=== PATIENT | female | born 1975 | race Caucasian/White ===

== ENCOUNTER 2020-01-30 03:58 | Emergency (ER) | payer MEDICAID, SELFPAY ==
[2020-01-30 04:22] VITALS: BP 203/106; PULSE 89; RESP 16; TEMP 36.9; O2SAT 98; BMI 34.3
[2020-01-30] MEDS: ondansetron 2 mg/ML SDV 2 mL 4 MG IVP (05:30)
[2020-01-30] MEDS: ketorolac 30 mg/mL INJ IVP (05:30)
[2020-01-30] MEDS: dexamethasone 4 mg/mL INJ IVP (05:40)
[2020-01-30 05:42] VITALS: RESP 16; O2SAT 97
[2020-01-30] MEDS: fentaNYL 50 mcg/mL INJ 2mL 100 MCG IVP (05:42)
--- NOTE | 2020-01-30 06:09 | ED_ITS ---
HPI - Headache General: Chief Complaint: Headache Stated Complaint: headache after seizure Time Seen by Provider: 01/30/20 04:44 History of Present Illness: HPI Narrative: 44-year-old lady with a history of stroke. She has a chronic right-sided weakness. 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 She presents with a significant headache following a seizure that started this morning while she was in bed. He was a bit of a prolonged seizure for her, but she recovered. She had significant headache following. She usually takes tizanidine for this following a seizure. She took one, but it did not seem to be helping. She took Tylenol migraine, but that did not help much either. She was concerned because those usually do help. She was also hypertensive. MD elicited complaint: headache and migraine Onset (ago): hour(s) Associated symptoms: Reports nausea; Deny chest pain, confusion, fever(s), rash or vomiting Review of Systems Const: Denies: fever or chills Eyes: Reports: blurry vision; Denies: change in vision ENMT: Denies: painful swallowing, bleeding gums or facial/sinus pain Card: Denies: chest pain, palpitations or irregular heart rhythm Resp: Denies: shortness of breath, productive cough, non-productive cough or wheezing GI: Reports: nausea; Denies: abdominal pain or vomiting : Denies: painful urination or blood in urine Musc: Reports: neck pain; Denies: back pain Skin/Breast: Denies: rash or itching Neuro: Reports: headache, dizziness and seizure-like activity; Denies: vertigo or confusion Psych: Denies: anxiety PFSH ED PFSH: Social History Smoking and tobacco status: never smoked Physical Exam Const: GENERAL APPEARANCE: well developed ORIENTATION/CONSCIOUSNESS: Yes oriented to person, Yes oriented to place and Yes oriented to time HENMT: COMMON NORMALS: normocephalic, external ears normal and external nose normal HEAD & SCALP: normocephalic FACE & SINUS: normal facial exam NOSE: external nose normal and no nasal discharge EXTERNAL EAR: Yes external ears normal MOUTH: tongue normal Eye: COMMON NORMALS: PERRL, EOMs intact bilaterally and conjunctivae normal EYELID: eyelids normal CONJUNCTIVA: Yes conjunctivae normal PUPIL: Yes PERRL Chest: COMMONS NORMALS: inspection of chest normal CHEST: No tenderness Resp: COMMON NORMALS: clear to auscultation bilaterally EFFORT & INSPECTION: No tachypneic, No respiratory distress, No retractions, No uses accessory muscles and No tracheal deviation AUSCULTATION: clear to auscultation bilaterally, no rhonchi, no wheezes and lung sounds not diminished Cardio: COMMON NORMALS: regular rate and regular rhythm RATE: regular rate RHYTHM: regular rhythm HEART SOUNDS: no murmurs PERIPHERAL PULSES: radial pulses present GI: INSPECTION: No abdominal distension AUSCULTATION: No hyperactive bowel sounds and No hypoactive bowel sounds PALPATION: No guarding and No rigid PERCUSSION: no dullness to percussion and no tympanic to percussion Neuro: SENSORIUM/ORIENTATION: Yes oriented to person, Yes oriented to place and Yes oriented to time CRANIAL NERVES: Yes CN normal except as noted SPEECH: other (Mild slurring, chronic) GAIT: Yes unable to assess gait MOTOR EXAM: pronator drift (Weakness on the right, chronic) Psych: COMMON NORMALS: mental status grossly normal Skin: COMMON NORMALS: no rashes or lesions noted GENERAL SKIN EXAM: no rashes or lesions noted Course Vital Signs: Vital signs: Vital Signs Temperature 98.4 F 01/30/20 04:22 Pulse Rate 89 01/30/20 04:22 Respiratory Rate 16 01/30/20 05:42 Blood Pressure 203/106 01/30/20 04:22 Pulse Oximetry 97 01/30/20 05:42 MDM - Headache MDM Narrative: Medical decision making narrative: Patient comes in with a headache following a seizure. Her previous seizure last was 10 days or so ago. She has these frequently with headaches following them frequently. This is not terribly different from her normal seizure episode. She just did not improve with home medication. She is improved, and back to baseline at this point. I do not believe further testing is necessary. Her blood pressure is much improved. She will be allowed discharge. She took Imitrex at one point for migraines which worked. She will be prescribed this Discharge Plan Discharge Patient Disposition: Home, Self-Care Clinical Impression: Seizure Headache Qualifiers: Headache type: unspecified Headache chronicity pattern: acute headache Intractability: not intractable Qualified Code(s): R51 - Headache Condition: Stable Prescriptions: New Imitrex 100 mg tablet See Rx Instructions .ROUTE .COMPLEX Qty: 10 RF: 0 Discharge Orders: Discharge Order (Routine); Ordered 01/30/20 Ordered By: Davy Ferraro Referrals: Shefali Russo DO [Family Provider] - Discharge Diet: Usual diet Discharge Activity: Increase activity as tolerated Patient Instructions: Acute Headache (ED) Activity Restrictions/Additional Instructions: Return for worsening weakness, repeated seizures, worsening headache despite treatment, mental status changes, other concerning symptoms Coding Level of Care Code ED Analytical Data Scientist for Chg Fwd Exam Comprehensive
--- NOTE | 2020-01-30 06:22 | PC.NURSE ---
Pt's mother and caregiver: Aleta [phone]
--- NOTE | 2020-01-30 06:35 | PC.NURSE ---
vm left on pt's mother to inform pt she is ready for discharge
[2020-01-30 06:52] VITALS: BP 123/69; PULSE 93; RESP 14; O2SAT 95
--- NOTE | 2020-01-30 06:57 | PC.NURSE ---
I agree with Lauren, Core Driller Helper assessment
== END 2020-01-30 06:52 | disposition home or self-care (01) ==
PROVIDERS: Emergency Provider Emergency Medicine; Family Provider Family Medicine
DX: R51 Headache (principal); R56.9 Unspecified convulsions
CPT/HCPCS: 12345; 96374; 96375; 99282; 99283; J1100; J1885; J2405; J3010

== ENCOUNTER 2020-03-09 09:54 | Emergency (ER) | payer MEDICAID, SELFPAY ==
[2020-03-09 10:04] VITALS: BP 238/140; PULSE 83; RESP 17; TEMP 36.7; O2SAT 97; BMI 40.7
--- NOTE | 2020-03-09 10:09 | XR_ITS ---
WS: [id number] PORTABLE CHEST HISTORY: chest pain COMPARISON: 03/24/2009 Lungs are clear and well expanded. No pleural effusion or pneumothorax. Cardiac size: Normal. Mediastinum/Aorta: Normal mediastinum. No osseous abnormality seen. XR/XR chest 1V portable [id number] IMPRESSION: Unremarkable portable chest.
--- NOTE | 2020-03-09 10:09 | ECG_ITS ---
Measurements Intervals [place] Rate: 76 P: 26 AL: 191 QRS: 14 QRSD: 103 T: 50 QT: 430 QTc: 485 SINUS RHYTHM NONSPECIFIC T-WAVE ABNORMALITY INTERPRETATION BASED ON A DEFAULT AGE OF 40 YEARS No previous ECG available for comparison Electronically Signed On 03-09-2020 18:55:03 CDT by Emily Yanez M.D. [email or web address]
--- NOTE | 2020-03-09 10:19 | CT_ITS ---
WS: [id number] CT HEAD NONCONTRAST HISTORY: severe HTN, ALATORRE; seizure yesterday TECHNIQUE: Contiguous axial imaging performed through the brain in 2.5 mm imaging. Bone and soft tiss ue windows. Sagittal and coronal reformats reviewed. All CT scans at [facility] use at le ast one of these dose optimization techniques: automated exposure control; mA and/or kV adjustment pe r patient size (includes targeted exams where dose is matched to clinical indication); or iterative r econstruction. DLP: 880.65 mGy.cm COMPARISON: 11/11/2008 No acute intracranial hemorrhage, midline shift or mass effect. No significant atrophy. There is a tiny lacunar infarct anterior limb of the RIGHT internal capsule. Additional lacunar infarct in the posterior limb of the LEFT internal capsule. No acute infarct. Ventricles: Normal size with no hydrocephalus. No inferior displacement of the cerebellar tonsils. Paranasal sinuses: As visualized are clear. Mastoid air cells: Well pneumatized. Calvarium and scalp: Prior craniotomy RIGHT frontal lobe. New since 11/11/2008. CT/CT head wo con* [id number] IMPRESSION: 1. No acute intracranial hemorrhage or edema. 2. Prior craniotomy RIGHT frontal lobe. 3. Small bilateral lacunar infarcts.
[2020-03-09 10:23] VITALS: O2SAT 94
--- NOTE | 2020-03-09 10:25 | PC.NURSE ---
pt transported to CT scan by stretcher with tech
[2020-03-09 10:28] LABS: Basophils # 0.1 10^3/uL (0.0-0.1); Basophils % 0.7 %; Eosinophils # 0.3 10^3/uL (0.0-0.8); Eosinophils % 2.7 %; Hematocrit 36.3 % (37.0-47.0); Hemoglobin 11.5 g/dL (11.5-15.3); Lymphocytes # 3.9 10^3/uL (0.8-4.8); Lymphocytes % 34.8 %; Mean Corpuscular HGB Conc 31.7 g/dL (30.0-36.0); Mean Corpuscular Hemoglobin 26.7 pg (28.0-34.0); Mean Corpuscular Volume 84.2 fL (81-99); Mean Platelet Volume 10.6 fL (7.4-10.4); Monocytes # 0.9 10^3/uL (0.2-0.9); Monocytes % 7.8 %; Neutrophils % 53.5 %; Nucleated Red Blood Cells % 0 %; Platelet Count 409 10^3/cmm (130-400); Red Blood Count 4.31 10^6/uL (4.1-5.3); Red Cell Distribution Width 13.4 % (12.1-15.1); White Blood Count 11.2 10^3/uL (4.0-10.0)
--- NOTE | 2020-03-09 10:28 | ED_ITS ---
HPI - General Adult General: Chief complaint: Chest Pain Stated complaint: HIGH BP Time Seen by Provider: 03/09/20 10:03 Source: patient Mode of arrival: wheelchair Limitations: no limitations History of Present Illness: HPI narrative: Patient is a 44-year-old female with a history of DM, HTN, CVA (leaving her with chronic R sided weakness/deficits), and seizures here for complaints of hypertension and ALATORRE following a seizure last evening. 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 She is on Keppra for the seizures- reports on average she will have one seizure a month. She had a neurologist at [facility] () in [place], [place]. Patient was at her PCP Dr. Russo's office for medication refills and Keppra level check when they noticed BP was 200s/100s. Patient tells me her hypertension is normally treated successfully with HCTZ and metoprolol. She states a normal BP for her is 140s/90s. Patient currently complains of a headache. She often will get mild postictal headaches however states her headache today is much more severe in nature. Patient was seen here in our ED fairly recently for a worse than normal post ictal headache. 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 She states normally her left eye can perceive objects and large font. She has noticed since the seizure that the left eye is less perceptive. Patient denies chest pain, shortness of breath, difficulty breathing. She denies lightheadedness, dizziness, syncope. Onset (ago): hour(s) (seizure and ALATORRE beginning last night) Associated symptoms: Reports headache(s); Deny chest pain, dyspnea, malaise, nausea, rash, palpitations, syncope or vomiting Review of Systems 2 Const: Denies: fever(s), chills, body aches, fatigue or malaise Eyes: Reports: change in vision (L eye); Denies: blurry vision, photophobia, eye discomfort, eye discharge, floaters or seeing flashes ENMT: Denies: throat pain, enlarged tonsils or odynophagia Card: Denies: chest pain, palpitations, irregular heart rhythm, lightheadedness, syncope or dyspnea on exertion Resp: Denies: dyspnea, productive cough, pain on inspiration or chest congestion GI: Denies: abdominal pain, nausea, vomiting, heartburn or diarrhea : Denies: flank pain, difficulty voiding or dysuria Musc: Denies: neck pain, back pain or joint pain Skin/Breast: Denies: rash Neuro: Reports: headache(s) and weakness in extremities (chronic R sided) PFSH ED PFSH: Medical History (Updated 03/18/20 @ 00:00 by ) Chronic back pain Depression Dyslipidemia Essential hypertension Insomnia Rotator cuff injury Seasonal allergies Stroke TIA (transient ischemic attack) Type 2 diabetes mellitus, with long-term current use of insulin Vasculitis Surgical History H/O brain surgery H/O tubal ligation H/O: hysterectomy History of cholecystectomy History of tonsillectomy Family History Other Cancer Diabetes Social History Smoking and tobacco status: never smoked Alcohol intake: never Household members: family Housing: House Physical Exam Const: COMMON NORMALS: no acute distress, patient oriented x3, no limitations and alert NUTRITIONAL APPEARANCE: obese ORIENTATION/CONSCIOUSNESS: Yes oriented to person, Yes oriented to place and Yes oriented to time HENMT: COMMON NORMALS: normocephalic, atraumatic, hearing grossly normal bilaterally and external ears normal HEAD & SCALP: normal to inspection, normocephalic and atraumatic FACE & SINUS: normal facial exam and sinuses nontender EXTERNAL EAR: Yes external ears normal Eye: COMMON NORMALS: EOMs intact bilaterally, conjunctivae normal and no scleral icterus GENERAL EYE: appearance normal, both eyes and all related structures PERIORBITAL: periorbital findings normal EYELID: eyelids normal CONJUNCTIVA: Yes conjunctivae normal SCLERA: sclerae normal CORNEA: Yes corneas normal OTHER: pt with chronic blindness to R eye; states L eye can only perceive objects and large fonts Neck/C-Spine: COMMON NORMALS: full ROM, no lymphadenopathy and no meningeal signs Chest: COMMONS NORMALS: normal inspection of the chest and normal palpation of entire chest wall Resp: COMMON NORMALS: normal respiratory effort and clear to auscultation bilaterally AUSCULTATION: clear to auscultation bilaterally Cardio: COMMON NORMALS: regular rate and regular rhythm RATE: regular rate RHYTHM: regular rhythm GI: COMMON NORMALS: Normal to inspection, nondistended, normoactive bowel sounds present, Soft to palpation, non-tender, No hepatosplenomegaly present and no masses PALPATION: Yes Soft to palpation and Yes No hepatosplenomegaly present Extremity: GENERAL: Yes normal exam except as noted OTHER: chronic R sided weakness Neuro: [place] COMA SCALE: document GCS findings [place] coma scale eye opening: Spontaneous [place] coma scale verbal response: Orientated [place] coma scale motor response: Obey commands [place] coma scale total score: 15 COMMON NORMALS: patient oriented x3 SENSORIUM/ORIENTATION: Yes alert, Yes oriented to person, Yes oriented to place and Yes oriented to time MENINGEAL SIGNS: Yes no meningeal signs OTHER: pt has chronic R sided weakness; strength and sensory appears intact to L side Skin: COMMON NORMALS: no rashes or lesions noted GENERAL SKIN EXAM: no rashes or lesions noted Course ED course: pt still complains of a ALATORRE and L sided visual changes; spoke to Dr. Garcia and we will obtain head/neck CTA Reevaluation(s): Reevaluation #1: pts ALATORRE is completely resolved (rates 0/10); she states in addition, her L vision has returned to normal; I have tried to contact both of her neurologists at [facility] in but have been unsuccessful; we have medical records being faxed but so far this has taken over an hour; pt states she feels much improved and would like to go home at this time; she is requesting neurology follow up here with Dr. Lindsey as it is closer-this referral has been placed with ; pt currently has no neurological deficits; BP has improved; strict return to ED precautions given Vital Signs: Vital signs: Vital Signs Temperature 98.0 F 03/09/20 10:04 Pulse Rate 82 03/09/20 16:20 Respiratory Rate 18 03/09/20 16:20 Blood Pressure 133/89 03/09/20 16:20 Pulse Oximetry 96 03/09/20 16:20 MDM - General Adult Lab Data: Labs: Lab Results 03/09/20 03/09/20 03/09/20 Range/Units 10:20 10:20 10:20 WBC 11.2 H (4.0-10.0) 10^3/ uL RBC 4.31 (4.1-5.3) 10^6/u L Hgb 11.5 (11.5-15.3) g/dL Hct 36.3 L (37.0-47.0) % MCV 84.2 (81-99) fL MCH 26.7 L (28.0-34.0) pg MCHC 31.7 (30.0-36.0) g/dL RDW 13.4 (12.1-15.1) % Plt Count 409 H (130-400) 10^3/c mm MPV 10.6 H (7.4-10.4) fL Neut % (Auto) 53.5 % Lymph % (Auto) 34.8 % [place] % (Auto) 7.8 % Eos % (Auto) 2.7 % Baso % (Auto) 0.7 % Neut # (Auto) 6.0 (1.8-7.7) 10^3/u L Lymph # (Auto) 3.9 (0.8-4.8) 10^3/u L [place] # (Auto) 0.9 (0.2-0.9) 10^3/u L Eos # (Auto) 0.3 (0.0-0.8) 10^3/u L Baso # (Auto) 0.1 (0.0-0.1) 10^3/u L Nucleated RBC % (a uto) 0 % Nucleated RBCs # 0.0 /100WBC Sodium 138 (136-145) mmol/L Potassium 3.9 (3.5-5.1) mmol/L Chloride 100 (98-107) mmol/L Carbon Dioxide 28 (22-29) mmol/L Anion Gap 13.9 (5-19) BUN 22 H (6-20) mg/dL Creatinine 0.9 (0.5-0.9) mg/dL GFR Calculation 67.4 L (90-130) mL/min Glucose 162 H (65-115) mg/dL Calculated Osmolal ity 286 (285-295) mOsm/k g Calcium 9.3 (8.5-10.5) mg/dL Total Bilirubin 0.2 (0.15-1.2) mg/dL AST 19 (0-32) U/L ALT 21 (0-33) U/L Alkaline Phosphata se 99 (35-105) IU/L Troponin T Baselin e 21 H (0-10) ng/mL Troponin T 120 Min [place] (0-10) ng/mL Delta Troponin T (0-10) ABS# Total Protein 6.2 L (6.6-8.7) g/dL Albumin 3.5 (3.5-5.2) g/dL Globulin 2.7 (1.3-4.6) g/dL Levetiracetam mcg/mL 03/09/20 03/09/20 Range/Units 10:42 12:22 WBC (4.0-10.0) 10^3/ uL RBC (4.1-5.3) 10^6/u L Hgb (11.5-15.3) g/dL Hct (37.0-47.0) % MCV (81-99) fL MCH (28.0-34.0) pg MCHC (30.0-36.0) g/dL RDW (12.1-15.1) % Plt Count (130-400) 10^3/c mm MPV (7.4-10.4) fL Neut % (Auto) % Lymph % (Auto) % [place] % (Auto) % Eos % (Auto) % Baso % (Auto) % Neut # (Auto) (1.8-7.7) 10^3/u L Lymph # (Auto) (0.8-4.8) 10^3/u L [place] # (Auto) (0.2-0.9) 10^3/u L Eos # (Auto) (0.0-0.8) 10^3/u L Baso # (Auto) (0.0-0.1) 10^3/u L Nucleated RBC % (a uto) % Nucleated RBCs # /100WBC Sodium (136-145) mmol/L Potassium (3.5-5.1) mmol/L Chloride (98-107) mmol/L Carbon Dioxide (22-29) mmol/L Anion Gap (5-19) BUN (6-20) mg/dL Creatinine (0.5-0.9) mg/dL GFR Calculation (90-130) mL/min Glucose (65-115) mg/dL Calculated Osmolal ity (285-295) mOsm/k g Calcium (8.5-10.5) mg/dL Total Bilirubin (0.15-1.2) mg/dL AST (0-32) U/L ALT (0-33) U/L Alkaline Phosphata se (35-105) IU/L Troponin T Baselin e (0-10) ng/mL Troponin T 120 Min [place] 17.23 H (0-10) ng/mL Delta Troponin T -3.77 L (0-10) ABS# Total Protein (6.6-8.7) g/dL Albumin (3.5-5.2) g/dL Globulin (1.3-4.6) g/dL Levetiracetam 51.2 H mcg/mL Imaging Data^: CT Head: Radiologist's impression: [address] [address] [address] Scan Report Signed Patient: Ivon Larios Unit #: [id number] : 1975 Age/Sex: 44 / F ADM Date: 03/09/20 Loc: ER Room/Bed: Attending Dr: Ordering Provider/Ordering MD: Patricia Baker Date of Service: 03/09/20 Procedure(s): CT head wo con* [id number] Accession Number(s): [id number] Report Number: [id number] WS: [id number] CT HEAD NONCONTRAST HISTORY: severe HTN, ALATORRE; seizure yesterday TECHNIQUE: Contiguous axial imaging performed through the brain in 2.5 mm imaging. Bone and soft tissue windows. Sagittal and coronal reformats reviewed. All CT scans at [facility] use at least one of these dose optimization techniques: automated exposure control; mA and/or kV adjustment per patient size (includes targeted exams where dose is matched to clinical indication); or iterative reconstruction. DLP: 880.65 mGy.cm COMPARISON: 11/11/2008 No acute intracranial hemorrhage, midline shift or mass effect. No significant atrophy. There is a tiny lacunar infarct anterior limb of the RIGHT internal capsule. Additional lacunar infarct in the posterior limb of the LEFT internal capsule. No acute infarct. Ventricles: Normal size with no hydrocephalus. No inferior displacement of the cerebellar tonsils. Paranasal sinuses: As visualized are clear. Mastoid air cells: Well pneumatized. Calvarium and scalp: Prior craniotomy RIGHT frontal lobe. New since 11/11/2008. CT/CT head wo con* [id number] IMPRESSION: 1. No acute intracranial hemorrhage or edema. 2. Prior craniotomy RIGHT frontal lobe. 3. Small bilateral lacunar infarcts. Dictated By: Suzan Smith DO Signed By: Suzan Smith DO Signed Date/Time: 03/09/20 1046 DD/ 1042 CXR: Radiologist's impression: [address] [place] [address] XRay Report Signed Patient: Ivon Larios Unit #: [id number] : 1975 Age/Sex: 44 / F ADM Date: 03/09/20 Loc: ER Room/Bed: Attending Dr: Ordering Provider/Ordering MD: Patricia Baker Date of Service: 03/09/20 Procedure(s): XR chest 1V portable [id number] Accession Number(s): [id number] Report Number: [id number] WS: [id number] PORTABLE CHEST HISTORY: chest pain COMPARISON: 03/24/2009 Lungs are clear and well expanded. No pleural effusion or pneumothorax. Cardiac size: Normal. Mediastinum/Aorta: Normal mediastinum. No osseous abnormality seen. XR/XR chest 1V portable [id number] IMPRESSION: Unremarkable portable chest. Dictated By: Suzan Smith DO Signed By: Suzan Smith DO Signed Date/Time: 03/09/20 1100 DD/ 1100 CTA head/neck: Radiologist's impression: [address] [place] [address] CT Scan Report Signed Patient: Ivon Larios Unit #: [id number] : 1975 Age/Sex: 44 / F ADM Date: 03/09/20 Loc: ER Room/Bed: Attending Dr: Ordering Provider/Ordering MD: Patricia Baker Date of Service: 03/09/20 Procedure(s): CT angio headneck* [id number] Accession Number(s): [id number] Report Number: [id number] WS: [id number] CT ANGIOGRAM CEREBRAL AND CAROTID ARTERIES HISTORY: L visual changes; ALATORRE; previous CVA TECHNIQUE: CT angiogram is performed of the carotid and cerebral arteries. During arterial injection imaging is obtained from the skull vertex to the aortic arch in 1.25 mm imaging. Coronal and sagittal reformats are submitted. Additional multi planar reformats of the carotid and cerebral arteries are submitted, MIP imaging also reviewed. NASCET criteria utilized. All CT scans at [facility] use at least one of these dose optimization techniques: automated exposure control; mA and/or kV adjustment per patient size (includes targeted exams where dose is matched to clinical indication); or iterative reconstruction. CONTRAST: Omnipaque 350; 95 mL IV. DLP: 2190.25 mGy-cm. COMPARISON: None available. Carotid Angiogram: Right carotid: Common carotid artery: Arises normally from the innominate artery. No significant plaque or stenosis. Internal carotid artery: No plaque or stenosis. External carotid artery: Patent. Left carotid: Common carotid artery: Arises normally from the aorta. No significant plaque or stenosis. Internal carotid artery: Bifurcation there is circumferential soft tissue thickening surrounding the proximal ICA. Small noncalcified plaque. There is also small ulcerated plaque extending into the thrombus best seen on image 94 of series 4. No significant stenosis. External carotid artery: Patent. Right vertebral artery: Unremarkable. Left vertebral artery: Unremarkable. Arises normally from the subclavian artery. Subclavian arteries: No stenosis or significant abnormality. Upper thorax: Normal. Thyroid gland: Normal. Osseous structures: Unremarkable. CEREBRAL ANGIOGRAM: Intracranial vertebral arteries: Normal with no significant atherosclerosis. Basilar artery: No significant stenosis or occlusion. No aneurysm. Intracranial Internal carotid arteries: There is a small amount of calcified plaque within the RIGHT intracranial internal carotid artery. Approximately 50% stenosis at the supraclinoid ICA. Middle cerebral arteries: There is a beaded appearance of the middle cerebral arteries bilaterally. This predominantly involving the M1 portions. Mild stenosis at the trifurcation of the RIGHT MCA. Moderate stenosis greater than 50% involving the mid LEFT M1 segment. Anterior cerebral arteries and ACOM: Normal. Posterior cerebral arteries and PCOM's: Normal. Dural venous sinuses are normally enhancing. Mastoid air cells: Normal. Paranasal sinuses: Normal. Calvarium: Prior RIGHT frontal craniotomy. Notified FRANCHESKA Lozano at 03/09/2020 2:[address]/CT angio headneck* [id number] IMPRESSION: 1. No significant carotid artery stenosis. Moderate amount of circumferential intimal thickening at the LEFT bifurcation and proximal ICA with intimal thickening measuring up to 3.9 mm. May be noncalcified thrombus or related to vasculitis. Focal dissection cannot be completely excluded. No prior studies are available for comparison. 2. There is an additional focal ulceration extending into the intimal thickening in the proximal LEFT ICA. 3. Mild stenosis supraclinoid RIGHT ICA. 4. Moderate stenosis mid LEFT M1 segment. Mild narrowing of the trifurcation RIGHT middle cerebral artery. 5. Slightly beaded appearance of the middle cerebral arteries. Correlate for possible fibromuscular dysplasia. Dictated By: Suzan Smith DO Signed By: Suzan Smith DO Signed Date/Time: 03/09/20 1440 DD/ 1320 Discharge Plan Discharge Patient Disposition: Home, Self-Care Clinical Impression: Postictal headache Hypertension Qualifiers: Hypertension type: essential hypertension Qualified Code(s): I10 - Essential (primary) hypertension Condition: Stable Prescriptions: No Action amitriptyline 25 mg tablet 25 mg PO DAILY Qty: 30 RF: 0 atorvastatin 40 mg tablet 40 mg PO DAILY Qty: 30 RF: 0 cetirizine [Zyrtec] 10 mg tablet 10 mg PO DAILY Qty: 30 RF: 0 fluoxetine [Prozac] 20 mg capsule 20 mg PO DAILY Qty: 30 RF: 0 glipizide 5 mg tablet 5 mg PO BID Qty: 60 RF: 0 levetiracetam [Keppra] 1,000 mg tablet 1,000 mg PO BID Qty: 60 RF: 0 Victoza 3-Ramin 0.6 mg/0.1 mL (18 mg/3 mL) pen injector 1.2 mg SUBCUT Q24H Qty: 9 RF: 0 tizanidine 2 mg capsule 2 mg PO BEDTIME PRN (Reason: Muscle Pain) Qty: 30 RF: 0 aspirin 81 mg Tablet,Delayed Release (Dr/Ec) 81 mg PO DAILY Qty: 30 RF: 0 pantoprazole 40 mg Tablet,Delayed Release (Dr/Ec) 40 mg PO DAILY Qty: 60 RF: 0 prednisone 20 mg Tablet 60 mg PO DAILY Qty: 42 RF: 0 hydralazine 10 mg Tablet 10 mg PO TID Qty: 180 RF: 0 Novolog U-100 Insulin aspart 100 unit/mL Solution See Rx Instructions .ROUTE .COMPLEX Qty: 10 RF: 0 hydrocodone-acetaminophen 5-325 mg Tablet 2 tab PO Q4H PRN (Reason: Moderate To Severe Pain) Qty: 4 RF: 0 diphenhydramine HCl 25 mg Capsule 25 mg PO Q4H PRN (Reason: Itching) Qty: 4 RF: 0 Plavix 75 mg tablet 75 mg PO DAILY Qty: 30 RF: 0 metoprolol tartrate 50 mg tablet 75 mg PO BID Qty: 60 RF: 0 Levemir FlexTouch U-100 Insuln 100 unit/mL (3 mL) insulin pen 42 unit SUBCUT DAILY Qty: 15 RF: 0 (DME) diabetic supplies, [employer]ell[employer]. Misc See Rx Instructions .ROUTE .MEDSUPPLY Qty: 60 RF: 0 Discharge Orders: Discharge Order (Routine); Ordered 03/09/20 Ordered By: Patricia Baker Referrals: Shefali Russo DO [Primary Care Provider] - Activity Restrictions/Additional Instructions: As discussed case management should contact you to set you up with a neurologist here in [facility]. Please call your previous neurology team in [place] and get medical records. These will be extremely beneficial for you trying to transfer care down here. You may return to the emergency department at anytime for worsening headache, extreme hypertension, visual changes, or any other concerns you may have. Discharge Date/Time: 03/09/20 16:24 Coding Level of Care Code ED Certified Diabetes Educator for Chg Fwd Exam Comprehensive
[2020-03-09 10:41] LABS: Alanine Aminotransferase 21 U/L (0-33); Albumin Level 3.5 g/dL (3.5-5.2); Alkaline Phosphatase 99 IU/L (35-105); Anion Gap 13.9 (5-19); Aspartate Amino Transferase 19 U/L (0-32); Blood Urea Nitrogen 22 mg/dL (6-20); Calcium 9.3 mg/dL (8.5-10.5); Carbon Dioxide 28 mmol/L (22-29); Chloride 100 mmol/L (98-107); Globulin 2.7 g/dL (1.3-4.6); Glomerular Filtration Rate 67.4 mL/min (90-130); Glucose 162 mg/dL (65-115); Osmolality Calculated 286 mOsm/kg (285-295); Potassium 3.9 mmol/L (3.5-5.1); Sodium 138 mmol/L (136-145); Total Bilirubin 0.2 mg/dL (0.15-1.2); Total Protein 6.2 g/dL (6.6-8.7)
[2020-03-09] MEDS: hyDRALAzine 20 mg/mL INJ 1 mL 10 MG IVP (10:41)
[2020-03-09 10:45] LABS: Troponin(5th) Baseline 21 ng/mL (0-10)
[2020-03-09 11:25] VITALS: BP 164/66; PULSE 76; O2SAT 97
--- NOTE | 2020-03-09 12:09 | ECG_ITS ---
Measurements Intervals [place] Rate: 75 P: 23 VA: 191 QRS: 13 QRSD: 112 T: 26 QT: 445 QTc: 498 SINUS RHYTHM MODERATE INTRAVENTRICULAR CONDUCTION DELAY [110+ ms QRS DURATION] PROLONGED QT INTERVAL No previous ECG available for comparison Electronically Signed On 03-09-2020 19:02:01 CDT by Emily Yanez M.D. [email or web address]
[2020-03-09] MEDS: ondansetron 2 mg/ML SDV 2 mL 4 MG IVP (12:16)
[2020-03-09] MEDS: ketorolac 30 mg/mL INJ IVP (12:17)
[2020-03-09] MEDS: dexamethasone 4 mg/mL INJ 6 MG IVP (12:18)
--- NOTE | 2020-03-09 12:47 | CT_ITS ---
WS: [id number] CT ANGIOGRAM CEREBRAL AND CAROTID ARTERIES HISTORY: L visual changes; ALATORRE; previous CVA TECHNIQUE: CT angiogram is performed of the carotid and cerebral arteries. During arterial injection imaging is obtained from the skull vertex to the aortic arch in 1.25 mm imaging. Coronal and sagittal reformats are submitted. Additional multi planar reformats of the carotid and cerebral arteries are submitted, MIP imaging also reviewed. NASCET criteria utilized. All CT scans at [facility] use at least one of these dose optimization techniques: automated exposure control; mA and/or kV ad justment per patient size (includes targeted exams where dose is matched to clinical indication); or iterative reconstruction. CONTRAST: Omnipaque 350; 95 mL IV. DLP: 2190.25 mGy-cm. COMPARISON: None available. Carotid Angiogram: Right carotid: Common carotid artery: Arises normally from the innominate artery. No significant plaque or stenosis. Internal carotid artery: No plaque or stenosis. External carotid artery: Patent. Left carotid: Common carotid artery: Arises normally from the aorta. No significant plaque or stenosis. Internal carotid artery: Bifurcation there is circumferential soft tissue thickening surrounding the proximal ICA. Small noncalcified plaque. There is also small ulcerated plaque extending into the thro mbus best seen on image 94 of series 4. No significant stenosis. External carotid artery: Patent. Right vertebral artery: Unremarkable. Left vertebral artery: Unremarkable. Arises normally from the subclavian artery. Subclavian arteries: No stenosis or significant abnormality. Upper thorax: Normal. Thyroid gland: Normal. Osseous structures: Unremarkable. CEREBRAL ANGIOGRAM: Intracranial vertebral arteries: Normal with no significant atherosclerosis. Basilar artery: No significant stenosis or occlusion. No aneurysm. Intracranial Internal carotid arteries: There is a small amount of calcified plaque within the RIGHT intracranial internal carotid artery. Approximately 50% stenosis at the supraclinoid ICA. Middle cerebral arteries: There is a beaded appearance of the middle cerebral arteries bilaterally. T his predominantly involving the M1 portions. Mild stenosis at the trifurcation of the RIGHT MCA. Mode rate stenosis greater than 50% involving the mid LEFT M1 segment. Anterior cerebral arteries and ACOM: Normal. Posterior cerebral arteries and PCOM's: Normal. Dural venous sinuses are normally enhancing. Mastoid air cells: Normal. Paranasal sinuses: Normal. Calvarium: Prior RIGHT frontal craniotomy. Notified FRANCHESKA Lozano at 03/09/2020 2:[address]/CT angio headneck* [id number] IMPRESSION: 1. No significant carotid artery stenosis. Moderate amount of circumferential intimal thickening at the LEFT bifurcation and proximal ICA with intimal [place] measuring up to 3.9 mm. May be noncalcified thrombus or related to vasculi tis. Focal dissection cannot be completely excluded. No prior studies are avail able for comparison. 2. There is an additional focal ulceration extending into the intimal thickeni ng in the proximal LEFT ICA. 3. Mild stenosis supraclinoid RIGHT ICA. 4. Moderate stenosis mid LEFT M1 segment. Mild narrowing of the trifurcation R IGHT middle cerebral artery. 5. Slightly beaded appearance of the middle cerebral arteries. Correlate for p ossible fibromuscular dysplasia.
[2020-03-09 12:59] LABS: Troponin 5 2HR 17.23 ng/mL (0-10)
[2020-03-09] MEDS: iohexol 350 mg/mL 100 mL Btl IV (13:06)
[2020-03-09 13:07] LABS: Troponin 5 2HR Delta -3.77 ABS# (0-10)
[2020-03-09 13:53] VITALS: RESP 17; O2SAT 98
[2020-03-09] MEDS: fentaNYL 50 mcg/mL INJ 2mL 75 MCG IVP (13:53)
[2020-03-09 16:20] VITALS: BP 133/89; PULSE 82; RESP 18; O2SAT 96
--- NOTE | 2020-03-13 09:59 | DCPLANNER ---
manufacturing operations manager had message to schedule a follow up appointment for patient with Dr. Lindsey. manufacturing operations manager called the office of Dr. Lindsey, spoke with Bailee, a follow up appointment is scheduled for March at 12:[address] Lindsey. manufacturing operations manager called patients mother and gave her the appointment information.
[2020-03-14 11:27] LABS: Levetiracetam Keppra 51.2 mcg/mL
--- NOTE | 2020-03-29 12:46 | DCPLANNER ---
Patient attended follow up appointment with Dr. Lindsey.
== END 2020-03-09 16:24 | disposition home or self-care (01) ==
PROVIDERS: Emergency Provider Physician Assistant; PCP Family Medicine
DX: G44.89 Other headache syndrome (principal); I10 Essential (primary) hypertension; Z79.02 Long term (current) use of antithrombotics/antiplatelets; Z79.82 Long term (current) use of aspirin; Z79.4 Long term (current) use of insulin; E78.5 Hyperlipidemia, unspecified; Z86.73 Personal history of transient ischemic attack (TIA), and cerebral infarction without residual deficits; E11.9 Type 2 diabetes mellitus without complications
CPT/HCPCS: 12345; 36415; 70450; 70496; 70498; 71045; 80053; 80177; 84484; 85025; 93005; 96374; 96375; 99282; 99284; J0131; J0360; J1100; J1885; J2405; J3010; Q9967

== ENCOUNTER 2020-03-14 22:01 | Emergency (ER) | payer MEDICAID, SELFPAY | END 2020-03-15 02:35 | disposition admitted as inpatient to this hospital (09) | LOC: ER 03-26 14:27 | PROVIDERS: Emergency Provider Emergency Medicine; PCP Family Medicine | DX: I16.1 Hypertensive emergency (principal); E78.5 Hyperlipidemia, unspecified; I10 Essential (primary) hypertension; Z86.73 Personal history of transient ischemic attack (TIA), and cerebral infarction without residual deficits; E11.9 Type 2 diabetes mellitus without complications | CPT/HCPCS: 12345; 70450; 71045; 71275; 74174; 80053; 82550; 83735; 84484; 85025; 85378; 85610; 85730; 96365; 96366; 96367; 96375; 96376; 99283; 99291; J1170; J2405; J3490 ==

== ENCOUNTER 2020-03-14 22:01 | Inpatient (IN) | payer MEDICAID, SELFPAY ==
[2020-03-14 22:02] VITALS: BMI 35.4
[2020-03-14 22:07] VITALS: BP 259/135; PULSE 84; RESP 20; TEMP 36.7; O2SAT 99
--- NOTE | 2020-03-14 22:07 | XR_ITS ---
WS: [id number] XR chest 1V portable [id number] REASON FOR EXAM: Chest pain FINDINGS: Single view portable evaluation of the chest shows normal heart and mediastinal interfaces. The chest is similar to previous exam of March 08, 2020. There is no pneumonia, pleural effusion, pulmonary edema, are pneumothorax. The hilum is and apices normal. No osseous abnormalities. XR/XR chest 1V portable [id number] IMPRESSION: Negative chest for acute pathology.
--- NOTE | 2020-03-14 22:14 | W.ED.CHESTPA ---
HPI - Chest Pain General: Chief Complaint: Chest Pain Stated Complaint: Chest Pain Time Seen by Provider: 03/14/20 22:06 History of Present Illness: HPI narrative: Dinah is a nice 44-year-old female who comes in complaining of left-sided chest pain. She has a hard time describing the pain but describes it as deep in her chest. The pain is described as sharp/pleuritic and is worse when she takes a deep breath or coughs. Patient states she has a history of heart attack in the past as well as pericarditis. She denies any shortness of breath, nausea vomiting, radiation of her pain but does state it is made better when she holds her arm against herself. She states her symptoms started today after she had a breakthrough seizure at home. Breakthrough seizures or not uncommon for her. She denies any other complaints or concerns at this time. Associated symptoms: Deny abdominal pain, diaphoresis, dyspnea, fever(s), nausea, palpitations, syncope or vomiting Review of Systems Const: Denies: fever(s), chills, body aches, fatigue, malaise or diaphoresis Eyes: Denies: change in vision, blurry vision, blind spots or photophobia ENMT: Denies: throat pain, odynophagia, hoarseness, swelling of lips/tongue, ear or mastoid pain, ear discharge, change in hearing or nasal discharge Card: Reports: chest pain; Denies: palpitations, irregular heart rhythm, edema, lightheadedness, syncope, pre-syncope, dyspnea on exertion or orthopnea Resp: Denies: dyspnea, productive cough, non-productive cough, wheezing, hemoptysis or chest congestion GI: Denies: abdominal pain, nausea, vomiting, hematemesis, coffee ground emesis, heartburn, diarrhea, constipation, GI cramping, hematochezia or melena : Denies: flank pain, dysuria, urinary frequency, urinary urgency or hematuria Musc: Denies: neck pain, back pain, extremity pain, extremity swelling, joint pain, joint swelling, joint redness, joint warmth or joint stiffness Skin/Breast: Denies: rash, pruritus, erythema, skin tenderness or jaundice Neuro: Reports: headache(s); Denies: numbness in extremities, weakness in extremities, sensory changes, lack of coordination, difficulty walking, dizziness, vertigo, confusion or Slurred speech present Donato/Lymph: Denies: easy bruising, easy bleeding, petechiae, purpura or enlarged lymph nodes All/Imm: Denies: urticaria, throat swelling, tongue swelling, facial swelling or acute wheezing PFSH ED PFSH: Medical History (Updated 03/15/20 @ 01:22 by Eleni Luz) Chronic back pain Depression Dyslipidemia Essential hypertension Insomnia Rotator cuff injury Seasonal allergies Stroke TIA (transient ischemic attack) Type 2 diabetes mellitus, with long-term current use of insulin Surgical History H/O brain surgery H/O tubal ligation H/O: hysterectomy History of cholecystectomy History of tonsillectomy Family History Other Cancer Diabetes Social History Smoking and tobacco status: never smoked Physical Exam Const: COMMON NORMALS: no acute distress, patient oriented x3, no limitations, healthy appearing, alert and well nourished GENERAL APPEARANCE: cooperative, well kempt and well developed HENMT: COMMON NORMALS: normocephalic, atraumatic, hearing grossly normal bilaterally, external ears normal, EAC's normal, Normal external nose present and moist oral mucous membranes HEAD & SCALP: normocephalic and atraumatic NOSE: Normal external nose present and Normal nares present EXTERNAL EAR: Yes external ears normal EXTERNAL AUDITORY CANAL: EAC's normal MOUTH: Normal oral and palatal mucosa present, lip normal and tongue normal Eye: COMMON NORMALS: Equal, round and reactive pupils present, EOMs intact bilaterally, conjunctivae normal and no scleral icterus GENERAL EYE: appearance normal, both eyes and all related structures ALIGNMENT: Yes alignment normal PERIORBITAL: periorbital findings normal EYELID: eyelids normal CONJUNCTIVA: Yes conjunctivae normal SCLERA: sclerae normal PUPIL: Yes Equal, round and reactive pupils present Neck/C-Spine: COMMON NORMALS: full ROM, no lymphadenopathy, supple, no meningeal signs and no JVD GENERAL: Yes normal visual inspection and Yes trachea midline Chest: COMMONS NORMALS: normal inspection of the chest and normal palpation of entire chest wall Resp: COMMON NORMALS: normal respiratory effort, No retractions, No use of accessory muscles and clear to auscultation bilaterally EFFORT & INSPECTION: Yes able to speak in complete sentences and Yes symmetric chest movement AUSCULTATION: clear to auscultation bilaterally, no crackles, no rales, no rhonchi and no wheezes Cardio: COMMON NORMALS: no JVD, regular rate, regular rhythm, S1 normal heart sound present, S2 normal heart sound present, No gallops present (Cardio), No clicks present (Cardio), No murmurs present (Cardio) and No rub (Cardio) RATE: regular rate RHYTHM: regular rhythm HEART SOUNDS: S1 normal heart sound present and S2 normal heart sound present GI: COMMON NORMALS: Soft to palpation and No hepatosplenomegaly present PALPATION: Yes Soft to palpation, No Tenderness to palpation present (GI), No Guarding due to palpation present (GI), No Rigid due to palpation, Yes No hepatosplenomegaly present, No Hernia present, No Palpable mass present and No Pulsatile mass present : COMMON NORMALS: Yes no CVA tenderness BLADDER/KIDNEY EXAM: Yes no CVA tenderness EXTERNAL FEMALE EXAM: No Hernia present Back/Pelvis: COMMON NORMALS: no CVA tenderness, thoracic and lumbar spine normal to inspection, no thoracic nor lumbar tenderness and thoraco-lumbar ROM normal Extremity: COMMON NORMALS: normal to inspection, full ROM, capillary refill normal, no joint enlargement, no clubbing, cyanosis or edema and no calf tenderness Neuro: ELLI COMA SCALE: document GCS findings [place] coma scale eye opening: Spontaneous [place] coma scale verbal response: Orientated [place] coma scale motor response: Obey commands [place] coma scale total score: 15 COMMON NORMALS: patient oriented x3 SENSORIUM/ORIENTATION: Yes alert MENINGEAL SIGNS: Yes no meningeal signs Psych: COMMON NORMALS: mental status grossly normal, Normal thought process present, cooperative, normal affect, speech normal and activity/motor behavior normal APPEARANCE: Yes well kempt SPEECH: Yes normal speech THOUGHT PROCESS: Normal thought process present Skin: COMMON NORMALS: no rashes or lesions noted, turgor normal, no jaundice, no petechiae and no mottling GENERAL SKIN EXAM: no rashes or lesions noted and turgor normal Course ED course: Patient is now saying she had a severe headache at the onset of whole her symptoms tonight. With her blood pressure to the degree that it is elevated I am going to CT her head to rule out subarachnoid hemorrhage but also do a dissection protocol for her chest pain. Vital Signs: Vital signs: Vital Signs Temperature 98.0 F 03/14/20 22:07 Pulse Rate 85 03/15/20 01:15 Respiratory Rate 18 03/15/20 01:15 Blood Pressure 174/102 03/15/20 01:15 Pulse Oximetry 96 03/15/20 01:15 MDM - Chest Pain MDM Narrative: Medical decision making narrative: Dinah is a 44-year-old female who comes in complaining of chest pain and headache. She was extremely hypertensive. She does have mild elevation of her cardiac enzymes and is at least hypertensive urgency if not hypertensive emergency. There is no sign of hemorrhage on her head CT and there is no sign of aortic dissection. The patient has not responded to bolus doses of labetalol so we will start a nitroglycerin drip as she is allergic to the type I calcium channel morgan class of antihypertensives. The case was reviewed with Dr. Carey and he is in agreement to admit for further evaluation and care. Lab Data: Attestation: I reviewed the patient's lab results. Labs: Lab Results 03/14/20 03/14/20 03/14/20 Range/Units 22:24 22:24 22:24 WBC 13.7 H (4.0-10.0) 10^3/ uL RBC 4.93 (4.1-5.3) 10^6/u L Hgb 12.8 (11.5-15.3) g/dL Hct 41.2 (37.0-47.0) % MCV 83.6 (81-99) fL MCH 26.0 L (28.0-34.0) pg MCHC 31.1 (30.0-36.0) g/dL RDW 13.0 (12.1-15.1) % Plt Count 437 H (130-400) 10^3/c mm MPV 10.9 H (7.4-10.4) fL Neut % (Auto) 55.9 % Lymph % (Auto) 33.8 % Whiteside % (Auto) 7.2 % Eos % (Auto) 2.1 % Baso % (Auto) 0.6 % Neut # (Auto) 7.7 (1.8-7.7) 10^3/u L Lymph # (Auto) 4.6 (0.8-4.8) 10^3/u L Whiteside # (Auto) 1.0 H (0.2-0.9) 10^3/u L Eos # (Auto) 0.3 (0.0-0.8) 10^3/u L Baso # (Auto) 0.1 (0.0-0.1) 10^3/u L Nucleated RBC % (a uto) 0 % Nucleated RBCs # 0.0 /100WBC PT 12.00 (10.5-13.3) SECO NDS INR 0.86 (0.8-1.2) APTT 24.8 (23.9-36.7) SECO NDS D-Dimer 0.53 (0-0.59) ug/mIFE U Sodium 137 (136-145) mmol/L Potassium 4.1 (3.5-5.1) mmol/L Chloride 97 L (98-107) mmol/L Carbon Dioxide 28 (22-29) mmol/L Anion Gap 16.1 (5-19) BUN 21 H (6-20) mg/dL Creatinine 1.0 H (0.5-0.9) mg/dL GFR Calculation 59.7 L (90-130) mL/min Glucose 232 H (65-115) mg/dL Calculated Osmolal ity 288 (285-295) mOsm/k g Calcium 10.2 (8.5-10.5) mg/dL Magnesium 2.0 (1.7-2.3) mg/dL Total Bilirubin 0.3 (0.15-1.2) mg/dL AST 17 (0-32) U/L ALT 24 (0-33) U/L Alkaline Phosphata se 111 H (35-105) IU/L Creatine Kinase 83 (26-192) U/L Troponin T Baselin e (0-10) ng/mL Troponin T 120 Min ivelisse (0-10) ng/mL Delta Troponin T (0-10) ABS# Total Protein 6.9 (6.6-8.7) g/dL Albumin 3.6 (3.5-5.2) g/dL Globulin 3.3 (1.3-4.6) g/dL 03/14/20 03/15/20 Range/Units 22:24 00:15 WBC (4.0-10.0) 10^3/ uL RBC (4.1-5.3) 10^6/u L Hgb (11.5-15.3) g/dL Hct (37.0-47.0) % MCV (81-99) fL MCH (28.0-34.0) pg MCHC (30.0-36.0) g/dL RDW (12.1-15.1) % Plt Count (130-400) 10^3/c mm MPV (7.4-10.4) fL Neut % (Auto) % Lymph % (Auto) % Whiteside % (Auto) % Eos % (Auto) % Baso % (Auto) % Neut # (Auto) (1.8-7.7) 10^3/u L Lymph # (Auto) (0.8-4.8) 10^3/u L Whiteside # (Auto) (0.2-0.9) 10^3/u L Eos # (Auto) (0.0-0.8) 10^3/u L Baso # (Auto) (0.0-0.1) 10^3/u L Nucleated RBC % (a uto) % Nucleated RBCs # /100WBC PT (10.5-13.3) SECO NDS INR (0.8-1.2) APTT (23.9-36.7) SECO NDS D-Dimer (0-0.59) ug/mIFE U Sodium (136-145) mmol/L Potassium (3.5-5.1) mmol/L Chloride (98-107) mmol/L Carbon Dioxide (22-29) mmol/L Anion Gap (5-19) BUN (6-20) mg/dL Creatinine (0.5-0.9) mg/dL GFR Calculation (90-130) mL/min Glucose (65-115) mg/dL Calculated Osmolal ity (285-295) mOsm/k g Calcium (8.5-10.5) mg/dL Magnesium (1.7-2.3) mg/dL Total Bilirubin (0.15-1.2) mg/dL AST (0-32) U/L ALT (0-33) U/L Alkaline Phosphata se (35-105) IU/L Creatine Kinase (26-192) U/L Troponin T Baselin e 52 H (0-10) ng/mL Troponin T 120 Min ivelisse 55.44 H (0-10) ng/mL Delta Troponin T 3.44 (0-10) ABS# Total Protein (6.6-8.7) g/dL Albumin (3.5-5.2) g/dL Globulin (1.3-4.6) g/dL Imaging Data^: CXR: My impression: No acute cardiopulmonary findings. CT Head: Radiologist's impression: [address] [id number] [address] Scan Report Signed Patient: Ivon Larios Unit #: [id number] : 1975 Age/Sex: 44 / F ADM Date: 03/14/20 Loc: ER Room/Bed: Attending Dr: Ordering Provider/Ordering MD: Eleni Luz DO Date of Service: 03/14/20 Procedure(s): CT head wo con* [id number] Accession Number(s): [id number] Report Number: [id number] PROCEDURE INFORMATION: Exam: CT Head Without Contrast Exam date and time: 03/14/2020 11:30 PM Age: 44 years old Clinical indication: Pain; Other: HTN; Headache not specified; Prior surgery; Patient HX: HX brainstem embolic stroke, seizure TECHNIQUE: Imaging protocol: Computed tomography of the head without contrast. Radiation optimization: All CT scans at this facility use at least one of these dose optimization techniques: automated exposure control; mA and/or kV adjustment per patient size (includes targeted exams where dose is matched to clinical indication); or iterative reconstruction. COMPARISON: CT head wo con* [id number] 03/09/2020 10:18 AM RADIATION DOSE METRICS: Total DLP: 892.94 mGy-cm FINDINGS: Brain: There is a 1 cm x 0.5 cm hypodensity in the left basal ganglia region on series 2 image 30. This is consistent with a chronic lacunar infarct and is similar to prior study. Small area of focal volume loss of the lobo on the left side (series 2 image 16). This is consistent with chronic infarct and is similar to prior study. No abnormal intra-axial or extra-axial fluid collections are identified. There is no midline shift. No intracranial hemorrhage identified. Ventricles: The ventricular system is within normal limits for size and configuration. Bones/joints: Status post right frontal craniotomy. Sinuses: Visualized sinuses are unremarkable. No fluid levels. Mastoid air cells: Visualized mastoid air cells are well aerated. Soft tissues: Unremarkable. CT/CT head wo con* [id number] IMPRESSION: 1. Findings consistent with small chronic lacunar infarct in the left basal ganglia region. 2. Findings consistent with small chronic lacunar infarct in the left pontine region. 3. No superimposed acute intracranial process identified. Radiation Dose CTDIVOL = (mGy): DLP = 892.94 (mGy-cm) Dictated By: Parminder Mora MD Signed By: Parminder Mora MD Signed Date/Time: 03/15/2057 DD/ CTA Aorta: Radiologist's impression: [address] [address] [address] Scan Report Signed Patient: Ivon Larios Unit #: [id number] : 1975 Age/Sex: 44 / F ADM Date: 03/14/20 Loc: ER Room/Bed: Attending Dr: Ordering Provider/Ordering MD: Eleni Luz DO Date of Service: 03/14/20 Procedure(s): CT angio chest abdomen pelvis Accession Number(s): [id number] Report Number: [id number] PROCEDURE INFORMATION: Exam: CT Angiography Abdomen and Pelvis With Contrast Exam date and time: 03/14/2020 11:37 PM Age: 44 years old Clinical indication: Other: Evalutate for dissection, HTN; Prior surgery; Surgery type: Cholecystectomy, hysterectomy; Additional info: Evaluate for dissection TECHNIQUE: Imaging protocol: Computed tomographic angiography of the abdomen and pelvis with intravenous contrast material. 3D rendering: MIP and/or 3D reconstructed images were created by the technologist. Radiation optimization: All CT scans at this facility use at least one of these dose optimization techniques: automated exposure control; mA and/or kV adjustment per patient size (includes targeted exams where dose is matched to clinical indication); or iterative reconstruction. Contrast material: OMNI 360; Contrast volume: 95 ml; Contrast route: 18G; COMPARISON: CT abdomen pelvis w con* [id number] 12/15/2018 3:53 PM RADIATION DOSE METRICS: Total DLP: 2543.77 mGy-cm FINDINGS: Aorta: No aortic aneurysm. No aortic dissection. Celiac trunk and mesenteric arteries: No occlusion or significant stenosis. Renal arteries: No occlusion or significant stenosis. Right iliac arteries: No occlusion or significant stenosis. Left iliac arteries: No occlusion or significant stenosis. Liver: No mass. Gallbladder and bile ducts: Cholecystectomy Pancreas: Unremarkable. No mass. No ductal dilation. Spleen: Unremarkable. No splenomegaly. Adrenals: Unremarkable. No mass. Kidneys and ureters: Unremarkable. No solid mass. No hydronephrosis. Stomach and bowel: Unremarkable. No obstruction. No mucosal thickening. Appendix: No evidence of appendicitis. Intraperitoneal space: Unremarkable. No free air. No significant fluid collection. Lymph nodes: Unremarkable. No enlarged lymph nodes. Bladder: Unremarkable. No mass. Reproductive: Unremarkable as visualized. Bones/joints: No acute fracture. No dislocation. Soft tissues: Unremarkable. CT/CT angio chest abdomen pelvis IMPRESSION: Negative for pulmonary embolus or airspace infiltrate, aorta intact. Radiation Dose CTDIVOL = (mGy): DLP = 2543.77 (mGy-cm) Dictated By: Abraham Hayes MD Signed By: Abraham Hayes MD Signed Date/Time: 03/15/2048 DD/ EKG Data^: EKG 1: Attestation: I personally reviewed and interpreted this EKG as follows: EKG interpretation date: 03/15/20 EKG interpretation time: 23:20 Interpretation: Normal sinus rhythm at 81 beats a minute, no acute ST or T wave changes. Similar to previous. Discharge Plan Discharge Patient Disposition: Placed in Observation Clinical Impression: Hypertensive emergency Condition: Stable Referrals: Shefali Russo DO [Primary Care Provider] - Coding Level of Care Code ED Java Lead Architect for Chg Fwd Exam Comprehensive
[2020-03-14 22:32] LABS: Basophils # 0.1 10^3/uL (0.0-0.1); Basophils % 0.6 %; Eosinophils # 0.3 10^3/uL (0.0-0.8); Eosinophils % 2.1 %; Hematocrit 41.2 % (37.0-47.0); Hemoglobin 12.8 g/dL (11.5-15.3); Lymphocytes # 4.6 10^3/uL (0.8-4.8); Lymphocytes % 33.8 %; Mean Corpuscular HGB Conc 31.1 g/dL (30.0-36.0); Mean Corpuscular Volume 83.6 fL (81-99); Mean Platelet Volume 10.9 fL (7.4-10.4); Monocytes % 7.2 %; Neutrophils # 7.7 10^3/uL (1.8-7.7); Neutrophils % 55.9 %; Nucleated Red Blood Cells % 0 %; Platelet Count 437 10^3/cmm (130-400); Red Blood Count 4.93 10^6/uL (4.1-5.3); White Blood Count 13.7 10^3/uL (4.0-10.0)
[2020-03-14 22:40] LABS: INR 0.86 (0.8-1.2)
[2020-03-14 22:41] LABS: Partial Thromboplastin Time 24.8 SECONDS (23.9-36.7)
[2020-03-14 22:43] LABS: D Dimer 0.53 ug/mIFEU (0-0.59)
[2020-03-14 22:47] VITALS: RESP 18
[2020-03-14] MEDS: HYDROmorphone 1 mg/mL INJ 1 mL 0.25 MG IVP (22:47)
[2020-03-14] MEDS: ondansetron 2 mg/ML SDV 2 mL 4 MG IVP (22:48)
[2020-03-14 22:51] LABS: Alanine Aminotransferase 24 U/L (0-33); Albumin Level 3.6 g/dL (3.5-5.2); Alkaline Phosphatase 111 IU/L (35-105); Anion Gap 16.1 (5-19); Aspartate Amino Transferase 17 U/L (0-32); Blood Urea Nitrogen 21 mg/dL (6-20); Calcium 10.2 mg/dL (8.5-10.5); Carbon Dioxide 28 mmol/L (22-29); Chloride 97 mmol/L (98-107); Creatine Phosphokinase 83 U/L (26-192); Globulin 3.3 g/dL (1.3-4.6); Glomerular Filtration Rate 59.7 mL/min (90-130); Glucose 232 mg/dL (65-115); Osmolality Calculated 288 mOsm/kg (285-295); Potassium 4.1 mmol/L (3.5-5.1); Sodium 137 mmol/L (136-145); Total Bilirubin 0.3 mg/dL (0.15-1.2); Total Protein 6.9 g/dL (6.6-8.7)
[2020-03-14] MEDS: labetalol 5 mg/mL SDV 20mL 20 MG IVP ×2 (23:04→23:31)
[2020-03-14 23:07] LABS: Troponin(5th) Baseline 52 ng/mL (0-10)
--- NOTE | 2020-03-14 23:12 | CTR_ITS ---
PROCEDURE INFORMATION: Exam: CT Angiography Abdomen and Pelvis With Contrast Exam date and time: 03/14/2020 11:37 PM Age: 44 years old Clinical indication: Other: Evalutate for dissection, HTN; Prior surgery; Surgery type: Cholecystectomy, hysterectomy; Additional info: Evaluate for dissection TECHNIQUE: Imaging protocol: Computed tomographic angiography of the abdomen and pelvis with intravenous contrast material. 3D rendering: MIP and/or 3D reconstructed images were created by the technologist. Radiation optimization: All CT scans at this facility use at least one of these dose optimization techniques: automated exposure control; mA and/or kV adjustment per patient size (includes targeted exams where dose is matched to clinical indication); or iterative reconstruction. Contrast material: OMNI 360; Contrast volume: 95 ml; Contrast route: 18G; COMPARISON: CT abdomen pelvis w con* [id number] 12/15/2018 3:53 PM RADIATION DOSE METRICS: Total DLP: 2543.77 mGy-cm FINDINGS: Aorta: No aortic aneurysm. No aortic dissection. Celiac trunk and mesenteric arteries: No occlusion or significant stenosis. Renal arteries: No occlusion or significant stenosis. Right iliac arteries: No occlusion or significant stenosis. Left iliac arteries: No occlusion or significant stenosis. Liver: No mass. Gallbladder and bile ducts: Cholecystectomy Pancreas: Unremarkable. No mass. No ductal dilation. Spleen: Unremarkable. No splenomegaly. Adrenals: Unremarkable. No mass. Kidneys and ureters: Unremarkable. No solid mass. No hydronephrosis. Stomach and bowel: Unremarkable. No obstruction. No mucosal thickening. Appendix: No evidence of appendicitis. Intraperitoneal space: Unremarkable. No free air. No significant fluid collection. Lymph nodes: Unremarkable. No enlarged lymph nodes. Bladder: Unremarkable. No mass. Reproductive: Unremarkable as visualized. Bones/joints: No acute fracture. No dislocation. Soft tissues: Unremarkable. CT/CT angio chest abdomen pelvis IMPRESSION: Negative for pulmonary embolus or airspace infiltrate, aorta intact. Radiation Dose CTDIVOL = (mGy): DLP = 2543.77 (mGy-cm)
--- NOTE | 2020-03-14 23:29 | CTR_ITS ---
PROCEDURE INFORMATION: Exam: CT Head Without Contrast Exam date and time: 03/14/2020 11:30 PM Age: 44 years old Clinical indication: Pain; Other: HTN; Headache not specified; Prior surgery; Patient HX: HX brainstem embolic stroke, seizure TECHNIQUE: Imaging protocol: Computed tomography of the head without contrast. Radiation optimization: All CT scans at this facility use at least one of these dose optimization techniques: automated exposure control; mA and/or kV adjustment per patient size (includes targeted exams where dose is matched to clinical indication); or iterative reconstruction. COMPARISON: CT head wo con* [id number] 03/09/2020 10:18 AM RADIATION DOSE METRICS: Total DLP: 892.94 mGy-cm FINDINGS: Brain: There is a 1 cm x 0.5 cm hypodensity in the left basal ganglia region on series 2 image 30. This is consistent with a chronic lacunar infarct and is similar to prior study. Small area of focal volume loss of the lobo on the left side (series 2 image 16). This is consistent with chronic infarct and is similar to prior study. No abnormal intra-axial or extra-axial fluid collections are identified. There is no midline shift. No intracranial hemorrhage identified. Ventricles: The ventricular system is within normal limits for size and configuration. Bones/joints: Status post right frontal craniotomy. Sinuses: Visualized sinuses are unremarkable. No fluid levels. Mastoid air cells: Visualized mastoid air cells are well aerated. Soft tissues: Unremarkable. CT/CT head wo con* [id number] IMPRESSION: 1. Findings consistent with small chronic lacunar infarct in the left basal ganglia region. 2. Findings consistent with small chronic lacunar infarct in the left pontine region. 3. No superimposed acute intracranial process identified. Radiation Dose CTDIVOL = (mGy): DLP = 892.94 (mGy-cm)
[2020-03-15] VITALS (13 sets, daily range): BP systolic 122–174; BP diastolic 78–102; PULSE 82–97; RESP 16–20; TEMP 36.1–36.7; O2SAT 90–98
[2020-03-15] MEDS: iohexol 350 mg/mL 100 mL Btl IV (00:32)
[2020-03-15 00:41] LABS: Troponin 5 2HR 55.44 ng/mL (0-10); Troponin 5 2HR Delta 3.44 ABS# (0-10)
[2020-03-15] MEDS: metoclopramide 5 mg/mL SDV 2 mL 10 MG IVP (00:45)
--- NOTE | 2020-03-15 00:57 | P.HP_ITS ---
Providers/Chief Complaint Primary Care Provider: Shefali Russo DO Chief Complaint: Chest Pain History of Present Illness Ivon Larios is a 44 year old female who carries diagnosis of type 2 diabetes, recurrent TIAs, stroke with right-sided flaccid hemiparesis, right sided foot drop, hypertension, history of seizure came in with chief complaint of focal seizures. Patient lives with her mother, she was in her usual state of health i.e. dependent on her mother for most of her daily activities because of right-sided hemiparesis, she is not able to use walker on her own because of her worsening blurry vision, she started experiencing seizures after her biopsy which was done for diagnostic purposes with concern for vasculitis, she went to [facility], (as per the patient) biopsy revealed vasculitis but she has not received any steroids, since her biopsy. She is due to see Dr. Lindsey. She does not know the subtype of vasculitis, she is endorsing that her vision has been gradually getting worse, she gets focal seizures. Today her headache woke her up, it was 8/10, throbbing, when she dugan her hair she feels tenderness on the left side of her scalp, she was seen in the ER 2 days ago for high blood pressure and was discharged home after reduction of blood pressure, today at home her mother noticed that her left arm had contracture for about 20 minutes and she seemed more confused. Her mother b rought her to the hospital for further evaluation, on arrival her systolic blood pressure was 259/135mmhg, she received labetalol 20 mg x 3, she was started on nitro drip which dropped her pressure to 139/79 by the time I saw her. Patient wanted to go home after reduction in her blood pressure, on my clinical exam I noticed scalp tenderness in left restoration area and considering history of blurry vision and no steroid use in the past I asked the patient to stay overnight to keep an eye on her blood pressure, I would start her on steroids for my concern of GCA, will obtain records from [facility]. Discontinued nitro drip. Patient is stating that sometimes her headache is so worse that it wakes her up from her sleep, in the morning she gets worse headaches, she is denying snoring or sleep apnea diagnosis, her mother also noticed confusion mostly in the mornings. CT head done in the ER did not reveal any mass-effect. CT chest abdomen pelvis did not reveal any aortic dissection or aneurysm Review of Systems Const: Reports: body aches and fatigue; Denies: fever(s) or chills Eyes: Reports: change in vision, blurry vision and seeing flashes; Denies: photophobia, eye redness or yellow eyes ENMT: Denies: throat pain Card: Reports: palpitations; Denies: chest pain, irregular heart rhythm or swelling of feet/ankles Resp: Denies: dyspnea GI: Denies: abdominal pain or nausea : Denies: flank pain or difficulty voiding Musc: Denies: neck pain or back pain Skin/Breast: Denies: rash Neuro: Reports: headache(s), weakness in extremities, difficulty walking and seizure-like activity; Denies: confusion or Slurred speech present Psych: Reports: anxiety Endo: Denies: polyuria Donato/Lymph: Denies: easy bruising All/Imm: Denies: urticaria Medications/Allergies Home Medications Medication Instructions Recorded Confirmed Last Taken Type amitriptyline 25 mg tablet 25 mg PO DAILY #30 tab 03/12/20 Unknown Rx atorvastatin 40 mg tablet 40 mg PO DAILY #30 tab 03/12/20 Unknown Rx cetirizine 10 mg tablet 10 mg PO DAILY #30 tab 03/12/20 Unknown Rx fluoxetine 20 mg capsule 20 mg PO DAILY #30 cap 03/12/20 Unknown Rx glipizide 5 mg tablet 5 mg PO BID #60 tab 03/12/20 Unknown Rx hydrochlorothiazide 25 mg tablet 25 mg PO DAILY #30 tab 03/12/20 Unknown Rx insulin detemir U-100 100 unit/mL 30 unit SUBCUT DAILY #15 ml 03/12/20 Unknown Rx (3 mL) subcutaneous pen levetiracetam 1,000 mg tablet 1,000 mg PO BID #60 tab 03/12/20 Unknown Rx liraglutide 0.6 mg/0.1 mL (18 mg/3 1.2 mg SUBCUT Q24H #9 ml 03/12/20 Unknown Rx mL) subcutaneous pen injector metoprolol tartrate 50 mg tablet 50 mg PO BID #60 tab 03/12/20 Unknown Rx tizanidine 2 mg capsule 2 mg PO BEDTIME PRN #30 cap 03/12/20 Unknown Rx Allergies Allergy/AdvReac Type Severity Reaction Status Date / Time amlodipine Allergy ADR-Swelling Verified 02/07/20 13:55 of the Eye codeine Allergy ADR-Shakine Verified 02/07/20 13:55 ss hydroxyzine [From Vistaril] Allergy ADR-Confusi Verified 02/07/20 13:55 on meperidine [From Demerol] Allergy ADR-Chest Verified 02/07/20 13:55 Pain metformin [From Glucophage] Allergy ALGY-Hives Verified 02/07/20 13:55 morphine Allergy ALGY-Anaphy Verified 02/07/20 13:55 laxis phenazopyridine Allergy ALGY-Hives Verified 02/07/20 13:55 [From Pyridium] sumatriptan [From Imitrex] AdvReac Mild Unknown Verified 02/07/20 13:55 PFSH Acute PFSH: Medical History Chronic back pain Depression Dyslipidemia Essential hypertension Insomnia Rotator cuff injury Seasonal allergies Stroke TIA (transient ischemic attack) Type 2 diabetes mellitus, with long-term current use of insulin Surgical History H/O brain surgery H/O tubal ligation H/O: hysterectomy History of cholecystectomy History of tonsillectomy Family History Other Cancer Diabetes Social History (Updated 03/15/20 @ 02:14 by Emily Carey MD) Smoking and tobacco status: never smoked Alcohol intake: never Substance/Drug Use: never Household members: family Housing: House Vitals/I&O/Wt Last Vital Signs Temp 98.0 F 03/14/20 22:07 Pulse 84 03/14/20 22:07 Resp 18 03/14/20 22:47 BP 259/135 03/14/20 22:07 Pulse Ox 99 03/14/20 22:07 Weight last 48 hrs Weight 90.718 kg Physical Exam Narrative: EXAM NARRATIVE: Head to toe examination Patient sitting comfortably in her bed Her mother is at the bedside Systolic blood pressure 139, diastolic 79 mmHg Normal sinus rhythm on telemetry metric She has scalp tenderness of left side on mild palpation No radial radial delay or radial femoral delay She is endorsing blurry vision Speech is not slurred She has flaccid hemiparesis of right side, she is wearing foot brace for foot drop on the right side No edema of lower extremity Lungs are clear to auscultation S1-S2 no signs of heart failure Abdomen soft nontender visceral obesity, bowel sound present Appropriate mood and affect Awake alert oriented x3 Data : 03/14/20 22:24 03/14/20 22:24 A&P Assessment and plan (1) Hypertensive emergency: Status: Acute (2) Hypertension: Status: Acute Qualifiers: Hypertension type: essential hypertension Qualified Code(s): I10 - Essential (primary) hypertension (3) Type 2 diabetes mellitus, with long-term current use of insulin: Status: Chronic Qualifiers: Diabetes mellitus complication status: without complication Qualified Code(s): E11.9 - Type 2 diabetes mellitus without complications; 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 (4) Vasculitis: Status: Acute (5) Blurry vision: Status: Acute (6) Focal seizure: Status: Acute Additional A&P Information Hypertensive emergency Endorgan damage consistent with high troponin, abnormal creatinine We will check proteinuria EKG is not showing LVH Currently chest pain-free No signs of aortic dissection Responded well to labetalol 60 mg and initiation of nitro drip Nitro drip has been discontinued because of rapid reduction of blood pressure to avoid hypotensive encephalopathy I would use at least 3 agents to control her blood pressure including a diuretic, hold metoprolol and add labetalol, will keep hydralazine for as needed use Headache with blurry vision Left-sided scalp tenderness Considering biopsy proven vasculitis I would start her on pulsed steroid therapy 500 mg methylprednisolone for 3 days and then switch to 60 mg of prednisone She prefers to see Dr. Lindsey during this visit She will need a rheumatological consult in the morning for monitoring of her vasculitis and if it is giant cell arteritis she might benefit from steroid sparing therapy because of her history of diabetes We will request records from [facility] and her PCP Focal seizures History of vasculitis, currently blood pressure is stable, no active seizures, continue Keppra We will use Ativan for as needed use Type 2 diabetes: Consistent carbohydrate diet with moderate sliding scale DVT prophylaxis Lovenox GI prophylaxis Protonix Consistent carb diet Full code Attestations Medical Necessity Statement*: Anticipating stay in the hospital cross more than 2 midnights, needs management for hypertensive emergency, high suspicion for giant cell arteritis needing pulse steroid therapy at the moment Time Spent in Patient Care: 60 Coding Level of Care Code Acute Broomcorn Thresher for Chg Fwd Diagnoses Hypertensive emergency I16.1 Hypertension I10 Hypertension type: essential hypertension Type 2 diabetes mellitus, with long-term current use of insulin E11.9; Z79.4 Diabetes mellitus complication status: without complication Vasculitis I77.6 Blurry vision H53.8 Focal seizure R56.9
[2020-03-15] MEDS: fentaNYL 50 mcg/mL INJ 2mL IVP (01:00)
[2020-03-15] MEDS: labetalol 5 mg/mL SDV 20mL 20 MG IVP (01:00)
[2020-03-15] MEDS: nitroglycerin drip 50 MG/250 ML PREMIX IV (01:12)
[2020-03-15 02:33] LABS: Bacteria Urine 1+; Bilirubin Urine Neg (NEGATIVE); Blood Urine 2+ (Negative); Glucose Urine UA 2+ (Normal); Ketones Urine Negative (Negative); Leukocyte Esterase Urine Negative (Negative); Nitrate Urine Negative (Negative); Protein Urine 3+ (Negative); Squamous Epithelial Cell Urine 0-4 (0-5); Urine Appearance SL Hazy (CLEAR); Urine Color Yellow (Yellow); Urobilinogen Urine Norm (Negative); WBC Urine 0-4 /hpf (0-5); pH Urine 6 (5-7)
--- NOTE | 2020-03-15 03:02 | PC.NURSE ---
Patient arrived to the floor from the ED via bed. Patient is alert and oriented. Patient is weak upon ambulation and has history of strokes. Patient also has history of seizures. Side rails have been padded. 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 Patient has call light within reach and has been oriented to her room. Patient has been educated not to get up without assistance and verbalized understanding.
[2020-03-15] MEDS: enoxaparin 40 mg/0.4 mL Syringe SUBCUT (03:08)
[2020-03-15] MEDS: acetaminophen 500 mg Tablet PO (03:23)
[2020-03-15 03:35] LABS: Amphetamines Screen Urine Negative (Negative); Barbiturates Screen Urine Negative (Negative); Benzodiazepines Screen Urine Negative (Negative); Cocaine Screen Urine Negative (Negative); Opiate Screen Urine Negative (Negative); PCP Screen Urine Negative (Negative); THC Screen Urine Negative (Negative)
[2020-03-15 03:42] LABS: C Reactive Protein 10.6 mg/L (0.0-4.9)
[2020-03-15 03:43] LABS: Creatinine Urine, Random 35 mg/dL (28-217)
[2020-03-15 04:15] LABS: Microalbum Creatinine Ratio Ur 5171 mg/dL (0-20); Microalbumin Random Urine 181 ug/dL (0-20)
[2020-03-15 04:17] LABS: Erythrocyte Sedimentation Rate 51 mm/hr (0-15)
[2020-03-15 05:11] LABS: Basophils # 0.1 10^3/uL (0.0-0.1); Basophils % 0.6 %; Eosinophils # 0.2 10^3/uL (0.0-0.8); Eosinophils % 1.3 %; Hematocrit 34.8 % (37.0-47.0); Lymphocytes # 3.9 10^3/uL (0.8-4.8); Lymphocytes % 34.6 %; Mean Corpuscular HGB Conc 31.6 g/dL (30.0-36.0); Mean Corpuscular Hemoglobin 26.6 pg (28.0-34.0); Mean Corpuscular Volume 84.3 fL (81-99); Mean Platelet Volume 10.8 fL (7.4-10.4); Monocytes # 0.9 10^3/uL (0.2-0.9); Monocytes % 7.8 %; Neutrophils # 6.3 10^3/uL (1.8-7.7); Neutrophils % 55.1 %; Nucleated Red Blood Cells % 0 %; Platelet Count 378 10^3/cmm (130-400); Red Blood Count 4.13 10^6/uL (4.1-5.3); Red Cell Distribution Width 13.1 % (12.1-15.1); White Blood Count 11.4 10^3/uL (4.0-10.0)
--- NOTE | 2020-03-15 05:34 | PC.NURSE ---
Patient is resting in bed with eyes closed.
[2020-03-15 05:41] LABS: Anion Gap 18.2 (5-19); Blood Urea Nitrogen 26 mg/dL (6-20); Calcium 9.3 mg/dL (8.5-10.5); Carbon Dioxide 26 mmol/L (22-29); Chloride 99 mmol/L (98-107); Glomerular Filtration Rate 53.5 mL/min (90-130); Glucose 234 mg/dL (65-115); Osmolality Calculated 292 mOsm/kg (285-295); Potassium 4.2 mmol/L (3.5-5.1); Sodium 139 mmol/L (136-145); Troponin 5 6HR 53.32 ng/mL (0-10); Troponin 5 6HR Delta 1.32 ng/L (0-12)
[2020-03-15 07:18] LABS: Glucose Point of Care 182 mg/dL (70-110)
--- NOTE | 2020-03-15 08:50 | PC.NURSE ---
Addendum entered by Romy Contreras RN 03/15/20 08:54: disregard note wrong patient Original Note: Patients fluids hung late due to unknown time of procedure with a move up in times Benadryl also not given due to scheduling changes
[2020-03-15] MEDS: labetalol 200 mg Tablet PO (09:16)
[2020-03-15] MEDS: fluoxetine 20 mg Capsule PO (09:17)
[2020-03-15] MEDS: pantoprazole DR 40 mg Tablet PO (09:17)
[2020-03-15] MEDS: lisinopril 10 mg Tablet PO (09:17)
[2020-03-15] MEDS: levETIRAcetam 500 mg Tablet 1000 MG PO (09:17)
[2020-03-15] MEDS: aspirin 81 mg EC Tablet PO (09:17)
[2020-03-15] MEDS: atorvastatin 40 mg Tablet PO (09:17)
[2020-03-15] MEDS: hydroCHLOROthiazide 25 mg Tablet 50 MG PO (09:18)
--- NOTE | 2020-03-15 10:41 | PC.NURSE ---
patient reports that she takes her levemire at bedtime Dr Francois notified and instructions given to change scheduled dose to bed time
[2020-03-15 11:55] LABS: Glucose Point of Care 240 mg/dL (70-110)
[2020-03-15 11:55] LABS: Glucose Point of Care 179 mg/dL (70-110)
--- NOTE | 2020-03-15 12:50 | XR_ITS ---
WS: [id number] XR hip RT 2-3V wo/w pel* 38000 REASON FOR EXAM: pain after loaded on ambulance FINDINGS: The right hip and pelvis show normal acetabulum femoral femoral head articulation. The posterior acetabulum that appears to be intact. There is no fractures of the femoral head, neck, intertrochanteric area. There is no soft tissue deformity to suggest hemorrhage or soft tissue tears. XR/XR hip RT 2-3V wo/w pel* 52095 IMPRESSION: Normal right hip
[2020-03-15] MEDS: TRAMadol 50 mg Tablet PO (12:56)
--- NOTE | 2020-03-15 13:39 | PC.NURSE ---
Patient having trouble putting on under wear and reports pain in right hip patient 07/21 with associated nausea; patient has no outward signs/symptoms of pain such as facial grimacing or clenching. offered Tylenol and Zofran patient reported that she has something different that worked well last night. medications reviewed with patient and patient would like for this nurse to call the doctor and see about getting some fentenyl Spoke with Dr. Lei New orders received to give Tramodol 50mg Q6 hrs discussed potential reactions promoed by computer and okayed to give
--- NOTE | 2020-03-15 15:00 | PC.NURSE ---
Dr chambers at bedside at this time with this nurse to discuss discharge, new information and findings; spoke with patient about taking blood pressures 3 times daily; continued iv steroids as out patient. appointments with Dr Lindsey, Dr Coats as well as [facility]. teach back with doctor verbalized patient understanding noted.
--- NOTE | 2020-03-15 15:44 | PM.DCS ---
Discharge Providers Date of Admission: 03/15/20 01:18 Date of Discharge: March 15, 2020 Attending Provider at Admission: Emily Carey MD Attending Provider at Discharge: Papito Lei Primary Care Provider: Shefali Russo DO Diagnoses at Discharge Discharge Diagnosis (1) Hypertensive emergency: Status: Acute (2) Hypertension: Status: Acute Qualifiers: Hypertension type: essential hypertension Qualified Code(s): I10 - Essential (primary) hypertension (3) Type 2 diabetes mellitus, with long-term current use of insulin: Status: Chronic Qualifiers: Diabetes mellitus complication status: without complication Qualified Code(s): E11.9 - Type 2 diabetes mellitus without complications; Z79.4 - skilled nursing (current) use of insulin (4) Vasculitis: Status: Acute (5) Blurry vision: Status: Acute (6) Focal seizure: Status: Acute Reason for Visit Reason for Visit: Chest Pain Hospital Course Hospital Course: Pleasant 44 yo lady with history of CVA 3 ya, with residual R side paralysis, per documentation from [facility] with initial concern for vasculitis due to abnormal appearance of CTA, but subsequently vasculitis ruled out and treated like ischemic CVA with visualized L side pontine stroke, with extensive serum autoimmune panels and LP studies not suggestive of the disease. She denies ever having received steroids. Has been treated with Keppra due to seizure disorder and notes declining vision since that time. She has underlying DM and HTN. She is mostly dependent for daily activities on her mother currently due to hemiplegia. Previously was staying with her children, but was brought here to be further taken care of by her mother due to needing more care than her children felt they could provide. She was placed in observation last night after was noted to have a tonic muscle contructures of the L arm, L side neck, as well as noted to have extremely high blood pressure on presentation. On ROS also elicited headache, L side christian pain reproducible on palpation and worsening vision during the acute episode. Does report occasional jaw claudication. ESR 51, alhtough CRP 10.6. She was treated for hypertensive emergency with IV antyhypertensives due to associated symptoms, possibly also serving as trigger for her suspected focal seizure. With noted mild troponin elevation, otherwise cardiac studies not suggestive of acute OK. She was also initiated methylprednisolone IV high doses initial treatment due to concern for GCA. Her blood pressures improved. She had no further seizures. Her visual symptoms completely resolved and she is back to baseline vision which she defines as being able to see eyebrows and hair outlines at several feet. She is feeling well. I discussed her case with neurology specialist with whom she will be following up on 03/22 or sooner if appointment will be available. For now recommendation for no changes in antiepileptic regimen. Her Keppra level is therapeutic. This will be reassessed during the visit. Neurology kindly provide us also with documentation from [facility] which is outlined above, but please see documents for details. These will be scanned into the system. Given she is feeling well, with resolution of symptoms, stable blood pressures, with symptoms concerning for possible GCA, although overall likely will likely lower, and suspect her examination findings were probably related to hypertensive emergency, however, she will complete 2 more days infusions of methylprednisolone tomorrow and day after, and subsequently transition to prednisone 60 mg/day which will be adjusted or tapered at the discression of the entry specialist who has kindly agreed to add her on to the schedule for Thursday evening. Appointment was also requested with Dr Coats office and she will kindly be seen in office on Thursday for additional assessment as she states has not seen an opthalmologist despite vision changes and history of DM and HTN. Her blood pressure medications are adjusted as below. She understands the plan well and is able to teach back, including also that she will need to monitor blood pressures and glucose at least 3 times daily, and seek medical attention in case of persistent abnormalities, or return of any worrisome symptoms. Physical Exam Const: COMMON NORMALS: no acute distress and patient oriented x3 OTHER: Awake, alert, lucid, pleasant. HENMT: COMMON NORMALS: oropharynx normal Neck/C-Spine: COMMON NORMALS: no meningeal signs and no JVD Resp: COMMON NORMALS: normal respiratory effort and clear to auscultation bilaterally AUSCULTATION: clear to auscultation bilaterally Cardio: COMMON NORMALS: no JVD, regular rhythm, S1 normal heart sound present, S2 normal heart sound present and No murmurs present (Cardio) RHYTHM: regular rhythm HEART SOUNDS: S1 normal heart sound present and S2 normal heart sound present GI: COMMON NORMALS: Normal to inspection, nondistended, normoactive bowel sounds present, Soft to palpation and non-tender PALPATION: Yes Soft to palpation Extremity: COMMON NORMALS: no joint enlargement and no pedal edema Neuro: COMMON NORMALS: patient oriented x3 MENINGEAL SIGNS: Yes no meningeal signs CRANIAL NERVES: Yes other (diminished visual acuity. Can distinguish larger facial features at sev ft) MOTOR EXAM: Other motor observations present (R hemiparesis) Skin: COMMON NORMALS: no rashes or lesions noted GENERAL SKIN EXAM: no rashes or lesions noted Discharge Data Data Completed and Pending: Completed Studies During Hospitalization Category Date Time Status CT angio chest ab domen pelvis Stat Cat Scan 03/14/20 23:[address] head wo con* [id number] Stat Cat Scan 03/14/20 23:29 Completed XR chest 1V mikie ble [id number] Stat Exams 03/14/20 22:07 Completed XR hip RT 2-3V wo /w pel* [id number] Rout ine Exams 03/15/20 12:50 Completed Labs from last 24 hours 03/15/20 03/15/20 03/15/20 11:41 07:15 06:23 WBC RBC Hgb Hct MCV MCH MCHC RDW Plt Count MPV Neut % (Auto) Lymph % (Auto) [place] % (Auto) Eos % (Auto) Baso % (Auto) Neut # (Auto) Lymph # (Auto) [place] # (Auto) Eos # (Auto) Baso # (Auto) Nucleated RBC % (a uto) Nucleated RBCs # ESR PT INR APTT D-Dimer Sodium Potassium Chloride Carbon Dioxide Anion Gap BUN Creatinine GFR Calculation Glucose POC Glucose 240 182 179 Calculated Osmolal ity Calcium Magnesium Total Bilirubin AST ALT Alkaline Phosphata se Creatine Kinase Troponin I 6 Hour Troponin I Hi Sens Del Troponin T Baselin e Troponin T 120 Min [place] Troponin T C-Reactive Protein Total Protein Albumin Globulin TSH Urine Color Urine Appearance Urine pH Ur Specific Gravit y Urine Protein Urine Glucose (UA) Urine Ketones Urine Blood Urine Nitrate Urine Bilirubin Urine Urobilinogen Ur Leukocyte [place] Urine RBC Urine WBC Ur Squamous Epith Cells Urine Bacteria Ur Random Microalb umin Urine Creatinine Microalb/Creat Rat io Urine Opiates Scre en Ur Barbiturates Sc reen Ur Phencyclidine S crn Ur Amphetamines Sc reen U Benzodiazepines Scrn Urine Cocaine Scre en U Marijuana (THC) Screen 03/15/20 03/15/20 03/15/20 04:30 04:30 04:30 WBC 11.4 H RBC 4.13 Hgb 11.0 L Hct 34.8 L MCV 84.3 MCH 26.6 L MCHC 31.6 RDW 13.1 Plt Count 378 MPV 10.8 H Neut % (Auto) 55.1 Lymph % (Auto) 34.6 [place] % (Auto) 7.8 Eos % (Auto) 1.3 Baso % (Auto) 0.6 Neut # (Auto) 6.3 Lymph # (Auto) 3.9 [place] # (Auto) 0.9 Eos # (Auto) 0.2 Baso # (Auto) 0.1 Nucleated RBC % (a uto) 0 Nucleated RBCs # 0.0 ESR PT INR APTT D-Dimer Sodium 139 Potassium 4.2 Chloride 99 Carbon Dioxide 26 Anion Gap 18.2 BUN 26 H Creatinine 1.1 H GFR Calculation 53.5 L Glucose 234 H POC Glucose Calculated Osmolal ity 292 Calcium 9.3 Magnesium Total Bilirubin AST ALT Alkaline Phosphata se Creatine Kinase Troponin I 6 Hour 53.32 H Troponin I Hi Sens Del 1.32 Troponin T Baselin e Troponin T 120 Min [place] Troponin T C-Reactive Protein Total Protein Albumin Globulin TSH Urine Color Urine Appearance Urine pH Ur Specific Gravit y Urine Protein Urine Glucose (UA) Urine Ketones Urine Blood Urine Nitrate Urine Bilirubin Urine Urobilinogen Ur Leukocyte [place] Urine RBC Urine WBC Ur Squamous Epith Cells Urine Bacteria Ur Random Microalb umin Urine Creatinine Microalb/Creat Rat io Urine Opiates Scre en Ur Barbiturates Sc reen Ur Phencyclidine S crn Ur Amphetamines Sc reen U Benzodiazepines Scrn Urine Cocaine Scre en U Marijuana (THC) Screen 03/15/20 03/15/20 03/15/20 01:20 01:20 01:20 WBC RBC Hgb Hct MCV MCH MCHC RDW Plt Count MPV Neut % (Auto) Lymph % (Auto) [place] % (Auto) Eos % (Auto) Baso % (Auto) Neut # (Auto) Lymph # (Auto) [place] # (Auto) Eos # (Auto) Baso # (Auto) Nucleated RBC % (a uto) Nucleated RBCs # ESR PT INR APTT D-Dimer Sodium Potassium Chloride Carbon Dioxide Anion Gap BUN Creatinine GFR Calculation Glucose POC Glucose Calculated Osmolal ity Calcium Magnesium Total Bilirubin AST ALT Alkaline Phosphata se Creatine Kinase Troponin I 6 Hour Troponin I Hi Sens Del Troponin T Baselin e Troponin T 120 Min [place] Troponin T C-Reactive Protein Total Protein Albumin Globulin TSH Urine Color Yellow Urine Appearance Sl hazy Urine pH 6 Ur Specific Gravit y 1.010 Urine Protein 3+ H Urine Glucose (UA) 2+ Urine Ketones Negative Urine Blood 2+ H Urine Nitrate Negative Urine Bilirubin Neg Urine Urobilinogen Norm Ur Leukocyte [place] Negative Urine RBC 5-10 H Urine WBC 0-4 H Ur Squamous Epith Cells 0-4 H Urine Bacteria 1+ H Ur Random Microalb umin 181 H Urine Creatinine 35 Microalb/Creat Rat io 5171 H Urine Opiates Scre en Negative Ur Barbiturates Sc reen Negative Ur Phencyclidine S crn Negative Ur Amphetamines Sc reen Negative U Benzodiazepines Scrn Negative Urine Cocaine Scre en Negative U Marijuana (THC) Screen Negative 03/15/20 03/15/20 03/15/20 00:15 00:15 00:15 WBC RBC Hgb Hct MCV MCH MCHC RDW Plt Count MPV Neut % (Auto) Lymph % (Auto) [place] % (Auto) Eos % (Auto) Baso % (Auto) Neut # (Auto) Lymph # (Auto) [place] # (Auto) Eos # (Auto) Baso # (Auto) Nucleated RBC % (a uto) Nucleated RBCs # ESR 51 H PT INR APTT D-Dimer Sodium Potassium Chloride Carbon Dioxide Anion Gap BUN Creatinine GFR Calculation Glucose POC Glucose Calculated Osmolal ity Calcium Magnesium Total Bilirubin AST ALT Alkaline Phosphata se Creatine Kinase Troponin I 6 Hour Troponin I Hi Sens Del Troponin T Baselin e Troponin T 120 Min [place] Troponin T C-Reactive Protein 10.6 H Total Protein Albumin Globulin TSH 13.20 H Urine Color Urine Appearance Urine pH Ur Specific Gravit y Urine Protein Urine Glucose (UA) Urine Ketones Urine Blood Urine Nitrate Urine Bilirubin Urine Urobilinogen Ur Leukocyte [place] Urine RBC Urine WBC Ur Squamous Epith Cells Urine Bacteria Ur Random Microalb umin Urine Creatinine Microalb/Creat Rat io Urine Opiates Scre en Ur Barbiturates Sc reen Ur Phencyclidine S crn Ur Amphetamines Sc reen U Benzodiazepines Scrn Urine Cocaine Scre en U Marijuana (THC) Screen 03/15/20 03/14/20 03/14/20 00:15 22:24 22:24 WBC RBC Hgb Hct MCV MCH MCHC RDW Plt Count MPV Neut % (Auto) Lymph % (Auto) [place] % (Auto) Eos % (Auto) Baso % (Auto) Neut # (Auto) Lymph # (Auto) [place] # (Auto) Eos # (Auto) Baso # (Auto) Nucleated RBC % (a uto) Nucleated RBCs # ESR PT INR APTT D-Dimer Sodium 137 Potassium 4.1 Chloride 97 L Carbon Dioxide 28 Anion Gap 16.1 BUN 21 H Creatinine 1.0 H GFR Calculation 59.7 L Glucose 232 H POC Glucose Calculated Osmolal ity 288 Calcium 10.2 Magnesium 2.0 Total Bilirubin 0.3 AST 17 ALT 24 Alkaline Phosphata se 111 H Creatine Kinase 83 Troponin I 6 Hour Troponin I Hi Sens Del Troponin T Baselin e 52 H Troponin T 120 Min [place] 55.44 H Delta Troponin T 3.44 C-Reactive Protein Total Protein 6.9 Albumin 3.6 Globulin 3.3 TSH Urine Color Urine Appearance Urine pH Ur Specific Gravit y Urine Protein Urine Glucose (UA) Urine Ketones Urine Blood Urine Nitrate Urine Bilirubin Urine Urobilinogen Ur Leukocyte [place] Urine RBC Urine WBC Ur Squamous Epith Cells Urine Bacteria Ur Random Microalb umin Urine Creatinine Microalb/Creat Rat io Urine Opiates Scre en Ur Barbiturates Sc reen Ur Phencyclidine S crn Ur Amphetamines Sc reen U Benzodiazepines Scrn Urine Cocaine Scre en U Marijuana (THC) Screen 03/14/20 03/14/20 22:24 22:24 WBC 13.7 H RBC 4.93 Hgb 12.8 Hct 41.2 MCV 83.6 MCH 26.0 L MCHC 31.1 RDW 13.0 Plt Count 437 H MPV 10.9 H Neut % (Auto) 55.9 Lymph % (Auto) 33.8 [place] % (Auto) 7.2 Eos % (Auto) 2.1 Baso % (Auto) 0.6 Neut # (Auto) 7.7 Lymph # (Auto) 4.6 [place] # (Auto) 1.0 H Eos # (Auto) 0.3 Baso # (Auto) 0.1 Nucleated RBC % (a uto) 0 Nucleated RBCs # 0.0 ESR PT 12.00 INR 0.86 APTT 24.8 D-Dimer 0.53 Sodium Potassium Chloride Carbon Dioxide Anion Gap BUN Creatinine GFR Calculation Glucose POC Glucose Calculated Osmolal ity Calcium Magnesium Total Bilirubin AST ALT Alkaline Phosphata se Creatine Kinase Troponin I 6 Hour Troponin I Hi Sens Del Troponin T Baselin e Troponin T 120 Min [place] Troponin T C-Reactive Protein Total Protein Albumin Globulin TSH Urine Color Urine Appearance Urine pH Ur Specific Gravit y Urine Protein Urine Glucose (UA) Urine Ketones Urine Blood Urine Nitrate Urine Bilirubin Urine Urobilinogen Ur Leukocyte [place] Urine RBC Urine WBC Ur Squamous Epith Cells Urine Bacteria Ur Random Microalb umin Urine Creatinine Microalb/Creat Rat io Urine Opiates Scre en Ur Barbiturates Sc reen Ur Phencyclidine S crn Ur Amphetamines Sc reen U Benzodiazepines Scrn Urine Cocaine Scre en U Marijuana (THC) Screen Vitals: Last Vital Signs Temp 97.4 F L 03/15/20 11:00 Pulse 91 03/15/20 11:00 Resp 16 03/15/20 11:00 BP 131/78 03/15/20 11:00 Pulse Ox 92 03/15/20 11:00 Discharge Plan Discharge Patient Disposition: Home, Self-Care Condition: Stable Prescriptions: New aspirin 81 mg Tablet,Delayed Release (Dr/Ec) 81 mg PO DAILY Qty: 30 RF: 0 pantoprazole 40 mg Tablet,Delayed Release (Dr/Ec) 40 mg PO DAILY Qty: 60 RF: 0 lisinopril 10 mg Tablet 10 mg PO DAILY Qty: 30 RF: 0 prednisone 20 mg Tablet 60 mg PO DAILY Qty: 42 RF: 0 Continued amitriptyline 25 mg tablet 25 mg PO DAILY Qty: 30 RF: 0 atorvastatin 40 mg tablet 40 mg PO DAILY Qty: 30 RF: 0 cetirizine [Zyrtec] 10 mg tablet 10 mg PO DAILY Qty: 30 RF: 0 fluoxetine [Prozac] 20 mg capsule 20 mg PO DAILY Qty: 30 RF: 0 glipizide 5 mg tablet 5 mg PO BID Qty: 60 RF: 0 Levemir FlexTouch U-100 Insuln 100 unit/mL (3 mL) insulin pen 30 unit SUBCUT DAILY Qty: 15 RF: 0 levetiracetam [Keppra] 1,000 mg tablet 1,000 mg PO BID Qty: 60 RF: 0 Victoza 3-Ramin 0.6 mg/0.1 mL (18 mg/3 mL) pen injector 1.2 mg SUBCUT Q24H Qty: 9 RF: 0 metoprolol tartrate 50 mg tablet 50 mg PO BID Qty: 60 RF: 0 tizanidine 2 mg capsule 2 mg PO BEDTIME PRN (Reason: Muscle Pain) Qty: 30 RF: 0 Changed hydrochlorothiazide 25 mg tablet 50 mg PO DAILY Qty: 30 RF: 0 Discharge Orders: Discharge Order (Routine); Ordered 03/15/20 Ordered By: Papito Lei Referrals: Outpatient Surgical Services [Other] (You have been set up to come back to the hospital the next two days for an outpatient infusion of solu-medrol. March 16, please arrive at 6:45 AM through the outpatient services door and your appointment is at 7:00. March 17, please arrive at 10:45AM through the ER entrance for your appointment at 11:00. If you have any problems please call [phone] for assistance. ) Rheumatology [Provider Group] - 03/19/20 (Soonest available appointment, possible GCA) Shahla Lindsey MD [Physician] - (Soonest appointment) Klever Coats MD [Physician] - 03/20/20 (You have an appointment with Dr. Coats on ThursdayMarch 20 at 4:30 PM ) Shefali Russo DO [Primary Care Provider] - 03/20/20 Discharge Diet: Cardiac and Diabetic Discharge Activity: Increase activity as tolerated Activity Restrictions/Additional Instructions: Monitor blood pressure and glucose at least 3 times daily. If notice unimproving very high blood pressure (above 190 systolic or 110 diastolic) seek medical attention without delay. Similarly if you have prolonged seizure, changes in vision, severe headache, or other abnormality please seek medical attention urgently. Infusions of Solu-medrol are set up for tomorrow and day after. Day after that start prednisone 60mg per day on 03/18 and continue until this is adjusted or changed by any of the specialist physicians. Discharge Attestations Time Spent in Discharge Care*: greater than 30 min Quality Metrics Clinical Quality Measures During this hospital stay, did patient experience: None Coding Level of Care Code Acute Triple Valve Mechanic for g Fwd Diagnoses Hypertensive emergency I16.1 Hypertension I10 Hypertension type: essential hypertension Type 2 diabetes mellitus, with long-term current use of insulin E11.9; Z79.4 Diabetes mellitus complication status: without complication Vasculitis I77.6 Blurry vision H53.8 Focal seizure R56.9
[2020-03-15 16:53] LABS: Glucose Point of Care 324 mg/dL (70-110)
== END 2020-03-15 17:35 | disposition home or self-care (01) | DRG 305 ==
LOC: ER 03-15 01:22 → CSU 03-15 01:49
PROVIDERS: Emergency Medicine; Admitting Provider Internal Medicine; PCP Family Medicine; Visit Provider Internal Medicine
DX: I16.1 Hypertensive emergency (principal); G40.89 Other seizures; I69.951 Hemiplegia and hemiparesis following unspecified cerebrovascular disease affecting right dominant side; E11.9 Type 2 diabetes mellitus without complications; I69.998 Other sequelae following unspecified cerebrovascular disease; M21.371 Foot drop, right foot; I10 Essential (primary) hypertension; I77.6 Arteritis, unspecified; H53.8 Other visual disturbances; G89.29 Other chronic pain; M54.9 Dorsalgia, unspecified; F32.9 Major depressive disorder, single episode, unspecified; E78.5 Hyperlipidemia, unspecified; G47.00 Insomnia, unspecified; Z79.4 Long term (current) use of insulin
CPT/HCPCS: 12345; 36415; 36416; 70450; 71045; 71275; 73502; 74174; 80048; 80053; 80306; 81001; 82044; 82550; 82962; 83735; 84443; 84484; 85025; 85378; 85610; 85651; 85730; 86140; 96372; 99283; J1170; J1650; J1815; J2405; J2765; J2930; J3010; J3490; J7050; Q9967

== ENCOUNTER 2020-03-16 02:05 | Observation (INO) | payer MEDICAID, SELFPAY ==
[2020-03-16] VITALS (8 sets, daily range): BP systolic 164–226; BP diastolic 83–126; PULSE 80–103; RESP 18–20; TEMP 36.3–36.8; O2SAT 94–98; BMI 35.4
--- NOTE | 2020-03-16 02:17 | XR_ITS ---
WS: [id number] XR chest 1V portable [id number] REASON FOR EXAM: htn FINDINGS: The heart and mediastinal interfaces are normal. The lung weber are well aerated. No pneumonia, pleural pleural effusion, pulmonary edema, or mass ef fect. The hilum and apices normal. No osseous abnormalities. XR/XR chest 1V portable [id number] IMPRESSION: Negative chest for active pathology.
--- NOTE | 2020-03-16 02:17 | CTR_ITS ---
PROCEDURE INFORMATION: Exam: CT Head Without Contrast Exam date and time: 03/16/2020 2:18 AM Age: 44 years old Clinical indication: Pain; Other: HTN; Headache; Prior surgery TECHNIQUE: Imaging protocol: Computed tomography of the head without contrast. Radiation optimization: All CT scans at this facility use at least one of these dose optimization techniques: automated exposure control; mA and/or kV adjustment per patient size (includes targeted exams where dose is matched to clinical indication); or iterative reconstruction. COMPARISON: CT head wo con* [id number] 03/15/2020 12:12 AM RADIATION DOSE METRICS: Total DLP: 852.05 mGy-cm FINDINGS: Brain: [place]-white matter differentiation is preserved. Chronic left basal ganglia lacunar infarct. No edema, mass effect or midline shift. No acute intracranial hemorrhage. Ventricles: No ventriculomegaly. Bones/joints: Status post prior right frontal craniotomy. Sinuses: No acute sinusitis. Mastoid air cells: No mastoid effusion. Soft tissues: Unremarkable. CT/CT head wo con* [id number] IMPRESSION: No acute intracranial abnormality. Radiation Dose CTDIVOL = (mGy): DLP = 852.05 (mGy-cm)
--- NOTE | 2020-03-16 02:18 | ECG_ITS ---
Measurements Intervals [place] Rate: 96 P: 34 NM: 160 QRS: 9 QRSD: 106 T: 0 QT: 394 QTc: 499 SINUS RHYTHM MODERATE VOLTAGE CRITERIA FOR LVH, CONSIDER NORMAL VARIANT [MEETS CRITERIA IN ONE ONE OF: R(aVL), S(V1), R(V5), R(V5/V6)+S(V1)] POSSIBLE INFERIOR MYOCARDIAL INFARCTION , PROBABLY OLD [30 ms Q WAVE IN II/aVF] Compared to ECG 03/09/2020 13:46:48 Myocardial infarct finding now present Intraventricular conduction delay no longer present Prolonged QT interval no longer present Electronically Signed On 03-16-2020 18:00:57 CDT by Roya Gerardo M.D. [email or web address]
[2020-03-16] MEDS: hyDRALAzine 20 mg/mL INJ 1 mL 10 MG IVP (02:36)
--- NOTE | 2020-03-16 02:36 | W.ED.WEAKNES ---
HPI - Weakness General: Chief complaint: Weakness Stated complaint: HIGH BS Time Seen by Provider: 03/16/20 02:20 Source: patient Mode of arrival: wheelchair Limitations: no limitations History of Present Illness: HPI Narrative: 44-year-old female has a history of diabetes along with high blood pressure along with stroke in the past. Patient was recently discharged from the hospital last night and states that she has had high blood sugar over 600 along with high blood pressure as well. Patient states she had a fall also after being discharged and hit her head. She states she is had a blurry vision. Denies any worsening or improving factors. Associated symptoms: Denies chest pain, chills, dysuria, easy bruising, fever(s), headache(s), nausea or vomiting Review of Systems Const: Denies: fever(s), chills, body aches or change in appetite Eyes: Reports: change in vision and blurry vision ENMT: Denies: throat pain or dental pain Card: Denies: chest pain Resp: Denies: dyspnea GI: Denies: abdominal pain, nausea, vomiting or diarrhea : Denies: dysuria Musc: Denies: neck pain or back pain Skin/Breast: Denies: rash Neuro: Denies: headache(s) Psych: Denies: depression Donato/Lymph: Denies: easy bruising All/Imm: Denies: urticaria PFSH ED PFSH: Medical History Chronic back pain Depression Dyslipidemia Essential hypertension Insomnia Rotator cuff injury Seasonal allergies Stroke TIA (transient ischemic attack) Type 2 diabetes mellitus, with long-term current use of insulin Vasculitis Surgical History H/O brain surgery H/O tubal ligation H/O: hysterectomy History of cholecystectomy History of tonsillectomy Family History Other Cancer Diabetes Social History Smoking and tobacco status: never smoked Alcohol intake: never Household members: family Housing: House Physical Exam Const: COMMON NORMALS: no acute distress and patient oriented x3 GENERAL APPEARANCE: ill appearing HENMT: COMMON NORMALS: normocephalic and atraumatic HEAD & SCALP: normocephalic and atraumatic Eye: COMMON NORMALS: Equal, round and reactive pupils present and EOMs intact bilaterally PUPIL: Yes Equal, round and reactive pupils present Neck/C-Spine: COMMON NORMALS: full ROM and supple Chest: COMMONS NORMALS: normal inspection of the chest and normal palpation of entire chest wall Resp: COMMON NORMALS: normal respiratory effort, No retractions, No use of accessory muscles and clear to auscultation bilaterally AUSCULTATION: clear to auscultation bilaterally Cardio: COMMON NORMALS: regular rate, regular rhythm and No murmurs present (Cardio) RATE: regular rate RHYTHM: regular rhythm GI: COMMON NORMALS: Normal to inspection, nondistended, normoactive bowel sounds present, Soft to palpation, non-tender and no masses PALPATION: Yes Soft to palpation Extremity: COMMON NORMALS: normal to inspection and full ROM Neuro: COMMON NORMALS: patient oriented x3, moves all extremities and no focal motor deficits Psych: COMMON NORMALS: mental status grossly normal, Normal thought process present and cooperative THOUGHT PROCESS: Normal thought process present Skin: COMMON NORMALS: no rashes or lesions noted and no wounds GENERAL SKIN EXAM: no rashes or lesions noted Course Vital Signs: Vital signs: Vital Signs Temperature 97.3 F L 03/16/20 02:09 Pulse Rate 103 H 03/16/20 02:09 Respiratory Rate 18 03/16/20 02:09 Blood Pressure 226/126 03/16/20 02:09 Pulse Oximetry 96 03/16/20 02:09 MDM - Weakness MDM Narrative: Medical decision making narrative: Patient presents here with hyperglycemia along with high blood pressure. Patient is likely hyperglycemic from her steroids. Patient has been weak as well. Patient's head CT here is normal. I spoke to hospitalist and will admit for her high blood sugar along with high blood pressure. Lab Data: Labs: Lab Results 03/16/20 03/16/20 03/16/20 Range/Units 02:21 02:21 02:21 WBC 17.5 H (4.0-10.0) 10^3/ uL RBC 4.47 (4.1-5.3) 10^6/u L Hgb 11.6 (11.5-15.3) g/dL Hct 37.2 (37.0-47.0) % MCV 83.2 (81-99) fL MCH 26.0 L (28.0-34.0) pg MCHC 31.2 (30.0-36.0) g/dL RDW 13.1 (12.1-15.1) % Plt Count 424 H (130-400) 10^3/c mm MPV 11.4 H (7.4-10.4) fL Neut % (Auto) 92.9 % Lymph % (Auto) 5.3 % [place] % (Auto) 1.0 % Eos % (Auto) 0.0 % Baso % (Auto) 0.1 % Neut # (Auto) 16.3 H (1.8-7.7) 10^3/u L Lymph # (Auto) 0.9 (0.8-4.8) 10^3/u L [place] # (Auto) 0.2 (0.2-0.9) 10^3/u L Eos # (Auto) 0.0 (0.0-0.8) 10^3/u L Baso # (Auto) 0.0 (0.0-0.1) 10^3/u L Nucleated RBC % (a uto) 0 % Nucleated RBCs # 0.0 /100WBC Sodium 133 L (136-145) mmol/L Potassium 4.6 (3.5-5.1) mmol/L Chloride 95 L (98-107) mmol/L Carbon Dioxide 20 L (22-29) mmol/L Anion Gap 22.6 H (5-19) BUN 35 H (6-20) mg/dL Creatinine 1.5 H (0.5-0.9) mg/dL GFR Calculation 37.4 L (90-130) mL/min Glucose 642 H* (65-115) mg/dL POC Glucose (70-110) mg/dL Calculated Osmolal ity 304 H (285-295) mOsm/k g Calcium 9.8 (8.5-10.5) mg/dL Total Bilirubin 0.2 (0.15-1.2) mg/dL AST 21 (0-32) U/L ALT 25 (0-33) U/L Alkaline Phosphata se 107 H (35-105) IU/L Troponin T Baselin e 36 H (0-10) ng/mL Total Protein 7.4 (6.6-8.7) g/dL Albumin 3.7 (3.5-5.2) g/dL Globulin 3.7 (1.3-4.6) g/dL 03/16/20 Range/Units 03:06 WBC (4.0-10.0) 10^3/ uL RBC (4.1-5.3) 10^6/u L Hgb (11.5-15.3) g/dL Hct (37.0-47.0) % MCV (81-99) fL MCH (28.0-34.0) pg MCHC (30.0-36.0) g/dL RDW (12.1-15.1) % Plt Count (130-400) 10^3/c mm MPV (7.4-10.4) fL Neut % (Auto) % Lymph % (Auto) % [place] % (Auto) % Eos % (Auto) % Baso % (Auto) % Neut # (Auto) (1.8-7.7) 10^3/u L Lymph # (Auto) (0.8-4.8) 10^3/u L [place] # (Auto) (0.2-0.9) 10^3/u L Eos # (Auto) (0.0-0.8) 10^3/u L Baso # (Auto) (0.0-0.1) 10^3/u L Nucleated RBC % (a uto) % Nucleated RBCs # /100WBC Sodium (136-145) mmol/L Potassium (3.5-5.1) mmol/L Chloride (98-107) mmol/L Carbon Dioxide (22-29) mmol/L Anion Gap (5-19) BUN (6-20) mg/dL Creatinine (0.5-0.9) mg/dL GFR Calculation (90-130) mL/min Glucose (65-115) mg/dL POC Glucose 587 (70-110) mg/dL Calculated Osmolal ity (285-295) mOsm/k g Calcium (8.5-10.5) mg/dL Total Bilirubin (0.15-1.2) mg/dL AST (0-32) U/L ALT (0-33) U/L Alkaline Phosphata se (35-105) IU/L Troponin T Baselin e (0-10) ng/mL Total Protein (6.6-8.7) g/dL Albumin (3.5-5.2) g/dL Globulin (1.3-4.6) g/dL Imaging Data^: CXR: Attestation: I personally reviewed and interpreted this imaging study as follows: My impression: no acute abnormality CT Head: Radiologist's impression: [address] [address] [address] Scan Report Signed Patient: Ivon Larios Unit #: [id number] : 1975 Age/Sex: 44 / F ADM Date: 03/16/20 Loc: ER Room/Bed: Attending Dr: Ordering Provider/Ordering MD: Ramón Garcia MD Date of Service: 03/16/20 Procedure(s): CT head wo con* [id number] Accession Number(s): [id number] Report Number: [id number] PROCEDURE INFORMATION: Exam: CT Head Without Contrast Exam date and time: 03/16/2020 2:18 AM Age: 44 years old Clinical indication: Pain; Other: HTN; Headache; Prior surgery TECHNIQUE: Imaging protocol: Computed tomography of the head without contrast. Radiation optimization: All CT scans at this facility use at least one of these dose optimization techniques: automated exposure control; mA and/or kV adjustment per patient size (includes targeted exams where dose is matched to clinical indication); or iterative reconstruction. COMPARISON: CT head wo con* [id number] 03/15/2020 12:12 AM RADIATION DOSE METRICS: Total DLP: 852.05 mGy-cm FINDINGS: Brain: [place]-white matter differentiation is preserved. Chronic left basal ganglia lacunar infarct. No edema, mass effect or midline shift. No acute intracranial hemorrhage. Ventricles: No ventriculomegaly. Bones/joints: Status post prior right frontal craniotomy. Sinuses: No acute sinusitis. Mastoid air cells: No mastoid effusion. Soft tissues: Unremarkable. CT/CT head wo con* [id number] IMPRESSION: No acute intracranial abnormality. Discharge Plan Discharge Patient Disposition: Admitted As Inpatient Clinical Impression: Hyperglycemia Hypertension Qualifiers: Hypertension type: essential hypertension Qualified Code(s): I10 - Essential (primary) hypertension Condition: Stable Referrals: Shefali Russo DO [Primary Care Provider] - Coding Level of Care Code ED Hospital Social Worker for Chg Fwd Exam Comprehensive
[2020-03-16 02:41] LABS: Basophils % 0.1 %; Hematocrit 37.2 % (37.0-47.0); Hemoglobin 11.6 g/dL (11.5-15.3); Lymphocytes # 0.9 10^3/uL (0.8-4.8); Lymphocytes % 5.3 %; Mean Corpuscular HGB Conc 31.2 g/dL (30.0-36.0); Mean Corpuscular Volume 83.2 fL (81-99); Mean Platelet Volume 11.4 fL (7.4-10.4); Monocytes # 0.2 10^3/uL (0.2-0.9); Neutrophils # 16.3 10^3/uL (1.8-7.7); Neutrophils % 92.9 %; Nucleated Red Blood Cells % 0 %; Platelet Count 424 10^3/cmm (130-400); Red Blood Count 4.47 10^6/uL (4.1-5.3); Red Cell Distribution Width 13.1 % (12.1-15.1); White Blood Count 17.5 10^3/uL (4.0-10.0)
[2020-03-16 03:02] LABS: Alanine Aminotransferase 25 U/L (0-33); Albumin Level 3.7 g/dL (3.5-5.2); Alkaline Phosphatase 107 IU/L (35-105); Anion Gap 22.6 (5-19); Blood Urea Nitrogen 35 mg/dL (6-20); Calcium 9.8 mg/dL (8.5-10.5); Carbon Dioxide 20 mmol/L (22-29); Chloride 95 mmol/L (98-107); Globulin 3.7 g/dL (1.3-4.6); Glomerular Filtration Rate 37.4 mL/min (90-130); Osmolality Calculated 304 mOsm/kg (285-295); Potassium 4.6 mmol/L (3.5-5.1); Sodium 133 mmol/L (136-145); Total Bilirubin 0.2 mg/dL (0.15-1.2); Total Protein 7.4 g/dL (6.6-8.7)
[2020-03-16 03:04] LABS: Troponin(5th) Baseline 36 ng/mL (0-10)
[2020-03-16 03:08] LABS: Aspartate Amino Transferase 21 U/L (0-32); Glucose 642 mg/dL (65-115)
[2020-03-16 03:10] LABS: Glucose Point of Care 587 mg/dL (70-110)
--- NOTE | 2020-03-16 03:28 | P.HP_ITS ---
Providers/Chief Complaint Primary Care Provider: Shefali Russo DO Chief Complaint: HIGH BP; H/A History of Present Illness Ivon Larios is a 44 year old female who was recently discharged yesterday on pulsed therapy for suspicion for GCA, antihypertensive agents for hypertension, came back for persistent hypotension and hypoglycemia. Patient is stating that she was discharged around 9 PM yesterday, she went home and showered, while she was putting on her trousers, it got stuck in her foot brace and she fell and hit the door frame. She could only see uptill 1-2 feet clearly which has caused recurrent falls verbalized and made her dependent caregivers. She checked her blood sugar which was 600mg and she kept having headaches and her systolic blood pressure was around 220mmhg. She has an appointment with compensation business partner, PCP, Dr. Lindsey, outpatient infusion center for 2 more doses of IV steroids. Documentation from the other facility revealed left pontine stroke, vasculitis was ruled out, autoimmune work-up was negative, however on previous admission her CRP and ESR was extremely high. Diagnosis in the ER revealed hypertension to 26/126, tachycardia, afebrile, she still has left-sided scalp tenderness, Around 600, she has been given 10 units of regular insulin, 1 dose of 10 mg hydralazine IV Will admit to [facility] floor to manage her diabetes Review of Systems Const: Reports: body aches and fatigue; Denies: fever(s) or chills Eyes: Reports: change in vision and blurry vision ENMT: Denies: throat pain Card: Denies: chest pain Resp: Denies: dyspnea GI: Denies: abdominal pain or nausea : Denies: flank pain Musc: Denies: neck pain Skin/Breast: Denies: rash Neuro: Reports: headache(s) and frequent falls Psych: Reports: anxiety Endo: Denies: polyuria Donato/Lymph: Denies: easy bruising All/Imm: Denies: urticaria Medications/Allergies Home Medications Medication Instructions Recorded Confirmed Last Taken Type amitriptyline 25 mg tablet 25 mg PO DAILY #30 tab 03/12/20 03/15/20 1 Day Ago Rx ~03/14/20 atorvastatin 40 mg tablet 40 mg PO DAILY #30 tab 03/12/20 03/15/20 1 Day Ago Rx ~03/14/20 cetirizine 10 mg tablet 10 mg PO DAILY #30 tab 03/12/20 03/15/20 1 Day Ago Rx ~03/14/20 fluoxetine 20 mg capsule 20 mg PO DAILY #30 cap 03/12/20 03/15/20 1 Day Ago Rx ~03/14/20 glipizide 5 mg tablet 5 mg PO BID #60 tab 03/12/20 03/15/20 1 Day Ago Rx ~03/14/20 insulin detemir U-100 100 unit/mL 30 unit SUBCUT DAILY #15 ml 03/12/20 03/15/20 1 Day Ago Rx (3 mL) subcutaneous pen ~03/14/20 levetiracetam 1,000 mg tablet 1,000 mg PO BID #60 tab 03/12/20 03/15/20 1 Day Ago Rx ~03/14/20 liraglutide 0.6 mg/0.1 mL (18 mg/3 1.2 mg SUBCUT Q24H #9 ml 03/12/20 03/15/20 1 Day Ago Rx mL) subcutaneous pen injector ~03/14/20 metoprolol tartrate 50 mg tablet 50 mg PO BID #60 tab 03/12/20 03/15/20 1 Day Ago Rx ~03/14/20 tizanidine 2 mg capsule 2 mg PO BEDTIME PRN #30 cap 03/12/20 03/15/20 1 Day Ago Rx ~03/14/20 aspirin 81 mg PO DAILY #30 tab 03/15/20 Unknown Rx hydrochlorothiazide 50 mg PO DAILY #30 tab 03/15/20 03/15/20 1 Day Ago Rx ~03/14/20 lisinopril 10 mg PO DAILY #30 tab 03/15/20 Unknown Rx pantoprazole 40 mg PO DAILY #60 tab 03/15/20 Unknown Rx prednisone 60 mg PO DAILY #42 tab 03/15/20 Unknown Rx Allergies Allergy/AdvReac Type Severity Reaction Status Date / Time amlodipine Allergy ADR-Swelling Verified 03/15/20 02:59 of the Eye codeine Allergy ADR-Shakine Verified 03/15/20 02:59 ss hydroxyzine [From Vistaril] Allergy ADR-Confusi Verified 03/15/20 02:59 on meperidine [From Demerol] Allergy ADR-Chest Verified 03/15/20 02:59 Pain metformin [From Glucophage] Allergy ALGY-Hives Verified 03/15/20 02:59 morphine Allergy ALGY-Anaphy Verified 03/15/20 02:59 laxis phenazopyridine Allergy ALGY-Hives Verified 03/15/20 02:59 [From Pyridium] sumatriptan [From Imitrex] AdvReac Mild Unknown Verified 03/15/20 02:59 PFSH Acute PFSH: Medical History Chronic back pain Depression Dyslipidemia Essential hypertension Insomnia Rotator cuff injury Seasonal allergies Stroke TIA (transient ischemic attack) Type 2 diabetes mellitus, with long-term current use of insulin Vasculitis Surgical History H/O brain surgery H/O tubal ligation H/O: hysterectomy History of cholecystectomy History of tonsillectomy Family History Other Cancer Diabetes Social History Smoking and tobacco status: never smoked Alcohol intake: never Household members: family Housing: House Vitals/I&O/Wt Last Vital Signs Temp 97.3 F L 03/16/20 02:09 Pulse 103 H 03/16/20 02:09 Resp 18 03/16/20 02:09 BP 226/126 03/16/20 02:09 Pulse Ox 96 03/16/20 02:09 Weight last 48 hrs Weight 90.718 kg Physical Exam Narrative: EXAM NARRATIVE: Head to toe examination Patient is sitting in her wheelchair complaining of headache To have scalp tenderness of left temporal region She could only see up to 1 to 2 feet, S1, S2, tachycardia No signs of heart failure Abdomen soft nontender nondistended bowel sound present Lungs are clear patient Flaccid hemiparesis right-sided She is wearing a right foot brace No radio radial delay Appropriate mood and affect Skin does not show any ischemia gangrene ulcer, skin tattoos+ Data : 03/16/20 02:21 03/16/20 02:21 A&P Assessment and plan (1) Hyperglycemia: Status: Acute (2) Hypertensive urgency: Status: Acute (3) Headache: Status: Acute (4) GCA (giant cell arteritis): Status: Acute Additional A&P Information Hyperglycemia secondary to steroid pulse therapy We will check A1c level, start her on consistent carb diet, moderate sliding scale and continue her insulin regimen We will calculate her total insulin requirement in 24 hours and readjust her insulin requirement before discharge Hypertensive urgency On discharge she was started on lisinopril 10 mg, I will increase her dose to 20 mg, continue hydrochlorothiazide 50mg, metoprolol tartrate 50mg p.o twice daily. High suspicion for GCA Scalp tenderness of left side, blurry vision, recurrent headaches and falls She is due for 2 more doses of pulsed methylprednisolone 500 mg doses After 3 doses she will require prednisone 60 mg She has an appointment with compensation business partner and neurologist Acute kidney injury secondary to hyperglycemia With holding lisinopril dose if her creatinine is worsening more than 50% then will hold COTY inhibitor otherwise I would continue this medication for now which will slow down the progression of nephropathy She has 3+ proteinuria as well Full code Heparin DVT prophylaxis Consistent carb Attestations Medical Necessity Statement*: Anticipating discharge in less than 48 hours currently needs management for hyperglycemia and hypertensive urgency Currently need 24-hour insulin requirement because of pulse steroid therapy which might aggravate her underlying type 2 diabetes Time Spent in Patient Care: 50 Coding Level of Care Code Acute Petrol Tanker Driver for Ashley Hess Diagnoses Hyperglycemia R73.9 Hypertensive urgency I16.0 Headache R51 GCA (giant cell arteritis) M31.6
[2020-03-16] MEDS: insulin regular-human 100 units/1 mL 10 UNIT IVP (03:53)
--- NOTE | 2020-03-16 03:55 | PC.NURSE ---
Admitting MD at bedside for evaluation
[2020-03-16 05:06] LABS: Troponin 5 2HR 36.24 ng/mL (0-10); Troponin 5 2HR Delta 0.24 ABS# (0-10)
[2020-03-16 05:24] LABS: Add Urine Microscopic? YES; Bacteria Urine 1+; Bilirubin Urine Neg (NEGATIVE); Blood Urine 2+ (Negative); Glucose Urine UA 4+ (Normal); Ketones Urine Negative (Negative); Leukocyte Esterase Urine Negative (Negative); Nitrate Urine Negative (Negative); Protein Urine 2+ (Negative); RBC Urine 0-4 /hpf (0-2); Squamous Epithelial Cell Urine 0-4 (0-5); Urine Appearance SL Hazy (CLEAR); Urine Color Yellow (Yellow); Urobilinogen Urine Norm (Negative); WBC Urine 0-4 /hpf (0-5); pH Urine 5 (5-7)
[2020-03-16 05:51] LABS: Glucose Point of Care 426 mg/dL (70-110)
[2020-03-16] MEDS: acetaminophen 325 mg Tablet 650 MG PO (05:53)
[2020-03-16] MEDS: heparin 5,000 unit/mL INJ 1 mL 5000 UNIT SUBCUT ×3 (05:59→21:39)
[2020-03-16] MEDS: labetalol 5 mg/mL SDV 20mL 20 MG IVP (06:00)
[2020-03-16 06:20] LABS: Estmated Average Glucose 226; Hemoglobin A1C 9.5 % (4.0-6.0)
[2020-03-16 06:50] LABS: Glucose Point of Care 416 mg/dL (70-110)
[2020-03-16 07:51] LABS: Glucose Point of Care 444 mg/dL (70-110)
[2020-03-16 09:18] LABS: Troponin 5 6HR 39.45 ng/L (0-10); Troponin 5 6HR Delta 3.45 ng/L (0-12)
--- NOTE | 2020-03-16 10:06 | PC.CHAP ---
Pastoral Care Encounter/Spiritual Assessment Type of Contact [] Declined patrol conductor visit [] Patient/Family/Request visit [] Outpatient visit [] Follow-up visit [] Physician referral [] Code/Alert [x] Routine visit [] Staff referral [] Actively dying [] Patient sleeping [x] Family support [] [] Out of room [] Palliative care [] [] Receiving care in room [] Pre-surgical visit [] Trauma [] Long length of stay [] ICU visit [] Other: Relational/Emotional Strength [] Patient feels connected with others/family/visitors/staff [] Distress [] Loneliness/isolation [] Abandonment Spirituality of Patient [] Person of Milena [] Attends Quaker of their Milena [] Believes in Prayer [] Reads Bible or Restorationist materials [] There are Spiritual issues to be addressed Remote Encoding Center Manager Interventions [x] Prayer [] Active listening [] Non-anxious presence [] Spiritual/emotional support [] Crisis/trauma care [] Spiritual counseling [] Bereavement support [] Provided bereavement packet [] Provided Bible/devotional materials [] Provided toy/stuffed animal, coloring book to patient or family member [] Provided Communion [] Anointing/[place] [] Salvation [] Completed spiritual assessment [] Other: Impact on Illness or Injury [] Angry [] Fearful [] Anxious [] Often cries [] Exhaustion [] Unable to work [] Unable to attend gnosticism [] Unable to walk/stand [] Unable to read [] Unable to drive [] Unable to eat/drink [] Unable to sleep [] Unable to be with family [] Patient intubated [] Other: Summary Patient resting from surgery. mother present. Time spent with patient 10 min
--- NOTE | 2020-03-16 10:15 | PC.CHAP ---
Pastoral Care Encounter/Spiritual Assessment Type of Contact [] Declined tea tree farm worker visit [] Patient/Family/Request visit [] Outpatient visit [] Follow-up visit [] Physician referral [] Code/Alert [x] Routine visit [] Staff referral [] Actively dying [] Patient sleeping [] Family support [] [] Out of room [] Palliative care [] [] Receiving care in room [] Pre-surgical visit [] Trauma [] Long length of stay [] ICU visit [x] Other: org. tea tree farm worker notes were for another patient... this is a CORRECTION Relational/Emotional Strength [] Patient feels connected with others/family/visitors/staff [] Distress [] Loneliness/isolation [] Abandonment Spirituality of Patient [] Person of Milena [] Attends Advent of their Milena [] Believes in Prayer [] Reads Bible or Catholic materials [] There are Spiritual issues to be addressed Ada Accommodation Consultant Interventions [x] Prayer [] Active listening [] Non-anxious presence [] Spiritual/emotional support [] Crisis/trauma care [] Spiritual counseling [] Bereavement support [] Provided bereavement packet [] Provided Bible/devotional materials [] Provided toy/stuffed animal, coloring book to patient or family member [] Provided Communion [] Anointing/[place] [] Salvation [x] Completed spiritual assessment [] Other: Impact on Illness or Injury [] Angry [] Fearful [] Anxious [] Often cries [] Exhaustion [] Unable to work [] Unable to attend sabianist [] Unable to walk/stand [] Unable to read [] Unable to drive [] Unable to eat/drink [] Unable to sleep [] Unable to be with family [] Patient intubated [] Other: Summary patient suffering with headache. Patient emotional. Time spent with patient 10 min
[2020-03-16] MEDS: atorvastatin 40 mg Tablet PO (10:27)
[2020-03-16] MEDS: TRAMadol 50 mg Tablet PO (10:27)
[2020-03-16] MEDS: fluoxetine 20 mg Capsule PO (10:28)
[2020-03-16] MEDS: levETIRAcetam 500 mg Tablet 1000 MG PO ×2 (10:28→17:09)
[2020-03-16] MEDS: aspirin 81 mg EC Tablet PO (10:28)
[2020-03-16] MEDS: lisinopril 10 mg Tablet 20 MG PO (10:28)
[2020-03-16] MEDS: predniSONE 20 mg Tablet 60 MG PO (10:29)
[2020-03-16] MEDS: pantoprazole DR 40 mg Tablet PO (10:29)
[2020-03-16] MEDS: metoprolol tartrate 50 mg Tablet PO ×2 (10:29→17:09)
[2020-03-16] MEDS: hydroCHLOROthiazide 25 mg Tablet 50 MG PO (10:30)
[2020-03-16 10:41] LABS: Glucose Point of Care 391 mg/dL (70-110)
[2020-03-16] MEDS: hyDRALAzine 10 mg Tablet PO ×2 (16:18→21:39)
[2020-03-16 17:07] LABS: Glucose Point of Care 296 mg/dL (70-110)
[2020-03-16] MEDS: HYDROcodone-acetaminophen 5-325 mg Tablet 2 TAB PO (17:09)
[2020-03-16] MEDS: diphenhydrAMINE 25 mg Capsule PO (17:09)
[2020-03-16 20:47] LABS: Glucose Point of Care 304 mg/dL (70-110)
--- NOTE | 2020-03-16 21:11 | PM.PN ---
Subjective Subjective: Interval history: Having headache on the left side of her head. Also some tenderness on palpation of the left zoroastrian. Requesting for fentanyl. We discussed that concern for use of the medication with a kidney injury, as well as concern for severe side effects with such a strong medication, requests about nalbuphine. Discussed similar concerns. Request switch to [place] with Benadryl. Denies any anaphylactic reaction. Reports occasionally gets migraine headaches with aura seeing white jellybeans . Then also describes that in addition to the symptoms she was having 2 days ago, was also having numbness of right side of the face and body. She states that this was not present previously. Also reports occasional tremors/rigors going on for a while, although not feeling cold at the time. Vitals/I&O/Wt Last Vital Signs Temp 98.0 F 03/16/20 19:46 Pulse 83 03/16/20 19:46 Resp 20 H 03/16/20 19:46 BP 177/106 03/16/20 19:46 Pulse Ox 95 03/16/20 19:46 03/16/20 03/16/20 03/16/20 06:59 14:59 22:59 Intake Total 720 / 720 220 / 940 Output Total 1500 / 1500 1000 / 2500 Balance -780 / -780 -780 / -1560 Weight last 48 hrs Weight 90.718 kg Physical Exam Const: COMMON NORMALS: no acute distress and patient oriented x3 NUTRITIONAL APPEARANCE: obese OTHER: Resting on a pillow sitting at the table. HENMT: COMMON NORMALS: oropharynx normal OTHER: Tender to palpation left zoroastrian, although I do not see a cord, or any external rash or injury. Neck/C-Spine: COMMON NORMALS: no JVD Resp: COMMON NORMALS: normal respiratory effort and clear to auscultation bilaterally AUSCULTATION: clear to auscultation bilaterally Cardio: COMMON NORMALS: no JVD, regular rhythm, S1 normal heart sound present, S2 normal heart sound present and No murmurs present (Cardio) RHYTHM: regular rhythm HEART SOUNDS: S1 normal heart sound present and S2 normal heart sound present GI: COMMON NORMALS: Normal to inspection, nondistended, normoactive bowel sounds present, Soft to palpation and non-tender PALPATION: Yes Soft to palpation Extremity: COMMON NORMALS: no joint enlargement and no pedal edema Neuro: COMMON NORMALS: patient oriented x3 OTHER: Right side hemiparesis. Right side paresthesia. Skin: COMMON NORMALS: no rashes or lesions noted GENERAL SKIN EXAM: no rashes or lesions noted Data : 03/16/20 02:21 03/16/20 02:21 A&P Assessment and plan (1) Hyperglycemia: Steroid-induced hyperglycemia. Will increase sliding scale to aggressive. Continue detemir 30 units, will add additional 10 units tonight. Status: Acute (2) Hypertensive urgency: Had to modify blood pressure regimen given acute kidney injury, creatinine up to 1.5. Discontinue lisinopril, HCTZ on hold for now. Appears she has allergy to amlodipine. Added hydralazine p.o. Monitor blood pressure. So far with some improvement. Status: Acute (3) Headache: Has a history of migraine, appears perhaps hemiplegic migraine or migraine with aura, perhaps adding elevated risk of CVA in her case as well. Left side headache today, although also with palpable discomfort in the left zoroastrian. She is requesting quite strong medications, stating Tylenol, tramadol have not been working, although discussed with her the concern regarding those. She requests for [place], Benadryl instead, denies any severe reactions with the drug in the past. She also notes some numbness/paresthesia on the right side of the body which started at the same time other symptoms started several days ago. With prior CVA, discussed with her concern for risk of CVA with this medication in rare cases. She verbalized understanding. For now continue treatment of hypertension, pain management as above, and had lidocaine jelly for superficial tenderness on the left zoroastrian. Assess with MRI brain. Status: Acute (4) GCA (giant cell arteritis): Empirically currently on Solu-Medrol infusions. To switch to prednisone 60 mg daily on Thursday. Follow-up with ophthalmology on Thursday morning, rheumatology Thursday afternoon. Discussed with her. She is in agreement with follow-up plan. Status: Acute (5) Stroke: History of prior CVA, with old strokes noted on CT scan on prior presentation in left side basal ganglia, left side lobo. She now reports that also was having some paresthesia/numbness on the right side, right side of face. With her extremely high blood pressures, he is certainly at risk for recurrence/progression of CVA. Will assess by MRI brain. Continue aspirin, statin. Optimize blood pressure management. Diabetes management, although this at this time is made more difficult by the steroids. Follow-up with neurology. Status: Acute (6) ELLEN (acute kidney injury): Significant creatinine increase up to 1.5. Discontinue lisinopril. Hold HCTZ. Changed BP meds to hydralazine p.o. Suspect that with possible stage I chronic kidney disease secondary to hypertensive nephropathy, diabetic nephropathy. Once creatinine stabilized may benefit from return to COTY inhibitor. Given severe blood pressure elevation, rise with COTY inhibitor discussed with her would benefit from additional assessment for possible renal artery stenosis. Status: Acute Attestations Medical Necessity Statement*: Continue observation for optimization of blood pressure management in the setting of ELLEN. Assessment for possible recent CVA. 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
[2020-03-17] MEDS: hyDRALAzine 20 mg/mL INJ 1 mL 10 MG IVP (00:09)
[2020-03-17 04:00] VITALS: BP 153/79; PULSE 84; RESP 18; TEMP 36.8; O2SAT 97
[2020-03-17] MEDS: acetaminophen 325 mg Tablet 650 MG PO (04:59)
[2020-03-17] MEDS: TRAMadol 50 mg Tablet PO (04:59)
[2020-03-17 05:00] VITALS: BP 146/77; PULSE 83; RESP 18; TEMP 36.5
[2020-03-17] MEDS: heparin 5,000 unit/mL INJ 1 mL 5000 UNIT SUBCUT ×2 (05:00→13:51)
[2020-03-17 05:43] LABS: Anion Gap 18.2 (5-19); Blood Urea Nitrogen 43 mg/dL (6-20); Calcium 9.4 mg/dL (8.5-10.5); Carbon Dioxide 23 mmol/L (22-29); Chloride 97 mmol/L (98-107); Glomerular Filtration Rate 37.4 mL/min (90-130); Glucose 364 mg/dL (65-115); Osmolality Calculated 291 mOsm/kg (285-295); Potassium 4.2 mmol/L (3.5-5.1); Sodium 134 mmol/L (136-145)
[2020-03-17 06:58] LABS: Glucose Point of Care 346 mg/dL (70-110)
[2020-03-17 07:21] VITALS: BP 137/76; PULSE 81; RESP 18; TEMP 36.9; O2SAT 96
[2020-03-17] MEDS: levETIRAcetam 500 mg Tablet 1000 MG PO (08:29)
[2020-03-17] MEDS: hyDRALAzine 10 mg Tablet PO ×2 (08:29→14:54)
[2020-03-17] MEDS: atorvastatin 40 mg Tablet PO (08:29)
[2020-03-17] MEDS: metoprolol tartrate 50 mg Tablet PO (08:30)
[2020-03-17] MEDS: aspirin 81 mg EC Tablet PO (08:30)
[2020-03-17] MEDS: fluoxetine 20 mg Capsule PO (08:30)
[2020-03-17] MEDS: pantoprazole DR 40 mg Tablet PO (08:30)
[2020-03-17] MEDS: diphenhydrAMINE 25 mg Capsule PO (08:37)
[2020-03-17] MEDS: HYDROcodone-acetaminophen 5-325 mg Tablet 2 TAB PO (08:38)
--- NOTE | 2020-03-17 10:28 | MRR_ITS ---
PROCEDURE INFORMATION: Exam: MR Head Without Contrast Exam date and time: 03/17/2020 12:07 PM Age: 44 years old Clinical indication: Visual disturbance and weakness, extremity; Prior surgery; Surgery type: Biopsy in past; Additional info: Exclude additional recent cva- vision changes, numbness TECHNIQUE: Imaging protocol: MR of the head without contrast. COMPARISON: CT head wo con* [id number] 03/16/2020 2:37 AM FINDINGS: Brain: No bleed, mass, or shift of structures. Basilar cisterns are normal. Pre-pontine region, suprasellar region, and cerebellar angles are normal. Small focus of acute ischemia within the left thalamus adjacent to the posterior limb of the left internal capsule. Small vessel ischemic changes/altered signal within the left paracentral lobo. Correlate. There are a few punctate areas of altered/abnormal signal intensity within the periventricular white matter likely the radiographic manifestation of early small vessel ischemic changes. Prior infarct in the left lentiform nuclei posteriorly. Ventricles: Prior ventriculostomy in the right frontal region. Sella: Sella normal. Bones/joints: Clivus normal. Calvarium is normal marrow signal. Prior craniotomy in the right frontal calvarium. Sinuses: Normal as visualized. No acute sinusitis. Mastoid air cells: Normal as visualized. No mastoid effusion. Orbits: Unremarkable. Soft tissues: Soft tissues are unremarkable Other findings: Diploe is normal. Tectum normal. MR/MR head wo con* [id number] IMPRESSION: 1. Small focus of acute ischemia within the left thalamus adjacent to the posterior limb of the left internal capsule. 2. Prior craniotomy in the right frontal calvarium. 3. Small vessel ischemic changes/altered signal within the left paracentral lobo. Correlate. 4. There are a few punctate areas of altered/abnormal signal intensity within the periventricular white matter . Prior infarct in the left lentiform nuclei posteriorly.
[2020-03-17 11:13] VITALS: BP 163/77; PULSE 82; RESP 18; TEMP 36.7; O2SAT 96
[2020-03-17] MEDS: ALPRAZolam 0.5 mg Tablet PO (11:20)
[2020-03-17 11:31] LABS: Glucose Point of Care 425 mg/dL (70-110)
--- NOTE | 2020-03-17 14:12 | PC.CHAP ---
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 [] Patient/Family/Request visit [] Outpatient visit [] Follow-up visit [] Physician referral [] Code/Alert [X] Routine visit [] Staff referral [] Actively dying [] Patient sleeping [] Family support [] [] Out of room [] Palliative care [] [] Receiving care in room [] Pre-surgical visit [] Trauma [] Long length of stay [] ICU visit [] Other: Relational/Emotional Strength [] Patient feels connected with others/family/visitors/staff [] Distress [] Loneliness/isolation [] Abandonment Spirituality of Patient [] Person of Milena [] Attends Rastafarian of their Milena [] Believes in Prayer [] Reads Bible or Sabianist materials [] There are Spiritual 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 [] Prayer [] Active listening [] Non-anxious presence [] Spiritual/emotional support [] Crisis/trauma care [] Spiritual counseling [] Bereavement support [] Provided bereavement packet [] Provided Bible/devotional materials [] Provided toy/stuffed animal, coloring book to patient or family member [] Provided Communion [] Anointing/[place]hin[place]ander [] Salvation [] Completed spiritual assessment [] Other: Impact on Illness or Injury [] Angry [] Fearful [] Anxious [] Often cries [] Exhaustion [] Unable to work [] Unable to attend adventist [] Unable to walk/stand [] Unable to read [] Unable to drive [] Unable to eat/drink [] Unable to sleep [] Unable to be with family [] Patient intubated [] Other: Summary [employer] Time spent with patient
[2020-03-17 15:15] VITALS: BP 163/77; PULSE 82; RESP 18; TEMP 36.7; O2SAT 96
[2020-03-17 15:26] VITALS: BP 159/78; PULSE 76; RESP 18; TEMP 36.8; O2SAT 96
--- NOTE | 2020-03-17 21:21 | PM.DCS ---
Discharge Providers Date of Admission: 03/16/20 03:37 Date of Discharge: March 17, 2020 Attending Provider at Admission: Emily Carey MD Attending Provider at Discharge: Papito Lei Primary Care Provider: Shefali Russo DO Diagnoses at Discharge Discharge Diagnosis (1) Hypertensive urgency: Status: Acute (2) Stroke: Status: Acute (3) Headache: Status: Acute (4) Hyperglycemia: Status: Acute (5) ELLEN (acute kidney injury): Status: Acute (6) GCA (giant cell arteritis): Status: Acute Reason for Visit Reason for Visit: HIGH BP; H/A Hospital Course Hospital Course: Pleasant 44-year-old lady with history of CVA, seizure disorder, chronic right-sided paresis, chronic blindness, with underlying DM 2, HTN, dependent on daily care, currently cared for by her mother, after recent observation stay return to the hospital due to again very elevated blood pressure, recurrence of headache. This time no vision changes or seizure noted. No acute changes on repeat noncontrast CT of the head. She was noted to have acute kidney injury with creatinine up to 1.5. Noted hyperglycemia. Hypertensive emergency was treated with IV hydralazine. Her hypertensive regimen was modified with discontinuation of lisinopril, HCTZ due to acute kidney injury. She was transitioned to oral hydralazine. Discussed with her oral clonidine may be considered in case blood pressure still not controlled. She had a severe reaction to amlodipine with angioedema. COTY inhibitor potentially ARB, thiazide could be resumed once renal function stabilizes. Due to rising creatinine, as well as severe episodes of blood pressure, as well as abnormality on CTA, follow-up with renal ultrasound is requested to exclude renal artery stenosis, please follow-up sure that this is performed and discussed with the results with her. During his hospitalization she notes that the last several days she also has had numbness on the right side of the body which is new. Due to this concern, as well as other findings during previous hospitalization she was assessed by MRI to exclude CVA. She was noted to have a small recent CVA in the left internal capsule new compared to prior known sites. She is on aspirin 81mg, statin. Discussed with her a number of her already known risk factors, including severe hypertensive episodes, as well as suboptimally controlled diabetes with hemoglobin A1c of 9.7. She also appears to have intermittent migraines with aura, which may also raise her risk of CVA. No arrhythmia has been noted on cardiographics. CTA head and neck back in February with some noted abnormalities, with stenosis noted in several locations, including moderate left side M1 segment stenosis, and findings questionable for possibly fibromuscular dysplasia of middle cerebral arteries with slightly beaded appearance? Findings discussed with her. She will be following up with neurology on 03/22 and have encouraged to discuss all the recent events. Follow-up is also set up for her on Thursday with ophthalmology and rheumatology due to also symptoms of vision changes, left sabianist tenderness, jaw claudication, and she has completed initial course of Solu-Medrol infusions, and was transitioned to prednisone starting tomorrow, with regimen to be adjusted by the specialist providers after assessment. Her blood pressure remained well controlled in the hospital. Headache resolved. She has been feeling better and wanting to return home. Arrangements are in progress currently for placement to assisted living facility. Strategies to prevent hypertension spikes, as well as for better control of glucose were discussed extensively. She also understands to seek medical attention without any delay in case of any occurrence of any new strokelike symptoms. Physical Exam Const: COMMON NORMALS: no acute distress and patient oriented x3 NUTRITIONAL APPEARANCE: obese OTHER: Sitting up in chair. Appears calm, comfortable. Pleasant. Conversant. Readily discussing her medical conditions. HENMT: COMMON NORMALS: oropharynx normal OTHER: Tender to palpation left sabianist, although I do not see a cord, or any external rash or injury. Neck/C-Spine: COMMON NORMALS: no JVD Resp: COMMON NORMALS: normal respiratory effort and clear to auscultation bilaterally AUSCULTATION: clear to auscultation bilaterally Cardio: COMMON NORMALS: no JVD, regular rhythm, S1 normal heart sound present, S2 normal heart sound present and No murmurs present (Cardio) RHYTHM: regular rhythm HEART SOUNDS: S1 normal heart sound present and S2 normal heart sound present GI: COMMON NORMALS: Normal to inspection, nondistended, normoactive bowel sounds present, Soft to palpation and non-tender PALPATION: Yes Soft to palpation Extremity: COMMON NORMALS: no joint enlargement and no pedal edema Neuro: COMMON NORMALS: patient oriented x3 OTHER: Right side hemiparesis. Right side paresthesia. Skin: COMMON NORMALS: no rashes or lesions noted GENERAL SKIN EXAM: no rashes or lesions noted Discharge Data Data Completed and Pending: Completed Studies During Hospitalization Category Date Time Status CT head wo con* [id number] Urgent Cat Scan 03/16/20 02:17 Completed XR chest 1V mikie ble [id number] Urgent Exams 03/16/20 02:17 Completed MR head wo con* [id number] Urgent MRI 03/17/20 10:28 Completed Pending at discharge Category Date Time Status MR head wo con* [id number] Routine MRI 03/16/20 16:39 Stop Req Labs from last 24 hours 03/17/20 03/17/20 03/17/20 11:11 06:35 05:17 Sodium 134 L Potassium 4.2 Chloride 97 L Carbon Dioxide 23 Anion Gap 18.2 BUN 43 H Creatinine 1.5 H GFR Calculation 37.4 L Glucose 364 H POC Glucose 425 346 Calculated Osmolal ity 291 Calcium 9.4 Vitals: Last Vital Signs Temp 98.2 F 03/17/20 15:26 Pulse 76 03/17/20 15:26 Resp 18 03/17/20 15:26 BP 159/78 03/17/20 15:26 Pulse Ox 96 03/17/20 15:26 Discharge Plan Discharge Patient Disposition: Home Health Service Condition: Stable Prescriptions: New hydralazine 10 mg Tablet 10 mg PO TID Qty: 180 RF: 0 Novolog U-100 Insulin aspart 100 unit/mL Solution See Rx Instructions .ROUTE .COMPLEX Qty: 10 RF: 0 hydrocodone-acetaminophen 5-325 mg Tablet 2 tab PO Q4H PRN (Reason: Moderate To Severe Pain) Qty: 4 RF: 0 diphenhydramine HCl 25 mg Capsule 25 mg PO Q4H PRN (Reason: Itching) Qty: 4 RF: 0 Plavix 75 mg tablet 75 mg PO DAILY Qty: 30 RF: 0 (DME) diabetic supplies, miscellan. Misc See Rx Instructions .ROUTE .MEDSUPPLY Qty: 60 RF: 0 Continued amitriptyline 25 mg tablet 25 mg PO DAILY Qty: 30 RF: 0 atorvastatin 40 mg tablet 40 mg PO DAILY Qty: 30 RF: 0 cetirizine [Zyrtec] 10 mg tablet 10 mg PO DAILY Qty: 30 RF: 0 fluoxetine [Prozac] 20 mg capsule 20 mg PO DAILY Qty: 30 RF: 0 glipizide 5 mg tablet 5 mg PO BID Qty: 60 RF: 0 levetiracetam [Keppra] 1,000 mg tablet 1,000 mg PO BID Qty: 60 RF: 0 Victoza 3-Ramin 0.6 mg/0.1 mL (18 mg/3 mL) pen injector 1.2 mg SUBCUT Q24H Qty: 9 RF: 0 tizanidine 2 mg capsule 2 mg PO BEDTIME PRN (Reason: Muscle Pain) Qty: 30 RF: 0 aspirin 81 mg Tablet,Delayed Release (Dr/Ec) 81 mg PO DAILY Qty: 30 RF: 0 pantoprazole 40 mg Tablet,Delayed Release (Dr/Ec) 40 mg PO DAILY Qty: 60 RF: 0 prednisone 20 mg Tablet 60 mg PO DAILY Qty: 42 RF: 0 Changed metoprolol tartrate 50 mg tablet 75 mg PO BID Qty: 60 RF: 0 Levemir FlexTouch U-100 Insuln 100 unit/mL (3 mL) insulin pen 42 unit SUBCUT DAILY Qty: 15 RF: 0 Discontinued lisinopril 10 mg Tablet 10 mg PO DAILY Qty: 30 RF: 0 hydrochlorothiazide 25 mg tablet 50 mg PO DAILY Qty: 30 RF: 0 Discharge Orders: Discharge Order (Routine); Ordered 03/17/20 Ordered By: Papito Lei Other Ambulatory Orders: CV renal doppler [id number] (Routine) Timeframe: 1 Week Facility: [facility] - Location: Radiology [facility] Ordered By: Papito Lei Referrals: Shahla Lindsey MD [Physician] - (You will need to call Thursday and make a follow up appointment with Dr. Lindsey for the soonest possible appointment.) Abhinav Salazar MD [Physician] - 03/19/20 (Please call Yessica to schedule an appointment) Klever Coats MD [Physician] - None (Please report to Dr. Coats office first thing Thursday morning for an appoimtnent. ) Shefali Russo DO [Primary Care Provider] - 03/20/20 1:00 pm (You have an appointment with Dr. Russo on March 20 at 1:00pm) Discharge Diet: Cardiac and Diabetic Discharge Activity: Increase activity as tolerated and As per PT/OT instructions Patient Instructions: Diphenhydramine (By mouth), Hydralazine (By mouth), Tizanidine (By mouth), Clopidogrel (By mouth), Acute Headache (GEN), Chronic Hypertension (GEN), Hypertensive Crisis (GEN) Activity Restrictions/Additional Instructions: Please monitor your blood pressure at least 4 times daily. If blood pressure is elevated, more than 160 top number or 100 bottom number, take an extra dose of hydralazine, recheck blood pressure in several hours, unless blood pressure is very high and persistently remains high above 190 top number or 110 bottom number, seek medical attention without delay, especially if blood pressure remains high despite taking extra hydralazine dose. For now your lisinopril and HCTZ on hold due to acute kidney injury. Please discuss with your primary care doctor to follow-up kidney function, and consider resuming HCTZ, possibly lisinopril at a time when this may be safe. Please monitor your blood glucose 4 times a day at least, with 2 largest meals use rapid acting insulin per sliding scale. Based on blood glucose levels, if they are persistently staying high, above 150-200, increase Levemir dose in small increments of 2-3 units at a time the following day. If blood glucose is ever low, below 70, skip the dose of insulin, and on the subsequent dose after that decrease by at least 10-15 units. Avoid low blood sugars as these may be dangerous. Continue to work with your primary care doctor regarding optimizing control of both high blood pressure and diabetes. Maintain consistent carbohydrate diet. Cardiac diet. If you experience any new numbness, new weakness, changes in vision, trouble speaking, or other abnormal symptoms, please seek medical attention without delay. Plavix is added to your regimen in addition to aspirin, statin due to recurrence of stroke. Please discuss with neurologist with regards to how long to continue this medication. Please discuss with neurologist findings from CTA done back in February. As well as MRI from this visit. Discussed with neurologist also regarding seizure disorder, as well as occasional tremors. Please follow-up with your primary care doctor with regards to ultrasound of the blood vessels of your kidneys. Please avoid any NSAIDs like ibuprofen, Aleve, etc. You may take Tylenol if needed for ache or pain. Continue efforts to obtain placement at assisted living facility. 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
== END 2020-03-17 17:11 | disposition home health service (06) ==
LOC: ER 03:40 → MEDSURG 03:59
PROVIDERS: Emergency Medicine; Admitting Provider Internal Medicine; PCP Family Medicine; Visit Provider Internal Medicine
DX: E11.65 Type 2 diabetes mellitus with hyperglycemia (principal); I16.0 Hypertensive urgency; R51 Headache; M31.6 Other giant cell arteritis; Z79.82 Long term (current) use of aspirin; F32.9 Major depressive disorder, single episode, unspecified; E78.5 Hyperlipidemia, unspecified; Z86.73 Personal history of transient ischemic attack (TIA), and cerebral infarction without residual deficits; Z79.4 Long term (current) use of insulin; N17.9 Acute kidney failure, unspecified
CPT/HCPCS: 12345; 36415; 36416; 70450; 70551; 71045; 80048; 80053; 81001; 82962; 83036; 84484; 85025; 93005; 96372; 96374; 96375; 99282; 99285; G0378; J0360; J1644; J1815; J2930; J3490; J7050; J7512

== ENCOUNTER → 2020-03-20 10:13 | Outpatient (BNVA) | payer MEDICAID, SELFPAY | PROVIDERS: PCP Family Medicine; Visit Provider Specialist | DX: E11.319 Type 2 diabetes mellitus with unspecified diabetic retinopathy without macular edema (principal); I10 Essential (primary) hypertension; R56.9 Unspecified convulsions; Z79.4 Long term (current) use of insulin; F17.220 Nicotine dependence, chewing tobacco, uncomplicated; Z86.73 Personal history of transient ischemic attack (TIA), and cerebral infarction without residual deficits; G43.711 Chronic migraine without aura, intractable, with status migrainosus | CPT/HCPCS: 99204; 99205 ==

== ENCOUNTER 2020-03-21 16:21 | Outpatient (CLI) | payer MEDICAID, SELFPAY | END 2020-03-21 16:22 | disposition home or self-care (01) | LOC: LAB 16:23 | PROVIDERS: PCP Family Medicine; Visit Provider Family Medicine | DX: I63.40 Cerebral infarction due to embolism of unspecified cerebral artery (principal) | CPT/HCPCS: 86140 ==

== ENCOUNTER 2020-03-23 16:32 | Emergency (ER) | payer MEDICAID, SELFPAY ==
[2020-03-23 17:58] VITALS: BP 182/103; PULSE 80; RESP 18; TEMP 36.4; O2SAT 96; BMI 43.0
--- NOTE | 2020-03-23 18:29 | CTR_ITS ---
PROCEDURE INFORMATION: Exam: CT Abdomen And Pelvis Without Contrast Exam date and time: 03/23/2020 7:14 PM Age: 44 years old Clinical indication: Abdominal pain; Left; Prior surgery; Surgery date: 6+ months; Surgery type: Gb, hyst; Patient HX: C/O L flank pain x 2-3 days; Additional info: R flank pain TECHNIQUE: Imaging protocol: Computed tomography of the abdomen and pelvis without contrast. Axial, coronal and sagittal reformatted images were created and reviewed. Radiation optimization: All CT scans at this facility use at least one of these dose optimization techniques: automated exposure control; mA and/or kV adjustment per patient size (includes targeted exams where dose is matched to clinical indication); or iterative reconstruction. COMPARISON: CT angio chest abdomen pelvis 03/15/2020 12:20 AM RADIATION DOSE METRICS: Total DLP: 1880.28 mGy-cm FINDINGS: Liver: Unremarkable. Gallbladder and bile ducts: Status post cholecystectomy. No biliary ductal dilatation. Pancreas: Unremarkable. Spleen: Unremarkable. Adrenals: Unremarkable. Kidneys and ureters: 1.7 cm simple right renal cyst (no follow-up is indicated based on the imaging appearance). Nonobstructing bilateral renal calculi. No hydronephrosis. Stomach and bowel: Moderate amount of retained stool in the colon. No obstruction. No bowel wall thickening. No pneumatosis. Appendix: Normal. Intraperitoneal space: No free fluid. No organized fluid collection. No free air. Vasculature: Unremarkable. No aneurysm. Lymph nodes: No pathologically enlarged lymph nodes. Bladder: Unremarkable. Reproductive: Right ovarian follicles. Status post hysterectomy. Bones/joints: No acute osseous abnormality. Osteopenia. Mild degenerative changes. Soft tissues: Unremarkable. CT/CT kidney stone [id number] IMPRESSION: 1. Limited noncontrast examination without CT evidence of acute intra-abdominal or pelvic pathology. 2. Additional findings, as above. Radiation Dose CTDIVOL = (mGy): DLP = 1880.28 (mGy-cm)
--- NOTE | 2020-03-23 18:33 | ED_ITS ---
HPI - Back Pain/Injury General: Chief Complaint: Back Pain/Injury Stated Complaint: back pain and high bp Time Seen by Provider: 03/23/20 18:10 History of Present Illness: HPI Narrative: 44-year-old female with multiple medical problems. She has a history of CVA with residual weakness, and recent hospitalization. She also has a seizure disorder. She presents with 3 days of right-sided flank and back pain. No fever. She states the pain is worse after urination. She is nauseated but has not been vomiting. There is no rash. Her blood pressures been quite high, and she was sent to the emergency room by her home health nurse because of her high blood pressure. She states that when she takes her blood pressure medicine it comes down, but then the pressure goes right back up. MD elicited complaint: back pain Pertinent past history: other Onset (ago): day(s) (3) Timing: constant Severity: severe Similar Symptoms Previously: No Quality: burning and stabbing Location: right flank Radiation: abdomen Exacerbating factors: other (Urination) Relieving factors: none Associated symptoms: Reports dysuria and nausea; Deny abdominal pain, chills or vomiting Review of Systems Const: Denies: chills Eyes: Denies: change in vision ENMT: Denies: epistaxis or sinus pain Card: Reports: edema and swelling of feet/ankles; Denies: chest pain, palpitations, irregular heart rhythm, dyspnea on exertion or orthopnea Resp: Denies: dyspnea, productive cough or non-productive cough GI: Reports: nausea; Denies: abdominal pain or vomiting : Reports: dysuria Musc: Reports: back pain; Denies: neck pain Skin/Breast: Denies: rash or pruritus Neuro: Reports: headache(s); Denies: dizziness or vertigo Psych: Denies: anxiety PFSH ED PFSH: Medical History (Updated 03/23/20 @ 22:33 by Davy Ferraro DO) Chronic back pain Depression Dyslipidemia Essential hypertension Insomnia Rotator cuff injury Seasonal allergies Stroke TIA (transient ischemic attack) Type 2 diabetes mellitus, with long-term current use of insulin Vasculitis Surgical History H/O brain surgery H/O tubal ligation H/O: hysterectomy History of cholecystectomy History of tonsillectomy Family History Other CAD (coronary artery disease) Cancer Diabetes Hypertension Denies family history of Stroke Social History Smoking and tobacco status: smoker, details unknown smokeless tobacco Smokeless tobacco user: chewing tobacco Alcohol intake: never Household members: family Housing: House History of recent travel: Yes (travels from [facility]) Physical Exam Const: GENERAL APPEARANCE: well developed ORIENTATION/CONSCIOUSNESS: Yes oriented to person, Yes oriented to place and Yes oriented to time HENMT: COMMON NORMALS: normocephalic, external ears normal and Normal external nose present HEAD & SCALP: normocephalic NOSE: Normal external nose present and No nasal discharge present EXTERNAL EAR: Yes external ears normal Eye: COMMON NORMALS: EOMs intact bilaterally and conjunctivae normal EYELID: eyelids normal CONJUNCTIVA: Yes conjunctivae normal Neck/C-Spine: GENERAL: No tracheal deviation Chest: COMMONS NORMALS: normal inspection of the chest CHEST: No tenderness Resp: COMMON NORMALS: clear to auscultation bilaterally EFFORT & INSPECTION: No tachypneic, No respiratory distress, No retractions, No uses accessory muscles and No tracheal deviation AUSCULTATION: clear to auscultation bilaterally, no rhonchi, no wheezes and lung sounds not diminished Cardio: COMMON NORMALS: regular rate and regular rhythm RATE: regular rate RHYTHM: regular rhythm HEART SOUNDS: no murmurs PERIPHERAL PULSES: radial pulses present GI: INSPECTION: No abdominal distension AUSCULTATION: No Hyperactive bowel sounds present and No Hypoactive bowel sounds present PALPATION: No Guarding due to palpation present (GI) and No Rigid due to palpation PERCUSSION: no dullness to percussion and no tympanic to percussion : BLADDER/KIDNEY EXAM: Yes CVA tenderness on the right Back/Pelvis: GENERAL BACK: Yes CVA tenderness Neuro: SENSORIUM/ORIENTATION: Yes oriented to person, Yes oriented to place and Yes oriented to time Psych: COMMON NORMALS: mental status grossly normal Skin: COMMON NORMALS: no rashes or lesions noted GENERAL SKIN EXAM: no rashes or lesions noted Course Vital Signs: Vital signs: Vital Signs Temperature 97.6 F 03/23/20 17:58 Pulse Rate 72 03/23/20 22:48 Respiratory Rate 16 03/23/20 22:48 Blood Pressure 132/94 03/23/20 22:48 Pulse Oximetry 96 03/23/20 22:48 MDM - Back Pain/Injury MDM Narrative: Medical decision making narrative: 44-year-old female with multiple medical problems. She presents with essentially right-sided flank pain. Her white blood cell count was elevated. She, however, does not have a cystitis or pyelonephritis by urinalysis or CT scanning. She also does not have a kidney stone. She was very hypertensive on arrival. This improved significantly with IV medication. She was given an extra dose of metoprolol orally as well. She will be discharged on increased dose of metoprolol to hopefully control her blood pressure. It is possible she may have passed a stone, and be experiencing renal colic. On reinterview with the patient, her pain was much improved as was her blood pressure. Her blood pressure was 130 systolic on discharge. Lab Data: Labs: Lab Results 03/23/20 03/23/20 03/23/20 Range/Units 18:43 18:43 18:43 WBC 15.2 H (4.0-10.0) 10^3/ uL RBC 4.18 (4.1-5.3) 10^6/u L Hgb 11.0 L (11.5-15.3) g/dL Hct 35.8 L (37.0-47.0) % MCV 85.6 (81-99) fL MCH 26.3 L (28.0-34.0) pg MCHC 30.7 (30.0-36.0) g/dL RDW 12.9 (12.1-15.1) % Plt Count 415 H (130-400) 10^3/c mm MPV 11.4 H (7.4-10.4) fL Neut % (Auto) 58.7 % Lymph % (Auto) 31.0 % [place] % (Auto) 6.8 % Eos % (Auto) 2.4 % Baso % (Auto) 0.2 % Neut # (Auto) 9.0 H (1.8-7.7) 10^3/u L Lymph # (Auto) 4.7 (0.8-4.8) 10^3/u L [place] # (Auto) 1.0 H (0.2-0.9) 10^3/u L Eos # (Auto) 0.4 (0.0-0.8) 10^3/u L Baso # (Auto) 0.0 (0.0-0.1) 10^3/u L Nucleated RBC % (a uto) 0 % Nucleated RBCs # 0.0 /100WBC Sodium 137 (136-145) mmol/L Potassium 4.1 (3.5-5.1) mmol/L Chloride 97 L (98-107) mmol/L Carbon Dioxide 28 (22-29) mmol/L Anion Gap 16.1 (5-19) BUN 21 H (6-20) mg/dL Creatinine 1.0 H (0.5-0.9) mg/dL GFR Calculation 59.7 L (90-130) mL/min Glucose 221 H (65-115) mg/dL Calculated Osmolal ity 287 (285-295) mOsm/k g Lactate 1.4 (0.5-2.2) mmol/L Calcium 9.1 (8.5-10.5) mg/dL Total Bilirubin 0.2 (0.15-1.2) mg/dL AST 22 (0-32) U/L ALT 35 H (0-33) U/L Alkaline Phosphata se 77 (35-105) IU/L C-Reactive Protein 9.8 H (0.0-4.9) mg/L Total Protein 5.8 L (6.6-8.7) g/dL Albumin 2.8 L (3.5-5.2) g/dL Globulin 3.0 (1.3-4.6) g/dL Urine Color (Yellow) Urine Appearance (CLEAR) Urine pH (5-7) Ur Specific Gravit y (1.005-1.030) Urine Protein (Negative) Urine Glucose (UA) (Normal) Urine Ketones (Negative) Urine Blood (Negative) Urine Nitrate (Negative) Urine Bilirubin (NEGATIVE) Urine Urobilinogen (Negative) mg/dL Ur Leukocyte [place] ase (Negative) Urine RBC (0-2) /hpf Urine WBC (0-5) /hpf Ur Squamous Epith Cells (0-5) Urine Bacteria (NONE) 03/23/20 Range/Units 21:15 WBC (4.0-10.0) 10^3/ uL RBC (4.1-5.3) 10^6/u L Hgb (11.5-15.3) g/dL Hct (37.0-47.0) % MCV (81-99) fL MCH (28.0-34.0) pg MCHC (30.0-36.0) g/dL RDW (12.1-15.1) % Plt Count (130-400) 10^3/c mm MPV (7.4-10.4) fL Neut % (Auto) % Lymph % (Auto) % [place] % (Auto) % Eos % (Auto) % Baso % (Auto) % Neut # (Auto) (1.8-7.7) 10^3/u L Lymph # (Auto) (0.8-4.8) 10^3/u L [place] # (Auto) (0.2-0.9) 10^3/u L Eos # (Auto) (0.0-0.8) 10^3/u L Baso # (Auto) (0.0-0.1) 10^3/u L Nucleated RBC % (a uto) % Nucleated RBCs # /100WBC Sodium (136-145) mmol/L Potassium (3.5-5.1) mmol/L Chloride (98-107) mmol/L Carbon Dioxide (22-29) mmol/L Anion Gap (5-19) BUN (6-20) mg/dL Creatinine (0.5-0.9) mg/dL GFR Calculation (90-130) mL/min Glucose (65-115) mg/dL Calculated Osmolal ity (285-295) mOsm/k g Lactate (0.5-2.2) mmol/L Calcium (8.5-10.5) mg/dL Total Bilirubin (0.15-1.2) mg/dL AST (0-32) U/L ALT (0-33) U/L Alkaline Phosphata se (35-105) IU/L C-Reactive Protein (0.0-4.9) mg/L Total Protein (6.6-8.7) g/dL Albumin (3.5-5.2) g/dL Globulin (1.3-4.6) g/dL Urine Color Yellow (Yellow) Urine Appearance Clear (CLEAR) Urine pH 6 (5-7) Ur Specific Gravit y 1.015 (1.005-1.030) Urine Protein 2+ H (Negative) Urine Glucose (UA) 2+ (Normal) Urine Ketones Negative (Negative) Urine Blood Neg (Negative) Urine Nitrate Negative (Negative) Urine Bilirubin Neg (NEGATIVE) Urine Urobilinogen Norm (Negative) mg/dL Ur Leukocyte [place] ase Negative (Negative) Urine RBC None (0-2) /hpf Urine WBC 0-4 H (0-5) /hpf Ur Squamous Epith Cells 5-10 H (0-5) Urine Bacteria 1+ H (NONE) Discharge Plan Discharge Patient Disposition: Home, Self-Care Clinical Impression: Acute right flank pain Hypertension Qualifiers: Hypertension type: essential hypertension Qualified Code(s): I10 - Essential (primary) hypertension Condition: Stable Prescriptions: New metoprolol tartrate 100 mg tablet 100 mg PO Q12H Qty: 60 RF: 0 No Action clonidine HCl 0.1 mg tablet 0.1 mg PO TID PRN (Reason: uncontrolled hypertension) Qty: 21 RF: 0 amitriptyline 25 mg tablet 25 mg PO DAILY Qty: 30 RF: 0 atorvastatin 40 mg tablet 40 mg PO DAILY Qty: 30 RF: 0 cetirizine [Zyrtec] 10 mg tablet 10 mg PO DAILY Qty: 30 RF: 0 fluoxetine [Prozac] 20 mg capsule 20 mg PO DAILY Qty: 30 RF: 0 glipizide 5 mg tablet 5 mg PO BID Qty: 60 RF: 0 levetiracetam [Keppra] 1,000 mg tablet 1,000 mg PO BID Qty: 60 RF: 0 Victoza 3-Ramin 0.6 mg/0.1 mL (18 mg/3 mL) pen injector 1.2 mg SUBCUT Q24H Qty: 9 RF: 0 tizanidine 2 mg capsule 2 mg PO BEDTIME PRN (Reason: Muscle Pain) Qty: 30 RF: 0 aspirin 81 mg Tablet,Delayed Release (Dr/Ec) 81 mg PO DAILY Qty: 30 RF: 0 pantoprazole 40 mg Tablet,Delayed Release (Dr/Ec) 40 mg PO DAILY Qty: 60 RF: 0 hydralazine 10 mg Tablet 10 mg PO TID Qty: 180 RF: 0 Novolog U-100 Insulin aspart 100 unit/mL Solution See Rx Instructions .ROUTE .COMPLEX Qty: 10 RF: 0 diphenhydramine HCl 25 mg Capsule 25 mg PO Q4H PRN (Reason: Itching) Qty: 4 RF: 0 Plavix 75 mg tablet 75 mg PO DAILY Qty: 30 RF: 0 metoprolol tartrate 50 mg tablet 75 mg PO BID Qty: 60 RF: 0 Levemir FlexTouch U-100 Insuln 100 unit/mL (3 mL) insulin pen 42 unit SUBCUT DAILY Qty: 15 RF: 0 (DME) diabetic supplies, miscellan. Misc See Rx Instructions .ROUTE .MEDSUPPLY Qty: 60 RF: 0 Discharge Orders: Discharge Order (Routine); Ordered 03/23/20 Ordered By: Davy Ferraro Referrals: Shefali Russo DO [Primary Care Provider] - 4-7 days Discharge Diet: Advance as tolerated Discharge Activity: Increase activity as tolerated Patient Instructions: Renal Colic (ED), Hypertension (ED) Activity Restrictions/Additional Instructions: Return for return of pain, inability to control blood pressure, mental status changes, chest discomfort, shortness of breath, other concerning symptoms Discharge Date/Time: 03/23/20 22:48 Coding Level of Care Code ED Forensic Analyst for Chg Fwd Exam Comprehensive
[2020-03-23 18:46] LABS: Basophils % 0.2 %; Eosinophils # 0.4 10^3/uL (0.0-0.8); Eosinophils % 2.4 %; Hematocrit 35.8 % (37.0-47.0); Lymphocytes # 4.7 10^3/uL (0.8-4.8); Mean Corpuscular HGB Conc 30.7 g/dL (30.0-36.0); Mean Corpuscular Hemoglobin 26.3 pg (28.0-34.0); Mean Corpuscular Volume 85.6 fL (81-99); Mean Platelet Volume 11.4 fL (7.4-10.4); Monocytes % 6.8 %; Neutrophils % 58.7 %; Nucleated Red Blood Cells % 0 %; Platelet Count 415 10^3/cmm (130-400); Red Blood Count 4.18 10^6/uL (4.1-5.3); Red Cell Distribution Width 12.9 % (12.1-15.1); White Blood Count 15.2 10^3/uL (4.0-10.0)
[2020-03-23 18:55] VITALS: O2SAT 99
[2020-03-23 18:59] LABS: Lactate (Lactic Acid level) 1.4 mmol/L (0.5-2.2)
[2020-03-23 19:00] LABS: Alanine Aminotransferase 35 U/L (0-33); Albumin Level 2.8 g/dL (3.5-5.2); Alkaline Phosphatase 77 IU/L (35-105); Anion Gap 16.1 (5-19); Aspartate Amino Transferase 22 U/L (0-32); Blood Urea Nitrogen 21 mg/dL (6-20); C Reactive Protein 9.8 mg/L (0.0-4.9); Calcium 9.1 mg/dL (8.5-10.5); Carbon Dioxide 28 mmol/L (22-29); Chloride 97 mmol/L (98-107); Glomerular Filtration Rate 59.7 mL/min (90-130); Glucose 221 mg/dL (65-115); Osmolality Calculated 287 mOsm/kg (285-295); Potassium 4.1 mmol/L (3.5-5.1); Sodium 137 mmol/L (136-145); Total Bilirubin 0.2 mg/dL (0.15-1.2); Total Protein 5.8 g/dL (6.6-8.7)
[2020-03-23] MEDS: FUROsemide 10 mg/mL SDV 10mL 60 MG IVP (20:10)
[2020-03-23 20:11] VITALS: RESP 18
[2020-03-23] MEDS: ondansetron 2 mg/ML SDV 2 mL 4 MG IVP (20:11)
[2020-03-23] MEDS: fentaNYL 50 mcg/mL INJ 2mL 100 MCG IVP (20:11)
[2020-03-23] MEDS: metoprolol tartrate 50 mg Tablet PO (20:12)
[2020-03-23] MEDS: hyDRALAzine 20 mg/mL INJ 1 mL IVP (20:17)
[2020-03-23 20:30] VITALS: BP 158/113; PULSE 90; RESP 18; O2SAT 96
--- NOTE | 2020-03-23 20:31 | PC.NURSE ---
ALL MEDS GIVEN, REPOSITIONED FOR COMFORT. PLACED BEDSIDE TOILET IN RORM. PLACE NC AT 2 LPMS FOR O2 SATS AT 92%, AFTER MEDICATION.
[2020-03-23 21:01] VITALS: BP 130/78; PULSE 80; RESP 16; O2SAT 97
[2020-03-23 21:40] LABS: Add Urine Microscopic? YES; Bilirubin Urine Neg (NEGATIVE); Blood Urine Neg (Negative); Glucose Urine UA 2+ (Normal); Ketones Urine Negative (Negative); Leukocyte Esterase Urine Negative (Negative); Nitrate Urine Negative (Negative); Protein Urine 2+ (Negative); Specific Gravity, Urine 1.015 (1.005-1.030); Urine Appearance Clear (CLEAR); Urine Color Yellow (Yellow); Urobilinogen Urine Norm (Negative); pH Urine 6 (5-7)
[2020-03-23 21:42] LABS: Bacteria Urine 1+; WBC Urine 0-4 /hpf (0-5)
[2020-03-23 21:43] LABS: Add Urine Culture? No
[2020-03-23 22:48] VITALS: BP 132/94; PULSE 72; RESP 16; O2SAT 96
== END 2020-03-23 22:48 | disposition home or self-care (01) ==
PROVIDERS: Emergency Provider Emergency Medicine; PCP Family Medicine
DX: R10.9 Unspecified abdominal pain (principal); I10 Essential (primary) hypertension; Z79.4 Long term (current) use of insulin; Z79.82 Long term (current) use of aspirin; Z79.02 Long term (current) use of antithrombotics/antiplatelets; E78.5 Hyperlipidemia, unspecified; Z86.73 Personal history of transient ischemic attack (TIA), and cerebral infarction without residual deficits; E11.9 Type 2 diabetes mellitus without complications; F17.220 Nicotine dependence, chewing tobacco, uncomplicated
CPT/HCPCS: 12345; 74176; 80053; 81001; 83605; 85025; 86140; 96374; 96375; 99282; 99283; J0360; J1940; J2405; J3010

== ENCOUNTER → 2020-03-29 10:13 | Outpatient (BNVA) | payer MEDICAID, SELFPAY | PROVIDERS: PCP Family Medicine; Visit Provider Specialist | DX: G43.711 Chronic migraine without aura, intractable, with status migrainosus (principal); I63.81 Other cerebral infarction due to occlusion or stenosis of small artery | CPT/HCPCS: 64615; 99212; J0585 ==

== ENCOUNTER → 2020-04-03 13:48 | Outpatient (BNVA) | payer MEDICAID, SELFPAY | PROVIDERS: PCP Family Medicine; Visit Provider Family Medicine | DX: I63.81 Other cerebral infarction due to occlusion or stenosis of small artery (principal); I10 Essential (primary) hypertension | CPT/HCPCS: 80048 ==

== ENCOUNTER 2020-04-13 15:48 | Emergency (ER) | payer MEDICAID, SELFPAY ==
[2020-04-13 16:07] VITALS: BP 241/143; PULSE 93; RESP 16; TEMP 36.9; O2SAT 97; BMI 40.7
--- NOTE | 2020-04-13 16:13 | CTR_ITS ---
PROCEDURE INFORMATION: Exam: CT Angiography Head With Contrast Exam date and time: 04/13/2020 4:38 PM Age: 44 years old Clinical indication: Pain; Headache; Prior surgery; Surgery date: 6+ months; Surgery type: Craniotomy; Patient HX: C/O ALATORRE, weakness and HTN, L eye surgery yesterday HX of embolic brainstem stroke; Additional info: CVA symptoms TECHNIQUE: Imaging protocol: Computed tomography angiography of the head with intravenous contrast. 3D rendering: MIP and/or 3D reconstructed images were created by the technologist. Radiation optimization: All CT scans at this facility use at least one of these dose optimization techniques: automated exposure control; mA and/or kV adjustment per patient size (includes targeted exams where dose is matched to clinical indication); or iterative reconstruction. Contrast material: OMNI 350; Contrast volume: 95 ml; Contrast route: INTRAVENOUS (IV); COMPARISON: CT angio headneck* [id number] 03/09/2020 12:56 PM RADIATION DOSE METRICS: Total DLP (mGy-cm): 2153.88 FINDINGS: Anterior cerebral arteries: No occlusion or significant stenosis. No aneurysm. Right internal carotid artery: Calcified plaque in the right cavernous ICA without significant stenosis. Right middle cerebral artery: No occlusion or significant stenosis. No aneurysm. Right posterior cerebral artery: No occlusion or significant stenosis. No aneurysm. Right vertebral artery: Dominant right vertebral artery with patent left vertebral artery. Left internal carotid artery: Intracranial segment is patent with no significant stenosis or occlusion. No aneurysm. Left middle cerebral artery: No occlusion or significant stenosis. No aneurysm. Left posterior cerebral artery: Left posterior communicating artery. Left vertebral artery: No occlusion or significant stenosis. No aneurysm. Basilar artery: No occlusion or significant stenosis. No aneurysm. Other vasculature: Bilateral superior cerebellar arteries. Venous contamination at the level of the [place]. No large vessel occlusion. IMPRESSION: No large vessel occlusion. PROCEDURE INFORMATION: Exam: CT Angiography Neck With Contrast Exam date and time: 04/13/2020 4:38 PM Age: 44 years old Clinical indication: Pain; Headache; Prior surgery; Surgery date: 6+ months; Surgery type: Craniotomy; Patient HX: C/O ALATORRE, weakness and HTN, L eye surgery yesterday HX of embolic brainstem stroke; Additional info: CVA symptoms TECHNIQUE: Imaging protocol: Computed tomography angiography of the neck with intravenous contrast. 3D rendering: MIP and/or 3D reconstructed images were created by the technologist. Radiation optimization: All CT scans at this facility use at least one of these dose optimization techniques: automated exposure control; mA and/or kV adjustment per patient size (includes targeted exams where dose is matched to clinical indication); or iterative reconstruction. Contrast material: OMNI 350; Contrast volume: 95 ml; Contrast route: INTRAVENOUS (IV); COMPARISON: CT angio headneck* [id number] 03/09/2020 12:56 PM RADIATION DOSE METRICS: Total DLP (mGy-cm): 2153.88 FINDINGS: Right common carotid artery: No stenosis. No dissection or occlusion. Right internal carotid artery: No ICA stenosis by NASCET/SRU criteria. Right external carotid artery: No occlusion or stenosis of the origin. Right vertebral artery: Dominant right vertebral artery with patent left vertebral artery. Left common carotid artery: No stenosis. No dissection or occlusion. Left internal carotid artery: Left carotid bifurcation calcified plaque. Left external carotid artery: No occlusion or stenosis of the origin. Left vertebral artery: No stenosis. No dissection or occlusion. Other vasculature: S-shaped kinking of the proximal internal carotid arteries bilaterally. Dental: Examination is limited secondary to metallic artifact from dental fillings and/or dental hardware. Bones/joints: Mild multilevel spine degenerative changes including degenerative disc disease, spondylosis and facet degenerative changes. Soft tissues: Normal. No significant soft tissue swelling. CT[facility] [id number] IMPRESSION: 1. Dominant right vertebral artery with patent left vertebral artery. 2. No ICA stenosis by NASCET/SRU criteria. REFERENCES: NASCET CRITERIA. The degree of internal carotid artery stenosis is based on NASCET criteria. Normal is no stenosis. Mild is less than 50% stenosis. Moderate is 50-69% stenosis. Severe is 70% to 99% stenosis. Total occlusion is no detectable patent lumen. Radiation Dose CTDIVOL = (mGy): DLP = 2153.88~2153.88 (mGy-cm)
--- NOTE | 2020-04-13 16:13 | XRR_ITS ---
PROCEDURE INFORMATION: Exam: XR Chest, 1 View Exam date and time: 04/13/2020 4:30 PM Age: 44 years old Clinical indication: Dyspnea; Additional info: CVA symptoms TECHNIQUE: Imaging protocol: XR of the chest Views: 1 view. COMPARISON: CR XR chest 1V portable [id number] 03/16/2020 2:26 AM FINDINGS: Lungs: Unremarkable. No consolidation. Pleural space: Unremarkable. No pleural effusion. No pneumothorax. Heart/Mediastinum: Unremarkable. No cardiomegaly. Bones/joints: Mild thoracic spondylosis. XR/XR chest 1V portable [id number] IMPRESSION: No acute findings.
--- NOTE | 2020-04-13 16:13 | CTR_ITS ---
PROCEDURE INFORMATION: Exam: CT Head Without Contrast Exam date and time: 04/13/2020 4:38 PM Age: 44 years old Clinical indication: Pain; Headache not specified; Prior surgery; Surgery date: 6+ months; Surgery type: Craniotomy; Patient HX: C/O ALATORRE, weakness and HTN, L eye surgery yesterday HX of embolic brainstem stroke; Additional info: CVA symptoms TECHNIQUE: Imaging protocol: Computed tomography of the head without contrast. Radiation optimization: All CT scans at this facility use at least one of these dose optimization techniques: automated exposure control; mA and/or kV adjustment per patient size (includes targeted exams where dose is matched to clinical indication); or iterative reconstruction. COMPARISON: CT head wo con* [id number] 03/16/2020 2:37 AM RADIATION DOSE METRICS: Total DLP (mGy-cm): 810.13 FINDINGS: Brain: Stable one or more left chronic lacunar thalamic infarcts. Ventricles: Normal. No ventriculomegaly. Bones/joints: Stable right frontal craniectomy. Sinuses: Visualized sinuses are unremarkable. No fluid levels. Mastoid air cells: Visualized mastoid air cells are well aerated. Orbits: Interval high density material filling the entire vitreous humor of the left globe which could be secondary to recent surgery. Vasculature: Moderate calcified intracranial atherosclerotic vessel disease. Soft tissues: Unremarkable. CT/CT head wo con* [id number] IMPRESSION: 1. Interval high density material filling the entire vitreous humor of the left globe which could be secondary to recent surgery. 2. No acute intracranial findings. Radiation Dose CTDIVOL = (mGy): DLP = 810.13 (mGy-cm)
--- NOTE | 2020-04-13 16:14 | ECG_ITS ---
[facility] Test Date: 2020-04-13 Pat Name: Ivon Larios Department: Room: Gender: Female Trust Clerk: : 1975 Requested By: Elnei Purvis Order Number: [id number] Salvador MD: Ragini Rizo M.D. Measurements Intervals [place] Rate: 89 P: 18 DE: 171 QRS: -1 QRSD: 95 T: 31 QT: 393 QTc: 480 Interpretive Statements SINUS RHYTHM MODERATE VOLTAGE CRITERIA FOR LVH, CONSIDER NORMAL VARIANT [MEETS CRITERIA IN ONE OF: R(aVL), S(V1), R(V5), R(V5/V6)+S(V1)] INFERIOR MYOCARDIAL INFARCTION , PROBABLY OLD [40+ ms Q WAVE AND/OR ST/T ABNORMALITY IN II/aVF] Compared to ECG 03/16/2020 03:52:52 No significant changes Electronically Signed On 04-14-2020 13:47:01 CDT by Ragini Rizo M.D. [id number] [email or web address]
--- NOTE | 2020-04-13 16:23 | W.ED.NEUROSD ---
HPI - Neuro Symptoms/Deficit General: Chief Complaint: Neuro Symptoms/Deficit Stated Complaint: stroke like symptoms Time Seen by Provider: 04/13/20 16:09 Source: patient and family History of Present Illness: HPI Narrative: Dinah is a 44-year-old female who comes in complaining of strokelike symptoms. She woke with the symptoms this morning and describes them as increased right-sided weakness along with difficulty speaking and slurred speech. The patient had retinal surgery yesterday in which her retina was pinned back to her eye on the left. The patient states after that she felt shaky but this morning her symptoms dramatically changed and were much worse than normal. Her symptoms were present upon awakening. The patient's had strokes in the past the last one being she believes 1 month ago. Her symptoms have progressed and worsened throughout the day and at because of this she came into the hospital. Her blood pressure has also been significantly elevated despite her taking her regular and PRN blood pressure medications. Review of Systems General: Reports: Other (ROS limited secondary to patient's difficulty with speech. Positive pertinent findings are present in HPI.) PFSH ED PFSH: Medical History Chronic back pain Depression Dyslipidemia Essential hypertension Insomnia Rotator cuff injury Seasonal allergies Stroke TIA (transient ischemic attack) Type 2 diabetes mellitus, with long-term current use of insulin Vasculitis Surgical History H/O brain surgery H/O tubal ligation H/O: hysterectomy History of cholecystectomy History of tonsillectomy Family History Other CAD (coronary artery disease) Cancer Diabetes Hypertension Denies family history of Stroke Social History Smoking and tobacco status: smoker, details unknown smokeless tobacco Smokeless tobacco user: chewing tobacco Alcohol intake: never Household members: family Housing: House History of recent travel: Yes (travels from [facility]) NIH stroke score NIHSS: Level Of Consciousness - 1a: 0 Level Of Consciousness Questions - 1b: Both Correct Level Of Consciousness Commands - 1c: Both Correct Best Gaze - 2: Normal Visual Santiago - 3: Partial Hemianopia Facial Palsy - 4: Minor Paralysis Motor Arm Right - 5: Drift Motor Arm Left - 5: No Drift Motor Leg Right - 6: Drift Motor Leg Left - 6: No Drift Limb Ataxia - 7: Present In One Limb Sensory - 8: Mild To Moderate Loss Best Language - 9: Mild/Moderate Aphasia Dysarthia - 10: Mild/Moderate Dysarthia Extinction And Inattention - 11: 0 Score: Total Score: 8 Physical Exam Const: COMMON NORMALS: no acute distress, patient oriented x3, no limitations, healthy appearing, alert and well nourished GENERAL APPEARANCE: cooperative, well kempt and well developed ORIENTATION/CONSCIOUSNESS: Yes oriented to person and Yes oriented to place HENMT: COMMON NORMALS: normocephalic, atraumatic, external ears normal, EAC's normal and Normal external nose present HEAD & SCALP: normal to inspection, normocephalic and atraumatic FACE & SINUS: normal facial exam and face symmetric NOSE: Normal external nose present and Normal nares present EXTERNAL EAR: Yes external ears normal EXTERNAL AUDITORY CANAL: EAC's normal MOUTH: Normal oral and palatal mucosa present, lip normal and tongue normal Eye: COMMON NORMALS: Equal, round and reactive pupils present and conjunctivae normal GENERAL EYE: appearance normal, both eyes and all related structures ALIGNMENT: Yes alignment normal PERIORBITAL: periorbital findings normal EYELID: eyelids normal CONJUNCTIVA: Yes conjunctivae normal SCLERA: sclerae normal PUPIL: Yes Equal, round and reactive pupils present Neck/C-Spine: COMMON NORMALS: full ROM, no lymphadenopathy, supple, no meningeal signs and no JVD GENERAL: Yes normal visual inspection and Yes trachea midline Chest: COMMONS NORMALS: normal inspection of the chest and normal palpation of entire chest wall Resp: COMMON NORMALS: normal respiratory effort, No retractions and No use of accessory muscles EFFORT & INSPECTION: Yes able to speak in complete sentences and Yes symmetric chest movement AUSCULTATION: no crackles, no rales, no rhonchi and no wheezes Cardio: COMMON NORMALS: no JVD, regular rate, regular rhythm, S1 normal heart sound present and S2 normal heart sound present RATE: regular rate RHYTHM: regular rhythm HEART SOUNDS: S1 normal heart sound present, S2 normal heart sound present, no click, no gallops, no murmurs, no rubs and abnormal split S2 GI: COMMON NORMALS: Soft to palpation and No hepatosplenomegaly present PALPATION: Yes Soft to palpation, No Tenderness to palpation present (GI), No Guarding due to palpation present (GI), No Rigid due to palpation, Yes No hepatosplenomegaly present, No Hernia present, No Palpable mass present and No Pulsatile mass present : COMMON NORMALS: Yes no CVA tenderness BLADDER/KIDNEY EXAM: Yes no CVA tenderness EXTERNAL FEMALE EXAM: No Hernia present Back/Pelvis: COMMON NORMALS: no CVA tenderness, thoracic and lumbar spine normal to inspection, no thoracic nor lumbar tenderness and thoraco-lumbar ROM normal Extremity: COMMON NORMALS: normal to inspection, full ROM, capillary refill normal, no joint enlargement, no clubbing, cyanosis or edema and no calf tenderness Neuro: COMMON NORMALS: patient oriented x3 SENSORIUM/ORIENTATION: Yes alert, Yes oriented to person and Yes oriented to place MENINGEAL SIGNS: Yes no meningeal signs Psych: APPEARANCE: Yes well kempt Skin: COMMON NORMALS: no rashes or lesions noted, turgor normal, no jaundice, no petechiae and no mottling GENERAL SKIN EXAM: no rashes or lesions noted and turgor normal Course ED course: 2023 Vital Signs: Vital signs: Vital Signs Temperature 98.4 F 04/13/20 16:07 Pulse Rate 95 04/13/20 20:25 Respiratory Rate 14 04/13/20 20:25 Blood Pressure 181/118 04/13/20 20:25 Pulse Oximetry 95 04/13/20 20:25 MDM - Neuro Symptoms/Deficit MDM Narrative: Medical decision making narrative: 1729 -the case was reviewed with Dr. Hightower, he is agreeable to admission. He would like the patient to have an MRI tomorrow for better evaluation of this strokelike symptoms. 2029 -patient has been seen now by Dr. Carey, please see his note for his history, physical exam and medical decision-making notes. He states the patient has requested back to [facility] in [place] as she has been treated there before and has had extensive work-up there. He feels this would be in her best interest to as we have no neurology coverage here this weekend. The patient was hypertensive and briefly did respond to labetalol bolus dosing but she has a severe adverse reaction to amlodipine and pharmacy did not believe Cardene would be an appropriate medication for her. I placed her on nitroglycerin which is working well enough to keep her systolic less than 220 and her diastolic less than 120. That has caused somewhat of a headache so she was given Dilaudid. I reviewed the case in full at [facility] with Dr. Shah the on-call neurologist and with Halley Lama APN on-call for the hospitalist service and they both accept the patient to the neurosurgical ICU there. We are currently trying to arrange transfer. Patient was not a TPA candidate secondary to being a wake-up stroke with last known well time being when she went to sleep and recent surgery. Patient CTA does not reveal any intervene able lesions. Lab Data: Attestation: I reviewed the patient's lab results. Labs: Lab Results 04/13/20 04/13/20 04/13/20 Range/Units 16:54 16:54 16:54 WBC 8.5 (4.0-10.0) 10^3/ uL RBC 4.34 (4.1-5.3) 10^6/u L Hgb 11.6 (11.5-15.3) g/dL Hct 37.0 (37.0-47.0) % MCV 85.3 (81-99) fL MCH 26.7 L (28.0-34.0) pg MCHC 31.4 (30.0-36.0) g/dL RDW 12.7 (12.1-15.1) % Plt Count 467 H (130-400) 10^3/c mm MPV 10.7 H (7.4-10.4) fL Neut % (Auto) 50.2 % Lymph % (Auto) 37.4 % Rush % (Auto) 8.5 % Eos % (Auto) 2.7 % Baso % (Auto) 0.6 % Neut # (Auto) 4.2 (1.8-7.7) 10^3/u L Lymph # (Auto) 3.2 (0.8-4.8) 10^3/u L Rush # (Auto) 0.7 (0.2-0.9) 10^3/u L Eos # (Auto) 0.2 (0.0-0.8) 10^3/u L Baso # (Auto) 0.1 (0.0-0.1) 10^3/u L Nucleated RBC % (a uto) 0 % Nucleated RBCs # 0.0 /100WBC PT 12.30 (10.5-13.3) SECO NDS INR 0.89 (0.8-1.2) Sodium 142 (136-145) mmol/L Potassium 3.6 (3.5-5.1) mmol/L Chloride 103 (98-107) mmol/L Carbon Dioxide 28 (22-29) mmol/L Anion Gap 14.6 (5-19) BUN 17 (6-20) mg/dL Creatinine 1.0 H (0.5-0.9) mg/dL GFR Calculation 59.7 L (90-130) mL/min Glucose 146 H (65-115) mg/dL Calculated Osmolal ity 293 (285-295) mOsm/k g Lactic Acid (0.5-2.2) mmol/L Calcium 9.6 (8.5-10.5) mg/dL Magnesium 1.8 (1.7-2.3) mg/dL Total Bilirubin 0.2 (0.15-1.2) mg/dL AST 22 (0-32) U/L ALT 23 (0-33) U/L Alkaline Phosphata se 114 H (35-105) IU/L Troponin T Baselin e (0-10) ng/L Total Protein 6.5 L (6.6-8.7) g/dL Albumin 3.6 (3.5-5.2) g/dL Globulin 2.9 (1.3-4.6) g/dL 04/13/20 04/13/20 Range/Units 16:54 16:54 WBC (4.0-10.0) 10^3/ uL RBC (4.1-5.3) 10^6/u L Hgb (11.5-15.3) g/dL Hct (37.0-47.0) % MCV (81-99) fL MCH (28.0-34.0) pg MCHC (30.0-36.0) g/dL RDW (12.1-15.1) % Plt Count (130-400) 10^3/c mm MPV (7.4-10.4) fL Neut % (Auto) % Lymph % (Auto) % Rush % (Auto) % Eos % (Auto) % Baso % (Auto) % Neut # (Auto) (1.8-7.7) 10^3/u L Lymph # (Auto) (0.8-4.8) 10^3/u L Rush # (Auto) (0.2-0.9) 10^3/u L Eos # (Auto) (0.0-0.8) 10^3/u L Baso # (Auto) (0.0-0.1) 10^3/u L Nucleated RBC % (a uto) % Nucleated RBCs # /100WBC PT (10.5-13.3) SECO NDS INR (0.8-1.2) Sodium (136-145) mmol/L Potassium (3.5-5.1) mmol/L Chloride (98-107) mmol/L Carbon Dioxide (22-29) mmol/L Anion Gap (5-19) BUN (6-20) mg/dL Creatinine (0.5-0.9) mg/dL GFR Calculation (90-130) mL/min Glucose (65-115) mg/dL Calculated Osmolal ity (285-295) mOsm/k g Lactic Acid 1.7 (0.5-2.2) mmol/L Calcium (8.5-10.5) mg/dL Magnesium (1.7-2.3) mg/dL Total Bilirubin (0.15-1.2) mg/dL AST (0-32) U/L ALT (0-33) U/L Alkaline Phosphata se (35-105) IU/L Troponin T Baselin e 31 H (0-10) ng/L Total Protein (6.6-8.7) g/dL Albumin (3.5-5.2) g/dL Globulin (1.3-4.6) g/dL Imaging Data^: CT Head: Radiologist's impression: [address] [address] [address] Scan Report Signed Patient: Ivon Larios Unit #: [id number] : 1975 Age/Sex: 44 / F ADM Date: 04/13/20 Loc: ER Room/Bed: Attending Dr: Ordering Provider/Ordering MD: Eleni Luz DO Date of Service: 04/13/20 Procedure(s): CT head wo con* [id number] Accession Number(s): [id number] Report Number: [id number] PROCEDURE INFORMATION: Exam: CT Head Without Contrast Exam date and time: 04/13/2020 4:38 PM Age: 44 years old Clinical indication: Pain; Headache not specified; Prior surgery; Surgery date: 6+ months; Surgery type: Craniotomy; Patient HX: C/O ALATORRE, weakness and HTN, L eye surgery yesterday HX of embolic brainstem stroke; Additional info: CVA symptoms TECHNIQUE: Imaging protocol: Computed tomography of the head without contrast. Radiation optimization: All CT scans at this facility use at least one of these dose optimization techniques: automated exposure control; mA and/or kV adjustment per patient size (includes targeted exams where dose is matched to clinical indication); or iterative reconstruction. COMPARISON: CT head wo con* [id number] 03/16/2020 2:37 AM RADIATION DOSE METRICS: Total DLP (mGy-cm): 810.13 FINDINGS: Brain: Stable one or more left chronic lacunar thalamic infarcts. Ventricles: Normal. No ventriculomegaly. Bones/joints: Stable right frontal craniectomy. Sinuses: Visualized sinuses are unremarkable. No fluid levels. Mastoid air cells: Visualized mastoid air cells are well aerated. Orbits: Interval high density material filling the entire vitreous humor of the left globe which could be secondary to recent surgery. Vasculature: Moderate calcified intracranial atherosclerotic vessel disease. Soft tissues: Unremarkable. CT/CT head wo con* [id number] IMPRESSION: 1. Interval high density material filling the entire vitreous humor of the left globe which could be secondary to recent surgery. 2. No acute intracranial findings. Radiation Dose CTDIVOL = (mGy): DLP = 810.13 (mGy-cm) Dictated By: Isaiah Velarde MD Signed By: Isaiah Velarde MD Signed Date/Time: 04/13/201731 DD/ 29 CTA Head Neck: Radiologist's impression: [address] [address] [address] Scan Report Signed Patient: Ivon Larios Unit #: [id number] : 1975 Age/Sex: 44 / F ADM Date: 04/13/20 Loc: ER Room/Bed: Attending Dr: Ordering Provider/Ordering MD: Eleni Luz DO Date of Service: 04/13/20 Procedure(s): CT angio headneck* [id number] Accession Number(s): [id number] Report Number: [id number] PROCEDURE INFORMATION: Exam: CT Angiography Head With Contrast Exam date and time: 04/13/2020 4:38 PM Age: 44 years old Clinical indication: Pain; Headache; Prior surgery; Surgery date: 6+ months; Surgery type: Craniotomy; Patient HX: C/O ALATORRE, weakness and HTN, L eye surgery yesterday HX of embolic brainstem stroke; Additional info: CVA symptoms TECHNIQUE: Imaging protocol: Computed tomography angiography of the head with intravenous contrast. 3D rendering: MIP and/or 3D reconstructed images were created by the technologist. Radiation optimization: All CT scans at this facility use at least one of these dose optimization techniques: automated exposure control; mA and/or kV adjustment per patient size (includes targeted exams where dose is matched to clinical indication); or iterative reconstruction. Contrast material: OMNI 350; Contrast volume: 95 ml; Contrast route: INTRAVENOUS (IV); COMPARISON: CT angio headneck* [id number] 03/09/2020 12:56 PM RADIATION DOSE METRICS: Total DLP (mGy-cm): 2153.88 FINDINGS: Anterior cerebral arteries: No occlusion or significant stenosis. No aneurysm. Right internal carotid artery: Calcified plaque in the right cavernous ICA without significant stenosis. Right middle cerebral artery: No occlusion or significant stenosis. No aneurysm. Right posterior cerebral artery: No occlusion or significant stenosis. No aneurysm. Right vertebral artery: Dominant right vertebral artery with patent left vertebral artery. Left internal carotid artery: Intracranial segment is patent with no significant stenosis or occlusion. No aneurysm. Left middle cerebral artery: No occlusion or significant stenosis. No aneurysm. Left posterior cerebral artery: Left posterior communicating artery. Left vertebral artery: No occlusion or significant stenosis. No aneurysm. Basilar artery: No occlusion or significant stenosis. No aneurysm. Other vasculature: Bilateral superior cerebellar arteries. Venous contamination at the level of the [place]. No large vessel occlusion. IMPRESSION: No large vessel occlusion. PROCEDURE INFORMATION: Exam: CT Angiography Neck With Contrast Exam date and time: 04/13/2020 4:38 PM Age: 44 years old Clinical indication: Pain; Headache; Prior surgery; Surgery date: 6+ months; Surgery type: Craniotomy; Patient HX: C/O ALATORRE, weakness and HTN, L eye surgery yesterday HX of embolic brainstem stroke; Additional info: CVA symptoms TECHNIQUE: Imaging protocol: Computed tomography angiography of the neck with intravenous contrast. 3D rendering: MIP and/or 3D reconstructed images were created by the technologist. Radiation optimization: All CT scans at this facility use at least one of these dose optimization techniques: automated exposure control; mA and/or kV adjustment per patient size (includes targeted exams where dose is matched to clinical indication); or iterative reconstruction. Contrast material: OMNI 350; Contrast volume: 95 ml; Contrast route: INTRAVENOUS (IV); COMPARISON: CT angio headneck* [id number] 03/09/2020 12:56 PM RADIATION DOSE METRICS: Total DLP (mGy-cm): 2153.88 FINDINGS: Right common carotid artery: No stenosis. No dissection or occlusion. Right internal carotid artery: No ICA stenosis by NASCET/SRU criteria. Right external carotid artery: No occlusion or stenosis of the origin. Right vertebral artery: Dominant right vertebral artery with patent left vertebral artery. Left common carotid artery: No stenosis. No dissection or occlusion. Left internal carotid artery: Left carotid bifurcation calcified plaque. Left external carotid artery: No occlusion or stenosis of the origin. Left vertebral artery: No stenosis. No dissection or occlusion. Other vasculature: S-shaped kinking of the proximal internal carotid arteries bilaterally. Dental: Examination is limited secondary to metallic artifact from dental fillings and/or dental hardware. Bones/joints: Mild multilevel spine degenerative changes including degenerative disc disease, spondylosis and facet degenerative changes. Soft tissues: Normal. No significant soft tissue swelling. CT/CT angio headneck* [id number] IMPRESSION: 1. Dominant right vertebral artery with patent left vertebral artery. 2. No ICA stenosis by NASCET/SRU criteria. REFERENCES: NASCET CRITERIA. The degree of internal carotid artery stenosis is based on NASCET criteria. Normal is no stenosis. Mild is less than 50% stenosis. Moderate is 50-69% stenosis. Severe is 70% to 99% stenosis. Total occlusion is no detectable patent lumen. Radiation Dose CTDIVOL = (mGy): DLP = 2153.88 2153.88 (mGy-cm) Dictated By: Isaiah Velarde MD Signed By: Isaiah Velarde MD Signed Date/Time: 04/13/201736 DD/ 34 EKG Data^: EKG 1: Attestation: I personally reviewed and interpreted this EKG as follows: EKG interpretation date: 04/13/20 EKG interpretation time: 16:29 Interpretation: Normal sinus rhythm at 89 beats a minute, normal intervals, no blocks, LVH, nonspecific ST and T wave changes. Discharge Plan Discharge Patient Disposition: Xfer Short-Term Hosp Clinical Impression: Stroke Qualifiers: CVA mechanism: unspecified Qualified Code(s): I63.9 - Cerebral infarction, unspecified Condition: Stable Interventions: ED Discharge Assessment Last Done: 04/13/20 19:35 ED Charges Last Done: 04/13/20 19:35 Coding Level of Care Code ED Agricultural Production Engineer for Chg Fwd Exam Comprehensive
[2020-04-13] MEDS: labetalol 5 mg/mL SDV 20mL 10 MG IVP ×2 (16:56→18:10)
[2020-04-13] MEDS: sodium chloride 0.9% 1,000 ML 100 ML IV (16:57)
[2020-04-13 16:59] VITALS: BP 174/110; PULSE 89; RESP 14; O2SAT 95
[2020-04-13 17:04] LABS: Basophils # 0.1 10^3/uL (0.0-0.1); Basophils % 0.6 %; Eosinophils # 0.2 10^3/uL (0.0-0.8); Eosinophils % 2.7 %; Hemoglobin 11.6 g/dL (11.5-15.3); Lymphocytes # 3.2 10^3/uL (0.8-4.8); Lymphocytes % 37.4 %; Mean Corpuscular HGB Conc 31.4 g/dL (30.0-36.0); Mean Corpuscular Hemoglobin 26.7 pg (28.0-34.0); Mean Corpuscular Volume 85.3 fL (81-99); Mean Platelet Volume 10.7 fL (7.4-10.4); Monocytes # 0.7 10^3/uL (0.2-0.9); Monocytes % 8.5 %; Neutrophils # 4.2 10^3/uL (1.8-7.7); Neutrophils % 50.2 %; Nucleated Red Blood Cells % 0 %; Platelet Count 467 10^3/cmm (130-400); Red Blood Count 4.34 10^6/uL (4.1-5.3); Red Cell Distribution Width 12.7 % (12.1-15.1); White Blood Count 8.5 10^3/uL (4.0-10.0)
[2020-04-13] MEDS: iohexol 350 mg/mL 100 mL Btl IV (17:17)
[2020-04-13 17:18] LABS: INR 0.89 (0.8-1.2)
[2020-04-13 17:24] LABS: Lactic Sepsis W/Reflex 1.7 mmol/L (0.5-2.2)
[2020-04-13 17:27] LABS: Alanine Aminotransferase 23 U/L (0-33); Albumin Level 3.6 g/dL (3.5-5.2); Alkaline Phosphatase 114 IU/L (35-105); Anion Gap 14.6 (5-19); Aspartate Amino Transferase 22 U/L (0-32); Blood Urea Nitrogen 17 mg/dL (6-20); Calcium 9.6 mg/dL (8.5-10.5); Carbon Dioxide 28 mmol/L (22-29); Chloride 103 mmol/L (98-107); Globulin 2.9 g/dL (1.3-4.6); Glomerular Filtration Rate 59.7 mL/min (90-130); Glucose 146 mg/dL (65-115); Magnesium 1.8 mg/dL (1.7-2.3); Osmolality Calculated 293 mOsm/kg (285-295); Potassium 3.6 mmol/L (3.5-5.1); Sodium 142 mmol/L (136-145); Total Bilirubin 0.2 mg/dL (0.15-1.2); Total Protein 6.5 g/dL (6.6-8.7)
[2020-04-13 17:29] LABS: Troponin(5th) Baseline 31 ng/L (0-10)
[2020-04-13 18:09] VITALS: BP 236/133; PULSE 85; RESP 14; O2SAT 98
--- NOTE | 2020-04-13 18:14 | ECG_ITS ---
[facility] Test Date: 2020-04-13 Pat Name: Ivon Larios Department: Room: 112 Gender: Female Administrative Coordinator: : 1975 Requested By: Eleni Purvis Order Number: [id number] Salvador MD: Ragini Rizo M.D. Measurements Intervals [place] Rate: 85 P: 17 TN: 179 QRS: 0 QRSD: 103 T: 17 QT: 408 QTc: 488 Interpretive Statements SINUS RHYTHM MINIMAL VOLTAGE CRITERIA FOR LVH, CONSIDER NORMAL VARIANT [MEETS CRITERIA IN ONE OF: R(aVL), S(V1), R(V5), R(V5/V6)+S(V1)] INFERIOR MYOCARDIAL INFARCTION , PROBABLY OLD [40+ ms Q WAVE AND/OR ST/T ABNORMALITY IN II/aVF] Compared to ECG 04/13/2020 16:29:33 No significant changes Electronically Signed On 04-14-2020 14:00:04 CDT by Ragini Rizo M.D. [id number] f
[2020-04-13 18:25] LABS: Bilirubin Urine Neg (NEGATIVE); Blood Urine Trace (Negative); Glucose Urine UA 1+ (Normal); Ketones Urine Negative (Negative); Leukocyte Esterase Urine Negative (Negative); Nitrate Urine Negative (Negative); Protein Urine 3+ (Negative); Specific Gravity, Urine 1.015 (1.005-1.030); Urine Appearance Clear (CLEAR); Urine Color Yellow (Yellow); Urobilinogen Urine Neg (Negative); pH Urine 6 (5-7)
[2020-04-13 18:26] LABS: Add Urine Culture? Yes; Bacteria Urine TRACE; RBC Urine 15-25 /hpf (0-2); Squamous Epithelial Cell Urine 0-4 (0-5); WBC Urine 0-4 /hpf (0-5)
--- NOTE | 2020-04-13 18:47 | PC.NURSE ---
EKG done at 1835 and shown to ER doctor
[2020-04-13] MEDS: nitroglycerin drip 50 MG/250 ML PREMIX IV (18:48)
--- NOTE | 2020-04-13 19:19 | P.HP_ITS ---
Providers/Chief Complaint Admitting Physician: Reilly Hightower MD Primary Care Provider: Shefali Russo DO Chief Complaint: stroke like symptoms History of Present Illness Ivon Larios is a 44 year old female who has history of multiple strokes status post brain biopsy at [facility] follows up with Dr. Lindsey, negative MARIANELA no signs of cerebral vasculitis, she had extensive work-up at [place], as per Dr. Lindsey's documentation she had extensive work-up for right-sided hemiparesis, facial droop and slurred speech that was due to acute pontine stroke diagnosed on MRI. Differential included vasculitis but rheumatological work-up was not suggestive of it. She has stayed hypertensive with blood pressure ranging between 1 50-1 90 has had multiple lacunar infarcts. She was started on 60 mg of prednisone for concern of giant cell arteritis, as per the family her vision has been changing since then. She was diagnosed with diabetic retinopathy, recently had surgery of right retinal detachment. Now she is getting Botox injection for her severe headaches first injection 03/29/2020. Right frontal brain biopsy results are pending. Patient recently had left retinal detachment surgery by Dr. Lozano yesterday. Today she woke up with severe headache, her mother noticed right-sided facial droop, she was not able to move her right hand or right leg. She was extremely hypertensive and was brought to the ER for further evaluation. Her speech is slurred, NIH score 12, she is out of TPA window not a candidate because of left eye surgery. CTA head, neck did not reveal any acute stenosis. Currently she is on nitroglycerin drip. As per her mom she received her clonidine around 2 PM. Current blood pressure 236/133mmhg. She had an extensive work-up at [facility] in [place] where she was hospitalized with right hemiplegia 08/19/2017 through 08/26/2017. She also had a work-up there 10/15/2017 and I will summarize her negative findings: Sed rate 22 Negative lupus anticoagulant Protein C&S antigens and genes negative Spinal fluid acellular with normal IgG index and no oligoclonal bands. CSF protein 80 Lyme PCR negative HSV-1 and HSV-2 negative Proteinase 3 antibody negative MPO antibody negative Anti-cardial [place] IgG, IgM etc. negative P ANCA and C ANCA and atypical P ANCA negative Patient was transferred from the ER to [facility] because we did not have neuro coverage over the weekend, family agreed with the transfer because she was seen at that facility before. She was not admitted under h ospitalist service. Transfer was done from the ER to the ICU Medications/Allergies Home Medications Medication Instructions Recorded Confirmed Last Taken Type liraglutide 0.6 mg/0.1 mL (18 mg/3 1.2 mg SUBCUT Q24H #9 ml 03/12/20 04/03/20 03/15/20 Rx mL) subcutaneous pen injector tizanidine 2 mg capsule 2 mg PO BEDTIME PRN #30 cap 03/12/20 04/03/20 03/15/20 Rx Levemir FlexTouch U-100 Insuln 42 unit SUBCUT DAILY #15 ml 03/17/20 04/03/20 Unknown Rx diabetic supplies, miscellan. #60 each 03/17/20 04/03/20 Unknown Rx diphenhydramine HCl 25 mg PO Q4H PRN #4 cap 03/17/20 04/03/20 Unknown Rx insulin aspart U-100 [Novolog See Rx Instructions .ROUTE 03/17/20 04/03/20 Unknown Rx U-100 Insulin aspart] .COMPLEX #10 ml metoprolol tartrate 100 mg PO Q12H #60 tab 03/23/20 04/03/20 Unknown Rx wheelchair #1 ea 04/03/20 04/03/20 Unknown Rx blood sugar diagnostic #200 each 04/05/20 Unknown Rx pen needle, diabetic 32 gauge x #100 each 04/05/20 Unknown Rx 5/16 amitriptyline 25 mg tablet 25 mg PO DAILY #30 tab 04/06/20 Unknown Rx aspirin 81 mg tablet,delayed 81 mg PO DAILY #30 tab 04/06/20 Unknown Rx release atorvastatin 40 mg tablet 40 mg PO DAILY #30 tab 04/06/20 Unknown Rx cetirizine 10 mg tablet 10 mg PO DAILY #30 tab 04/06/20 Unknown Rx clopidogrel 75 mg tablet 75 mg PO DAILY #30 tab 04/06/20 Unknown Rx fluoxetine 20 mg capsule 20 mg PO DAILY #30 cap 04/06/20 Unknown Rx levetiracetam 1,000 mg tablet 1,000 mg PO BID #60 tab 04/06/20 Unknown Rx pantoprazole 40 mg tablet,delayed 40 mg PO DAILY #60 tab 04/06/20 Unknown Rx release clonidine HCl 0.1 mg tablet 0.1 mg PO TID PRN #21 tab 04/10/20 Unknown Rx hydralazine 10 mg tablet 10 mg PO TID #180 tab 04/10/20 Unknown Rx lisinopril 10 mg tablet 10 mg PO DAILY #30 tab 04/10/20 Unknown Rx Allergies Allergy/AdvReac Type Severity Reaction Status Date / Time amlodipine Allergy ADR-Swelling Verified 04/03/20 13:20 of the Eye codeine Allergy ADR-Shakine Verified 04/03/20 13:20 ss hydroxyzine [From Vistaril] Allergy ADR-Confusi Verified 04/03/20 13:20 on meperidine [From Demerol] Allergy ADR-Chest Verified 04/03/20 13:20 Pain metformin [From Glucophage] Allergy ALGY-Hives Verified 04/03/20 13:20 morphine Allergy ALGY-Anaphy Verified 04/03/20 13:20 laxis phenazopyridine Allergy ALGY-Hives Verified 04/03/20 13:20 [From Pyridium] sumatriptan [From Imitrex] AdvReac Mild Unknown Verified 04/03/20 13:20 PFSH Acute PFSH: Medical History Chronic back pain Depression Dyslipidemia Essential hypertension Insomnia Rotator cuff injury Seasonal allergies Stroke TIA (transient ischemic attack) Type 2 diabetes mellitus, with long-term current use of insulin Vasculitis Surgical History H/O brain surgery H/O tubal ligation H/O: hysterectomy History of cholecystectomy History of tonsillectomy Family History Other CAD (coronary artery disease) Cancer Diabetes Hypertension Denies family history of Stroke Social History Smoking and tobacco status: smoker, details unknown smokeless tobacco Smokeless tobacco user: chewing tobacco Alcohol intake: never Household members: family Housing: House History of recent travel: Yes (travels from [facility]) Vitals/I&O/Wt Last Vital Signs Temp 98.4 F 04/13/20 16:07 Pulse 85 04/13/20 18:09 Resp 14 04/13/20 18:09 BP 236/133 04/13/20 18:09 Pulse Ox 98 04/13/20 18:09 Weight last 48 hrs Weight 104.326 kg Data : 04/13/20 16:54 04/13/20 16:54 Attestations Medical Necessity Statement*: Patient was transferred from the ER Coding Level of Care Code 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
[2020-04-13 20:17] LABS: Troponin 5 2HR 26.11 ng/L (0-10)
[2020-04-13 20:23] VITALS: RESP 14
[2020-04-13] MEDS: HYDROmorphone 1 mg/mL INJ 1 mL IVP (20:23)
[2020-04-13 20:25] VITALS: BP 181/118; PULSE 95; RESP 14; O2SAT 95
[2020-04-13 21:37] VITALS: BP 123/86; PULSE 92; RESP 12; O2SAT 93
== END 2020-04-13 23:10 | disposition short-term general hospital (02) ==
LOC: ER 16:17 → CSU 21:02
PROVIDERS: Emergency Provider Emergency Medicine; PCP Family Medicine
DX: I63.9 Cerebral infarction, unspecified (principal); E78.5 Hyperlipidemia, unspecified; I10 Essential (primary) hypertension; Z86.73 Personal history of transient ischemic attack (TIA), and cerebral infarction without residual deficits; E11.9 Type 2 diabetes mellitus without complications; F17.220 Nicotine dependence, chewing tobacco, uncomplicated
CPT/HCPCS: 12345; 70450; 70496; 70498; 71045; 80053; 81001; 83605; 83735; 84484; 85025; 85610; 87086; 93005; 96365; 96366; 96375; 99283; 99285; J1170; J3490; J7030; Q9967

== ENCOUNTER → 2020-05-15 11:38 | Outpatient (BNVA) | payer MEDICAID, SELFPAY | PROVIDERS: PCP Family Medicine; Visit Provider Family Medicine | DX: Z13.6 Encounter for screening for cardiovascular disorders (principal); E11.9 Type 2 diabetes mellitus without complications; Z79.4 Long term (current) use of insulin; H81.10 Benign paroxysmal vertigo, unspecified ear | CPT/HCPCS: 80053 ==

== ENCOUNTER 2020-06-07 14:56 | Inpatient (IN) | payer MEDICAID, SELFPAY ==
[2020-06-07] VITALS (9 sets, daily range): BP systolic 146–254; BP diastolic 77–116; PULSE 68–78; RESP 16–21; TEMP 36.4–36.6; O2SAT 95–99; BMI 38.9
--- NOTE | 2020-06-07 15:01 | XR_ITS ---
WS: [id number] Portable AP upright chest, 06/07/2020 Clinical Data: Overdose Comparison: Portable chest, 04/13/2020. Findings: No nodules, masses or effusions are seen. The heart is normal. The pulmonary vascularity is not increased. No pneumonia or pneumothorax is seen. XR/XR chest 1V portable [id number] Impression: Negative chest.
--- NOTE | 2020-06-07 15:02 | ECG_ITS ---
[facility] Test Date: 2020-06-07 Pat Name: Ivon Larios Department: Room: Gender: Female [employer]: : 1975 Requested By: Eleni Purvis Order Number: [id number] Salvador MD: Roya Gerardo M.D. Measurements Intervals [place] Rate: 69 P: 43 [place]: 188 QRS: 3 QRSD: 101 T: 11 QT: 457 QTc: 493 Interpretive Statements SINUS RHYTHM MODERATE VOLTAGE CRITERIA FOR LVH, CONSIDER NORMAL VARIANT ANTERIOR MYOCARDIAL INFARCTION , PROBABLY OLD INFERIOR MYOCARDIAL INFARCTION , OF INDETERMINATE AGE Compared to ECG 04/13/2020 18:43:58 No significant changes Electronically Signed On 06-08-2020 20:26:21 CDT by Roya Gerardo M.D. [email or web address]
[2020-06-07 15:08] LABS: Glucose Point of Care 80 mg/dL (70-110)
--- NOTE | 2020-06-07 15:26 | ED_ITS ---
HPI - Overdose General: Chief Complaint: Overdose Stated Complaint: SI W/ATTEMPT Time Seen by Provider: 06/07/20 14:56 Source: patient and EMS Mode of arrival: EMS Limitations: altered mental status History of Present Illness: HPI Narrative: Dinah is a 44-year-old female who comes in altered after hypoglycemic episode. EMS reports the patient overdosed on insulin to try to hurt and kill herself. Patient when asked confirms this to me stating that she does not want to be in the life that she currently has. She will not elaborate further and again is a poor historian. Patient reported to have taken 60 units of NovoLog this morning but she states she thought she took more than this and she also took a long-acting insulin such as Lantus or Levemir she is unsure which. Patient denies taking anything else [id number] or prescription to hurt herself. At this point the patient has refused to answer any further questions. Review of Systems General: Reports: ROS unobtainable due to mental status PFSH ED PFSH: Medical History Chronic back pain Depression Dyslipidemia Essential hypertension Insomnia Rotator cuff injury Seasonal allergies Stroke TIA (transient ischemic attack) Type 2 diabetes mellitus, with long-term current use of insulin Vasculitis Surgical History H/O brain surgery H/O tubal ligation H/O: hysterectomy History of cholecystectomy History of tonsillectomy Family History Other CAD (coronary artery disease) Cancer Diabetes Hypertension Denies family history of Stroke Social History Smoking and tobacco status: smoker, details unknown smokeless tobacco Smokeless tobacco user: chewing tobacco Alcohol intake: never Household members: family Housing: House History of recent travel: Yes (travels from [facility]) Physical Exam Const: COMMON NORMALS: no acute distress, patient oriented x3, no limitations, healthy appearing and well nourished GENERAL APPEARANCE: cooperative, well kempt and well developed HENMT: COMMON NORMALS: normocephalic, atraumatic, external ears normal, EAC's normal and Normal external nose present HEAD & SCALP: normal to inspection, normocephalic and atraumatic FACE & SINUS: normal facial exam and face symmet flory NOSE: Normal external nose present and Normal nares present EXTERNAL EAR: Yes external ears normal EXTERNAL AUDITORY CANAL: EAC's normal MOUTH: Normal oral and palatal mucosa present, lip normal and tongue normal Eye: COMMON NORMALS: Equal, round and reactive pupils present and conjunctivae normal GENERAL EYE: appearance normal, both eyes and all related structures ALIGNMENT: Yes alignment normal PERIORBITAL: periorbital findings normal EYELID: eyelids normal CONJUNCTIVA: Yes conjunctivae normal SCLERA: sclerae normal PUPIL: Yes Equal, round and reactive pupils present Neck/C-Spine: COMMON NORMALS: full ROM, no lymphadenopathy, supple, no meningeal signs and no JVD GENERAL: Yes normal visual inspection and Yes trachea midline Chest: COMMONS NORMALS: normal inspection of the chest and normal palpation of entire chest wall Resp: COMMON NORMALS: normal respiratory effort, No retractions, No use of accessory muscles and clear to auscultation bilaterally EFFORT & INSPECTION: Yes able to speak in complete sentences and Yes symmetric chest movement AUSCULTATION: clear to auscultation bilaterally, no crackles, no rales, no rhonchi and no wheezes Cardio: COMMON NORMALS: no JVD, regular rate, regular rhythm, S1 normal heart sound present and S2 normal heart sound present RATE: regular rate RHYTHM: regular rhythm HEART SOUNDS: S1 normal heart sound present, S2 normal heart sound present, no click, no gallops, no murmurs, no rubs and abnormal split S2 GI: COMMON NORMALS: Soft to palpation and No hepatosplenomegaly present PALPATION: Yes Soft to palpation, No Tenderness to palpation present (GI), No Guarding due to palpation present (GI), No Rigid due to palpation, Yes No hepatosplenomegaly present, No Hernia present, No Palpable mass present and No Pulsatile mass present : COMMON NORMALS: Yes no CVA tenderness BLADDER/KIDNEY EXAM: Yes no CVA tenderness EXTERNAL FEMALE EXAM: No Hernia present Back/Pelvis: COMMON NORMALS: no CVA tenderness, thoracic and lumbar spine normal to inspection, no thoracic nor lumbar tenderness and thoraco-lumbar ROM normal Extremity: COMMON NORMALS: normal to inspection, full ROM, capillary refill normal, no joint enlargement, no clubbing, cyanosis or edema and no calf tenderness Neuro: COMMON NORMALS: patient oriented x3, CN's II-XII intact bilaterally, moves all extremities, no focal motor deficits and no sensory deficits noted MENINGEAL SIGNS: Yes no meningeal signs SPEECH: speech normal Psych: COMMON NORMALS: mental status grossly normal, Normal thought process pr esent, cooperative, normal affect, speech normal and activity/motor behavior normal APPEARANCE: Yes well kempt SPEECH: Yes normal speech THOUGHT PROCESS: Normal thought process present Skin: COMMON NORMALS: no rashes or lesions noted, turgor normal, no jaundice, no petechiae and no mottling GENERAL SKIN EXAM: no rashes or lesions noted and turgor normal Procedures EJ/Peripheral Line Arm R: Size (gauge): 20 IV Secured and Dressing Applied: Yes Patient Tolerated Procedure: well Additional Comments: Ultrasound utilized throughout needle seen going in the vessel. Good blood return and flush after specimens of blood work obtained. Course Vital Signs: Vital signs: Vital Signs Temperature 97.8 F 06/07/20 19:06 Pulse Rate 69 06/07/20 20:00 Respiratory Rate 17 06/07/20 20:00 Blood Pressure 254/116 06/07/20 20:00 Pulse Oximetry 99 06/07/20 20:00 MDM - Overdose MDM Narrative: Medical decision making narrative: Patient's blood sugar has gone down even with IV supplementation. She had to be given bolus doses and had increased rate of dextrose infused. With her taking a combination of short and long-acting insulins and not knowing the true amount of medication that she is taken I believe will be necessary to watch her in the ICU overnight. I reviewed this plan with Dr. Lei who is agreeable to do so. He will see the patient in the ICU. Lab Data: Attestation: I reviewed the patient's lab results. Labs: Lab Results 06/07/20 06/07/20 06/07/20 Range/Units 15:00 15:10 15:27 WBC 12.6 H (4.0-10.0) 10^3/ uL RBC 4.73 (4.1-5.3) 10^6/u L Hgb 12.0 (11.5-15.3) g/dL Hct 39.0 (37.0-47.0) % MCV 82.5 (81-99) fL MCH 25.4 L (28.0-34.0) pg MCHC 30.8 (30.0-36.0) g/dL RDW 11.9 L (12.1-15.1) % Plt Count 366 (130-400) 10^3/c mm MPV 11.3 H (7.4-10.4) fL Neut % (Auto) 79.8 % Lymph % (Auto) 13.5 % [place] % (Auto) 5.4 % Eos % (Auto) 0.4 % Baso % (Auto) 0.3 % Neut # (Auto) 10.08 H (1.8-7.7) 10^3/u L Lymph # (Auto) 1.7 (0.8-4.8) 10^3/u L [place] # (Auto) 0.7 (0.2-0.9) 10^3/u L Eos # (Auto) 0.1 (0.0-0.8) 10^3/u L Baso # (Auto) 0.0 (0.0-0.1) 10^3/u L Nucleated RBC % (a uto) 0 % Nucleated RBCs # 0.0 /100WBC PT (12.1-14.9) SECO NDS INR (0.8-1.2) Specimen Type Arterial Sample Site Radial, left ABG pH 7.39 (7.35-7.45) ABG pCO2 45.6 H (35-45) mmHg ABG pO2 76.8 L (80.0-100.0) mmH g ABG HCO3 27.7 H (22-26) mmol/L ABG Base Excess 2.2 H (-2.0-2.0) mmol/ L Syd Test Pos Hematocrit 36.9 L (37-47) % O2 Delivery Device Nc O2 Liters/Min 2.0 % Banquet Captain ID Jlg Sodium (136-145) mmol/L Potassium (3.5-5.1) mmol/L Chloride (98-107) mmol/L Carbon Dioxide (22-29) mmol/L Anion Gap (5-19) BUN (6-20) mg/dL Creatinine (0.5-0.9) mg/dL GFR Calculation (90-130) mL/min Glucose (65-115) mg/dL POC Glucose 80 (70-110) mg/dL Calculated Osmolal ity (285-295) mOsm/k g Lactic Acid (0.5-2.2) mmol/L Calcium (8.5-10.5) mg/dL Magnesium (1.7-2.3) mg/dL Total Bilirubin (0.15-1.2) mg/dL AST (0-32) U/L ALT (0-33) U/L Alkaline Phosphata se (35-105) IU/L Creatine Kinase (26-192) U/L Troponin T Baselin e (0-10) ng/L Total Protein (6.6-8.7) g/dL Albumin (3.5-5.2) g/dL Globulin (1.3-4.6) g/dL HCG, Qual (Negative) Urine Color (Yellow) Urine Appearance (CLEAR) Urine pH (5-7) Ur Specific Gravit y (1.005-1.030) Urine Protein (Negative) Urine Glucose (UA) (Normal) Urine Ketones (Negative) Urine Blood (Negative) Urine Nitrate (Negative) Urine Bilirubin (NEGATIVE) Urine Urobilinogen (Negative) mg/dL Ur Leukocyte [place] ase (Negative) Urine RBC (0-2) /hpf Urine WBC (0-5) /hpf Ur Squamous Epith Cells (0-5) Amorphous Sediment Urine Bacteria (NONE) Urine Mucus Salicylates (3-10) mg/dL Urine Opiates Scre en (Negative) ng/mL Acetaminophen (10-30) ug/mL Ur Barbiturates Sc reen (Negative) ng/mL Phenytoin Valproic Acid Carbamazepine Ur Phencyclidine S crn (Negative) ng/mL Ur Amphetamines Sc reen (Negative) ng/mL U Benzodiazepines Scrn (Negative) ng/mL [place] Urine Cocaine Scre en (Negative) ng/mL U Marijuana (THC) Screen (Negative) ng/mL Ethyl Alcohol (0-10) mg/dL 06/07/20 06/07/20 06/07/20 Range/Units 15:27 15:27 15:27 WBC (4.0-10.0) 10^3/ uL RBC (4.1-5.3) 10^6/u L Hgb (11.5-15.3) g/dL Hct (37.0-47.0) % MCV (81-99) fL MCH (28.0-34.0) pg MCHC (30.0-36.0) g/dL RDW (12.1-15.1) % Plt Count (130-400) 10^3/c mm MPV (7.4-10.4) fL Neut % (Auto) % Lymph % (Auto) % [place] % (Auto) % Eos % (Auto) % Baso % (Auto) % Neut # (Auto) (1.8-7.7) 10^3/u L Lymph # (Auto) (0.8-4.8) 10^3/u L [place] # (Auto) (0.2-0.9) 10^3/u L Eos # (Auto) (0.0-0.8) 10^3/u L Baso # (Auto) (0.0-0.1) 10^3/u L Nucleated RBC % (a uto) % Nucleated RBCs # /100WBC PT 11.80 L (12.1-14.9) SECO NDS INR 0.85 (0.8-1.2) Specimen Type Sample Site ABG pH (7.35-7.45) ABG pCO2 (35-45) mmHg ABG pO2 (80.0-100.0) mmH g ABG HCO3 (22-26) mmol/L ABG Base Excess (-2.0-2.0) mmol/ L Syd Test Hematocrit (37-47) % O2 Delivery Device O2 Liters/Min % Banquet Captain ID Sodium 139 (136-145) mmol/L Potassium 3.1 L (3.5-5.1) mmol/L Chloride 102 (98-107) mmol/L Carbon Dioxide 27 (22-29) mmol/L Anion Gap 13.1 (5-19) BUN 27 H (6-20) mg/dL Creatinine 1.2 H (0.5-0.9) mg/dL GFR Calculation 48.4 L (90-130) mL/min Glucose 55 L (65-115) mg/dL POC Glucose (70-110) mg/dL Calculated Osmolal ity 283 L (285-295) mOsm/k g Lactic Acid (0.5-2.2) mmol/L Calcium 9.4 (8.5-10.5) mg/dL Magnesium 1.6 L (1.7-2.3) mg/dL Total Bilirubin 0.3 (0.15-1.2) mg/dL AST 28 (0-32) U/L ALT 26 (0-33) U/L Alkaline Phosphata se 110 H (35-105) IU/L Creatine Kinase 124 (26-192) U/L Troponin T Baselin e (0-10) ng/L Total Protein 7.1 (6.6-8.7) g/dL Albumin 3.7 (3.5-5.2) g/dL Globulin 3.4 (1.3-4.6) g/dL HCG, Qual (Negative) Urine Color (Yellow) Urine Appearance (CLEAR) Urine pH (5-7) Ur Specific Gravit y (1.005-1.030) Urine Protein (Negative) Urine Glucose (UA) (Normal) Urine Ketones (Negative) Urine Blood (Negative) Urine Nitrate (Negative) Urine Bilirubin (NEGATIVE) Urine Urobilinogen (Negative) mg/dL Ur Leukocyte Kamil[place] ase (Negative) Urine RBC (0-2) /hpf Urine WBC (0-5) /hpf Ur Squamous Epith Cells (0-5) Amorphous Sediment Urine Bacteria (NONE) Urine Mucus Salicylates < 0.3 L (3-10) mg/dL Urine Opiates Scre en (Negative) ng/mL Acetaminophen < 5.0 L (10-30) ug/mL Ur Barbiturates Sc reen (Negative) ng/mL Phenytoin Cancelled Valproic Acid Cancelled Carbamazepine Cancelled Ur Phencyclidine S crn (Negative) ng/mL Ur Amphetamines Sc reen (Negative) ng/mL U Benzodiazepines Scrn (Negative) ng/mL [place] Cancelled Urine Cocaine Scre en (Negative) ng/mL U Marijuana (THC) Screen (Negative) ng/mL Ethyl Alcohol < 10 (0-10) mg/dL 06/07/20 06/07/20 06/07/20 Range/Units 15:27 15:27 15:27 WBC (4.0-10.0) 10^3/ uL RBC (4.1-5.3) 10^6/u L Hgb (11.5-15.3) g/dL Hct (37.0-47.0) % MCV (81-99) fL MCH (28.0-34.0) pg MCHC (30.0-36.0) g/dL RDW (12.1-15.1) % Plt Count (130-400) 10^3/c mm MPV (7.4-10.4) fL Neut % (Auto) % Lymph % (Auto) % [place] % (Auto) % Eos % (Auto) % Baso % (Auto) % Neut # (Auto) (1.8-7.7) 10^3/u L Lymph # (Auto) (0.8-4.8) 10^3/u L [place] # (Auto) (0.2-0.9) 10^3/u L Eos # (Auto) (0.0-0.8) 10^3/u L Baso # (Auto) (0.0-0.1) 10^3/u L Nucleated RBC % (a uto) % Nucleated RBCs # /100WBC PT (12.1-14.9) SECO NDS INR (0.8-1.2) Specimen Type Sample Site ABG pH (7.35-7.45) ABG pCO2 (35-45) mmHg ABG pO2 (80.0-100.0) mmH g ABG HCO3 (22-26) mmol/L ABG Base Excess (-2.0-2.0) mmol/ L Syd Test Hematocrit (37-47) % O2 Delivery Device O2 Liters/Min % Banquet Captain ID Sodium (136-145) mmol/L Potassium (3.5-5.1) mmol/L Chloride (98-107) mmol/L Carbon Dioxide (22-29) mmol/L Anion Gap (5-19) BUN (6-20) mg/dL Creatinine (0.5-0.9) mg/dL GFR Calculation (90-130) mL/min Glucose (65-115) mg/dL POC Glucose (70-110) mg/dL Calculated Osmolal ity (285-295) mOsm/k g Lactic Acid 1.5 (0.5-2.2) mmol/L Calcium (8.5-10.5) mg/dL Magnesium (1.7-2.3) mg/dL Total Bilirubin (0.15-1.2) mg/dL AST (0-32) U/L ALT (0-33) U/L Alkaline Phosphata se (35-105) IU/L Creatine Kinase (26-192) U/L Troponin T Baselin e 25 H (0-10) ng/L Total Protein (6.6-8.7) g/dL Albumin (3.5-5.2) g/dL Globulin (1.3-4.6) g/dL HCG, Qual Negative (Negative) Urine Color (Yellow) Urine Appearance (CLEAR) Urine pH (5-7) Ur Specific Gravit y (1.005-1.030) Urine Protein (Negative) Urine Glucose (UA) (Normal) Urine Ketones (Negative) Urine Blood (Negative) Urine Nitrate (Negative) Urine Bilirubin (NEGATIVE) Urine Urobilinogen (Negative) mg/dL Ur Leukocyte [place]il[place] ase (Negative) Urine RBC (0-2) /hpf Urine WBC (0-5) /hpf Ur Squamous Epith Cells (0-5) Amorphous Sediment Urine Bacteria (NONE) Urine Mucus Salicylates (3-10) mg/dL Urine Opiates Scre en (Negative) ng/mL Acetaminophen (10-30) ug/mL Ur Barbiturates Sc reen (Negative) ng/mL Phenytoin Valproic Acid Carbamazepine Ur Phencyclidine S crn (Negative) ng/mL Ur Amphetamines Sc reen (Negative) ng/mL U Benzodiazepines Scrn (Negative) ng/mL [place] Urine Cocaine Scre en (Negative) ng/mL U Marijuana (THC) Screen (Negative) ng/mL Ethyl Alcohol (0-10) mg/dL 06/07/20 06/07/20 06/07/20 Range/Units 15:36 15:56 16:20 WBC (4.0-10.0) 10^3/ uL RBC (4.1-5.3) 10^6/u L Hgb (11.5-15.3) g/dL Hct (37.0-47.0) % MCV (81-99) fL MCH (28.0-34.0) pg MCHC (30.0-36.0) g/dL RDW (12.1-15.1) % Plt Count (130-400) 10^3/c mm MPV (7.4-10.4) fL Neut % (Auto) % Lymph % (Auto) % [place] % (Auto) % Eos % (Auto) % Baso % (Auto) % Neut # (Auto) (1.8-7.7) 10^3/u L Lymph # (Auto) (0.8-4.8) 10^3/u L [place] # (Auto) (0.2-0.9) 10^3/u L Eos # (Auto) (0.0-0.8) 10^3/u L Baso # (Auto) (0.0-0.1) 10^3/u L Nucleated RBC % (a uto) % Nucleated RBCs # /100WBC PT (12.1-14.9) SECO NDS INR (0.8-1.2) Specimen Type Sample Site ABG pH (7.35-7.45) ABG pCO2 (35-45) mmHg ABG pO2 (80.0-100.0) mmH g ABG HCO3 (22-26) mmol/L ABG Base Excess (-2.0-2.0) mmol/ L Syd Test Hematocrit (37-47) % O2 Delivery Device O2 Liters/Min % Banquet Captain ID Sodium (136-145) mmol/L Potassium (3.5-5.1) mmol/L Chloride (98-107) mmol/L Carbon Dioxide (22-29) mmol/L Anion Gap (5-19) BUN (6-20) mg/dL Creatinine (0.5-0.9) mg/dL GFR Calculation (90-130) mL/min Glucose (65-115) mg/dL POC Glucose 54 157 (70-110) mg/dL Calculated Osmolal ity (285-295) mOsm/k g Lactic Acid (0.5-2.2) mmol/L Calcium (8.5-10.5) mg/dL Magnesium (1.7-2.3) mg/dL Total Bilirubin (0.15-1.2) mg/dL AST (0-32) U/L ALT (0-33) U/L Alkaline Phosphata se (35-105) IU/L Creatine Kinase (26-192) U/L Troponin T Baselin e (0-10) ng/L Total Protein (6.6-8.7) g/dL Albumin (3.5-5.2) g/dL Globulin (1.3-4.6) g/dL HCG, Qual (Negative) Urine Color Yellow (Yellow) Urine Appearance Clear (CLEAR) Urine pH 5.0 (5-7) Ur Specific Gravit y 1.010 (1.005-1.030) Urine Protein 3+ H (Negative) Urine Glucose (UA) 1+ (Normal) Urine Ketones Negative (Negative) Urine Blood 2+ H (Negative) Urine Nitrate Negative (Negative) Urine Bilirubin Neg (NEGATIVE) Urine Urobilinogen Norm (Negative) mg/dL Ur Leukocyte [place] ase Negative (Negative) Urine RBC 5-10 H (0-2) /hpf Urine WBC None (0-5) /hpf Ur Squamous Epith Cells 0-4 H (0-5) Amorphous Sediment Not Reportable Urine Bacteria Trace (NONE) Urine Mucus 1+ Salicylates (3-10) mg/dL Urine Opiates Scre en (Negative) ng/mL Acetaminophen (10-30) ug/mL Ur Barbiturates Sc reen (Negative) ng/mL Phenytoin Valproic Acid Carbamazepine Ur Phencyclidine S crn (Negative) ng/mL Ur Amphetamines Sc reen (Negative) ng/mL U Benzodiazepines Scrn (Negative) ng/mL [place] Urine Cocaine Scre en (Negative) ng/mL U Marijuana (THC) Screen (Negative) ng/mL Ethyl Alcohol (0-10) mg/dL 06/07/20 06/07/20 06/07/20 Range/Units 16:20 16:36 16:36 WBC (4.0-10.0) 10^3/ uL RBC (4.1-5.3) 10^6/u L Hgb (11.5-15.3) g/dL Hct (37.0-47.0) % MCV (81-99) fL MCH (28.0-34.0) pg MCHC (30.0-36.0) g/dL RDW (12.1-15.1) % Plt Count (130-400) 10^3/c mm MPV (7.4-10.4) fL Neut % (Auto) % Lymph % (Auto) % [place] % (Auto) % Eos % (Auto) % Baso % (Auto) % Neut # (Auto) (1.8-7.7) 10^3/u L Lymph # (Auto) (0.8-4.8) 10^3/u L [place] # (Auto) (0.2-0.9) 10^3/u L Eos # (Auto) (0.0-0.8) 10^3/u L Baso # (Auto) (0.0-0.1) 10^3/u L Nucleated RBC % (a uto) % Nucleated RBCs # /100WBC PT (12.1-14.9) SECO NDS INR (0.8-1.2) Specimen Type Sample Site ABG pH (7.35-7.45) ABG pCO2 (35-45) mmHg ABG pO2 (80.0-100.0) mmH g ABG HCO3 (22-26) mmol/L ABG Base Excess (-2.0-2.0) mmol/ L Syd Test Hematocrit (37-47) % O2 Delivery Device O2 Liters/Min % Banquet Captain ID Sodium (136-145) mmol/L Potassium (3.5-5.1) mmol/L Chloride (98-107) mmol/L Carbon Dioxide (22-29) mmol/L Anion Gap (5-19) BUN (6-20) mg/dL Creatinine (0.5-0.9) mg/dL GFR Calculation (90-130) mL/min Glucose (65-115) mg/dL POC Glucose (70-110) mg/dL Calculated Osmolal ity (285-295) mOsm/k g Lactic Acid (0.5-2.2) mmol/L Calcium (8.5-10.5) mg/dL Magnesium (1.7-2.3) mg/dL Total Bilirubin (0.15-1.2) mg/dL AST (0-32) U/L ALT (0-33) U/L Alkaline Phosphata se (35-105) IU/L Creatine Kinase (26-192) U/L Troponin T Baselin e (0-10) ng/L Total Protein (6.6-8.7) g/dL Albumin (3.5-5.2) g/dL Globulin (1.3-4.6) g/dL HCG, Qual (Negative) Urine Color (Yellow) Urine Appearance (CLEAR) Urine pH (5-7) Ur Specific Gravit y (1.005-1.030) Urine Protein (Negative) Urine Glucose (UA) (Normal) Urine Ketones (Negative) Urine Blood (Negative) Urine Nitrate (Negative) Urine Bilirubin (NEGATIVE) Urine Urobilinogen (Negative) mg/dL Ur Leukocyte [place] ase (Negative) Urine RBC (0-2) /hpf Urine WBC (0-5) /hpf Ur Squamous Epith Cells (0-5) Amorphous Sediment Urine Bacteria (NONE) Urine Mucus Salicylates (3-10) mg/dL Urine Opiates Scre en Negative (Negative) ng/mL Acetaminophen (10-30) ug/mL Ur Barbiturates Sc reen Negative (Negative) ng/mL Phenytoin 0.8 L Valproic Acid 2.8 L Carbamazepine 2.0 L Ur Phencyclidine S crn Negative (Negative) ng/mL Ur Amphetamines Sc reen Negative (Negative) ng/mL U Benzodiazepines Scrn Negative (Negative) ng/mL [place] 0.1 L Urine Cocaine Scre en Negative (Negative) ng/mL U Marijuana (THC) Screen Negative (Negative) ng/mL Ethyl Alcohol (0-10) mg/dL 06/07/20 Range/Units 17:04 WBC (4.0-10.0) 10^3/ uL RBC (4.1-5.3) 10^6/u L Hgb (11.5-15.3) g/dL Hct (37.0-47.0) % MCV (81-99) fL MCH (28.0-34.0) pg MCHC (30.0-36.0) g/dL RDW (12.1-15.1) % Plt Count (130-400) 10^3/c mm MPV (7.4-10.4) fL Neut % (Auto) % Lymph % (Auto) % [place] % (Auto) % Eos % (Auto) % Baso % (Auto) % Neut # (Auto) (1.8-7.7) 10^3/u L Lymph # (Auto) (0.8-4.8) 10^3/u L [place] # (Auto) (0.2-0.9) 10^3/u L Eos # (Auto) (0.0-0.8) 10^3/u L Baso # (Auto) (0.0-0.1) 10^3/u L Nucleated RBC % (a uto) % Nucleated RBCs # /100WBC PT (12.1-14.9) SECO NDS INR (0.8-1.2) Specimen Type Sample Site ABG pH (7.35-7.45) ABG pCO2 (35-45) mmHg ABG pO2 (80.0-100.0) mmH g ABG HCO3 (22-26) mmol/L ABG Base Excess (-2.0-2.0) mmol/ L Syd Test Hematocrit (37-47) % O2 Delivery Device O2 Liters/Min % Banquet Captain ID Sodium (136-145) mmol/L Potassium (3.5-5.1) mmol/L Chloride (98-107) mmol/L Carbon Dioxide (22-29) mmol/L Anion Gap (5-19) BUN (6-20) mg/dL Creatinine (0.5-0.9) mg/dL GFR Calculation (90-130) mL/min Glucose (65-115) mg/dL POC Glucose 124 (70-110) mg/dL Calculated Osmolal ity (285-295) mOsm/k g Lactic Acid (0.5-2.2) mmol/L Calcium (8.5-10.5) mg/dL Magnesium (1.7-2.3) mg/dL Total Bilirubin (0.15-1.2) mg/dL AST (0-32) U/L ALT (0-33) U/L Alkaline Phosphata se (35-105) IU/L Creatine Kinase (26-192) U/L Troponin T Baselin e (0-10) ng/L Total Protein (6.6-8.7) g/dL Albumin (3.5-5.2) g/dL Globulin (1.3-4.6) g/dL HCG, Qual (Negative) Urine Color (Yellow) Urine Appearance (CLEAR) Urine pH (5-7) Ur Specific Gravit y (1.005-1.030) Urine Protein (Negative) Urine Glucose (UA) (Normal) Urine Ketones (Negative) Urine Blood (Negative) Urine Nitrate (Negative) Urine Bilirubin (NEGATIVE) Urine Urobilinogen (Negative) mg/dL Ur Leukocyte [place] ase (Negative) Urine RBC (0-2) /hpf Urine WBC (0-5) /hpf Ur Squamous Epith Cells (0-5) Amorphous Sediment Urine Bacteria (NONE) Urine Mucus Salicylates (3-10) mg/dL Urine Opiates Scre en (Negative) ng/mL Acetaminophen (10-30) ug/mL Ur Barbiturates Sc reen (Negative) ng/mL Phenytoin Valproic Acid Carbamazepine Ur Phencyclidine S crn (Negative) ng/mL Ur Amphetamines Sc reen (Negative) ng/mL U Benzodiazepines Scrn (Negative) ng/mL [place] Urine Cocaine Scre en (Negative) ng/mL U Marijuana (THC) Screen (Negative) ng/mL Ethyl Alcohol (0-10) mg/dL EKG Data^: EKG 1: Attestation: I personally reviewed and interpreted this EKG as follows: EKG interpretation date: 06/07/20 EKG interpretation time: 15:05 Interpretation: Normal sinus rhythm at 69 beats a minute, no acute ST-T wave changes, LVH, unremarkable otherwise. EKG 2: Attestation: I personally reviewed and interpreted this EKG as follows: EKG interpretation date: 06/07/20 EKG interpretation time: 16:47 Interpretation: Normal sinus rhythm at 69 beats a minute, no blocks, normal intervals, no acute ST-T wave changes, LVH. Discharge Plan Discharge Patient Disposition: Admitted As Inpatient Admit Provider: Papito Lei Clinical Impression: Suicide attempt by multiple drug overdose Qualifiers: Encounter type: initial encounter Qualified Code(s): T50.912A - Poisoning by multiple unspecified drugs, medicaments and biological substances, intentional self-harm, initial encounter Condition: Stable Referrals: Shefali Russo DO [Primary Care Provider] - Discharge Date/Time: 06/07/20 18:54 Coding Level of Care Code ED Feather Washer for Chg Fwd Exam Comprehensive
[2020-06-07 15:36] LABS: ABG PCO2 45.6 mmHg (35-45); ABG PH Result 7.39 (7.35-7.45); Arterial Blood Gas Hematocrit 36.9 % (37-47); Base Excess ABG 2.2 mmol/L (-2.0-2.0); Blood Gas Allen Test Pos; Blood Gas Sample Site Radial, left; Blood Gas Sample Type Arterial; HCO3 ABG 27.7 mmol/L (22-26); Oxygen Device NC; PO2 ABG 76.8 mmHg (80.0-100.0)
[2020-06-07 15:38] LABS: Basophils % 0.3 %; Eosinophils # 0.1 10^3/uL (0.0-0.8); Eosinophils % 0.4 %; Lymphocytes # 1.7 10^3/uL (0.8-4.8); Lymphocytes % 13.5 %; Mean Corpuscular HGB Conc 30.8 g/dL (30.0-36.0); Mean Corpuscular Hemoglobin 25.4 pg (28.0-34.0); Mean Corpuscular Volume 82.5 fL (81-99); Mean Platelet Volume 11.3 fL (7.4-10.4); Monocytes # 0.7 10^3/uL (0.2-0.9); Monocytes % 5.4 %; Neutrophils # 10.08 10^3/uL (1.8-7.7); Neutrophils % 79.8 %; Nucleated Red Blood Cells % 0 %; Platelet Count 366 10^3/cmm (130-400); Red Blood Count 4.73 10^6/uL (4.1-5.3); Red Cell Distribution Width 11.9 % (12.1-15.1); White Blood Count 12.6 10^3/uL (4.0-10.0)
[2020-06-07] MEDS: dextrose 50% syringe 50 mL IVP ×2 (15:43→18:11)
[2020-06-07 15:54] LABS: HCG, Serum Qual Negative (Negative)
[2020-06-07 15:58] LABS: INR 0.85 (0.8-1.2)
[2020-06-07 15:59] LABS: Glucose Point of Care 157 mg/dL (70-110)
[2020-06-07 15:59] LABS: Glucose Point of Care 54 mg/dL (70-110)
[2020-06-07 16:01] LABS: Lactic Sepsis W/Reflex 1.5 mmol/L (0.5-2.2)
[2020-06-07 16:04] LABS: Troponin(5th) Baseline 25 ng/L (0-10)
[2020-06-07] MEDS: dextrose 5%-sod chloride 0.45% 1,000 ML 150 ML IV (16:17)
[2020-06-07 16:46] LABS: Amphetamines Screen Urine Negative (Negative); Barbiturates Screen Urine Negative (Negative); Benzodiazepines Screen Urine Negative (Negative); Cocaine Screen Urine Negative (Negative); PCP Screen Urine Negative (Negative); THC Screen Urine Negative (Negative)
[2020-06-07 16:51] LABS: Add Urine Culture? No; Add Urine Microscopic? YES; Bacteria Urine TRACE; Bilirubin Urine Neg (NEGATIVE); Blood Urine 2+ (Negative); Glucose Urine UA 1+ (Normal); Ketones Urine Negative (Negative); Leukocyte Esterase Urine Negative (Negative); Mucus Urine 1+; Nitrate Urine Negative (Negative); Protein Urine 3+ (Negative); Squamous Epithelial Cell Urine 0-4 (0-5); Urine Appearance Clear (CLEAR); Urine Color Yellow (Yellow); Urobilinogen Urine Norm (Negative)
[2020-06-07 16:56] LABS: Alanine Aminotransferase 26 U/L (0-33); Albumin Level 3.7 g/dL (3.5-5.2); Alkaline Phosphatase 110 IU/L (35-105); Anion Gap 13.1 (5-19); Aspartate Amino Transferase 28 U/L (0-32); Blood Urea Nitrogen 27 mg/dL (6-20); Calcium 9.4 mg/dL (8.5-10.5); Carbon Dioxide 27 mmol/L (22-29); Chloride 102 mmol/L (98-107); Creatine Phosphokinase 124 U/L (26-192); Globulin 3.4 g/dL (1.3-4.6); Glomerular Filtration Rate 48.4 mL/min (90-130); Glucose 55 mg/dL (65-115); Magnesium 1.6 mg/dL (1.7-2.3); Osmolality Calculated 283 mOsm/kg (285-295); Potassium 3.1 mmol/L (3.5-5.1); Sodium 139 mmol/L (136-145); Total Bilirubin 0.3 mg/dL (0.15-1.2); Total Protein 7.1 g/dL (6.6-8.7)
[2020-06-07 16:57] LABS: Acetaminophen < 5.0 ug/mL (10-30); Alcohol Level < 10 mg/dL (0-10); Salicylate < 0.3 mg/dL (3-10)
--- NOTE | 2020-06-07 17:02 | ECG_ITS ---
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 Measurements Intervals [place] Rate: 69 P: 38 MT: 196 QRS: 9 QRSD: 106 T: 20 QT: 448 QTc: 480 Interpretive Statements SINUS RHYTHM MINIMAL VOLTAGE CRITERIA FOR LVH, CONSIDER NORMAL VARIANT POSSIBLE ANTERIOR MYOCARDIAL INFARCTION , PROBABLY OLD INFERIOR MYOCARDIAL INFARCTION , PROBABLY OLD Compared to ECG 06/07/2020 15:05:29 No significant changes Electronically Signed On 06-08-2020 20:55:22 CDT by Roya Gerardo M.D. [id number]
[2020-06-07 17:07] LABS: Glucose Point of Care 124 mg/dL (70-110)
[2020-06-07 17:15] LABS: Opiate Screen Urine Negative (Negative)
[2020-06-07 17:27] LABS: Lithium 0.1 mmol/L (0.6-1.2); Phenytoin Dilantin 0.8 ug/mL (10-20)
[2020-06-07] MEDS: potassium chloride oral liq 20 mEq/15 mL UDC 40 MEQ PO (17:32)
[2020-06-07] MEDS: magnesium sulfate premix 2 GM/50 ML PIGGYBACK IV (17:33)
[2020-06-07 17:38] LABS: Valproic Acid Level 2.8 ug/mL (50-100)
[2020-06-07 17:54] LABS: Troponin 5 2HR 22.11 ng/L (0-10)
[2020-06-07 18:10] LABS: Glucose Point of Care 69 mg/dL (70-110)
[2020-06-07 18:10] LABS: Troponin 5 2HR Delta -2.89 ABS# (0-10)
[2020-06-07 18:33] LABS: Glucose Point of Care 167 mg/dL (70-110)
--- NOTE | 2020-06-07 18:54 | PM.HP ---
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 She is mostly dependent for daily activities on her mother currently due to hemiplegia and blindness. She is brought for evaluation after suicide attempt with overdose with insulin at home with resulting hypoglycemia. Previously was staying with her children, but was brought here to be further taken care of by her mother due to needing more care than her children felt they could provide. This had made her feel abandoned. Staying with her mother, she states that she feels her mother is not always giving her medications that she is supposed to, and because she cannot see, she cannot always tell what she is given by her. She also reports he does not always get her diabetes medications as she supposed to. She states that she feels her mother is trying to manipulate certain things. For example arrangements were previously made for her to stay in assisted living facility, however, states that her mother had told her up application because she wants to feel like the 'big man' . She also feels that she cannot trust what her mother is giving her to eat. She states that her mother had baked bread and purposely put a number of different seeds and spices with intention of causing laxative effect for both her as well as her mother's , which resulted in both of them getting profuse diarrhea. She states that she had felt tired of being broken , that she cannot take care of herself, and that she cannot trust her mother to take care of her needs. Per discussion with ER physician he states this happened around lunchtime. He states her initial blood glucose was 27, after D50 srinivas up to 75, in ER she received additional D50, temporarily was on D10, subsequently switched to D5W with additional dose of the 50 after blood glucose declined down to 55. Review of Systems Const: Denies: fever(s), chills, body aches or malaise Eyes: Denies: change in vision (Chronic blindness.) or eye redness ENMT: Denies: throat pain, oral sores or ear or mastoid pain Card: Denies: chest pain, edema, pre-syncope or dyspnea on exertion Resp: Denies: dyspnea, productive cough, change in phlegm color or hemoptysis GI: Reports: diarrhea (Reports episode after eating her mother's bread.); Denies: abdominal pain, nausea, vomiting, constipation, hematochezia or melena : Denies: flank pain, urinary frequency or hematuria Musc: Denies: back pain, joint swelling or joint redness Skin/Breast: Denies: rash, sores or new lesions Neuro: Reports: other (Chronic focal neurologic changes.); Denies: headache(s), numbness in extremities, weakness in extremities, dizziness, confusion or seizure-like activity Endo: Denies: polyuria or polydipsia Donato/Lymph: Denies: easy bleeding or purpura All/Imm: Denies: urticaria, throat swelling or tongue swelling Medications/Allergies Home Medications Medication Instructions Recorded Confirmed Last Taken Type tizanidine 2 mg capsule 2 mg PO BEDTIME PRN #30 cap 03/12/20 06/07/20 03/15/20 Rx diphenhydramine HCl 25 mg PO Q4H PRN #4 cap 03/17/20 06/07/20 Unknown Rx metoprolol tartrate 100 mg PO Q12H #60 tab 03/23/20 06/07/20 06/07/20 Rx amitriptyline 25 mg tablet 25 mg PO DAILY #30 tab 04/06/20 06/07/20 06/06/20 Rx aspirin 81 mg tablet,delayed 81 mg PO DAILY #30 tab 04/06/20 06/07/20 06/07/20 Rx release atorvastatin 40 mg tablet 40 mg PO DAILY #30 tab 04/06/20 06/07/20 06/06/20 Rx fluoxetine 20 mg capsule 20 mg PO DAILY #30 cap 04/06/20 06/07/20 06/06/20 Rx levetiracetam 1,000 mg tablet 1,000 mg PO BID #60 tab 04/06/20 06/07/20 06/06/20 Rx pantoprazole 40 mg tablet,delayed 40 mg PO DAILY #60 tab 04/06/20 06/07/20 06/06/20 Rx release clopidogrel 75 mg tablet 75 mg PO DAILY #30 tab 05/14/20 06/07/20 06/06/20 Rx hydralazine 10 mg tablet 50 mg PO TID tab 05/15/20 06/07/20 06/06/20 History meclizine 25 mg tablet 25 mg PO TID PRN #30 tab 05/15/20 06/07/20 Unknown Rx lisinopril 10 mg tablet 20 mg PO DAILY #30 tab 05/21/20 06/07/20 06/07/20 Rx chlorthalidone 25 mg tablet 25 mg PO DAILY #30 tab 06/04/20 06/07/20 06/06/20 Rx insulin aspart U-100 100 unit/mL See Rx Instructions .ROUTE 06/04/20 06/07/20 06/07/20 Rx subcutaneous solution .COMPLEX #10 ml liraglutide 0.6 mg/0.1 mL (18 mg/3 1.2 mg SUBCUT Q24H #9 ml 06/04/20 06/07/20 06/07/20 Rx mL) subcutaneous pen injector ropinirole 0.5 mg tablet 0.5 mg PO DAILY #30 tab 06/04/20 06/07/20 06/06/20 Rx insulin glargine [Lantus Solostar 10 unit SUBCUT BEDTIME 06/07/20 06/07/20 06/06/20 History U-100 Insulin] Allergies Allergy/AdvReac Type Severity Reaction Status Date / Time amlodipine Allergy ADR-Swelling Verified 05/15/20 11:04 of the Eye codeine Allergy ADR-Shakine Verified 05/15/20 11:04 ss hydroxyzine [From Vistaril] Allergy ADR-Confusi Verified 05/15/20 11:04 on meperidine [From Demerol] Allergy ADR-Chest Verified 05/15/20 11:04 Pain metformin [From Glucophage] Allergy ALGY-Hives Verified 05/15/20 11:04 morphine Allergy ALGY-Anaphy Verified 05/15/20 11:04 laxis phenazopyridine Allergy ALGY-Hives Verified 05/15/20 11:04 [From Pyridium] sumatriptan [From Imitrex] AdvReac Mild Unknown Verified 05/15/20 11:04 PFSH Acute PFSH: Medical History Chronic back pain Depression Dyslipidemia Essential hypertension Insomnia Rotator cuff injury Seasonal allergies Stroke TIA (transient ischemic attack) Type 2 diabetes mellitus, with long-term current use of insulin Vasculitis Surgical History H/O brain surgery H/O tubal ligation H/O: hysterectomy History of cholecystectomy History of tonsillectomy Family History Other CAD (coronary artery disease) Cancer Diabetes Hypertension Denies family history of Stroke Social History Smoking and tobacco status: smoker, details unknown smokeless tobacco Smokeless tobacco user: chewing tobacco Alcohol intake: never Household members: family Housing: House History of recent travel: Yes (travels from [facility]) Vitals/I&O/Wt Last Vital Signs Temp 97.5 F L 06/07/20 14:56 Pulse 68 06/07/20 18:44 Resp 17 06/07/20 18:44 BP 146/89 06/07/20 17:39 Pulse Ox 99 06/07/20 18:44 06/07/20 06/07/20 06/07/20 06:59 14:59 22:59 Intake Total 297.5 / 297.5 Balance 297.5 / 297.5 Weight last 48 hrs Weight 99.79 kg Physical Exam Const: COMMON NORMALS: patient oriented x3 GENERAL APPEARANCE: cooperative, anxious and other (Depressed) ORIENTATION/CONSCIOUSNESS: Yes awake HENMT: COMMON NORMALS: oropharynx normal Eye: OTHER: Chronic blindness. Neck/C-Spine: COMMON NORMALS: no JVD Resp: COMMON NORMALS: normal respiratory effort and clear to auscultation bilaterally AUSCULTATION: clear to auscultation bilaterally Cardio: COMMON NORMALS: no JVD, regular rhythm, S1 normal heart sound present, S2 normal heart sound present and No murmurs present (Cardio) RHYTHM: regular rhythm HEART SOUNDS: S1 normal heart sound present and S2 normal heart sound present GI: COMMON NORMALS: Normal to inspection, nondistended, normoactive bowel sounds present, Soft to palpation and non-tender PALPATION: Yes Soft to palpation Extremity: COMMON NORMALS: no joint enlargement and no pedal edema Neuro: COMMON NORMALS: patient oriented x3 MENINGEAL SIGNS: Yes no meningeal signs OTHER: Chronic right-sided facial droop. Hemiplegia on the right. Skin: COMMON NORMALS: no rashes or lesions noted GENERAL SKIN EXAM: no rashes or lesions noted Data : 06/07/20 15:27 06/07/20 15:27 A&P Assessment and plan (1) Suicide attempt by multiple drug overdose: Overdose with multiple doses of NovoLog, as well as Lantus. She states that she untwisted plans as far as they were ago, injected herself with all 5 pens of NovoLog 3 times each, and also untwisted Lantus insulin as it was go, however, states that only had enough for 1 injection. Reports did not take any other medications as did not have access to them with her mother keeping them away. Blood glucose with fluctuation, was 27. Did decrease down to 79 on D5W in ICU. Then will switch temporarily to slow D10 infusion, monitor blood glucose. She is awake and alert, and so we will continue regular diet, intermittent sugary snacks. Monitor in ICU. 96-hour hold placed in ER. Will request case management to see her given she has grievances with regards to care received from her mother at home. Status: Acute Qualifiers: Encounter type: initial encounter Qualified Code(s): T50.912A - Poisoning by multiple unspecified drugs, medicaments and biological substances, intentional self-harm, initial encounter (2) Hypertension: Poorly controlled hypertension. She has history of difficult to control hypertension. Has had a number of medications change in the past, some of them reports due to 1 of her kidneys stopping to work . Blood pressure recorded as high as 254/116. We have reordered her hydralazine and lisinopril. Also add hydralazine as needed. Labetalol as needed if heart rate is more than 60. Will DC the high rate infusion, give a lower rate D10 instead. Cardiac diet. Monitor in ICU. Status: Acute Qualifiers: Hypertension type: essential hypertension Qualified Code(s): I10 - Essential (primary) hypertension Additional A&P Information History of multiple past lacunar CVA, with hemiplegia, blindness with history of hypertensive and diabetic retinopathy, retinal detachment repair, dependent for activities of daily life, medication administration. Has been living with her mother. Depression DM2 Chronic migraines: Has been receiving Botox injections with neurology. Attestations Medical Necessity Statement*: Admission of over 2 midnights is been needed for assessment of management after suicide attempt, stabilization of hypoglycemia, hypertension, and psychiatric assessment and management of depression. Disposition planning. Coding Level of Care Code Acute Media Planner for Ashley Hess Diagnoses Suicide attempt by multiple drug overdose T50.912A Encounter type: initial encounter Hypertension I10 Hypertension type: essential hypertension
--- NOTE | 2020-06-07 19:00 | PC.NURSE ---
Patient brought to room by ICU nurse SHIV Stanton. Patient is awake and alert and oriented x4. Patient is very weepy. Patient states she no longer wants to hurt herself. Patient is hypertensive with BP being 200s/130s. Dr. Heart at bedside and ordered prn Hydralazine. Patient is otherwise comfortable. Sitter at bedside.
[2020-06-07 19:48] LABS: Glucose Point of Care 79 mg/dL (70-110)
[2020-06-07] MEDS: hyDRALAzine 25 mg Tablet 50 MG PO (20:12)
[2020-06-07] MEDS: heparin 5,000 unit/mL INJ 1 mL 5000 UNIT SUBCUT (20:12)
[2020-06-07] MEDS: metoprolol tartrate 50 mg Tablet 100 MG PO (20:13)
[2020-06-07] MEDS: dextrose 10% 1,000 ML 30 ML IV (20:13)
--- NOTE | 2020-06-07 21:02 | ECG_ITS ---
[facility] Test Date: 2020-06-07 Pat Name: Ivon Larios Department: Room: ICU07 Gender: Female Nuclear Medicine Officer: : 1975 Requested By: Eleni Purvis Order Number: [id number] Salvador MD: Roya Gerardo M.D. Measurements Intervals [place] Rate: 71 P: 29 VT: 176 QRS: 12 QRSD: 101 T: 11 QT: 425 QTc: 462 Interpretive Statements SINUS RHYTHM WITH OCCASIONAL VENTRICULAR PREMATURE COMPLEXES INFERIOR MYOCARDIAL INFARCTION [40+ ms Q WAVE AND/OR ST/T ABNORMALITY IN II/aVF], PROBABLY OLD Compared to ECG 06/07/2020 16:47:10 Ventricular premature complex(es) now present Myocardial infarct finding still present Electronically Signed On 06-08-2020 20:52:39 CDT by Roya Gerardo M.D. [email or web address]
[2020-06-07] MEDS: hyDRALAzine 20 mg/mL INJ 1 mL 10 MG IVP (21:47)
[2020-06-07 22:00] LABS: Anion Gap 11.7 (5-19); Blood Urea Nitrogen 26 mg/dL (6-20); Calcium 8.9 mg/dL (8.5-10.5); Carbon Dioxide 30 mmol/L (22-29); Chloride 100 mmol/L (98-107); Glomerular Filtration Rate 59.7 mL/min (90-130); Glucose 131 mg/dL (65-115); Osmolality Calculated 285 mOsm/kg (285-295); Potassium 3.7 mmol/L (3.5-5.1); Sodium 138 mmol/L (136-145)
[2020-06-07 22:02] LABS: Troponin 5 6HR 23.93 ng/L (0-10); Troponin 5 6HR Delta -1.07 ng/L (0-12)
[2020-06-08] VITALS (25 sets, daily range): BP systolic 107–247; BP diastolic 53–119; PULSE 68–79; RESP 14–25; TEMP 36.9; O2SAT 92–99
--- NOTE | 2020-06-08 | PC.NURSE ---
Patient's bedside glucose is 83. Patient refused juice or food at this time. Will recheck in 1 hour.
[2020-06-08 00:45] LABS: Glucose Point of Care 83 mg/dL (70-110)
--- NOTE | 2020-06-08 01:14 | PC.NURSE ---
Patient's bedside glucose is 71. Patient drank juice. Patient is arousable and alert. Will recheck in 1 hour.
[2020-06-08 01:17] LABS: Glucose Point of Care 71 mg/dL (70-110)
--- NOTE | 2020-06-08 02:15 | PC.NURSE ---
Bedside glucose is 95. Patient is experiencing some nausea after ambulating to bedside commode. Will continue to monitor.
[2020-06-08] MEDS: ondansetron 2 mg/ML SDV 2 mL 4 MG IVP ×2 (02:27→06:34)
[2020-06-08 02:49] LABS: Glucose Point of Care 95 mg/dL (70-110)
[2020-06-08] MEDS: hyDRALAzine 20 mg/mL INJ 1 mL 10 MG IVP ×2 (03:03→20:06)
[2020-06-08] MEDS: acetaminophen 500 mg Tablet PO ×2 (03:25→09:21)
[2020-06-08] MEDS: heparin 5,000 unit/mL INJ 1 mL 5000 UNIT SUBCUT ×3 (04:07→20:10)
[2020-06-08] MEDS: tizanidine 4 mg Tablet 2 MG PO (04:07)
[2020-06-08 04:14] LABS: Basophils % 0.3 %; Eosinophils # 0.1 10^3/uL (0.0-0.8); Eosinophils % 0.9 %; Hematocrit 35.4 % (37.0-47.0); Lymphocytes # 3.6 10^3/uL (0.8-4.8); Lymphocytes % 23.9 %; Mean Corpuscular HGB Conc 31.1 g/dL (30.0-36.0); Mean Corpuscular Hemoglobin 25.3 pg (28.0-34.0); Mean Corpuscular Volume 81.4 fL (81-99); Mean Platelet Volume 11.8 fL (7.4-10.4); Monocytes % 6.9 %; Neutrophils # 10.19 10^3/uL (1.8-7.7); Neutrophils % 67.7 %; Nucleated Red Blood Cells % 0 %; Platelet Count 356 10^3/cmm (130-400); Red Blood Count 4.35 10^6/uL (4.1-5.3); Red Cell Distribution Width 11.9 % (12.1-15.1); White Blood Count 15.1 10^3/uL (4.0-10.0)
[2020-06-08 04:49] LABS: Alanine Aminotransferase 23 U/L (0-33); Albumin Level 3.6 g/dL (3.5-5.2); Alkaline Phosphatase 88 IU/L (35-105); Anion Gap 13.1 (5-19); Aspartate Amino Transferase 18 U/L (0-32); Blood Urea Nitrogen 29 mg/dL (6-20); Calcium 8.8 mg/dL (8.5-10.5); Carbon Dioxide 29 mmol/L (22-29); Chloride 101 mmol/L (98-107); Glomerular Filtration Rate 48.4 mL/min (90-130); Glucose 84 mg/dL (65-115); Osmolality Calculated 284 mOsm/kg (285-295); Potassium 4.1 mmol/L (3.5-5.1); Sodium 139 mmol/L (136-145); Total Bilirubin 0.3 mg/dL (0.15-1.2); Total Protein 6.6 g/dL (6.6-8.7)
[2020-06-08 06:22] LABS: Glucose Point of Care 101 mg/dL (70-110)
[2020-06-08 07:22] LABS: Glucose Point of Care 147 mg/dL (70-110)
[2020-06-08] MEDS: metoprolol tartrate 50 mg Tablet 100 MG PO ×2 (07:48→20:09)
[2020-06-08] MEDS: chlorthalidone 25 mg Tablet PO (09:11)
[2020-06-08] MEDS: levETIRAcetam 500 mg Tablet 1000 MG PO ×2 (09:11→17:10)
[2020-06-08] MEDS: clopidogrel 75 mg Tablet PO (09:12)
[2020-06-08] MEDS: aspirin 81 mg EC Tablet PO (09:12)
[2020-06-08] MEDS: lisinopril 20 mg Tablet PO (09:12)
[2020-06-08] MEDS: fluoxetine 20 mg Capsule PO (09:12)
[2020-06-08] MEDS: atorvastatin 40 mg Tablet PO (09:12)
[2020-06-08] MEDS: pantoprazole DR 40 mg Tablet PO (09:12)
[2020-06-08] MEDS: hyDRALAzine 25 mg Tablet 50 MG PO ×3 (09:21→22:15)
[2020-06-08 09:22] LABS: Glucose Point of Care 295 mg/dL (70-110)
--- NOTE | 2020-06-08 10:04 | P.PN_ITS ---
Subjective Subjective: Interval history: She is feeling a little tense in her shoulders, neck/head. Vitals/I&O/Wt Last Vital Signs Temp 97.8 F 06/07/20 19:06 Pulse 72 06/08/20 08:00 Resp 16 06/08/20 08:00 BP 176/116 06/08/20 08:00 Pulse Ox 96 06/08/20 08:00 06/07/20 06/08/20 06/08/20 22:59 06:59 14:59 Intake Total 297.5 / 297.5 250 / 250 Output Total 550 / 550 Balance 297.5 / 297.5 -550 / -252.5 250 / 250 Weight last 48 hrs Weight 108.55 kg Weight 99.79 kg Physical Exam Const: COMMON NORMALS: patient oriented x3 GENERAL APPEARANCE: cooperative, anxious and other (Depressed) ORIENTATION/CONSCIOUSNESS: Yes awake HENMT: COMMON NORMALS: oropharynx normal Eye: OTHER: Chronic blindness. Neck/C-Spine: COMMON NORMALS: no meningeal signs and no JVD Resp: COMMON NORMALS: normal respiratory effort and clear to auscultation bilaterally AUSCULTATION: clear to auscultation bilaterally Cardio: COMMON NORMALS: no JVD, regular rhythm, S1 normal heart sound present, S2 normal heart sound present and No murmurs present (Cardio) RHYTHM: regular rhythm HEART SOUNDS: S1 normal heart sound present and S2 normal heart sound present GI: COMMON NORMALS: Normal to inspection, nondistended, normoactive bowel sounds present, Soft to palpation and non-tender PALPATION: Yes Soft to palpation Extremity: COMMON NORMALS: no joint enlargement and no pedal edema Neuro: COMMON NORMALS: patient oriented x3 MENINGEAL SIGNS: Yes no meningeal signs OTHER: Chronic right-sided facial droop. Hemiplegia on the right. Skin: COMMON NORMALS: no rashes or lesions noted GENERAL SKIN EXAM: no rashes or lesions noted Data : 06/08/20 03:37 06/08/20 03:37 A&P Assessment and plan (1) Suicide attempt by multiple drug overdose: Blood glucose has been slowly rising. Weaned off of D10 now. We will add on a correction dose sliding scale for now. Overdose with multiple doses of NovoLog, as well as Lantus. She states that she untwisted plans as far as they were ago, injected herself with all 5 pens of NovoLog 3 times each, and also untwisted Lantus insulin as it was go, however, states that only had enough for 1 injection. Reports did not take any other medications as did not have access to them with her mother keeping them away. Blood glucose with fluctuation, was 27 at home. If BG remains stable plan is for additional assessment and care on neuropsychiatric unit. 96-hour hold placed in ER. Request case management to see her given she has grievances with regards to care received from her mother at home. Please see H&P. Status: Acute Qualifiers: Encounter type: initial encounter Qualified Code(s): T50.912A - Poisoni ng by multiple unspecified drugs, medicaments and biological substances, intentional self-harm, initial encounter (2) Hypertension: Blood pressures are better. This morning still somewhat elevated up to 186/68, but is still due to receive home medications. Reassess. If remains stable then continue home medications and will be able to continue care on your psychiatric unit. Poorly controlled hypertension. She has history of difficult to control hypertension. Cardiac diet. Status: Acute Qualifiers: Hypertension type: essential hypertension Qualified Code(s): I10 - Essential (primary) hypertension Additional A&P Information History of multiple past lacunar CVA, with hemiplegia, blindness with history of hypertensive and diabetic retinopathy, retinal detachment repair, dependent for activities of daily life, medication administration. Has been living with her mother. Depression DM2 Chronic migraines: Has been receiving Botox injections with neurology. Attestations Medical Necessity Statement*: Continue admission for assessment management following suicide attempt. Coding Level of Care Code Acute Extractor Tender Raw Stock for Ashley Hess Diagnoses Suicide attempt by multiple drug overdose T50.912A Encounter type: initial encounter Hypertension I10 Hypertension type: essential hypertension
[2020-06-08 10:59] LABS: Glucose Point of Care 259 mg/dL (70-110)
[2020-06-08 15:24] LABS: Glucose Point of Care 288 mg/dL (70-110)
[2020-06-08 16:48] LABS: Glucose Point of Care 267 mg/dL (70-110)
[2020-06-08] MEDS: ropinirole 1 mg Tablet 0.5 MG PO (20:08)
[2020-06-08] MEDS: amitriptyline 25 mg Tablet PO (20:10)
[2020-06-08 21:15] LABS: Glucose Point of Care 231 mg/dL (70-110)
[2020-06-09] VITALS (18 sets, daily range): BP systolic 89–164; BP diastolic 49–90; PULSE 61–78; RESP 10–20; TEMP 36.8–37; O2SAT 90–98
[2020-06-09 03:52] LABS: Basophils # 0.1 10^3/uL (0.0-0.1); Basophils % 0.4 %; Eosinophils # 0.3 10^3/uL (0.0-0.8); Eosinophils % 2.2 %; Hematocrit 35.5 % (37.0-47.0); Hemoglobin 10.9 g/dL (11.5-15.3); Lymphocytes # 4.6 10^3/uL (0.8-4.8); Lymphocytes % 40.2 %; Mean Corpuscular HGB Conc 30.7 g/dL (30.0-36.0); Mean Corpuscular Hemoglobin 25.6 pg (28.0-34.0); Mean Corpuscular Volume 83.5 fL (81-99); Mean Platelet Volume 11.4 fL (7.4-10.4); Monocytes # 0.8 10^3/uL (0.2-0.9); Monocytes % 6.9 %; Neutrophils # 5.71 10^3/uL (1.8-7.7); Neutrophils % 49.7 %; Nucleated Red Blood Cells % 0 %; Platelet Count 351 10^3/cmm (130-400); Red Blood Count 4.25 10^6/uL (4.1-5.3); White Blood Count 11.5 10^3/uL (4.0-10.0)
[2020-06-09 04:18] LABS: Alanine Aminotransferase 20 U/L (0-33); Albumin Level 3.3 g/dL (3.5-5.2); Alkaline Phosphatase 95 IU/L (35-105); Anion Gap 14.4 (5-19); Aspartate Amino Transferase 15 U/L (0-32); Blood Urea Nitrogen 37 mg/dL (6-20); Calcium 8.9 mg/dL (8.5-10.5); Carbon Dioxide 25 mmol/L (22-29); Chloride 98 mmol/L (98-107); Globulin 3.5 g/dL (1.3-4.6); Glomerular Filtration Rate 25.4 mL/min (90-130); Glucose 209 mg/dL (65-115); Osmolality Calculated 280 mOsm/kg (285-295); Potassium 4.4 mmol/L (3.5-5.1); Sodium 133 mmol/L (136-145); Total Bilirubin 0.3 mg/dL (0.15-1.2); Total Protein 6.8 g/dL (6.6-8.7)
[2020-06-09] MEDS: heparin 5,000 unit/mL INJ 1 mL 5000 UNIT SUBCUT ×3 (04:23→20:15)
[2020-06-09] MEDS: hyDRALAzine 25 mg Tablet 50 MG PO ×2 (05:59→21:14)
[2020-06-09 08:33] LABS: Glucose Point of Care 189 mg/dL (70-110)
--- NOTE | 2020-06-09 08:45 | PM.PN ---
Subjective Subjective: Interval history: She reports is feeling a little better today. Symptoms in her shoulders and neck have abated. Denies any new symptoms. Vitals/I&O/Wt Last Vital Signs Temp 98.6 F 06/09/20 04:00 Pulse 71 06/09/20 06:00 Resp 20 H 06/09/20 06:00 BP 144/70 06/09/20 06:00 Pulse Ox 91 06/09/20 06:00 06/08/20 06/09/20 06/09/20 22:59 06:59 14:59 Intake Total 550 / 1100 100 / 1200 Output Total 350 / 350 Balance 550 / 1100 -250 / 850 Weight last 48 hrs Weight 107.955 kg Weight 108.55 kg Weight 99.79 kg Physical Exam Const: COMMON NORMALS: patient oriented x3 GENERAL APPEARANCE: cooperative, anxious and other (Depressed) ORIENTATION/CONSCIOUSNESS: Yes awake HENMT: COMMON NORMALS: oropharynx normal Eye: OTHER: Chronic blindness. Neck/C-Spine: COMMON NORMALS: no meningeal signs and no JVD Resp: COMMON NORMALS: normal respiratory effort and clear to auscultation bilaterally AUSCULTATION: clear to auscultation bilaterally Cardio: COMMON NORMALS: no JVD, regular rhythm, S1 normal heart sound present, S2 normal heart sound present and No murmurs present (Cardio) RHYTHM: regular rhythm HEART SOUNDS: S1 normal heart sound present and S2 normal heart sound present GI: COMMON NORMALS: Normal to inspection, nondistended, normoactive bowel sounds present, Soft to palpation and non-tender PALPATION: Yes Soft to palpation Extremity: COMMON NORMALS: no joint enlargement and no pedal edema Neuro: COMMON NORMALS: patient oriented x3 MENINGEAL SIGNS: Yes no meningeal signs OTHER: Chronic right-sided facial droop. Hemiplegia on the right. Skin: COMMON NORMALS: no rashes or lesions noted GENERAL SKIN EXAM: no rashes or lesions noted Data : 06/09/20 03:25 06/09/20 03:25 A&P Assessment and plan (1) Suicide attempt by multiple drug overdose: Weaned off D10 and blood pressure has been good. Could not transfer to neuropsychiatric unit due to her functional capacity, near complete dependence on assistance for activities of daily life. Psychiatrist is seeing her in ICU instead where she continues due to need for 1:1. Prior to admit overdose with multiple doses of NovoLog, as well as Lantus. She states that she untwisted plans as far as they were ago, injected herself with all 5 pens of NovoLog 3 times each, and also untwisted Lantus insulin as it was go, however, states that only had enough for 1 injection. Reports did not take any other medications as did not have access to them with her mother keeping them away. Blood glucose with fluctuation, was 27 at home. 96-hour hold placed in ER. Request case management to see her given she has grievances with regards to care received from her mother at home. Please see H&P. Status: Acute Qualifiers: Encounter type: initial encounter Qualified Code(s): T50.912A - Poisoning by multiple unspecified drugs, medicaments and biological substances, intentional self-harm, initial encounter (2) Hypertension: Blood pressures are better. We will have to hold lisinopril this morning as her renal function is worse, creatinine up to 2.1. Monitor blood pressure. She has history of difficult to control hypertension. Cardiac diet. Status: Acute Qualifiers: Hypertension type: essential hypertension Qualified Code(s): I10 - Essential (primary) hypertension Additional A&P Information Depression: continue psychiatric management. History of multiple past lacunar CVA, with hemiplegia, blindness with history of hypertensive and diabetic retinopathy, retinal detachment repair, dependent for activities of daily life, medication administration. Has been living with her mother. DM2: For now resumed sliding scale insulin only. Glucose is now becoming elevated into 200s. We will add 10 units of Lantus. Chronic migraines: Has been receiving Botox injections with neurology. Attestations Medical Necessity Statement*: Continue admission for psychiatric management of depression and after suicide attempt. Coding Level of Care Code Acute Concrete Inspector for Ashley Hess Diagnoses Suicide attempt by multiple drug overdose T50.912A Encounter type: initial encounter Hypertension I10 Hypertension type: essential hypertension
[2020-06-09] MEDS: aspirin 81 mg EC Tablet PO (09:39)
[2020-06-09] MEDS: metoprolol tartrate 50 mg Tablet 100 MG PO (09:39)
[2020-06-09] MEDS: levETIRAcetam 500 mg Tablet 1000 MG PO ×2 (09:39→18:01)
[2020-06-09] MEDS: fluoxetine 20 mg Capsule PO (09:40)
[2020-06-09] MEDS: pantoprazole DR 40 mg Tablet PO (09:40)
[2020-06-09] MEDS: clopidogrel 75 mg Tablet PO (09:40)
[2020-06-09] MEDS: chlorthalidone 25 mg Tablet PO (09:40)
[2020-06-09] MEDS: atorvastatin 40 mg Tablet PO (09:40)
[2020-06-09] MEDS: acetaminophen 500 mg Tablet PO ×2 (09:45→21:11)
[2020-06-09 11:43] LABS: Glucose Point of Care 256 mg/dL (70-110)
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
[2020-06-09 18:01] LABS: Glucose Point of Care 192 mg/dL (70-110)
[2020-06-09 20:03] LABS: Glucose Point of Care 183 mg/dL (70-110)
[2020-06-09] MEDS: ropinirole 1 mg Tablet 0.5 MG PO (20:12)
[2020-06-09] MEDS: amitriptyline 25 mg Tablet PO (20:14)
[2020-06-09] MEDS: insulin glargine 100 units/1 mL 10 UNIT SUBCUT (20:15)
[2020-06-10] VITALS (15 sets, daily range): BP systolic 99–157; BP diastolic 55–81; PULSE 61–72; RESP 13–25; TEMP 36.4–37.2; O2SAT 92–98
[2020-06-10 04:19] LABS: Basophils # 0.1 10^3/uL (0.0-0.1); Basophils % 0.7 %; Eosinophils # 0.3 10^3/uL (0.0-0.8); Eosinophils % 2.6 %; Hematocrit 33.4 % (37.0-47.0); Hemoglobin 10.2 g/dL (11.5-15.3); Lymphocytes # 3.8 10^3/uL (0.8-4.8); Lymphocytes % 36.9 %; Mean Corpuscular HGB Conc 30.5 g/dL (30.0-36.0); Mean Corpuscular Hemoglobin 25.2 pg (28.0-34.0); Mean Corpuscular Volume 82.7 fL (81-99); Mean Platelet Volume 11.8 fL (7.4-10.4); Monocytes # 0.8 10^3/uL (0.2-0.9); Monocytes % 8.1 %; Neutrophils # 5.23 10^3/uL (1.8-7.7); Neutrophils % 51.3 %; Nucleated Red Blood Cells % 0 %; Platelet Count 317 10^3/cmm (130-400); Red Blood Count 4.04 10^6/uL (4.1-5.3); Red Cell Distribution Width 11.9 % (12.1-15.1); White Blood Count 10.2 10^3/uL (4.0-10.0)
[2020-06-10 04:40] LABS: Alanine Aminotransferase 17 U/L (0-33); Albumin Level 3.3 g/dL (3.5-5.2); Alkaline Phosphatase 76 IU/L (35-105); Anion Gap 11.3 (5-19); Aspartate Amino Transferase 11 U/L (0-32); Blood Urea Nitrogen 38 mg/dL (6-20); Calcium 8.2 mg/dL (8.5-10.5); Carbon Dioxide 27 mmol/L (22-29); Chloride 101 mmol/L (98-107); Globulin 2.9 g/dL (1.3-4.6); Glomerular Filtration Rate 44.1 mL/min (90-130); Glucose 200 mg/dL (65-115); Osmolality Calculated 283 mOsm/kg (285-295); Potassium 4.3 mmol/L (3.5-5.1); Sodium 135 mmol/L (136-145); Total Bilirubin 0.3 mg/dL (0.15-1.2); Total Protein 6.2 g/dL (6.6-8.7)
[2020-06-10] MEDS: hyDRALAzine 25 mg Tablet 50 MG PO (05:24)
[2020-06-10] MEDS: heparin 5,000 unit/mL INJ 1 mL 5000 UNIT SUBCUT ×3 (05:24→21:42)
[2020-06-10 07:21] LABS: Glucose Point of Care 173 mg/dL (70-110)
--- NOTE | 2020-06-10 07:24 | PC.NURSE ---
0725 [place] to [facility] [place] [facility] w/o difficulty.
[2020-06-10] MEDS: acetaminophen 500 mg Tablet PO (08:17)
[2020-06-10] MEDS: chlorthalidone 25 mg Tablet PO (08:59)
[2020-06-10] MEDS: atorvastatin 40 mg Tablet PO (08:59)
[2020-06-10] MEDS: pantoprazole DR 40 mg Tablet PO (09:00)
[2020-06-10] MEDS: aspirin 81 mg EC Tablet PO (09:00)
[2020-06-10] MEDS: clopidogrel 75 mg Tablet PO (09:00)
[2020-06-10] MEDS: levETIRAcetam 500 mg Tablet 1000 MG PO ×2 (09:00→17:21)
[2020-06-10 09:15] LABS: Magnesium 2.1 mg/dL (1.7-2.3)
[2020-06-10] MEDS: tizanidine 4 mg Tablet 2 MG PO (10:01)
--- NOTE | 2020-06-10 10:29 | PC.NURSE ---
transferred to 2 south per w/c with belongings
--- NOTE | 2020-06-10 10:48 | PM.PN ---
Subjective Subjective: Interval history: She is doing all right today. She reports that she has been having on and off little bit more tension in her shoulders and neck, and feeling somewhat headachy . States that initially Botox injections did not help her headaches, but subsequently she did get good relief. She has an appointment coming up with the neurologist again in June. She does report having some occasional intermittent spasms on the right in the lower, sometimes upper extremity. Having a couple this morning. Tries to explain them like having a cramp that you might get in the foot. Vitals/I&O/Wt Last Vital Signs Temp 98.1 F 06/10/20 10:00 Pulse 62 06/10/20 10:00 Resp 14 06/10/20 10:00 BP 111/67 06/10/20 10:00 Pulse Ox 92 06/10/20 10:00 06/09/20 06/10/20 06/10/20 22:59 06:59 14:59 Intake Total 1120 / 1240 120 / 1360 240 / 240 Output Total 1200 / 1200 950 / 950 Balance -80 / 40 120 / 160 -710 / -710 Weight last 48 hrs Weight 104.553 kg Weight 107.955 kg Physical Exam Const: COMMON NORMALS: patient oriented x3 GENERAL APPEARANCE: cooperative, anxious and other (Depressed) ORIENTATION/CONSCIOUSNESS: Yes awake HENMT: COMMON NORMALS: oropharynx normal Eye: OTHER: Chronic blindness. Neck/C-Spine: COMMON NORMALS: no meningeal signs and no JVD Resp: COMMON NORMALS: normal respiratory effort and clear to auscultation bilaterally AUSCULTATION: clear to auscultation bilaterally Cardio: COMMON NORMALS: no JVD, regular rhythm, S1 normal heart sound present, S2 normal heart sound present and No murmurs present (Cardio) RHYTHM: regular rhythm HEART SOUNDS: S1 normal heart sound present and S2 normal heart sound present GI: COMMON NORMALS: Normal to inspection, nondistended, normoactive bowel sounds present, Soft to palpation and non-tender PALPATION: Yes Soft to palpation Extremity: COMMON NORMALS: no joint enlargement and no pedal edema Neuro: COMMON NORMALS: patient oriented x3 MENINGEAL SIGNS: Yes no meningeal signs OTHER: Chronic right-sided facial droop. Hemiplegia on the right. Skin: COMMON NORMALS: no rashes or lesions noted GENERAL SKIN EXAM: no rashes or lesions noted Data : 06/10/20 03:48 06/10/20 03:48 A&P Assessment and plan (1) Suicide attempt by multiple drug overdose: Working with psychiatry. Stated to the nurse that if she were to return home to stay with her mother would become suicidal again. Weaned off D10 and blood pressure has been good. Could not transfer to neuropsychiatric unit due to her functional capacity, near complete dependence on assistance for activities of daily life. Psychiatrist is seeing her in ICU instead where she continues due to need for 1:1. Today I am told may transfer to general floor with one-to-one sitter. Continue psychiatric assessment there. Prior to admit overdose with multiple doses of NovoLog, as well as Lantus. She states that she untwisted plans as far as they were ago, injected herself with all 5 pens of NovoLog 3 times each, and also untwisted Lantus insulin as it was go, however, states that only had enough for 1 injection. Reports did not take any other medications as did not have access to them with her mother keeping them away. Blood glucose was 27 at home. 96-hour hold placed in ER. Request case management to see her given she has grievances with regards to care received from her mother at home. Please see H&P. Status: Acute Qualifiers: Encounter type: initial encounter Qualified Code(s): T50.912A - Poisoning by multiple unspecified drugs, medicaments and biological substances, intentional self-harm, initial encounter (2) Hypertension: Blood pressures are better. We held lisinopril this morning as her renal function is worse, creatinine improved. Monitor blood pressure. She has history of difficult to control hypertension. Cardiac diet. Status: Acute Qualifiers: Hypertension type: essential hypertension Qualified Code(s): I10 - Essential (primary) hypertension (3) Muscle spasm: Reports occasional muscle spasms in the lower extremity, sometimes upper on the right side. Having some this morning. We will check magnesium. Increase tizanidine frequency to 3 times daily as needed. Check CK. If any concern of seizure, may be able to get EEG tomorrow. Status: Acute Additional A&P Information Depression: continue psychiatric management. History of multiple past lacunar CVA, with hemiplegia, blindness with history of hypertensive and diabetic retinopathy, retinal detachment repair, dependent for activities of daily life, medication administration. Has been living with her mother. DM2: For now resumed sliding scale insulin only. Glucose is now becoming elevated into 200s. We incr to 15 units of Lantus. Chronic migraines: Has been receiving Botox injections with neurology. Follow-up again in June. Attestations Medical Necessity Statement*: Continue admission for assessment management following suicide attempt, depression. Disposition planning. Coding Level of Care Code Acute Service Station Equipment Mechanic for Ashley Hess Diagnoses Suicide attempt by multiple drug overdose T50.912A Encounter type: initial encounter Hypertension I10 Hypertension type: essential hypertension Muscle spasm M62.838
[2020-06-10] MEDS: fluoxetine 20 mg Capsule PO (11:17)
[2020-06-10 11:48] LABS: Creatine Phosphokinase 61 U/L (26-192)
--- NOTE | 2020-06-10 14:32 | PC.NURSE ---
held hydralazine for BP 104/65 and HR 60
[2020-06-10 14:54] LABS: Glucose Point of Care 243 mg/dL (70-110)
[2020-06-10 16:45] LABS: Glucose Point of Care 233 mg/dL (70-110)
--- NOTE | 2020-06-10 16:54 | P.PN_ITS ---
Subjective NPU Subjective: Interval history: Ivon presented today essentially unchanged and reporting that she is feeling a little better, she reported desiring to possibly change medication as she feels it is not as effective as it used to be. We also discussed the importance of mental health follow up and the possible benefit of increasing the prozac. Mental Status Exam MSE Comments: This is an obese, white female, in a hospital gown, with limited grooming, and occasional eye contact, without focusing on the marketing writer. No abnormal movements, except for psychomotor retardation. Cooperative with exam in no acute distress. Speech was decreased rate and volume. Mood described as depressed; affect congruent. Thought process, organized. Thought content: patient denied any suicidal or homicidal ideation, there were no delusions reported or noted, patient denied any auditory or visual hallucinations. Attention, concentration, and memory appear intact but none were formally tested. She is alert and oriented times three. Insight and judgment are limited but improving. Impulse control is limited. Vitals/I&O/Wt Last Vital Signs Temp 98.0 F 06/10/20 12:00 Pulse 61 06/10/20 12:00 Resp 18 06/10/20 12:00 BP 101/62 06/10/20 12:00 Pulse Ox 97 06/10/20 12:00 Weight 60.356 kg Data NPU : 06/11/20 03:51 06/13/20 04:45 A&P Additional A&P Information (1) Suicide attempt by multiple drug overdose: (2) Depression: (3) PTSD (post-traumatic stress disorder): (4) Adjustment disorder with mixed disturbance of emotions and conduct: This is a 44 year old, white female, with major depressive disorder, post- traumatic stress disorder, and adjustment disorder, with recent suicide attempt and parent-child relational problem in connection with her mother, who presents reporting she is no longer suicidal but reporting that she can not go home and remain safe. Continue current medication. Recommend increase in Prozac to 40 mg po qam. Understand policy but do not believe she needs a sitter, at this time. Ultimately believe if an alternative housing situation is obtained, whether that is assisted living versus detention, based on evaluation, she would be able to proceed without an inpatient psychiatric visit. Attestations NPU Medical Necessity Statement*: N/A. We will continue to follow and encourage her to consider increasing her Prozac, no need for inpatient psychiatric services noted. However, her physical needs would make it impossible for her to be managed in the neuropsychiatric unit at [facility] [place] if deemed necessary for inpatient services. Coding Level of Care Code Acute Fabricator Artificial Breast for Ashley Hess
[2020-06-10 20:56] LABS: Glucose Point of Care 230 mg/dL (70-110)
[2020-06-10] MEDS: ropinirole 1 mg Tablet 0.5 MG PO (21:41)
[2020-06-10] MEDS: insulin glargine 100 units/1 mL 15 UNIT SUBCUT (21:41)
[2020-06-10] MEDS: dextrose 10% 1,000 ML 30 ML IV (21:42)
[2020-06-10] MEDS: amitriptyline 25 mg Tablet PO (21:42)
[2020-06-11] VITALS: BP 149/78; PULSE 76; RESP 18; TEMP 36.9; O2SAT 96
[2020-06-11 04:00] VITALS: BP 136/74; PULSE 78; RESP 17; TEMP 36.8; O2SAT 97
[2020-06-11 04:11] LABS: Basophils # 0.1 10^3/uL (0.0-0.1); Basophils % 0.6 %; Eosinophils # 0.3 10^3/uL (0.0-0.8); Eosinophils % 3.1 %; Hematocrit 34.2 % (37.0-47.0); Hemoglobin 10.5 g/dL (11.5-15.3); Lymphocytes # 2.8 10^3/uL (0.8-4.8); Lymphocytes % 31.9 %; Mean Corpuscular HGB Conc 30.7 g/dL (30.0-36.0); Mean Corpuscular Hemoglobin 25.1 pg (28.0-34.0); Mean Corpuscular Volume 81.8 fL (81-99); Mean Platelet Volume 11.4 fL (7.4-10.4); Monocytes # 0.7 10^3/uL (0.2-0.9); Monocytes % 8.3 %; Neutrophils # 4.81 10^3/uL (1.8-7.7); Neutrophils % 55.8 %; Nucleated Red Blood Cells % 0 %; Platelet Count 323 10^3/cmm (130-400); Red Blood Count 4.18 10^6/uL (4.1-5.3); Red Cell Distribution Width 11.9 % (12.1-15.1); White Blood Count 8.6 10^3/uL (4.0-10.0)
[2020-06-11 04:33] LABS: Anion Gap 13.3 (5-19); Blood Urea Nitrogen 34 mg/dL (6-20); Calcium 8.9 mg/dL (8.5-10.5); Carbon Dioxide 27 mmol/L (22-29); Chloride 103 mmol/L (98-107); Glomerular Filtration Rate 48.4 mL/min (90-130); Glucose 202 mg/dL (65-115); Osmolality Calculated 291 mOsm/kg (285-295); Potassium 4.3 mmol/L (3.5-5.1); Sodium 139 mmol/L (136-145)
[2020-06-11] MEDS: heparin 5,000 unit/mL INJ 1 mL 5000 UNIT SUBCUT ×3 (06:28→20:45)
[2020-06-11] MEDS: hyDRALAzine 25 mg Tablet 50 MG PO ×3 (06:38→20:44)
[2020-06-11 07:31] LABS: Glucose Point of Care 204 mg/dL (70-110)
[2020-06-11 07:45] VITALS: BP 145/76; PULSE 82; RESP 20; TEMP 36.9; O2SAT 94
[2020-06-11] MEDS: aspirin 81 mg EC Tablet PO (08:49)
[2020-06-11] MEDS: clopidogrel 75 mg Tablet PO (08:49)
[2020-06-11] MEDS: fluoxetine 20 mg Capsule PO (08:49)
[2020-06-11] MEDS: atorvastatin 40 mg Tablet PO (08:49)
[2020-06-11] MEDS: levETIRAcetam 500 mg Tablet 1000 MG PO ×2 (08:49→17:05)
[2020-06-11] MEDS: pantoprazole DR 40 mg Tablet PO (08:49)
[2020-06-11] MEDS: chlorthalidone 25 mg Tablet PO (08:52)
[2020-06-11 10:49] LABS: Glucose Point of Care 182 mg/dL (70-110)
[2020-06-11 11:23] VITALS: BP 126/72; PULSE 68; RESP 20; TEMP 36.4; O2SAT 94
[2020-06-11] MEDS: acetaminophen 500 mg Tablet PO (14:30)
[2020-06-11 15:26] VITALS: BP 128/76; PULSE 84; RESP 20; TEMP 36.6; O2SAT 95
--- NOTE | 2020-06-11 16:01 | P.PN_ITS ---
Subjective Subjective: Interval history: no acute events, no witnessed seizure activity Medications: Reviewed: Yes Vitals/I&O/Wt Last Vital Signs Temp 97.8 F 06/11/20 15:26 Pulse 84 06/11/20 15:26 Resp 20 H 06/11/20 15:26 BP 128/76 06/11/20 15:26 Pulse Ox 95 06/11/20 15:26 06/11/20 06/11/20 06/11/20 06:59 14:59 22:59 Intake Total 360 / 360 Balance 360 / 360 Weight last 48 hrs Weight 108.363 kg Weight 104.553 kg Data : 06/11/20 03:51 06/11/20 03:51 A&P Assessment and plan (1) Suicide attempt by multiple drug overdose: Working with psychiatry. Stated to the nurse that if she were to return home to stay with her mother would become suicidal again. Weaned off D10 and blood pressure has been good. Could not transfer to neuropsychiatric unit due to her functional capacity, near complete dependence on assistance for activities of daily life. Psychiatrist is seeing her in ICU instead where she continues due to need for 1:1. Today I am told may transfer to general floor with one-to-one sitter. Continue psychiatric assessment there. Prior to admit overdose with multiple doses of NovoLog, as well as Lantus. She states that she untwisted plans as far as they were ago, injected herself with all 5 pens of NovoLog 3 times each, and also untwisted Lantus insulin as it was go, however, states that only had enough for 1 injection. Reports did not take any other medications as did not have access to them with her mother keeping them away. Blood glucose was 27 at home. 96-hour hold placed in ER. Request case management to see her given she has grievances with regards to care received from her mother at home. Please see H&P. Status: Acute Qualifiers: Encounter type: initial encounter Qualified Code(s): T50.912A - Poisoning by multiple unspecified drugs, medicaments and biological substances, intentional self-harm, initial encounter (2) Hypertension: Blood pressures are better. We held lisinopril this morning as her renal function is worse, creatinine improved. Monitor blood pressure. She has history of difficult to control hypertension. Cardiac diet. Status: Acute Qualifiers: Hypertension type: essential hypertension Qualified Code(s): I10 - Essential (primary) hypertension (3) Muscle spasm: Reports occasional muscle spasms in the lower extremity, sometimes upper on the right side. Having some this morning. We will check magnesium. Increase tizanidine frequency to 3 times daily as needed. Check CK. If any concern of seizure, may be able to get EEG tomorrow. Status: Acute Additional A&P Information Depression: continue psychiatric management. History of multiple past lacunar CVA, with hemiplegia, blindness with history of hypertensive and diabetic retinopathy, retinal detachment repair, dependent for activities of daily life, medication administration. Has been living with her mother. DM2: Stop D10, hold insulin for tonight, will vcalculate 24 hr requirements and adjust accordingly Chronic migraines: Has been receiving Botox injections with neurology. Follow- up again in June. Attestations Medical Necessity Statement*: awaiting placement, optimization of glycemic control Coding Level of Care Code Acute Hydroelectric Station Operator for [facility] Fwd Diagnoses Suicide attempt by multiple drug overdose T50.912A Encounter type: initial encounter Hypertension I10 Hypertension type: essential hypertension Muscle spasm M62.838
[2020-06-11 16:09] LABS: Glucose Point of Care 212 mg/dL (70-110)
[2020-06-11 19:36] VITALS: BP 144/85; PULSE 75; RESP 19; TEMP 36.9; O2SAT 98
[2020-06-11] MEDS: TRAMadol 50 mg Tablet PO (19:39)
[2020-06-11 20:00] LABS: Glucose Point of Care 252 mg/dL (70-110)
[2020-06-11] MEDS: amitriptyline 25 mg Tablet PO (20:43)
[2020-06-11] MEDS: ropinirole 1 mg Tablet 0.5 MG PO (20:44)
[2020-06-12] VITALS (7 sets, daily range): BP systolic 114–148; BP diastolic 64–84; PULSE 74–95; RESP 16–20; TEMP 36.5–36.9; O2SAT 93–97
[2020-06-12] MEDS: acetaminophen 500 mg Tablet PO
[2020-06-12 00:08] LABS: Glucose Point of Care 219 mg/dL (70-110)
[2020-06-12 04:16] LABS: Glucose Point of Care 199 mg/dL (70-110)
--- NOTE | 2020-06-12 05:29 | PC.NURSE ---
SHIFT SUMMARY Has been very talkative with 1:1 sitter at bedside tonight. Has c/o headache and been medicated with Tylenol and Tramadol. Says feels like pressure behind her eyes. Right sided weakness from previous CVA. Uses walker to ambulate.
[2020-06-12 05:32] LABS: Anion Gap 13.3 (5-19); Blood Urea Nitrogen 29 mg/dL (6-20); Calcium 9.1 mg/dL (8.5-10.5); Carbon Dioxide 27 mmol/L (22-29); Chloride 103 mmol/L (98-107); Glomerular Filtration Rate 37.4 mL/min (90-130); Glucose 204 mg/dL (65-115); Osmolality Calculated 291 mOsm/kg (285-295); Potassium 4.3 mmol/L (3.5-5.1); Sodium 139 mmol/L (136-145)
[2020-06-12] MEDS: heparin 5,000 unit/mL INJ 1 mL 5000 UNIT SUBCUT ×3 (06:05→21:18)
[2020-06-12] MEDS: hyDRALAzine 25 mg Tablet 50 MG PO ×3 (06:05→21:17)
[2020-06-12 07:49] LABS: Glucose Point of Care 188 mg/dL (70-110)
[2020-06-12] MEDS: levETIRAcetam 500 mg Tablet 1000 MG PO ×2 (08:47→17:13)
[2020-06-12] MEDS: aspirin 81 mg EC Tablet PO (08:47)
[2020-06-12] MEDS: clopidogrel 75 mg Tablet PO (08:47)
[2020-06-12] MEDS: atorvastatin 40 mg Tablet PO (08:47)
[2020-06-12] MEDS: fluoxetine 20 mg Capsule PO (08:48)
[2020-06-12] MEDS: pantoprazole DR 40 mg Tablet PO (08:48)
[2020-06-12] MEDS: chlorthalidone 25 mg Tablet PO (08:49)
--- NOTE | 2020-06-12 10:44 | PC.CHAP ---
Pastoral Care Encounter/Spiritual Assessment Type of Contact [] Declined director community center visit [] Patient/Family/Request visit [] Outpatient visit [] Follow-up visit [] Physician referral [] Code/Alert [] Routine visit [] Staff referral [] Actively dying [] Patient sleeping [] Family support [] [] Out of room [] Palliative care [] [] Receiving care in room [] Pre-surgical visit [] Trauma [] Long length of stay [] ICU visit [] Other: Relational/Emotional Strength [] Patient feels connected with others/family/visitors/staff [] Distress [] Loneliness/isolation [] Abandonment Spirituality of Patient [] Person of Milena [] Attends Yarsani of their Milena [] Believes in Prayer [] Reads Bible or Episcopal materials [] There are Spiritual issues to be addressed Cereal Popper Interventions [] Prayer [] Active listening [] Non-anxious presence [] Spiritual/emotional support [] Crisis/trauma care [] Spiritual counseling [] Bereavement support [] Provided bereavement packet [] Provided Bible/devotional materials [] Provided toy/stuffed animal, coloring book to patient or family member [] Provided Communion [] Anointing/[place] [] Salvation [] Completed spiritual assessment [] Other: Impact on Illness or Injury [] Angry [] Fearful [] Anxious [] Often cries [] Exhaustion [] Unable to work [] Unable to attend evangelical [] Unable to walk/stand [] Unable to read [] Unable to drive [] Unable to eat/drink [] Unable to sleep [] Unable to be with family [] Patient intubated [] Other: Summary Patient busy with Staff, needs Follow up visit. Time spent with patient
[2020-06-12 12:03] LABS: Glucose Point of Care 217 mg/dL (70-110)
[2020-06-12] MEDS: TRAMadol 50 mg Tablet PO ×2 (14:02→20:38)
--- NOTE | 2020-06-12 15:02 | PM.PN ---
Subjective Subjective: Interval history: No new complaints today. Patient comfortably sleeping at the time of exam. Fingersticks ranging between 1 83-2 17. Creatinine stable at 1.5. 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 Stated to the nurse that if she were to return home to stay with her mother would become suicidal again. Could not transfer to neuropsychiatric unit due to her functional capacity, near complete dependence on assistance for activities of daily life. Unable to be transferred to NPU, being followed on medical floors. Prior to admit overdose with multiple doses of NovoLog, as well as Lantus. She states that she untwisted plans as far as they were ago, injected herself with all 5 pens of NovoLog 3 times each, and also untwisted Lantus insulin as it was go, however, states that only had enough for 1 injection. Reports did not take any other medications as did not have access to them with her mother keeping them away. Blood glucose was 27 at home. Status: Acute Qualifiers: Encounter type: initial encounter Qualified Code(s): T50.912A - Poisoning by multiple unspecified drugs, medicaments and biological substances, intentional self-harm, initial encounter (2) Hypertension: Blood pressures are better. Lisinopril on hold She has history of difficult to control hypertension. Cardiac diet. Status: Acute Qualifiers: Hypertension type: essential hypertension Qualified Code(s): I10 - Essential (primary) hypertension (3) Muscle spasm: Reports occasional muscle spasms in the lower extremity, sometimes upper on the right side. Having some this morning. We will check magnesium. Increase tizanidine frequency to 3 times daily as needed. Check CK. No concern for seizures Status: Acute Additional A&P Information Depression: continue psychiatric management. History of multiple past lacunar CVA, with hemiplegia, blindness with history of hypertensive and diabetic retinopathy, retinal detachment repair, dependent for activities of daily life, medication administration. Has been living with her mother. Chronic migraines: Has been receiving Botox injections with neurology. Follow-up again in June as outpatient Plan for today: Patient is feeling symptomatically improved. Complains of less spasms today. Sleeping comfortably. Her fingersticks are now between 1 83-2 52. We will resume insulin sliding scale at this present time and still hold off on long-acting insulin. She has lost IV access and multiple attempts have failed to replace an IV. We will convert all of her medications to oral. Medically she appears to be ready for discharge at this present time, awaiting placement at a level 2 facility. Attestations Medical Necessity Statement*: Awaiting placement at level 2 facility. 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
[2020-06-12 16:38] LABS: Glucose Point of Care 239 mg/dL (70-110)
[2020-06-12 20:37] LABS: Glucose Point of Care 220 mg/dL (70-110)
[2020-06-12] MEDS: amitriptyline 25 mg Tablet PO (20:39)
[2020-06-12] MEDS: ropinirole 1 mg Tablet 0.5 MG PO (20:39)
[2020-06-13 03:45] VITALS: BP 108/69; PULSE 94; RESP 18; TEMP 36.8; O2SAT 94
[2020-06-13] MEDS: heparin 5,000 unit/mL INJ 1 mL 5000 UNIT SUBCUT ×3 (05:16→21:03)
[2020-06-13] MEDS: hyDRALAzine 25 mg Tablet 50 MG PO ×3 (05:16→21:04)
[2020-06-13 06:07] LABS: Blood Urea Nitrogen 32 mg/dL (6-20); Calcium 8.6 mg/dL (8.5-10.5); Carbon Dioxide 22 mmol/L (22-29); Chloride 101 mmol/L (98-107); Glomerular Filtration Rate 48.4 mL/min (90-130); Glucose 243 mg/dL (65-115); Osmolality Calculated 289 mOsm/kg (285-295); Sodium 137 mmol/L (136-145)
[2020-06-13 06:09] LABS: Anion Gap 18.5 (5-19); Potassium 4.5 mmol/L (3.5-5.1)
[2020-06-13] MEDS: ondansetron 4 MG Tablet PO ×2 (06:25→14:00)
[2020-06-13 07:00] LABS: Glucose Point of Care 226 mg/dL (70-110)
[2020-06-13 08:00] VITALS: BP 120/72; PULSE 86; RESP 16; TEMP 37; O2SAT 95
[2020-06-13] MEDS: atorvastatin 40 mg Tablet PO (09:23)
[2020-06-13] MEDS: fluoxetine 20 mg Capsule PO (09:23)
[2020-06-13] MEDS: clopidogrel 75 mg Tablet PO (09:23)
[2020-06-13] MEDS: aspirin 81 mg EC Tablet PO (09:24)
[2020-06-13] MEDS: levETIRAcetam 500 mg Tablet 1000 MG PO ×2 (09:24→17:09)
[2020-06-13] MEDS: pantoprazole DR 40 mg Tablet PO (09:24)
[2020-06-13] MEDS: chlorthalidone 25 mg Tablet PO (09:24)
[2020-06-13 11:03] LABS: Glucose Point of Care 308 mg/dL (70-110)
[2020-06-13 12:00] VITALS: BP 139/85; PULSE 91; RESP 18; TEMP 36.9; O2SAT 94
[2020-06-13] MEDS: TRAMadol 50 mg Tablet PO ×2 (14:00→21:01)
--- NOTE | 2020-06-13 15:20 | P.PN_ITS ---
Subjective Subjective: Interval history: No new complaints today. 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 Note not completed, requsted rpt consult with Dr. Nagy. Stated to the nurse that if she were to return home to stay with her mother would become suicidal again. Could not transfer to neuropsychiatric unit due to her functional capacity, near complete dependence on assistance for activities of daily life. Unable to be transferred to NPU, being followed on medical floors. Prior to admit overdose with multiple doses of NovoLog, as well as Lantus. She states that she untwisted plans as far as they were ago, injected herself with all 5 pens of NovoLog 3 times each, and also untwisted Lantus insulin as it was go, however, states that only had enough for 1 injection. Reports did not take any other medications as did not have access to them with her mother keeping th em away. Blood glucose was 27 at home. Status: Acute Qualifiers: Encounter type: initial encounter Qualified Code(s): T50.912A - P oisoning by multiple unspecified drugs, medicaments and biological substances, intentional self-harm, initial encounter (2) Hypertension: Blood pressures are better. Lisinopril on hold She has history of difficult to control hypertension. Cardiac diet. Status: Acute Qualifiers: Hypertension type: essential hypertension Qualified Code(s): I10 - Essential (primary) hypertension (3) Muscle spasm: Reports occasional muscle spasms in the lower extremity, sometimes upper on the right side. Having some this morning. Improved today, continue tizanidine frequency to 3 times daily as needed. Check CK. No concern for seizures Status: Acute Additional A&P Information Depression: continue psychiatric management. History of multiple past lacunar CVA, with hemiplegia, blindness with history of hypertensive and diabetic retinopathy, retinal detachment repair, dependent for activities of daily life, medication administration. Has been living with her mother.At baseline currently Chronic migraines: Has been receiving Botox injections with neurology. 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
[2020-06-13 16:00] VITALS: BP 134/85; PULSE 90; RESP 16; TEMP 37; O2SAT 93
[2020-06-13 17:00] LABS: Glucose Point of Care 189 mg/dL (70-110)
[2020-06-13] MEDS: acetaminophen 500 mg Tablet PO (17:08)
--- NOTE | 2020-06-13 19:44 | CTR_ITS ---
PROCEDURE INFORMATION: Exam: CT Head Without Contrast Exam date and time: 06/13/2020 7:46 PM Age: 44 years old Clinical indication: Pain; Other: Hallucinations; Headache; Prior surgery; Surgery type: Craniotomy; Additional info: Acute head ache with visual changes TECHNIQUE: Imaging protocol: Computed tomography of the head without contrast. Radiation optimization: All CT scans at this facility use at least one of these dose optimization techniques: automated exposure control; mA and/or kV adjustment per patient size (includes targeted exams where dose is matched to clinical indication); or iterative reconstruction. COMPARISON: CT head wo con* [id number] 04/13/2020 4:59 PM RADIATION DOSE METRICS: Total DLP (mGy-cm): 901.41 FINDINGS: Brain: No visible evidence of acute intracranial pathologic process, trauma, or hemorrhage. Antecedent left lentiform nucleus lacunar infarction. Old very tiny lacunar infarct left thalamus. Mild cerebral arteriosclerosis. No mass effect. No evidence for generalized edema or demyelination. No midline shift. Ventricles: No ventriculomegaly. Bones/joints: Old right frontal craniotomy defect. Sinuses: Visualized sinuses are unremarkable. No fluid levels. Mastoid air cells: Visualized mastoid air cells are well aerated. Orbits: Orbital contents remain stable to include dense vitreous humor left globe. Soft tissues: Unremarkable. CT/CT head wo con* [id number] IMPRESSION: No visible evidence of acute intracranial pathologic process, trauma, or hemorrhage. Radiation Dose CTDIVOL = (mGy): DLP = 901.41 (mGy-cm)
--- NOTE | 2020-06-13 19:46 | PC.NURSE ---
dr. montana notified patient complaining of worsening headache with acute visual changes consiting on black spots in visual field. Stat head CT without contrast verbal order received. patient is lying in bed currently vs [facility],
[2020-06-13 20:00] VITALS: BP 191/95; PULSE 86; RESP 18; TEMP 36.9; O2SAT 94
[2020-06-13 20:39] LABS: Glucose Point of Care 202 mg/dL (70-110)
[2020-06-13] MEDS: ropinirole 1 mg Tablet 0.5 MG PO (20:59)
[2020-06-13] MEDS: amitriptyline 25 mg Tablet PO (20:59)
[2020-06-13] MEDS: tizanidine 4 mg Tablet 2 MG PO (21:01)
[2020-06-14] VITALS (9 sets, daily range): BP systolic 92–129; BP diastolic 58–75; PULSE 60–109; RESP 15–22; TEMP 36.4–36.9; O2SAT 92–93
[2020-06-14] MEDS: heparin 5,000 unit/mL INJ 1 mL 5000 UNIT SUBCUT ×3 (04:27→21:13)
[2020-06-14] MEDS: hyDRALAzine 25 mg Tablet 50 MG PO ×2 (04:50→14:23)
[2020-06-14] MEDS: acetaminophen 500 mg Tablet PO (04:50)
[2020-06-14] MEDS: TRAMadol 50 mg Tablet PO ×2 (04:50→11:29)
[2020-06-14 06:52] LABS: Glucose Point of Care 212 mg/dL (70-110)
[2020-06-14] MEDS: chlorthalidone 25 mg Tablet PO (08:24)
[2020-06-14] MEDS: atorvastatin 40 mg Tablet PO (08:25)
[2020-06-14] MEDS: fluoxetine 20 mg Capsule PO (08:25)
[2020-06-14] MEDS: levETIRAcetam 500 mg Tablet 1000 MG PO ×2 (08:25→17:47)
[2020-06-14] MEDS: clopidogrel 75 mg Tablet PO (08:25)
[2020-06-14] MEDS: aspirin 81 mg EC Tablet PO (08:25)
[2020-06-14] MEDS: pantoprazole DR 40 mg Tablet PO (08:25)
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
[2020-06-14] MEDS: ibuprofen 600 mg Tablet PO (10:06)
[2020-06-14 11:01] LABS: Glucose Point of Care 157 mg/dL (70-110)
--- NOTE | 2020-06-14 11:59 | P.PN_ITS ---
Subjective Subjective: Interval history: c/o headache since yesterday evening. Needed to have a CT head repeated overnight which showed no visible evidence of acute intracranial pathological process trauma or hemorrhage. Patient states she has had similar pain in the past which is usually relieved by Botox injections that he gets as an outpatient. She is also today complaining of some visual changes in the left eye which he states feels similar to the time she had retinal detachment for which she was recently operated on by Dr. Lozano in [place]. 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 Appreciate psych recommendations. Could not transfer to neuropsychiatric unit due to her functional capacity, near complete dependence on assistance for activities of daily life. Unable to be transferred to NPU, being followed on medical floors. Prior to admit overdose with multiple doses of NovoLog, as well as Lantus. She states that she untwisted plans as far as they were ago, injected herself with all 5 pens of NovoLog 3 times each, and also untwisted Lantus insulin as it was go, however, states that only had enough for 1 injection. Reports did not take any other medications as did not have access to them with her mother keeping them away. Blood glucose was 27 at home. Status: Acute Qualifiers: Encounter type: initial encounter Qualified Code(s): T50.912A - Poisoning by multiple unspecified drugs, medicaments and biological substances, intentional self-harm, initial encounter (2) Hypertension: Blood pressures currently well controlled. Patient currently on chlorthalidone and hydralazine 50 p.o. every 8 hours. She has history of difficult to control hypertension. Currently heart rate is between 80 to 90s. Metoprolol was held upon admission due to bradycardia. Will resume now and discontinue chlorthalidone to give some room for blood pressure. Cardiac diet. Status: Acute Qualifiers: Hypertension type: essential hypertension Qualified Code(s): I10 - Essential (primary) hypertension (3) Muscle spasm: Reports occasional muscle spasms in the lower extremity, sometimes upper on the right side. Having some this morning. Improved now No concern for seizures Status: Acute Additional A&P Information Depression: continue psychiatric management. History of multiple past lacunar CVA, with hemiplegia, blindness with history of hypertensive and diabetic retinopathy, retinal detachment repair, dependent for activities of daily life, medication administration. Has been living with her mother.At baseline currently Today patient is additionally complaining of left-sided visual disturbances which sugar appeared to be similar to the time she had retinal detachment. However she is states that this is intermittent, at times she feels that there is a blood accumulating in the eye, and at other times states that her vision is at baseline. I placed a call to Dr. Coats from ophthalmology to evaluate the patient as an inpatient, however he is currently not available being out of town. Call has been placed to to discuss with Dr. Lozano in [place], awaiting callback from her office. Chronic migraines: Has been receiving Botox injections with neurology. Patient states that her current headaches feel similar to prior migraines and are relieved with Botox injections. Add Dilaudid 1 mg IV every 6 hours for pain control. There is a noted allergy to morphine as anaphylaxis, however she states she has tolerated Dilaudid in the past Plan for today: Currently though medically imrpoving, has returning feelings of frustration and depression, requests to betseyka with psych Dispo: pending level 2 approval DVT prophylaxis heparin Attestations Medical Necessity Statement*: Ongoing headache, poorly controlled pain, reported visual disturbance in left eye Coding Level of Care Code Acute Post Office Manager for Ashley Fwd Diagnoses Suicide attempt by multiple drug overdose T50.916G Encounter type: initial encounter Hypertension I10 Hypertension type: essential hypertension Muscle spasm M62.838
[2020-06-14] MEDS: HYDROmorphone 1 mg/mL INJ 1 mL IVP ×2 (14:18→21:06)
[2020-06-14 17:24] LABS: Glucose Point of Care 264 mg/dL (70-110)
[2020-06-14] MEDS: amitriptyline 25 mg Tablet PO (21:11)
[2020-06-14] MEDS: ropinirole 1 mg Tablet 0.5 MG PO (21:12)
[2020-06-14 21:39] LABS: Glucose Point of Care 190 mg/dL (70-110)
[2020-06-15] VITALS (10 sets, daily range): BP systolic 108–173; BP diastolic 69–96; PULSE 76–92; RESP 16–20; TEMP 36.6–37; O2SAT 92–99
[2020-06-15] MEDS: hyDRALAzine 25 mg Tablet 50 MG PO ×2 (00:48→08:31)
[2020-06-15] MEDS: metoprolol tartrate 25 mg Tablet 12.5 MG PO ×3 (00:49→21:48)
[2020-06-15] MEDS: heparin 5,000 unit/mL INJ 1 mL 5000 UNIT SUBCUT ×3 (04:49→21:47)
--- NOTE | 2020-06-15 05:05 | PC.NURSE ---
Patient's blood pressure elevated this morning 173/80. Patient's nurse been notified.
[2020-06-15 05:49] LABS: Basophils # 0.1 10^3/uL (0.0-0.1); Basophils % 0.6 %; Eosinophils # 0.1 10^3/uL (0.0-0.8); Eosinophils % 0.8 %; Hematocrit 34.7 % (37.0-47.0); Hemoglobin 10.5 g/dL (11.5-15.3); Lymphocytes # 2.8 10^3/uL (0.8-4.8); Lymphocytes % 32.3 %; Mean Corpuscular HGB Conc 30.3 g/dL (30.0-36.0); Mean Corpuscular Hemoglobin 25.9 pg (28.0-34.0); Mean Corpuscular Volume 85.7 fL (81-99); Mean Platelet Volume 11.7 fL (7.4-10.4); Monocytes # 0.6 10^3/uL (0.2-0.9); Monocytes % 6.4 %; Neutrophils # 5.11 10^3/uL (1.8-7.7); Neutrophils % 59.3 %; Nucleated Red Blood Cells % 0 %; Platelet Count 285 10^3/cmm (130-400); Red Blood Count 4.05 10^6/uL (4.1-5.3); Red Cell Distribution Width 12.5 % (12.1-15.1); White Blood Count 8.6 10^3/uL (4.0-10.0)
[2020-06-15 06:11] LABS: Alanine Aminotransferase 64 U/L (0-33); Albumin Level 3.8 g/dL (3.5-5.2); Alkaline Phosphatase 128 IU/L (35-105); Anion Gap 16.8 (5-19); Aspartate Amino Transferase 43 U/L (0-32); Blood Urea Nitrogen 35 mg/dL (6-20); Calcium 9.3 mg/dL (8.5-10.5); Carbon Dioxide 25 mmol/L (22-29); Chloride 100 mmol/L (98-107); Globulin 2.7 g/dL (1.3-4.6); Glomerular Filtration Rate 25.4 mL/min (90-130); Glucose 222 mg/dL (65-115); Osmolality Calculated 288 mOsm/kg (285-295); Potassium 4.8 mmol/L (3.5-5.1); Sodium 137 mmol/L (136-145); Total Bilirubin 0.2 mg/dL (0.15-1.2); Total Protein 6.5 g/dL (6.6-8.7)
[2020-06-15 06:37] LABS: Glucose Point of Care 245 mg/dL (70-110)
[2020-06-15] MEDS: ondansetron 4 MG Tablet PO (06:40)
[2020-06-15] MEDS: HYDROmorphone 1 mg/mL INJ 1 mL IVP ×3 (08:04→23:25)
[2020-06-15] MEDS: atorvastatin 40 mg Tablet PO (08:28)
[2020-06-15] MEDS: aspirin 81 mg EC Tablet PO (08:28)
[2020-06-15] MEDS: pantoprazole DR 40 mg Tablet PO (08:28)
[2020-06-15] MEDS: levETIRAcetam 500 mg Tablet 1000 MG PO ×2 (08:28→17:10)
[2020-06-15] MEDS: fluoxetine 20 mg Capsule PO (08:28)
[2020-06-15] MEDS: clopidogrel 75 mg Tablet PO (08:28)
[2020-06-15] MEDS: ketorolac 30 mg/mL INJ 15 MG IVP (12:07)
[2020-06-15 12:08] LABS: Glucose Point of Care 292 mg/dL (70-110)
--- NOTE | 2020-06-15 13:57 | PC.CHAP ---
Pastoral Care Encounter/Spiritual Assessment Type of Contact [x] Declined finance broker visit [] Patient/Family/Request visit [] Outpatient visit [] Follow-up visit [] Physician referral [] Code/Alert [] Routine visit [] Staff referral [] Actively dying [] Patient sleeping [] Family support [] [] Out of room [] Palliative care [] [] Receiving care in room [] Pre-surgical visit [] Trauma [x] Long length of stay [] ICU visit [] Other: Relational/Emotional Strength [] Patient feels connected with others/family/visitors/staff [] Distress [] Loneliness/isolation [] Abandonment Spirituality of Patient [] Person of Milena [] Attends Amish of their Milena [] Believes in Prayer [] Reads Bible or Pentecostal materials [x] There are Spiritual issues to be addressed Respiratory Care Assistant Interventions [] Prayer [x] Active listening [x] Non-anxious presence [x] Spiritual/emotional support [] Crisis/trauma care [] Spiritual counseling [] Bereavement support [] Provided bereavement packet [] Provided Bible/devotional materials [] Provided toy/stuffed animal, coloring book to patient or family member [] Provided Communion [] Anointing/[place] [] Salvation [x] Completed spiritual assessment [] Other: Impact on Illness or Injury [] Angry [] Fearful [] Anxious [] Often cries [] Exhaustion [] Unable to work [] Unable to attend protestant [] Unable to walk/stand [] Unable to read [] Unable to drive [] Unable to eat/drink [] Unable to sleep [] Unable to be with family [] Patient intubated [] Other: Summary Visited qwith Time spent with patient
--- NOTE | 2020-06-15 14:00 | PC.CHAP ---
Pastoral Care Encounter/Spiritual Assessment Type of Contact [] Declined physical therapy resident visit [] Patient/Family/Request visit [] Outpatient visit [] Follow-up visit [] Physician referral [] Code/Alert [x] Routine visit [] Staff referral [] Actively dying [] Patient sleeping [] Family support [] [] Out of room [] Palliative care [] [] Receiving care in room [] Pre-surgical visit [] Trauma [x] Long length of stay [] ICU visit [] Other: Relational/Emotional Strength [] Patient feels connected with others/family/visitors/staff [] Distress [] Loneliness/isolation [] Abandonment Spirituality of Patient [] Person of Milena [] Attends Caodaism of their Milena [] Believes in Prayer [] Reads Bible or Anabaptist materials [x] There are Spiritual issues to be addressed Certified Pest Control Technician Interventions [] Prayer [x] Active listening [x] Non-anxious presence [x] Spiritual/emotional support [] Crisis/trauma care [] Spiritual counseling [] Bereavement support [] Provided bereavement packet [] Provided Bible/devotional materials [] Provided toy/stuffed animal, coloring book to patient or family member [] Provided Communion [] Anointing/[place] [] Salvation [x] Completed spiritual assessment [] Other: Impact on Illness or Injury [] Angry [] Fearful [] Anxious [] Often cries [] Exhaustion [] Unable to work [] Unable to attend mandaeism [] Unable to walk/stand [] Unable to read [] Unable to drive [] Unable to eat/drink [] Unable to sleep [] Unable to be with family [] Patient intubated [] Other: Summary Visited with patient briefly. Patient declined prayer and stated that she did not need anything from the chaplains. Certified Pest Control Technician told her that she could let her nursing staff know if she wanted a physical therapy resident and they would call us. Patient was visited by Certified Pest Control Technician Alcides Rob. Time spent with patient 6 minutes
--- NOTE | 2020-06-15 15:11 | P.PN_ITS ---
Subjective Subjective: Interval history: Patient's headache is now resolved after starting Dilaudid. She feels much improved today. Her left eye she is still continuing to see blood which she describes as if water color has been on her eye which is both pink and red in color. Kidney function worsened again today from 1.2-2.1 creatinine. Mild elevation in LFTs to 43 and 64. Patient has re mained afebrile. 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 Data : 06/15/20 04:59 06/15/20 04:59 A&P Assessment and plan (1) Suicide attempt by multiple drug overdose: Working with psychiatry. Appreciate psych recommendations. Could not transfer to neuropsychiatric unit due to her functional capacity, near complete dependence on assistance for activities of daily life. Unable to be transferred to NPU, being followed on medical floors. Currently patient is not actively suicidal or homicidal. She looks forward to discharge to a assisted facility. Status: Acute Qualifiers: Encounter type: initial encounter Qualified Code(s): T50.912A - Poisoning by multiple unspecified drugs, medicaments and biological substances, intentional self-harm, initial encounter (2) Hypertension: Blood pressures have now been running on the lower side. There was a transient drop to systolic of 90s. We will reduce hydralazine from 50 p.o. every 8 hours to 25 p.o. every 8 hourly. Chlorthalidone has been discontinued lisinopril remains on hold. Kidney function with rising creatinine from 1.2-2.1. Chlorthalidone has since been discontinued. Elevation in BUN also may suggest some degree of dehydration. Start her on IV fluids with normal saline at 75 cc an hour. Urine output charted as 330 mL. Also possible that bump in kidney function may be related to transient hypotension. No other offending renal medications noted on her current drug list. Metoprolol was also resumed yesterday. Heart rate is controlled in the 70s right now. Status: Acute Qualifiers: Hypertension type: essential hypertension Qualified Code(s): I10 - Essential (primary) hypertension (3) Muscle spasm: These have now resolved with tizanidine. Status: Acute (4) BPV (benign positional vertigo): Patient takes meclizine at home, offered to be started here, however she states that it makes the spasms in her right upper extremity much worse therefore deferred does not want it at this time Status: Acute (5) Diabetic retinopathy: Status: Acute (6) Headache: Now resolved with initiation of Dilaudid. CT head was repeated which did not show any acute strokes. Patient does have a history of chronic migraines for which she receives Botox injections with neurology as an outpatient. Her next injection is due on June 20. For now pain is well controlled with Dilaudid, we will arrange her follow-up with Dr. Lindsey as an outpatient to assess for further Botox. Status: Acute (7) Change in vision: Patient states that since yesterday she has had a change in vision. At a baseline she is able to see shapes and lights. She is still able to see disease, however no new change is that she feels as if there is a splash of water color in her eyes mostly pink and red in color which she says is similar to the last time she had retinal hemorrhage. She had recently undergone a procedure with Dr. GERALD JANE in [place]. Tried to place a consult with Dr. Coats to evaluate the patient, however unfortunately he is away. I have spoken to Dr. Lozano this morning, she is suspicious that patient may have developed a new vitreous hemorrhage versus neovascular glaucoma, for which we will start her on dorzolamide/timolol and brimonidine eyedrops.. Status: Acute (8) ELLEN (acute kidney injury): Creatinine now trending back up to 2.1. Start IV fluids, check bladder scan. Status: Acute Additional A&P Information Dispo: Discharge to [facility] once creatinine starts to improve, hopefully in the next 24 to 48 hours. Attestations Medical Necessity Statement*: Visual changes, starting eyedrops today, rising creatinine for which hydration and bladder scan is being done. Coding Level of Care Code Acute Rag Room Supervisor for Nomang Fwd Diagnoses Suicide attempt by multiple drug overdose T50.912A Encounter type: initial encounter Hypertension I10 Hypertension type: essential hypertension Muscle spasm M62.838 BPV (benign positional vertigo) H81.10 Diabetic retinopathy E11.319 Headache R51 Change in vision H53.9 ELLEN (acute kidney injury) N17.9
[2020-06-15 16:25] LABS: Glucose Point of Care 124 mg/dL (70-110)
[2020-06-15] MEDS: brimonidine 0.2% Op Soln 5 mL Btl 1 DROP EYE-LEFT (17:09)
[2020-06-15] MEDS: hyDRALAzine 25 mg Tablet PO (17:09)
[2020-06-15] MEDS: dorzolamide/timolol Op Soln 10 mL Btl 1 DROP EYE-LEFT (17:11)
[2020-06-15] MEDS: sodium chloride 0.9% 1,000 ML 75 ML IV (17:14)
[2020-06-15] MEDS: amitriptyline 25 mg Tablet PO (21:47)
[2020-06-15] MEDS: ropinirole 1 mg Tablet 0.5 MG PO (21:48)
[2020-06-15 22:53] LABS: Glucose Point of Care 278 mg/dL (70-110)
[2020-06-16] MEDS: hyDRALAzine 25 mg Tablet PO ×2 (01:26→08:33)
[2020-06-16 04:00] VITALS: BP 112/70; PULSE 75; RESP 17; TEMP 36.9; O2SAT 95
[2020-06-16] MEDS: sodium chloride 0.9% 1,000 ML 75 ML IV (05:58)
[2020-06-16] MEDS: heparin 5,000 unit/mL INJ 1 mL 5000 UNIT SUBCUT ×2 (05:59→11:59)
[2020-06-16 07:18] LABS: Glucose Point of Care 197 mg/dL (70-110)
--- NOTE | 2020-06-16 07:24 | PM.PN ---
Vitals/I&O/Wt Last Vital Signs Temp 98.5 F 06/16/20 04:00 Pulse 75 06/16/20 04:00 Resp 17 06/16/20 04:00 BP 112/70 06/16/20 04:00 Pulse Ox 95 06/16/20 04:00 06/15/20 06/16/20 06/16/20 22:59 06:59 14:59 Intake Total 400 / 750 1195 / 1945 Output Total 900 / 900 800 / 800 Balance -500 / -150 1195 / 1045 -800 / -800 Weight last 48 hrs Weight 62.188 kg Weight 61.433 kg Data : 06/15/20 04:59 06/15/20 04:59 Coding Level of Care Code Acute Corporation Lawyer for Ashley Hess
[2020-06-16 07:34] VITALS: BP 158/80; PULSE 73; RESP 18; TEMP 36.6; O2SAT 96
[2020-06-16 08:28] LABS: SARS Covid-2 Antigen Negative (Negative)
[2020-06-16] MEDS: brimonidine 0.2% Op Soln 5 mL Btl 1 DROP EYE-LEFT (08:32)
[2020-06-16] MEDS: atorvastatin 40 mg Tablet PO (08:32)
[2020-06-16] MEDS: aspirin 81 mg EC Tablet PO (08:32)
[2020-06-16] MEDS: clopidogrel 75 mg Tablet PO (08:32)
[2020-06-16] MEDS: dorzolamide/timolol Op Soln 10 mL Btl 1 DROP EYE-LEFT (08:33)
[2020-06-16] MEDS: pantoprazole DR 40 mg Tablet PO (08:33)
[2020-06-16] MEDS: fluoxetine 20 mg Capsule PO (08:33)
[2020-06-16] MEDS: levETIRAcetam 500 mg Tablet 1000 MG PO (08:33)
[2020-06-16 08:58] VITALS: RESP 21
[2020-06-16] MEDS: HYDROmorphone 1 mg/mL INJ 1 mL IVP (08:58)
[2020-06-16 09:24] LABS: Alanine Aminotransferase 66 U/L (0-33); Albumin Level 3.6 g/dL (3.5-5.2); Alkaline Phosphatase 135 IU/L (35-105); Anion Gap 14.5 (5-19); Aspartate Amino Transferase 45 U/L (0-32); Blood Urea Nitrogen 38 mg/dL (6-20); Calcium 9.1 mg/dL (8.5-10.5); Carbon Dioxide 24 mmol/L (22-29); Chloride 102 mmol/L (98-107); Globulin 3.5 g/dL (1.3-4.6); Glomerular Filtration Rate 30.3 mL/min (90-130); Glucose 228 mg/dL (65-115); Osmolality Calculated 287 mOsm/kg (285-295); Potassium 4.5 mmol/L (3.5-5.1); Sodium 136 mmol/L (136-145); Total Bilirubin 0.2 mg/dL (0.15-1.2); Total Protein 7.1 g/dL (6.6-8.7)
[2020-06-16 11:06] VITALS: RESP 21
[2020-06-16 11:13] LABS: Glucose Point of Care 252 mg/dL (70-110)
[2020-06-16 11:30] VITALS: BP 148/76; PULSE 64; RESP 20; TEMP 36.7; O2SAT 96
[2020-06-16] MEDS: metoprolol tartrate 25 mg Tablet 12.5 MG PO (11:59)
--- NOTE | 2020-06-16 12:23 | PC.NURSE ---
Report called to Josie CHANEY at [facility] in [facility]. Josie CHANEY would like us to call them when patient leaves the facility.
--- NOTE | 2020-06-16 14:15 | PC.NURSE ---
Pt discharged to transport. All questions answered.
--- NOTE | 2020-06-16 16:23 | P.DS_ITS ---
Discharge Providers Date of Admission: 06/07/20 17:22 Date of Discharge: June 16, 2020 Attending Provider at Admission: Papito Lei Attending Provider at Discharge: Yue Cardenas MD Primary Care Provider: Shefali Russo DO Diagnoses at Discharge Discharge Diagnosis (1) Suicide attempt by multiple drug overdose: Status: Acute Qualifiers: Encounter type: initial encounter Qualified Code(s): T50.912A - Poisoning by multiple unspecified drugs, medicaments and biological substances, intentional self-harm, initial encounter (2) Hypertension: Status: Acute Qualifiers: Hypertension type: essential hypertension Qualified Code(s): I10 - Essential (primary) hypertension (3) Muscle spasm: Status: Acute (4) BPV (benign positional vertigo): Status: Acute (5) Diabetic retinopathy: Status: Acute (6) Headache: Status: Acute (7) Change in vision: Status: Acute (8) ELLEN (acute kidney injury): Status: Acute Reason for Visit Reason for Visit: SI W/ATTEMPT Hospital Course Discharge Summary: Ivon Larios is a 44 year old lady with chronic blindness secondary to diabetic and hypertensive retinopathy, retinal detachment repair, multiple prior CVA with chronic residual right-sided weakness for which she has been following with neurology, inability to walk, DM2, HTN, chronic migraine, previously concern of DISABILITIES SERVICES OFFICER vasculitis, however, with negative laboratory work-up, previously had undergone brain biopsy at [facility] although the results are unknown, reported after multiple requests per review of neurology notes. She is mostly dependent for daily activities on her mother currently due to hemiplegia and blindness. She is brought for evaluation after suicide attempt with overdose with insulin at home with resulting hypoglycemia. Hospital course as outlined below: (1) Suicide attempt by multiple drug overdose: Working with psychiatry. Appreciate psych recommendations. Could not transfer to neuropsychiatric unit due to her functional capacity, near complete dependence on assistance for activities of daily life. Currently patient is not actively suicidal or homicidal. She looks forward to discharge to a [facility] facility and participating in therapy (2) Hypertension: Has a history of labile hypertension. Blood pressures have now been running on the lower side. There was a transient drop to systolic of 90s. reduce hydralazine from 50 p.o. every 8 hours to 25 p.o. every 8 hourly. Chlorthalidone has been discontinued, lisinopril remains on hold due to ELLEN Kidney function with rising creatinine from 1.2-2.1, at time of discharge this is improved to 1.8 with IV hydration and discontinuing chlorthalidone. (3) Muscle spasm: These have now resolved with tizanidine. (6) Headache: Now resolved with initiation of Dilaudid. CT head was repeated which did not show any acute strokes. Patient does have a history of chronic migraines for which she receives Botox injections with neurology as an outpatient. Her next injection is due on June 20. For now pain is well controlled with Dilaudid, follow-up with Dr. Lindsey as an outpatient to assess for further Botox. (7) Change in vision: Patient states that she has had a change in vision during this admission. At a baseline she is able to see shapes and lights. She is still able to see these, however new change is that she feels as if there is a splash of water color in her eyes mostly pink and red in color which she says is similar to the last time she had retinal hemorrhage. She had recently undergone a procedure with Dr. GERALD JANE in [place]. Tried to place a consult with Dr. Coats to evaluate the patient, however unfortunately he is away. I have spoken to Dr. Martines on June 15, suspicious that patient may have developed a new vitreous hemorrhage versus neovascular glaucoma, for which we will start her on dorzolamide/timolol and brimonidine eyedrops.. Follow-up with Dr. Martines within 7 to 10 days (8) ELLEN (acute kidney injury): Creatinine now improved to 1.8 Physical Exam Narrative: EXAM NARRATIVE: EXAM NARRATIVE: GEN: Awake, alert and oriented, no acute distress CVS: S1S2 N RS: CTA B/L Abd: Soft, nt/nd , bs+ DISABILITIES SERVICES OFFICER: Neuro deficits at baseline. Discharge Data Data Completed and Pending: Completed Studies During Hospitalization Category Date Time Status CT head wo con* 7 [id number] Stat Cat Scan 06/13/20 19:44 Completed XR chest 1V mikie ble [id number] Stat Exams 06/07/20 15:01 Completed Labs from last 24 hours 06/16/20 06/16/20 06/16/20 11:07 08:28 07:45 Sodium 136 Potassium 4.5 Chloride 102 Carbon Dioxide 24 Anion Gap 14.5 BUN 38 H Creatinine 1.8 H GFR Calculation 30.3 L Glucose 228 H POC Glucose 252 Calculated Osmolal ity 287 Calcium 9.1 Total Bilirubin 0.2 AST 45 H ALT 66 H Alkaline Phosphata se 135 H Total Protein 7.1 Albumin 3.6 Globulin 3.5 SARS-CoV-2 Ag (Rap id) Negative 06/16/20 06/15/20 06/15/20 06:48 22:47 16:03 Sodium Potassium Chloride Carbon Dioxide Anion Gap BUN Creatinine GFR Calculation Glucose POC Glucose 197 278 124 Calculated Osmolal ity Calcium Total Bilirubin AST ALT Alkaline Phosphata se Total Protein Albumin Globulin SARS-CoV-2 Ag (Rap id) Vitals: Last Vital Signs Temp 98.1 F 06/16/20 11:30 Pulse 64 06/16/20 11:30 Resp 20 H 06/16/20 11:30 BP 148/76 06/16/20 11:30 Pulse Ox 96 06/16/20 11:30 Discharge Plan Discharge Patient Disposition: Xfer SNF Condition: Stable Prescriptions: New tizanidine 4 mg Tablet 2 mg PO TID PRN (Reason: Muscle Pain) 30 Days Qty: 90 RF: 0 ondansetron HCl 4 mg Tablet 4 mg PO Q6H PRN (Reason: Nausea And Vomiting) 30 Days Qty: 120 RF: 0 hydralazine 25 mg Tablet 25 mg PO Q8H Qty: 0 RF: 0 brimonidine 0.2 % Drops 1 drp eye-left BID 30 Days Qty: 60 RF: 0 dorzolamide-timolol 22.3-6.8 mg/mL Drops 1 drp eye-left BID 30 Days Qty: 60 RF: 0 metoprolol tartrate 25 mg Tablet 25 mg PO Q12H 30 Days Qty: 60 RF: 0 Dilaudid 2 mg tablet 2 mg PO Q8H PRN (Reason: pain) 5 Days Qty: 15 RF: 0 Continued meclizine 25 mg tablet 25 mg PO TID PRN (Reason: dizziness) Qty: 30 RF: 0 levetiracetam [Keppra] 1,000 mg tablet 1,000 mg PO BID Qty: 60 RF: 0 pantoprazole 40 mg tablet,delayed release (DR/EC) 40 mg PO DAILY Qty: 60 RF: 0 aspirin 81 mg tablet,delayed release (DR/EC) 81 mg PO DAILY Qty: 30 RF: 0 fluoxetine [Prozac] 20 mg capsule 20 mg PO DAILY Qty: 30 RF: 0 amitriptyline 25 mg tablet 25 mg PO DAILY Qty: 30 RF: 0 atorvastatin 40 mg tablet 40 mg PO DAILY Qty: 30 RF: 0 Plavix 75 mg tablet 75 mg PO DAILY Qty: 30 RF: 2 ropinirole 0.5 mg tablet 0.5 mg PO DAILY Qty: 30 RF: 0 Novolog U-100 Insulin aspart 100 unit/mL solution See Rx Instructions .ROUTE .COMPLEX Qty: 10 RF: 0 Victoza 3-Ramin 0.6 mg/0.1 mL (18 mg/3 mL) pen injector 1.2 mg SUBCUT Q24H Qty: 9 RF: 1 Lantus Solostar U-100 Insulin 100 unit/mL (3 mL) insulin pen 10 unit SUBCUT BEDTIME RF: 0 diphenhydramine HCl 25 mg Capsule 25 mg PO Q4H PRN (Reason: Itching) Qty: 4 RF: 0 Changed hydralazine 10 mg tablet 25 mg PO TID 30 Days Qty: 90 RF: 0 Discontinued tizanidine 2 mg capsule 2 mg PO BEDTIME PRN (Reason: Muscle Pain) Qty: 30 RF: 0 lisinopril 10 mg tablet 20 mg PO DAILY Qty: 30 RF: 0 chlorthalidone 25 mg tablet 25 mg PO DAILY Qty: 30 RF: 0 metoprolol tartrate 100 mg tablet 100 mg PO Q12H Qty: 60 RF: 0 Discharge Orders: Discharge Order (Routine); Ordered 06/16/20 Ordered By: Yue Cardenas Referrals: hermila martines [Other] - 7-10 days (for 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 Need to call Thursday and make an appointment for 7-10 days from discharge.) [facility] [Outside] Shahla Lindsey MD [Physician] - 4-7 days (already has scheduled appointment in june ) Shefali Russo DO [Primary Care Provider] - (Kendra Guidry will make all follow up appointments) Discharge Diet: Usual diet Discharge Activity: Resume usual activity and As per PT/OT instructions Discharge Date/Time: 06/16/20 14:16 Discharge Attestations Time Spent in Discharge Care*: greater than 30 min Quality Metrics Clinical Quality Measures During this hospital stay, did patient experience: None Coding Level of Care Code Acute Student Support Advisor for Chg Fwd Diagnoses Suicide attempt by multiple drug overdose T50.912A Encounter type: initial encounter Hypertension I10 Hypertension type: essential hypertension Muscle spasm M62.838 BPV (benign positional vertigo) H81.10 Diabetic retinopathy E11.319 Headache R51 Change in vision H53.9 ELLEN (acute kidney injury) N17.9
== END 2020-06-16 14:16 | disposition skilled nursing facility (03) | DRG 918 ==
LOC: ER 17:38 → ICU 18:25 → MEDSURG 06-10 11:48
PROVIDERS: Emergency Medicine; Admitting Provider Internal Medicine; PCP Family Medicine; Visit Provider Student in an Organized Health Care Education/Training Program
DX: T50.912A Poisoning by multiple unspecified drugs, medicaments and biological substances, intentional self-harm, initial encounter (principal); N17.9 Acute kidney failure, unspecified; Y92.009 Unspecified place in unspecified non-institutional (private) residence as the place of occurrence of the external cause; H81.10 Benign paroxysmal vertigo, unspecified ear; I10 Essential (primary) hypertension; E11.319 Type 2 diabetes mellitus with unspecified diabetic retinopathy without macular edema; H54.3 Unqualified visual loss, both eyes; Z86.73 Personal history of transient ischemic attack (TIA), and cerebral infarction without residual deficits; G89.29 Other chronic pain; M54.9 Dorsalgia, unspecified; E78.5 Hyperlipidemia, unspecified; F32.9 Major depressive disorder, single episode, unspecified; Z79.4 Long term (current) use of insulin; F17.220 Nicotine dependence, chewing tobacco, uncomplicated
CPT/HCPCS: 12345; 36415; 36416; 36600; 70450; 71045; 80048; 80053; 80156; 80164; 80178; 80185; 80306; 80307; 81001; 82550; 82803; 82962; 83605; 83735; 84484; 84703; 85025; 85610; 87426; 93005; 96372; 96375; 99284; J0360; J1170; J1644; J1815 ×2; J1885; J2405; J3475; J7030; J7799; Q0162

== ENCOUNTER 2020-08-29 23:21 | Inpatient (IN) | payer MEDICAID, SELFPAY ==
[2020-08-29 23:23] VITALS: BP 256/144; PULSE 85; RESP 15; TEMP 36.8; O2SAT 98; BMI 40.4
--- NOTE | 2020-08-29 23:25 | XR_ITS ---
WS: [id number] Exam: XR chest 1V portable [id number] Date/Time of Exam: 08/29/2020 11:46 PM Reason For Exam: syncope Comparison 06/07/2020. Findings: The lungs are clear and fully expanded. Costophrenic angles are sharp. No infiltrates. Bronchovascula r relief appears normal. Cardiac silhouette is unremarkable. Bony elements are intact. XR/XR chest 1V portable [id number] IMPRESSION: Unremarkable chest radiograph.
--- NOTE | 2020-08-29 23:26 | ECG_ITS ---
[facility] Test Date: 2020-08-29 Pat Name: Ivon Larios Department: Room: Gender: Female Photographic Spotter: : 1975 Requested By: Saniya Branham Order Number: [id number] Salvador MD: Ragini Rizo M.D. Measurements Intervals [place] Rate: 82 P: 4 SC: 183 QRS: -9 QRSD: 101 T: -2 QT: 415 QTc: 487 Interpretive Statements SINUS RHYTHM VOLTAGE CRITERIA FOR LVH [MEETS CRITERIA IN ONE OF: R(aVL), S(V1), R(V5), R(V5/V6)+S(V1)] ANTERIOR MYOCARDIAL INFARCTION , PROBABLY OLD [40+ ms Q WAVE AND/OR ST/T ABNORMALITY IN V3/V4] INFERIOR MYOCARDIAL INFARCTION , OF INDETERMINATE AGE [40+ ms Q WAVE AND/OR ST/T ABNORMALITY IN II/aVF] Compared to ECG 06/07/2020 20:52:34 Left ventricular hypertrophy now present Ventricular premature complex(es) no longer present Myocardial infarct finding still present Electronically Signed On 08-30-2020 21:59:35 RE EXAMINER by Ragini Rizo M.D. [id number]
[2020-08-29 23:45] LABS: Basophils # 0.1 10^3/uL (0.0-0.1); Basophils % 0.6 %; Eosinophils # 0.2 10^3/uL (0.0-0.8); Hematocrit 37.8 % (37.0-47.0); Hemoglobin 11.6 g/dL (11.5-15.3); Lymphocytes % 29.9 %; Mean Corpuscular HGB Conc 30.7 g/dL (30.0-36.0); Mean Corpuscular Hemoglobin 24.8 pg (28.0-34.0); Mean Corpuscular Volume 80.9 fL (81-99); Mean Platelet Volume 11.9 fL (7.4-10.4); Monocytes # 0.7 10^3/uL (0.2-0.9); Monocytes % 6.6 %; Neutrophils % 60.6 %; Nucleated Red Blood Cells % 0 %; Platelet Count 415 10^3/cmm (130-400); Red Blood Count 4.67 10^6/uL (4.1-5.3); Red Cell Distribution Width 12.7 % (12.1-15.1); White Blood Count 10.1 10^3/uL (4.0-10.0)
--- NOTE | 2020-08-29 23:48 | ED_ITS ---
Documented by User: STANISLAV Hand 08/30/20 03:03 HPI - Abdominal Pain General: Chief Complaint: Abdominal Pain Stated Complaint: ABD PAIN Time Seen by Provider: 08/29/20 23:22 Source: patient and EMS Mode of arrival: EMS Limitations: physical limitation History of Present Illness: HPI narrative: 44-year-old female patient who resides at [facility] presents to the emergency department with 1 week history of pain after urination. She reports bilateral flank pain, suprapubic pain that occurs after urination. She denies fever chills, reports nausea but denies vomiting. States has decreased appetite. 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 She is wheelchair- bound, she reports 2-week onset of generalized edema and increased edema specifically to the right lower extremity. History of renal failure with hospitalization in June. She is significantly hypertensive today upon exam, has clonidine as needed and remains on hydralazine as maintenance medication. She denies chest pain, shortness of breath. MD elicited complaint: abdominal pain and flank pain Onset (ago): week(s) (1-2) Pain Consistency: constant Location: L flank, R flank and Suprapubic Severity: severe Quality: cramping, aching and dull Radiation: bilateral flank and other (suprapublic) Exacerbating factors: nothing Relieving factors: nothing Associated Symptoms: Reports anorexia, dysuria and nausea; Denies bloating, chills, constipation, fever(s), hematochezia and vomiting Treatments prior to arrival: other (Fentanyl) Review of Systems General: Reports: 10 or more systems reviewed and unremarkable except in HPI and below Const: Reports: fatigue and malaise; Denies: fever(s), chills or diaphoresis Eyes: Reports: blurry vision; Denies: change in vision or eye redness ENMT: Denies: throat pain, oral sores, dental pain, disequilibrium, nasal discharge or nasal congestion Card: Reports: swelling of feet/ankles and leg pain with exertion; Denies: chest pain, palpitations or irregular heart rhythm Resp: Denies: dyspnea, productive cough, non-productive cough or wheezing GI: Reports: abdominal pain and nausea; Denies: vomiting, constipation, bloating or hematochezia : Reports: dysuria; Denies: urinary urgency, dribbling or urinary incontinence Musc: Denies: back pain Skin/Breast: Denies: rash or pruritus Neuro: Denies: headache(s), weakness in extremities or behavioral changes Donato/Lymph: Denies: easy bruising PFSH ED PFSH: Medical History (Updated 08/30/20 @ 05:02 by Emily Carey MD) Adjustment disorder with mixed disturbance of emotions and conduct BPV (benign positional vertigo) Chronic back pain Chronic migraine without aura, intractable, with status migrainosus Depression Diabetic retinopathy Dyslipidemia Essential hypertension High risk medication use Insomnia Muscle spasm PTSD (post-traumatic stress disorder) Rotator cuff injury Seasonal allergies Stroke Suicide attempt by multiple drug overdose TIA (transient ischemic attack) Type 2 diabetes mellitus, with long-term current use of insulin Vasculitis Surgical History H/O brain surgery H/O tubal ligation H/O: hysterectomy History of cholecystectomy History of tonsillectomy Family History Other CAD (coronary artery disease) Cancer Diabetes Hypertension Denies family history of Stroke Social History Smoking and tobacco status: smoker, details unknown smokeless tobacco Smokeless tobacco user: chewing tobacco Alcohol intake: never Household members: family Housing: House History of recent travel: Yes (travels from [facility]) Physical Exam Const: COMMON NORMALS: no acute distress, patient oriented x3, alert and well nourished EXAM LIMITATIONS: physical limitations GENERAL APPEARANCE: cooperative, comfortable, well kempt and Edematous NUTRITIONAL APPEARANCE: overweight ORIENTATION/CONSCIOUSNESS: Yes awake, Yes oriented to person, Yes oriented to place and Yes oriented to time HENMT: COMMON NORMALS: normocephalic, atraumatic, EAC's normal, Normal external nose present and moist oral mucous membranes HEAD & SCALP: normal to inspection, normocephalic and atraumatic FACE & SINUS: edema NOSE: Normal external nose present and No nasal discharge present EXTERNAL AUDITORY CANAL: EAC's normal THROAT: posterior oropharynx normal Eye: COMMON NORMALS: Equal, round and reactive pupils present and EOMs intact bilaterally GENERAL EYE: appearance normal, both eyes and all related structures PERIORBITAL: periorbital findings abnormal positive bilateral periorbital swelling EYELID: eyelid abnormality (edema to eyelids bilateral) PUPIL: Yes Equal, round and reactive pupils present Neck/C-Spine: COMMON NORMALS: full ROM and no lymphadenopathy GENERAL: Yes normal visual inspection and Yes trachea midline CERVICAL SPINE: Yes cervical ROM normal Lymph: LYMPHATIC: no lymphadenopathy noted Chest: COMMONS NORMALS: normal inspection of the chest and normal palpation of entire chest wall Resp: COMMON NORMALS: normal respiratory effort and clear to auscultation bilaterally EFFORT & INSPECTION: Yes able to speak in complete sentences AUSCULTATION: clear to auscultation bilaterally Cardio: COMMON NORMALS: regular rhythm, S1 normal heart sound present, S2 normal heart sound present and Peripheral pulses 2+ throughout RHYTHM: regular rhythm HEART SOUNDS: S1 normal heart sound present and S2 normal heart sound present PERIPHERAL PULSES: Peripheral pulses 2+ throughout GI: COMMON NORMALS: Soft to palpation INSPECTION: Yes normal to inspection, No abdominal distension and Yes central obesity AUSCULTATION: Yes normoactive bowel sounds PALPATION: Yes Soft to palpation, Yes Tenderness to palpation present (GI) (bilateral flank) and No Hernia present : BLADDER/KIDNEY EXAM: Yes CVA tenderness bilateral EXTERNAL FEMALE EXAM: No Hernia present Back/Pelvis: COMMON NORMALS: thoracic and lumbar spine normal to inspection Extremity: COMMON NORMALS: normal to inspection and capillary refill normal GENERAL: Yes normal exam except as noted and Yes edema (2 + LLE; 3 + LLE) Neuro: COSTA COMA SCALE: document GCS findings [place] coma scale eye opening: Spontaneous [place] coma scale verbal response: Orientated [place] coma scale motor response: Obey commands [place] coma scale total score: 15 COMMON NORMALS: patient oriented x3 and no focal motor deficits SENSORIUM/ORIENTATION: Yes alert, Yes oriented to person, Yes oriented to place and Yes oriented to time SPEECH: speech normal MOTOR EXAM: Abnormal motor strength present (generalized weakness noted) Psych: COMMON NORMALS: mental status grossly normal, Normal thought process present and cooperative APPEARANCE: Yes well kempt ACTIVITY/MOTOR BEHAVIOR: Yes appropriate eye contact THOUGHT PROCESS: Normal thought process present Skin: COMMON NORMALS: no rashes or lesions noted and turgor normal GENERAL SKIN EXAM: no rashes or lesions noted and turgor normal Course ED course: 44-year-old female patient presents with hypertensive urgency, nitroglycerin drip initiated, transfer of care to Dr. Hodges due to patient's need for hospital admission and critical care needed. Vital Signs: Vital signs: Vital Signs Temperature 98.3 F 08/29/20 23:23 Pulse Rate 87 08/30/20 03:51 Respiratory Rate 17 08/30/20 03:51 Blood Pressure 161/104 08/30/20 03:51 Pulse Oximetry 95 08/30/20 03:51 MDM - Abdominal Pain Differential Diagnosis: Differential diagnosis abdominal pain: Likely calculus of kidney, diverticulitis and pancreatitis Lab Data: Labs: Lab Results 08/29/20 08/29/20 08/29/20 Range/Units 23:37 23:37 23:37 WBC 10.1 H (4.0-10.0) 10^3/ uL RBC 4.67 (4.1-5.3) 10^6/u L Hgb 11.6 (11.5-15.3) g/dL Hct 37.8 (37.0-47.0) % MCV 80.9 L (81-99) fL MCH 24.8 L (28.0-34.0) pg MCHC 30.7 (30.0-36.0) g/dL RDW 12.7 (12.1-15.1) % Plt Count 415 H (130-400) 10^3/c mm MPV 11.9 H (7.4-10.4) fL Neut % (Auto) 60.6 % Lymph % (Auto) 29.9 % [place] % (Auto) 6.6 % Eos % (Auto) 2.0 % Baso % (Auto) 0.6 % Neut # (Auto) 6.10 (1.8-7.7) 10^3/u L Lymph # (Auto) 3.0 (0.8-4.8) 10^3/u L [place] # (Auto) 0.7 (0.2-0.9) 10^3/u L Eos # (Auto) 0.2 (0.0-0.8) 10^3/u L Baso # (Auto) 0.1 (0.0-0.1) 10^3/u L Nucleated RBC % (a uto) 0 % Nucleated RBCs # 0.0 /100WBC Sodium 140 (136-145) mmol/L Potassium 3.2 L (3.5-5.1) mmol/L Chloride 103 (98-107) mmol/L Carbon Dioxide 28 (22-29) mmol/L Anion Gap 12.2 (5-19) BUN 12 (6-20) mg/dL Creatinine 0.7 (0.5-0.9) mg/dL GFR Calculation 90.1 (90-130) mL/min Glucose 178 H (65-115) mg/dL Calculated Osmolal ity 294 (285-295) mOsm/k g Calcium 9.2 (8.5-10.5) mg/dL Magnesium (1.7-2.3) mg/dL Total Bilirubin 0.4 (0.15-1.2) mg/dL AST 16 (0-32) U/L ALT 19 (0-33) U/L Alkaline Phosphata se 137 H (35-105) IU/L Troponin T Baselin e 24 H (0-10) ng/L Troponin T 120 Min [place] (0-10) ng/L Delta Troponin T (0-10) ABS# NT-Pro-B Natriuret Pep 1223 H (0-125) pg/mL Total Protein 6.3 L (6.6-8.7) g/dL Albumin 3.9 (3.5-5.2) g/dL Globulin 2.4 (1.3-4.6) g/dL Lipase 117 H (13-60) U/L Urine Color (Yellow) Urine Appearance (CLEAR) Urine pH (5-7) Ur Specific Gravit y (1.005-1.030) Urine Protein (Negative) Urine Glucose (UA) (Normal) Urine Ketones (Negative) Urine Blood (Negative) Urine Nitrate (Negative) Urine Bilirubin (Negative) Urine Urobilinogen (Negative) mg/dL Ur Leukocyte [place] ase (Negative) 08/30/20 08/30/20 08/30/20 Range/Units 00:01 01:20 02:00 WBC (4.0-10.0) 10^3/ uL RBC (4.1-5.3) 10^6/u L Hgb (11.5-15.3) g/dL Hct (37.0-47.0) % MCV (81-99) fL MCH (28.0-34.0) pg MCHC (30.0-36.0) g/dL RDW (12.1-15.1) % Plt Count (130-400) 10^3/c mm MPV (7.4-10.4) fL Neut % (Auto) % Lymph % (Auto) % [place] % (Auto) % Eos % (Auto) % Baso % (Auto) % Neut # (Auto) (1.8-7.7) 10^3/u L Lymph # (Auto) (0.8-4.8) 10^3/u L [place] # (Auto) (0.2-0.9) 10^3/u L Eos # (Auto) (0.0-0.8) 10^3/u L Baso # (Auto) (0.0-0.1) 10^3/u L Nucleated RBC % (a uto) % Nucleated RBCs # /100WBC Sodium (136-145) mmol/L Potassium (3.5-5.1) mmol/L Chloride (98-107) mmol/L Carbon Dioxide (22-29) mmol/L Anion Gap (5-19) BUN (6-20) mg/dL Creatinine (0.5-0.9) mg/dL GFR Calculation (90-130) mL/min Glucose (65-115) mg/dL Calculated Osmolal ity (285-295) mOsm/k g Calcium (8.5-10.5) mg/dL Magnesium 1.9 (1.7-2.3) mg/dL Total Bilirubin (0.15-1.2) mg/dL AST (0-32) U/L ALT (0-33) U/L Alkaline Phosphata se (35-105) IU/L Troponin T Baselin e (0-10) ng/L Troponin T 120 Min [place] 23.04 H (0-10) ng/L Delta Troponin T -0.96 L (0-10) ABS# NT-Pro-B Natriuret Pep (0-125) pg/mL Total Protein (6.6-8.7) g/dL Albumin (3.5-5.2) g/dL Globulin (1.3-4.6) g/dL Lipase (13-60) U/L Urine Color Yellow (Yellow) Urine Appearance Clear (CLEAR) Urine pH 6.0 (5-7) Ur Specific Gravit y 1.015 (1.005-1.030) Urine Protein 3+ H (Negative) Urine Glucose (UA) 2+ (Normal) Urine Ketones Negative (Negative) Urine Blood Neg (Negative) Urine Nitrate Negative (Negative) Urine Bilirubin Neg (Negative) Urine Urobilinogen Norm (Negative) mg/dL Ur Leukocyte [place]il[place] ase Negative (Negative) Imaging Data ^: CXR: My impression: No acute process, radiology interpretation pending. EKG Data ^: EKG 1: EKG interpretation date: 08/29/20 EKG interpretation time: 23:46 Computer generated interpretation: Sinus rhythm, anterior myocardial infarction, probably old, abnormal ECG, ventricular rate 82 bpm Discharge Plan Discharge Patient Disposition: Placed in Observation Admit Provider: Emily Carey Clinical Impression: Hypertensive emergency Abdominal pain Qualifiers: Abdominal location: generalized Qualified Code(s): R10.84 - Generalized abdominal pain Sign Out Sign Out Data: Patient Sign Out occurred on 08/30/20 at 01:11. Patient's care was discussed, and care was transferred from to Eleni Luz. Coding Level of Care Code ED Sales Program Manager for Chg Fwd Exam Comprehensive Documented by User: Eleni Luz 08/30/20 05:42 HPI - Abdominal Pain General: Chief Complaint: Abdominal Pain Stated Complaint: ABD PAIN Time Seen by Provider: 08/29/20 23:22 PFS ED PFSH: Medical History (Updated 08/30/20 @ 05:02 by Emily Carey MD) Adjustment disorder with mixed disturbance of emotions and conduct BPV (benign positional vertigo) Chronic back pain Chronic migraine without aura, intractable, with status migrainosus Depression Diabetic retinopathy Dyslipidemia Essential hypertension High risk medication use Insomnia Muscle spasm PTSD (post-traumatic stress disorder) Rotator cuff injury Seasonal allergies Stroke Suicide attempt by multiple drug overdose TIA (transient ischemic attack) Type 2 diabetes mellitus, with long-term current use of insulin Vasculitis Surgical History H/O brain surgery H/O tubal ligation H/O: hysterectomy History of cholecystectomy History of tonsillectomy Family History Other CAD (coronary artery disease) Cancer Diabetes Hypertension Denies family history of Stroke Social History Smoking and tobacco status: smoker, details unknown smokeless tobacco Smokeless tobacco user: chewing tobacco Alcohol intake: never Household members: family Housing: House History of recent travel: Yes (travels from [facility]) Course Vital Signs: Vital signs: Vital Signs Temperature 98.3 F 08/29/20 23:23 Pulse Rate 87 08/30/20 03:51 Respiratory Rate 17 08/30/20 03:51 Blood Pressure 161/104 08/30/20 03:51 Pulse Oximetry 95 08/30/20 03:51 MDM - Abdominal Pain MDM Narrative: Medical decision making narrative: [id number] -patient's care was turned over to me from Saniya Edmondson APN due to the patient's severity of high blood pressure shortly after she arrived. I wanted to try to use Cardene for the patient's blood pressure but she had an allergy to amlodipine and it was not clear after discussion with the pharmacist whether the patient could have this or not. With a nitroglycerin drip the patient has done well. At maximum she was up to 50 mcg/min but now she is down to 20 mcg/min with a good blood pressure. Her blood pressure although not recorded by the nurse at least once got as high as 264/158. No other has abdominal pain. She has no chest pain or shortness of breath. Her abdominal pain work-up has been unrevealing and the patient is feeling better at this time. Nonetheless the patient is still on a drip to maintain her blood pressure and this will need to be weaned. I reviewed the case in full with Dr. Carey he agrees to admit for further evaluation and care. Differential Diagnosis: Differential diagnosis abdominal pain: Likely abdominal pain, acute appendicitis, calculus of kidney, constipation, diverticulitis, gastroenteritis, pancreatitis and small bowel obstruction Lab Data: Attestation: I reviewed the patient's lab results. Labs: Lab Results 08/29/20 08/29/2008/29/20 Range/Units 23:37 23:37 23:37 WBC 10.1 H (4.0-10.0) 10^3/ uL RBC 4.67 (4.1-5.3) 10^6/u L Hgb 11.6 (11.5-15.3) g/dL Hct 37.8 (37.0-47.0) % MCV 80.9 L (81-99) fL MCH 24.8 L (28.0-34.0) pg MCHC 30.7 (30.0-36.0) g/dL RDW 12.7 (12.1-15.1) % Plt Count 415 H (130-400) 10^3/c mm MPV 11.9 H (7.4-10.4) fL Neut % (Auto) 60.6 % Lymph % (Auto) 29.9 % [place] % (Auto) 6.6 % Eos % (Auto) 2.0 % Baso % (Auto) 0.6 % Neut # (Auto) 6.10 (1.8-7.7) 10^3/u L Lymph # (Auto) 3.0 (0.8-4.8) 10^3/u L [place] # (Auto) 0.7 (0.2-0.9) 10^3/u L Eos # (Auto) 0.2 (0.0-0.8) 10^3/u L Baso # (Auto) 0.1 (0.0-0.1) 10^3/u L Nucleated RBC % (a uto) 0 % Nucleated RBCs # 0.0 /100WBC Sodium 140 (136-145) mmol/L Potassium 3.2 L (3.5-5.1) mmol/L Chloride 103 (98-107) mmol/L Carbon Dioxide 28 (22-29) mmol/L Anion Gap 12.2 (5-19) BUN 12 (6-20) mg/dL Creatinine 0.7 (0.5-0.9) mg/dL GFR Calculation 90.1 (90-130) mL/min Glucose 178 H (65-115) mg/dL Calculated Osmolal ity 294 (285-295) mOsm/k g Calcium 9.2 (8.5-10.5) mg/dL Magnesium (1.7-2.3) mg/dL Total Bilirubin 0.4 (0.15-1.2) mg/dL AST 16 (0-32) U/L ALT 19 (0-33) U/L Alkaline Phosphata se 137 H (35-105) IU/L Troponin T Baselin e 24 H (0-10) ng/L Troponin T 120 Min [place] (0-10) ng/L Delta Troponin T (0-10) ABS# NT-Pro-B Natriuret Pep 1223 H (0-125) pg/mL Total Protein 6.3 L (6.6-8.7) g/dL Albumin 3.9 (3.5-5.2) g/dL Globulin 2.4 (1.3-4.6) g/dL Lipase 117 H (13-60) U/L Urine Color (Yellow) Urine Appearance (CLEAR) Urine pH (5-7) Ur Specific Gravit y (1.005-1.030) Urine Protein (Negative) Urine Glucose (UA) (Normal) Urine Ketones (Negative) Urine Blood (Negative) Urine Nitrate (Negative) Urine Bilirubin (Negative) Urine Urobilinogen (Negative) mg/dL Ur Leukocyte [place] ase (Negative) 08/30/20 08/30/20 08/30/20 Range/Units 00:01 01:20 02:00 WBC (4.0-10.0) 10^3/ uL RBC (4.1-5.3) 10^6/u L Hgb (11.5-15.3) g/dL Hct (37.0-47.0) % MCV (81-99) fL MCH (28.0-34.0) pg MCHC (30.0-36.0) g/dL RDW (12.1-15.1) % Plt Count (130-400) 10^3/c mm MPV (7.4-10.4) fL Neut % (Auto) % Lymph % (Auto) % [place] % (Auto) % Eos % (Auto) % Baso % (Auto) % Neut # (Auto) (1.8-7.7) 10^3/u L Lymph # (Auto) (0.8-4.8) 10^3/u L [place] # (Auto) (0.2-0.9) 10^3/u L Eos # (Auto) (0.0-0.8) 10^3/u L Baso # (Auto) (0.0-0.1) 10^3/u L Nucleated RBC % (a uto) % Nucleated RBCs # /100WBC Sodium (136-145) mmol/L Potassium (3.5-5.1) mmol/L Chloride (98-107) mmol/L Carbon Dioxide (22-29) mmol/L Anion Gap (5-19) BUN (6-20) mg/dL Creatinine (0.5-0.9) mg/dL GFR Calculation (90-130) mL/min Glucose (65-115) mg/dL Calculated Osmolal ity (285-295) mOsm/k g Calcium (8.5-10.5) mg/dL Magnesium 1.9 (1.7-2.3) mg/dL Total Bilirubin (0.15-1.2) mg/dL AST (0-32) U/L ALT (0-33) U/L Alkaline Phosphata se (35-105) IU/L Troponin T Baselin e (0-10) ng/L Troponin T 120 Min [place] 23.04 H (0-10) ng/L Delta Troponin T -0.96 L (0-10) ABS# NT-Pro-B Natriuret Pep (0-125) pg/mL Total Protein (6.6-8.7) g/dL Albumin (3.5-5.2) g/dL Globulin (1.3-4.6) g/dL Lipase (13-60) U/L Urine Color Yellow (Yellow) Urine Appearance Clear (CLEAR) Urine pH 6.0 (5-7) Ur Specific Gravit y 1.015 (1.005-1.030) Urine Protein 3+ H (Negative) Urine Glucose (UA) 2+ (Normal) Urine Ketones Negative (Negative) Urine Blood Neg (Negative) Urine Nitrate Negative (Negative) Urine Bilirubin Neg (Negative) Urine Urobilinogen Norm (Negative) mg/dL Ur Leukocyte [place] ase Negative (Negative) Imaging Data ^: CT Abd/Pel: Radiologist's impression: [address] [address] [address] Scan Report Signed Patient: Ivon Larios Unit #: [id number] : 1975 Age/Sex: 44 / F ADM Date: 08/29/20 Loc: ER Room/Bed: Attending Dr: Ordering Provider/Ordering MD: Saniya Mendoza Date of Service: 08/29/20 Procedure(s): CT kidney stone [id number] Accession Number(s): [id number] Report Number: [id number] PROCEDURE INFORMATION: Exam: CT Abdomen And Pelvis Without Contrast Exam date and time: 08/29/2020 11:51 PM Age: 44 years old Clinical indication: Abdominal pain; Flank; Other: Bilateral; Prior surgery; Surgery type: Cholecystectomy, hysterectomy; Additional info: Flank pain TECHNIQUE: Imaging protocol: Computed tomography of the abdomen and pelvis without contrast. Radiation optimization: All CT scans at this facility use at least one of these dose optimization techniques: automated exposure control; mA and/or kV adjustment per patient size (includes targeted exams where dose is matched to clinical indication); or iterative reconstruction. COMPARISON: CT kidney stone [id number] 03/23/2020 7:12 PM RADIATION DOSE METRICS: Total DLP (mGy-cm): 1777.94 FINDINGS: Limitations: Examinations performed without intravenous contrast have limited ability to detect many conditions. Lungs: Visualized portions of the lung bases are clear. Liver: Unremarkable. Gallbladder and bile ducts: Status post cholecystectomy. Pancreas: Unremarkable. Spleen: Unremarkable. Adrenal glands: Unremarkable. Kidneys and ureters: There are a few cysts scattered in the right kidney (no follow-up imaging suggested). There are a few stones scattered in the right kidney, largest 0.6 cm in the lower pole. There are a few stones in the left kidney, largest 0.8 cm in the lower pole. No obstructing renal stones identified. No hydronephrosis on either side. Stomach and bowel: No bowel obstruction identified. No diverticulitis identified. Appendix: A normal-appearing appendix is seen in the right lower quadrant. Intraperitoneal space: No free intraperitoneal air identified. No free intraperitoneal fluid identified. Vasculature: No abdominal aortic aneurysm. Lymph nodes: Unremarkable. Urinary bladder: Unremarkable as visualized. Reproductive: The uterus is not seen and is presumed surgically absent. Bones/joints: Minimal degenerative changes of the lower thoracic spine. Soft tissues: Unremarkable. CT/CT kidney stone [id number] IMPRESSION: 1. No acute intra-abdominal/intrapelvic process identified. Nonemergent findings as above. COMMENTS: Consistent with the [employer]'s Incidental Findings Committee white paper (J Am Kacie Radiol 2018): Any incidental renal lesion less than 1 cm or classified as too small to characterize, or any incidental cystic renal lesion characterized as simple-appearing, is likely benign. No follow-up imaging is recommended for these lesions per consensus recommendations based on imaging criteria. Radiation Dose CTDIVOL = (mGy): DLP = 1777.94 (mGy-cm) Dictated By: Parminder Mora MD Signed By: Parminder Mora MD Signed Date/Time: 08/30/20111 DD/ 9 EKG Data ^: EKG 2: Attestation: I personally reviewed and interpreted this EKG as follows: EKG interpretation date: 08/30/20 EKG interpretation time: 01:45 Interpretation: Normal sinus rhythm at 86 beats a minute, left axis deviation, LVH, no blocks, normal intervals, nonspecific ST-T wave changes. Discharge Plan Discharge Patient Disposition: Placed in Observation Admit Provider: Emily Carey Clinical Impression: Hypertensive emergency Abdominal pain Qualifiers: Abdominal location: generalized Qualified Code(s): R10.84 - Generalized abdominal pain Sign Out Sign Out Data: Patient Sign Out occurred on 08/30/20 at 01:11. Patient's care was discussed, and care was transferred from to [facility]. Coding Level of Care Code ED Sales Program Manager for Chg Fwd Exam Comprehensive
[2020-08-29 23:50] VITALS: BP 230/137; PULSE 84; RESP 18; O2SAT 99
[2020-08-29 23:51] VITALS: RESP 18; O2SAT 99
[2020-08-29] MEDS: HYDROmorphone 1 mg/mL INJ 1 mL 0.5 MG IVP (23:51)
[2020-08-30] VITALS (15 sets, daily range): BP systolic 121–256; BP diastolic 73–158; PULSE 78–87; RESP 12–26; TEMP 35.9–36.9; O2SAT 94–98
[2020-08-30 00:04] LABS: Troponin(5th) Baseline 24 ng/L (0-10)
[2020-08-30 00:14] LABS: Alanine Aminotransferase 19 U/L (0-33); Albumin Level 3.9 g/dL (3.5-5.2); Alkaline Phosphatase 137 IU/L (35-105); Anion Gap 12.2 (5-19); Aspartate Amino Transferase 16 U/L (0-32); Blood Urea Nitrogen 12 mg/dL (6-20); Calcium 9.2 mg/dL (8.5-10.5); Carbon Dioxide 28 mmol/L (22-29); Chloride 103 mmol/L (98-107); Globulin 2.4 g/dL (1.3-4.6); Glomerular Filtration Rate 90.1 mL/min (90-130); Glucose 178 mg/dL (65-115); Lipase 117 U/L (13-60); NT Pro B Type Natriuretic Pept 1223 pg/mL (0-125); Osmolality Calculated 294 mOsm/kg (285-295); Potassium 3.2 mmol/L (3.5-5.1); Sodium 140 mmol/L (136-145); Total Bilirubin 0.4 mg/dL (0.15-1.2); Total Protein 6.3 g/dL (6.6-8.7)
[2020-08-30] MEDS: nitroglycerin drip 50 MG/250 ML PREMIX IV (00:43)
[2020-08-30 00:45] LABS: Magnesium 1.9 mg/dL (1.7-2.3)
--- NOTE | 2020-08-30 00:56 | PC.NURSE ---
Per ED physician titrate Nitro drip up to 20mcg and continue to increase by 5mcg every 5 minutes until systolic BP is under 200
[2020-08-30 01:22] LABS: Add Urine Microscopic? NO
--- NOTE | 2020-08-30 01:26 | ECG_ITS ---
[facility] Test Date: 2020-08-30 Pat Name: Ivon Larios Department: Room: Gender: Female Regulatory Leader: : 1975 Requested By: Saniya Branham Order Number: [id number] Salvador MD: Ragini Rizo M.D. Measurements Intervals [place] Rate: 86 P: 18 [place]: 191 QRS: -14 QRSD: 109 T: 0 QT: 398 QTc: 478 Interpretive Statements SINUS RHYTHM VOLTAGE CRITERIA FOR LVH [MEETS CRITERIA IN ONE OF: R(aVL), S(V1), R(V5), R(V5/V6)+S(V1)] ANTERIOR MYOCARDIAL INFARCTION , PROBABLY OLD [40+ ms Q WAVE AND/OR ST/T ABNORMALITY IN V3/V4] INFERIOR MYOCARDIAL INFARCTION , PROBABLY OLD [40+ ms Q WAVE AND/OR ST/T ABNORMALITY IN II/aVF] Compared to ECG 08/29/2020 23:45:46 No significant changes Electronically Signed On 08-30-2020 22:06:00 COMMUNICATIONS TECH by Ragini Rizo M.D. [id number]
[2020-08-30 01:30] LABS: Bilirubin Urine Neg (Negative); Blood Urine Neg (Negative); Glucose Urine UA 2+ (Normal); Ketones Urine Negative (Negative); Leukocyte Esterase Urine Negative (Negative); Nitrate Urine Negative (Negative); Protein Urine 3+ (Negative); Specific Gravity, Urine 1.015 (1.005-1.030); Urine Appearance Clear (CLEAR); Urine Color Yellow (Yellow); Urobilinogen Urine Norm (Negative)
[2020-08-30] MEDS: HYDROmorphone 1 mg/mL INJ 1 mL 0.5 MG IVP (01:57)
[2020-08-30] MEDS: potassium chloride ER 10 mEq Tablet 40 MEQ PO ×2 (01:57→06:15)
[2020-08-30 02:39] LABS: Troponin 5 2HR 23.04 ng/L (0-10)
[2020-08-30 02:42] LABS: Troponin 5 2HR Delta -0.96 ABS# (0-10)
[2020-08-30] MEDS: FUROsemide 10 mg/mL SDV 4mL 40 MG IVP (03:01)
--- NOTE | 2020-08-30 03:29 | P.HP_ITS ---
Providers/Chief Complaint Primary Care Provider: Shefali Russo DO Chief Complaint: ABD PAIN History of Present Illness Ivon Larios is a 44 year old female who has history of multiple strokes status post brain biopsy at [facility] follows up with Dr. Lindsey, negative MARIANELA no signs of cerebral vasculitis, she had extensive work-up at [place], as per Dr. Lindsey's documentation she had extensive work-up for right-sided hemiparesis, facial droop and slurred speech that was due to acute pontine stroke diagnosed on MRI. Differential included vasculitis but rheumatological work-up was not suggestive of it. She has stayed hypertensive with blood pressure ranging between 1 50-1 90 has had multiple lacunar infarcts. She was started on 60 mg of prednisone for concern of giant cell arteritis, as per the family her vision has been changing since then. She was diagnosed with diabetic retinopathy, recently had surgery of right retinal detachment. Now she is getting Botox injection for her severe headaches. Of note, her antihypertensive regimen was decreased secondary to labile blood pressure, she was hypoglycemic as well required D10 and D50 regimen as well, suicide attempt in the past. Patient came from retirement for chief complaint of abdominal pain. Patient is describing her abdominal discomfort as abdominal cramps, which she specifically feels before passing urine, she is describing it as a bubble which does not pass at all. She is also experiencing some cramps and heaviness in the right lower quadrant area. She is denying urinary frequency, dysuria, fever, vomiting, nausea, chest pain, shortness of breath. She is very upset about the environment at retirement and was tearful during my exam interview. She is also complaining about her disturbed sleep cycle. Diagnosis in the ER revealed hypertensive emergency, systolic blood pressure 256, diastolic 144, chest x-ray unremarkable, BNP high, no clinical sign of fluid overload She was started on nitro drip which brought down her blood pressure at 140s/100 at the time of my evaluation, no signs of UTI on UA, abdominal pelvis CT scan unremarkable, Review of Systems Const: Reports: body aches and fatigue; Denies: fever(s) or chills Eyes: Reports: change in vision and blurry vision ENMT: Reports: throat pain Card: Denies: chest pain Resp: Denies: dyspnea GI: Reports: abdominal pain; Denies: nausea or vomiting : Denies: flank pain, urinary frequency or dribbling Musc: Denies: neck pain Skin/Breast: Denies: rash Neuro: Reports: weakness in extremities, difficulty walking and confusion; Denies: headache(s) Psych: Reports: anxiety and depression Endo: Denies: polyuria Donato/Lymph: Denies: easy bruising All/Imm: Denies: urticaria Medications/Allergies Home Medications Medication Instructions Recorded Confirmed Last Taken Type diphenhydramine HCl 25 mg PO Q4H PRN #4 cap 03/17/20 06/07/20 Unknown Rx amitriptyline 25 mg tablet 25 mg PO DAILY #30 tab 04/06/20 06/07/20 06/06/20 Rx aspirin 81 mg tablet,delayed 81 mg PO DAILY #30 tab 04/06/20 06/07/20 06/07/20 Rx release atorvastatin 40 mg tablet 40 mg PO DAILY #30 tab 04/06/20 06/07/20 06/06/20 Rx fluoxetine 20 mg capsule 20 mg PO DAILY #30 cap 04/06/20 06/07/20 06/06/20 Rx levetiracetam 1,000 mg tablet 1,000 mg PO BID #60 tab 04/06/20 06/07/20 06/06/20 Rx pantoprazole 40 mg tablet,delayed 40 mg PO DAILY #60 tab 04/06/20 06/07/20 06/06/20 Rx release clopidogrel 75 mg tablet 75 mg PO DAILY #30 tab 05/14/20 06/07/20 06/06/20 Rx meclizine 25 mg tablet 25 mg PO TID PRN #30 tab 05/15/20 06/07/20 Unknown Rx insulin aspart U-100 100 unit/mL See Rx Instructions .ROUTE 06/04/20 06/07/20 06/07/20 Rx subcutaneous solution .COMPLEX #10 ml liraglutide 0.6 mg/0.1 mL (18 mg/3 1.2 mg SUBCUT Q24H #9 ml 06/04/20 06/07/20 06/07/20 Rx mL) subcutaneous pen injector ropinirole 0.5 mg tablet 0.5 mg PO DAILY #30 tab 06/04/20 06/07/20 06/06/20 Rx Lantus Solostar U-100 Insulin 10 unit SUBCUT BEDTIME 06/07/20 06/07/20 06/06/20 History hydralazine 25 mg PO Q8H #0 tab 06/16/20 Unknown Rx hydralazine 25 mg PO TID 30 Days #90 tab 06/16/20 06/07/20 06/06/20 Rx Allergies Allergy/AdvReac Type Severity Reaction Status Date / Time amlodipine Allergy ADR-Swelling Verified 05/15/20 11:04 of the Eye codeine Allergy ADR-Shakine Verified 05/15/20 11:04 ss hydroxyzine [From Vistaril] Allergy ADR-Confusi Verified 05/15/20 11:04 on meperidine [From Demerol] Allergy ADR-Chest Verified 05/15/20 11:04 Pain metformin [From Glucophage] Allergy ALGY-Hives Verified 05/15/20 11:04 morphine Allergy ALGY-Anaphy Verified 05/15/20 11:04 laxis phenazopyridine Allergy ALGY-Hives Verified 05/15/20 11:04 [From Pyridium] sumatriptan [From Imitrex] AdvReac Mild Unknown Verified 05/15/20 11:04 PFSH Acute PFSH: Medical History (Updated 08/30/20 @ 05:02 by Emily Carey MD) Adjustment disorder with mixed disturbance of emotions and conduct BPV (benign positional vertigo) Chronic back pain Chronic migraine without aura, intractable, with status migrainosus Depression Diabetic retinopathy Dyslipidemia Essential hypertension High risk medication use Insomnia Muscle spasm PTSD (post-traumatic stress disorder) Rotator cuff injury Seasonal allergies Stroke Suicide attempt by multiple drug overdose TIA (transient ischemic attack) Type 2 diabetes mellitus, with long-term current use of insulin Vasculitis Surgical History H/O brain surgery H/O tubal ligation H/O: hysterectomy History of cholecystectomy History of tonsillectomy Family History Other CAD (coronary artery disease) Cancer Diabetes Hypertension Denies family history of Stroke Social History Smoking and tobacco status: smoker, details unknown smokeless tobacco Smokeless tobacco user: chewing tobacco Alcohol intake: never Household members: family Housing: House History of recent travel: Yes (travels from [facility]) Vitals/I&O/Wt Last Vital Signs Temp 98.3 F 08/29/20 23:23 Pulse 86 08/30/20 02:44 Resp 13 08/30/20 02:44 BP 155/95 08/30/20 02:44 Pulse Ox 97 08/30/20 02:44 08/29/20 08/29/20 08/30/20 14:59 22:59 06:59 Intake Total 4.225 / 4.225 Balance 4.225 / 4.225 Weight last 48 hrs Weight 103.419 kg Physical Exam Narrative: EXAM NARRATIVE: Middle-age female Sitting in semifowler position Very tearful during my interview 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, patient is endorsing that she can only seen black and white from left eye Right-sided hemiparesis residual weakness from stroke She is using prosthesis for ambulation at the retirement Trace edema of lower extremities No acute respiratory distress No acute chest pain Abdomen soft, distended, hepatomegaly, nontender no signs of peritonitis Very irritable and seems anxious No new focal deficit Skin does not show ischemia gangrene or ulcer Looks well-nourished Data : 08/29/20 23:37 08/29/20 23:37 Other data: She had an extensive work-up at [facility] in [place] where she was hospitalized with right hemiplegia 08/19/2017 through 08/26/2017. She also had a work-up there 10/15/2017 and I will summarize her negative findings: Sed rate 22 Negative lupus anticoagulant Protein C&S antigens and genes negative Spinal fluid acellular with normal IgG index and no oligoclonal bands. CSF protein 80 Lyme PCR negative HSV-1 and HSV-2 negative Proteinase 3 antibody negative MPO antibody negative Anti-cardial Sunburst IgG, IgM etc. negative P ANCA and C ANCA and atypical P ANCA negative A&P Assessment and plan (1) Hypertensive emergency: Status: Acute (2) Abdominal pain: Status: Acute Qualifiers: Abdominal location: generalized Qualified Code(s): R10.84 - Generalized abdominal pain Additional A&P Information Hypertensive emergency Initial blood pressure 256/144,,,, 264/158, nitro drip was started which brought her blood pressure down to 167/99mmhg,,, at the time my evaluation blood pressure 133/80, I have titrated down nitro drip to 5 mics per minute from 15 mics per minute No acute neurological changes with sudden drop in blood pressure Patient has had similar admission in the past for labile blood pressure Most likely nitro drip will be turned off in next 1 to 2 hours and then will swi tch her to p.o. regimen Ideally mean arterial pressure reduction 25% Abdominal pain/cramps CT abdomen unremarkable, patient is describing abdominal cramps which she specifically feels before voiding, she feels like air bubble coming out At this point I am not sure whether this is related to diabetic neuropathy, multiple strokes in the past versus interstitial cystitis I would not initiate any antibiotics or antimuscarinic agents Hypokalemia: Repleted No vomiting or diarrhea, No active suicidal ideation however patient seems to be struggling with adjustment disorder and is complaining about the environment at the nursing Full code Cardiac diet DVT prophylaxis Lovenox Attestations Medical Necessity Statement*: Patient might need more than 2 midnights in the hospital for adjustment of antihypertensive agents currently on nitro drip for hypertensive emergency initial blood pressure was 256/144mmhg Time Spent in Patient Care: (>than 50% of time spent in counselling and/or direct pt care on unit) . 50mins Coding Level of Care Code Acute [employer] Former for Ashley Hess Diagnoses Hypertensive emergency I16.1 Abdominal pain R10.84 Abdominal location: generalized
--- NOTE | 2020-08-30 05:52 | PC.NURSE ---
Per ED physician discontinue premix K-rider. Pt ordered 40meq Potassium Chloride tablets.
[2020-08-30] MEDS: enoxaparin 40 mg/0.4 mL Syringe SUBCUT (06:16)
[2020-08-30 06:20] LABS: Troponin 5 6HR 30.68 ng/L (0-10); Troponin 5 6HR Delta 6.68 ng/L (0-12)
--- NOTE | 2020-08-30 06:28 | PC.NURSE ---
Called Dr. Carey orders to stop nitro gtt and montior patients blood pressure. Can give hydrazine early if needed.read back verbal order.
--- NOTE | 2020-08-30 06:29 | PC.NURSE ---
Patient arrived from ER via stretcher. Patient is alert and oriented. Oriented to room and placed on telemetry. call light within reach.
[2020-08-30 06:42] LABS: Glucose Point of Care 189 mg/dL (70-110)
[2020-08-30] MEDS: aspirin 81 mg EC Tablet PO (08:29)
[2020-08-30] MEDS: hyDRALAzine 10 mg Tablet 25 MG PO ×3 (08:29→21:47)
[2020-08-30] MEDS: levETIRAcetam 500 mg Tablet 1000 MG PO ×2 (08:29→18:42)
[2020-08-30] MEDS: ropinirole 0.25 mg Tablet 0.5 MG PO (08:29)
[2020-08-30] MEDS: clopidogrel 75 mg Tablet PO (08:30)
[2020-08-30] MEDS: metoprolol tartrate 25 mg Tablet PO ×2 (08:30→18:30)
[2020-08-30] MEDS: pantoprazole DR 40 mg Tablet PO (08:30)
[2020-08-30] MEDS: FUROsemide 20 mg Tablet PO (08:30)
[2020-08-30] MEDS: atorvastatin 40 mg Tablet PO (08:30)
--- NOTE | 2020-08-30 09:35 | PC.NURSE ---
Patient states she takes amitriptyline at bedtime and not in the morning. She also stated that the correction list of her daily meds is incorrect and that we need to talk to Dr. Russo for yhr right list. Compliance Review Specialist. present in room and will follow up on home med reconciliation.
--- NOTE | 2020-08-30 10:09 | PC.CHAP ---
Pastoral Care Encounter/Spiritual Assessment Type of Contact [] Declined hand tennis ball coverer visit [] Patient/Family/Request visit [] Outpatient visit [] Follow-up visit [] Physician referral [] Code/Alert [] Routine visit [] Staff referral [] Actively dying [] Patient sleeping [] Family support [] [] Out of room [] Palliative care [] [] Receiving care in room [] Pre-surgical visit [] Trauma [] Long length of stay [] ICU visit [x] Other: Relational/Emotional Strength [] Patient feels connected with others/family/visitors/staff [] Distress [] Loneliness/isolation [] Abandonment Spirituality of Patient [] Person of Milena [] Attends Anglican of their Milena [] Believes in Prayer [] Reads Bible or Amish materials [] There are Spiritual issues to be addressed Staff Assistant Interventions [] Prayer [] Active listening [] Non-anxious presence [] Spiritual/emotional support [] Crisis/trauma care [] Spiritual counseling [] Bereavement support [] Provided bereavement packet [] Provided Bible/devotional materials [] Provided toy/stuffed animal, coloring book to patient or family member [] Provided Communion [] Anointing/[place] [] Salvation [] Completed spiritual assessment [] Other: Impact on Illness or Injury [] Angry [] Fearful [] Anxious [] Often cries [] Exhaustion [] Unable to work [] Unable to attend anabaptism [] Unable to walk/stand [] Unable to read [] Unable to drive [] Unable to eat/drink [] Unable to sleep [] Unable to be with family [x] Patient intubated [] Other: Summary Time spent with patient 5 mins
[2020-08-30 11:26] LABS: Glucose Point of Care 166 mg/dL (70-110)
[2020-08-30] MEDS: potassium chloride ER 20 mEq Tablet 40 MEQ PO (12:33)
--- NOTE | 2020-08-30 12:52 | PM.PN ---
Subjective Subjective: Interval history: Patient is quite lethargic this afternoon but answers questions appropriately. Reports lower abdominal discomfort and some pain at the end of urination for the last several days. Denies shortness of breath or chest pain. Vitals are stable. Vitals/I&O/Wt Last Vital Signs Temp 96.7 F L 08/30/20 11:12 Pulse 78 08/30/20 11:12 Resp 13 08/30/20 11:12 BP 121/81 08/30/20 11:12 Pulse Ox 94 08/30/20 11:12 08/29/20 08/30/20 08/30/20 22:59 06:59 14:59 Intake Total 74.225 / 74.225 360 / 360 Balance 74.225 / 74.225 360 / 360 Weight last 48 hrs Weight 103.419 kg Physical Exam Const: COMMON NORMALS: no acute distress and patient oriented x3 Resp: COMMON NORMALS: normal respiratory effort and clear to auscultation bilaterally AUSCULTATION: clear to auscultation bilaterally Cardio: COMMON NORMALS: regular rate, regular rhythm and S2 normal heart sound present RATE: regular rate RHYTHM: regular rhythm HEART SOUNDS: S2 normal heart sound present OTHER: No lower extremity edema GI: COMMON NORMALS: Normal to inspection, nondistended, normoactive bowel sounds present and Soft to palpation PALPATION: Yes Soft to palpation OTHER: Tender need lower abdomen mostly and less on the sides. Neuro: COMMON NORMALS: patient oriented x3 Data : 08/29/20 23:37 08/29/20 23:37 A&P Assessment and plan (1) Hypertensive emergency: Status: Acute (2) Abdominal pain: Status: Acute Qualifiers: Abdominal location: generalized Qualified Code(s): R10.84 - Generalized abdominal pain Additional A&P Information Hypertensive emergency Initial blood pressure 256/144,,,, 264/158, nitro drip was started which brought her blood pressure down to 167/99mmhg,,, at the time my evaluation blood pressure 133/80, I have titrated down nitro drip to 5 mics per minute from 15 mics per minute No acute neurological changes with sudden drop in blood pressure Patient has had similar admission in the past for labile blood pressure Most likely nitro drip will be turned off in next 1 to 2 hours and then will switch her to p.o. regimen Ideally mean arterial pressure reduction 25% Abdominal pain/cramps CT abdomen unremarkable, patient is describing abdominal cramps which she specifically feels before voiding, she feels like air bubble coming out At this point I am not sure whether this is related to diabetic neuropathy, multiple strokes in the past versus interstitial cystitis I would not initiate any antibiotics or antimuscarinic agents Hypokalemia: Repleted No vomiting or diarrhea, No active suicidal ideation however patient seems to be struggling with adjustment disorder and is complaining about the environment at the nursing Full code Cardiac diet DVT prophylaxis Lovenox PLAN: Continue current monitoring and treatment. Avoid opioid medications as they likely play a role in patient's lethargy. Consider outpatient follow-up with Dr. Sanchez. Check iron stores because of microcytosis. Check B12 and folate. Will check lactic acid although ischemic bowel felt highly unlikely. Attestations Medical Necessity Statement*: Patient with hypertensive emergency and abdominal pain requires inpatient monitoring, treatment and evaluation. 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
--- NOTE | 2020-08-30 14:40 | PC.NURSE ---
Patient has been offered several opportunities to use a bedside commode. Patient states she does need to urinate. Patient states she usually sleeps in the day time and is up at night. She allowed a bedside scan of her bladder which revealed 640 ml of fluid in the bladder. Again, patient stated she does not want to get up to the commode right now. She wants only to sleep.
--- NOTE | 2020-08-30 15:47 | PC.RESP ---
Nicotine Cessation information sent to patient.
[2020-08-30 16:15] LABS: Glucose Point of Care 200 mg/dL (70-110)
[2020-08-30 16:41] LABS: Lactate (Lactic Acid level) 0.8 mmol/L (0.5-2.2)
[2020-08-30 16:43] LABS: Ferritin 147 ng/mL (15-150); Iron 34 ug/dL (37-145); Percent Saturation 12.8 % (20-50); Total Iron Binding Capacity 265 mcg/dl; Unsaturated Iron Binding 231 ug/dL (112-347)
[2020-08-30 17:00] LABS: Vitamin B12 458 pg/mL (232-1245)
--- NOTE | 2020-08-30 17:37 | PC.NURSE ---
pt dennisent went to bathroom after hernandez was tooken out woke pt up to check and make sure she wasnt wet pt stated she was not wet and that she knows when she has to go hrs went buy still has not went woke pt up to bladder scan her and she stated she knws that her bladder is filling up but she is not ready to get up that she sleeps during the day and up at night she will wake up herself and let us know if she has to go.
[2020-08-30 19:02] LABS: Folate Level 8.4 ng/mL (4.8-37.3)
[2020-08-30 21:08] LABS: Glucose Point of Care 266 mg/dL (70-110)
[2020-08-30] MEDS: amitriptyline 25 mg Tablet PO (21:48)
[2020-08-30] MEDS: insulin glargine 100 units/1 mL 10 UNIT SUBCUT (21:48)
--- NOTE | 2020-08-30 22:28 | PC.NURSE ---
PT IS RESTING IN BED. PT SEEMED SHORT WITH THIS NURSE WHEN DOING ASSESSMENT AND GIVING MEDS. PT DOES NOT WANT TO BE WOKE UP THROUGHOUT THE NIGHT. STUDENT NURSE WAS INFORMED. PT DENIES PAIN AT THIS TIME.
--- NOTE | 2020-08-30 23:42 | USCV_ITS ---
Ivon Larios Age: 44 Gender: F : 1975 Exam Date: 08/30/2020 07:15 Ordering Phys: Saniya Mendoza Technologist: Derick Faulkner Exam Location: [facility] – [place] Indication: RT LEG SWELLING HISTORY: Lower extremity swelling. PROCEDURES: Venous duplex imaging was performed in only the right lower extremity. The following venous structures were evaluated: common femoral vein, profunda vein, proximal portion of the greater saphenous vein, superficial femoral vein, and the popliteal vein. In addition, the posterior tibial and peroneal trunk were evaluated. FINDINGS: Normal 2-D Doppler and augmentation and compressibility throughout the lower extremity venous structures. Additional imaging through the proximal calf veins also reveals no thrombus. Limited evaluation of the greater saphenous vein is patent with no thrombus. CONCLUSIONS No DVT right lower extremity. Dr. Suzan Smith DO (Electronically Signed) Final Date: 30 August 2020 08:31 S
[2020-08-31 03:52] VITALS: BP 156/94; PULSE 80; RESP 18; TEMP 37.1; O2SAT 98
[2020-08-31 04:59] LABS: Basophils # 0.1 10^3/uL (0.0-0.1); Basophils % 0.5 %; Eosinophils # 0.2 10^3/uL (0.0-0.8); Eosinophils % 2.5 %; Hematocrit 34.2 % (37.0-47.0); Hemoglobin 10.5 g/dL (11.5-15.3); Lymphocytes # 4.1 10^3/uL (0.8-4.8); Lymphocytes % 44.4 %; Mean Corpuscular HGB Conc 30.7 g/dL (30.0-36.0); Mean Corpuscular Hemoglobin 25.1 pg (28.0-34.0); Mean Corpuscular Volume 81.8 fL (81-99); Mean Platelet Volume 12.3 fL (7.4-10.4); Monocytes # 0.7 10^3/uL (0.2-0.9); Monocytes % 7.2 %; Neutrophils # 4.19 10^3/uL (1.8-7.7); Neutrophils % 45.1 %; Nucleated Red Blood Cells % 0 %; Platelet Count 385 10^3/cmm (130-400); Red Blood Count 4.18 10^6/uL (4.1-5.3); White Blood Count 9.3 10^3/uL (4.0-10.0)
[2020-08-31] MEDS: enoxaparin 40 mg/0.4 mL Syringe SUBCUT (05:44)
[2020-08-31 05:51] LABS: Alanine Aminotransferase 16 U/L (0-33); Albumin Level 3.2 g/dL (3.5-5.2); Alkaline Phosphatase 111 IU/L (35-105); Anion Gap 11.1 (5-19); Aspartate Amino Transferase 14 U/L (0-32); Blood Urea Nitrogen 18 mg/dL (6-20); Calcium 8.8 mg/dL (8.5-10.5); Carbon Dioxide 27 mmol/L (22-29); Chloride 106 mmol/L (98-107); Globulin 2.5 g/dL (1.3-4.6); Glomerular Filtration Rate 53.5 mL/min (90-130); Glucose 149 mg/dL (65-115); Magnesium 1.8 mg/dL (1.7-2.3); Osmolality Calculated 295 mOsm/kg (285-295); Potassium 4.1 mmol/L (3.5-5.1); Sodium 140 mmol/L (136-145); Total Bilirubin 0.3 mg/dL (0.15-1.2); Total Protein 5.7 g/dL (6.6-8.7)
--- NOTE | 2020-08-31 06:53 | PC.NURSE ---
PT HASN'T URINATED ALL NIGHT. THIS NURSE AND PIG FURNACE OPERATOR HAVE TRIED TO ENCOURAGE VOIDING. PT REFUSES AND STATES THAT THEY ARE TIRED AND JUST WANT TO SLEEP AND WILL DO IT WHEN THEY GET UP. DR HSIEH NOTIFIED AND WANTED A FEMALE NURSE TO ENCOURAGE PT.
[2020-08-31 07:01] LABS: Glucose Point of Care 178 mg/dL (70-110)
[2020-08-31 08:00] VITALS: BP 131/77; PULSE 80; RESP 18; TEMP 36.6; O2SAT 99
[2020-08-31] MEDS: ropinirole 0.25 mg Tablet 0.5 MG PO (09:22)
[2020-08-31] MEDS: clopidogrel 75 mg Tablet PO (09:23)
[2020-08-31] MEDS: metoprolol tartrate 25 mg Tablet PO (09:23)
[2020-08-31] MEDS: fluoxetine 20 mg Capsule 40 MG PO (09:23)
[2020-08-31] MEDS: levETIRAcetam 500 mg Tablet 1000 MG PO (09:23)
[2020-08-31] MEDS: pantoprazole DR 40 mg Tablet PO (09:23)
[2020-08-31] MEDS: aspirin 81 mg EC Tablet PO (09:23)
[2020-08-31] MEDS: FUROsemide 20 mg Tablet PO (09:24)
[2020-08-31] MEDS: atorvastatin 40 mg Tablet PO (09:24)
[2020-08-31] MEDS: hyDRALAzine 25 mg Tablet PO ×2 (09:39→14:28)
--- NOTE | 2020-08-31 10:12 | P.DS_ITS ---
Discharge Providers Date of Admission: 08/30/20 03:37 Date of Discharge: August 31, 2020 Attending Provider at Admission: Emily Carey MD Attending Provider at Discharge: Jordan Castillo MD Primary Care Provider: Shefali Russo DO Diagnoses at Discharge Discharge Diagnosis (1) Hypertensive emergency: Status: Acute (2) Abdominal pain: Status: Acute Qualifiers: Abdominal location: generalized Qualified Code(s): R10.84 - Generalized abdominal pain (3) Urinary retention: Status: Acute Permanent problem details: Medication Induced Reason for Visit Reason for Visit: ABD PAIN Hospital Course Hospital Course Patient with previous history of multiple strokes presents with low abdominal pain and hypertensive emergency. Patient was admitted and treated with nicardipine drip and found to have urinary retention as cause of abdominal pain. Patient's bladder scan showed 600 mL of urine but she refused catheterization. Patient eventually was able to urinate 1000 mL and her abdominal pain improved. Patient appears to have labile blood pressure and therefore I will discontinue clonidine and add Flomax. Patient's hydralazine will be switched for now to as needed and should patient's blood pressure persistently be high addition of amlodipine and/or lisinopril can be considered. Patient has multiple medications causing urinary retention. She reports that she previously was seeing Dr. Sanchez for kidney stones. She currently does not appear to have evidence of kidney stones but I will go ahead and request outpatient follow-up with Dr. Sanchez. Patient today reports feeling much better and wants to go back to her facility she came from. Attempt should be made to decrease amount of opioids and Benadryl patient takes. All anticholinergic medications including amitriptyline should be minimized. Switching amitriptyline to nortriptyline low-dose can be considered. Patient was able to get up and walk to the bathroom. She appears to have low initiative and prefers to lay mostly in bed. Physical Exam Const: COMMON NORMALS: no acute distress and patient oriented x3 Resp: COMMON NORMALS: normal respiratory effort and clear to auscultation bilaterally AUSCULTATION: clear to auscultation bilaterally Cardio: COMMON NORMALS: regular rate, regular rhythm and S2 normal heart sound present RATE: regular rate RHYTHM: regular rhythm HEART SOUNDS: S2 normal heart sound present OTHER: No lower extremity edema GI: COMMON NORMALS: Normal to inspection, nondistended, normoactive bowel sounds present, Soft to palpation and non-tender PALPATION: Yes Soft to palpation Neuro: COMMON NORMALS: patient oriented x3 and no focal motor deficits Discharge Data Data Completed and Pending: Completed Studies During Hospitalization Category Date Time Status CT kidney stone 7 [id number] Urgent Cat Scan 08/29/20 23:50 Completed XR chest 1V mikie ble [id number] Stat Exams 08/29/20 23:25 [place] [id number] Urgent Ultrasound 08/30/20 23:42 Completed Pending at discharge Category Date Time Status Complete Blood Co unt w/Auto AM LABS Lab 09/01/20 04:00 Ordered Complete Blood Co unt w/Auto AM LABS Lab 09/02/20 04:00 Ordered Comprehensive Met abolic Panel AM LA BS Lab 09/01/20 04:00 Ordered Comprehensive Met abolic Panel AM LA BS Lab 09/02/20 04:00 Ordered Magnesium AM LABS Lab 09/01/20 04:00 Ordered Magnesium AM LABS Lab 09/02/20 04:00 Ordered Labs from last 24 hours 08/31/20 08/31/20 08/31/20 06:56 04:01 04:01 WBC 9.3 RBC 4.18 Hgb 10.5 L Hct 34.2 L MCV 81.8 MCH 25.1 L MCHC 30.7 RDW 13.0 Plt Count 385 MPV 12.3 H Neut % (Auto) 45.1 Lymph % (Auto) 44.4 [place] % (Auto) 7.2 Eos % (Auto) 2.5 Baso % (Auto) 0.5 Neut # (Auto) 4.19 Lymph # (Auto) 4.1 [place] # (Auto) 0.7 Eos # (Auto) 0.2 Baso # (Auto) 0.1 Nucleated RBC % (a uto) 0 Nucleated RBCs # 0.0 Sodium 140 Potassium 4.1 Chloride 106 Carbon Dioxide 27 Anion Gap 11.1 BUN 18 Creatinine 1.1 H GFR Calculation 53.5 L Glucose 149 H POC Glucose 178 Calculated Osmolal ity 295 Lactate Calcium 8.8 Magnesium 1.8 Iron TIBC % Saturation Unsat Iron Binding Ferritin Total Bilirubin 0.3 AST 14 ALT 16 Alkaline Phosphata se 111 H Total Protein 5.7 L Albumin 3.2 L Globulin 2.5 Vitamin B12 Folate 08/30/20 08/30/20 08/30/20 21:05 16:05 16:05 WBC RBC Hgb Hct MCV MCH MCHC RDW Plt Count MPV Neut % (Auto) Lymph % (Auto) [place] % (Auto) Eos % (Auto) Baso % (Auto) Neut # (Auto) Lymph # (Auto) [place] # (Auto) Eos # (Auto) Baso # (Auto) Nucleated RBC % (a uto) Nucleated RBCs # Sodium Potassium Chloride Carbon Dioxide Anion Gap BUN Creatinine GFR Calculation Glucose POC Glucose 266 200 Calculated Osmolal ity Lactate Calcium Magnesium Iron TIBC % Saturation Unsat Iron Binding Ferritin Total Bilirubin AST ALT Alkaline Phosphata se Total Protein Albumin Globulin Vitamin B12 Folate 8.4 08/30/20 08/30/20 08/30/20 16:05 16:05 11:15 WBC RBC Hgb Hct MCV MCH MCHC RDW Plt Count MPV Neut % (Auto) Lymph % (Auto) [place] % (Auto) Eos % (Auto) Baso % (Auto) Neut # (Auto) Lymph # (Auto) [place] # (Auto) Eos # (Auto) Baso # (Auto) Nucleated RBC % (a uto) Nucleated RBCs # Sodium Potassium Chloride Carbon Dioxide Anion Gap BUN Creatinine GFR Calculation Glucose POC Glucose 166 Calculated Osmolal ity Lactate 0.8 Calcium Magnesium Iron 34 L TIBC 265 % Saturation 12.8 L Unsat Iron Binding 231 Ferritin 147 Total Bilirubin AST ALT Alkaline Phosphata se Total Protein Albumin Globulin Vitamin B12 458 Folate Vitals: Last Vital Signs Temp 97.9 F 08/31/20 08:00 Pulse 80 08/31/20 08:00 Resp 18 08/31/20 08:00 BP 131/77 08/31/20 08:00 Pulse Ox 99 08/31/20 08:00 Discharge Plan Discharge Patient Disposition: Xfer SNF Condition: Stable Prescriptions: New tamsulosin [Flomax] 0.4 mg capsule 0.4 mg PO DAILY Qty: 30 RF: 0 Continued atorvastatin 40 mg Tablet 40 mg PO DAILY RF: 0 Tylenol 325 mg Tablet 650 mg PO Q4H PRN (Reason: pain/fever) RF: 0 tizanidine 2 mg Tablet 2 mg PO TID PRN (Reason: Muscle Spasm) RF: 0 Zofran 4 mg Tablet 4 mg PO Q6H PRN (Reason: Nausea And Vomiting) RF: 0 Effexor XR 150 mg Capsule,Extended Release 24hr 150 mg PO DAILY RF: 0 Plavix 75 mg Tablet 75 mg PO DAILY RF: 0 Aspir-81 81 mg Tablet,Delayed Release (Dr/Ec) 81 mg PO DAILY RF: 0 Dilaudid 2 mg Tablet 2 mg PO Q6H PRN (Reason: Pain) RF: 0 amitriptyline 25 mg Tablet 25 mg PO BEDTIME RF: 0 meclizine 25 mg Tablet 25 mg PO TID PRN (Reason: Dizziness) RF: 0 Novolog U-100 Insulin aspart 100 unit/mL Solution See Rx Instructions .ROUTE .COMPLEX RF: 0 Dulcolax (bisacodyl) 10 mg Suppository See Rx Instructions .ROUTE .COMPLEX RF: 0 pantoprazole 40 mg Tablet,Delayed Release (Dr/Ec) 40 mg PO DAILY RF: 0 ropinirole 0.5 mg Tablet 0.5 mg PO DAILY RF: 0 diphenhydramine HCl 25 mg Tablet 25 mg PO Q4H PRN (Reason: Itching) RF: 0 brimonidine 0.2 % Drops 1 drp ophthalmic (eye) BID RF: 0 magnesium citrate Solution See Rx Instructions .ROUTE .COMPLEX RF: 0 Dulcolax (bisacodyl) 5 mg Tablet,Delayed Release (Dr/Ec) 20 mg PO PRN RF: 0 metoprolol tartrate 25 mg Tablet 25 mg PO Q12H RF: 0 Levemir U-100 Insulin 100 unit/mL Solution 12 unit SUBCUT QAM RF: 0 Keppra 1,000 mg Tablet 1,000 mg PO BID RF: 0 Victoza 3-Ramin 0.6 mg/0.1 mL (18 mg/3 mL) Pen Injector 1.2 mg SUBCUT Q24H RF: 0 Dorzolamide Hcl/Timolol Maleat 1 drp ophthalmic (eye) BID RF: 0 Milk of Magnesia 30 ml PO Q3D PRN (Reason: Constipation) RF: 0 Mylanta 30 ml PO Q2H PRN (Reason: Indigestion) RF: 0 Changed hydralazine 25 mg Tablet 50 mg PO Q8H PRN (Reason: BP>160/100) Qty: 0 RF: 0 Discontinued clonidine HCl 0.1 mg Tablet See Rx Instructions .ROUTE .COMPLEX RF: 0 Discharge Orders: Discharge Order (Routine); Ordered 08/31/20 Ordered By: Jordan Castillo Referrals: Konstantin Sanchez MD [Physician] - 1 week Shefali Russo DO [Primary Care Provider] - 4-7 days Discharge Diet: Advance as tolerated Discharge Activity: Increase activity as tolerated Activity Restrictions/Additional Instructions: Please call your doctor or present to emergency department if your condition worsens or you develop diarrhea, lightheadedness, fatigue or see blood in your stool or black stool. Please note that you have multiple medications that can predispose you to urinary retention. Please decrease amount of opioid medications as well as Benadryl you are taking as much as possible. Please keep blood pressure and heart rate log 3 times daily to present to primary care physician next visit for medication adjustment. Please note that your clonidine is discontinued and instead Flomax was started with hydralazine switch to as needed. Should your blood pressure persistently be high addition of amlodipine could be considered. Anticholinergic medications like amitriptyline also could play a role in urinary retention. 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
[2020-08-31 10:56] LABS: Glucose Point of Care 258 mg/dL (70-110)
--- NOTE | 2020-08-31 10:56 | PC.CHAP ---
Pastoral Care Encounter/Spiritual Assessment Type of Contact [] Declined machine setter automatic visit [] Patient/Family/Request visit [] Outpatient visit [] Follow-up visit [] Physician referral [] Code/Alert [xx] Routine visit [] Staff referral [] Actively dying [] Patient sleeping [] Family support [] [] Out of room [] Palliative care [] [] Receiving care in room [] Pre-surgical visit [] Trauma [] Long length of stay [] ICU visit [] Other: Relational/Emotional Strength [xx] Patient feels connected with others/family/visitors/staff [] Distress [] Loneliness/isolation [] Abandonment Spirituality of Patient [xx] Person of Milena [] Attends [employer] of their Milena [xx] Believes in Prayer [] Reads Bible or Orthodox materials [] There are Spiritual issues to be addressed Fashion Journalist Interventions [xx] Prayer [xx] Active listening [xx] Non-anxious presence [] Spiritual/emotional support [] Crisis/trauma care [] Spiritual counseling [] Bereavement support [] Provided bereavement packet [] Provided Bible/devotional materials [] Provided toy/stuffed animal, coloring book to patient or family member [] Provided Communion [] Anointing/[place] [] Salvation [xx] Completed spiritual assessment [] Other: Impact on Illness or Injury [] Angry [] Fearful [] Anxious [] Often cries [] Exhaustion [] Unable to work [] Unable to attend buddhist [] Unable to walk/stand [] Unable to read [] Unable to drive [] Unable to eat/drink [] Unable to sleep [] Unable to be with family [] Patient intubated [] Other: Summary Pt is visually impaired. She lives in long term and feels she has mission to help the elderly residents and be an advocate for change in their living conditions. She is being discharged today. Time spent with patient 7 minutes
[2020-08-31 11:31] VITALS: BP 189/102; PULSE 78; RESP 19; TEMP 36.4; O2SAT 97
[2020-08-31] MEDS: tamsulosin 0.4 mg Capsule PO (12:36)
[2020-08-31 13:15] VITALS: BP 189/102; PULSE 78; RESP 19; TEMP 36.4; O2SAT 97
--- NOTE | 2020-08-31 13:15 | PC.NURSE ---
report called to neel lloyd, spoke with Josie WALTERS. all questions answered at this time. patient dressed and awaiting transportation.
--- NOTE | 2020-08-31 14:41 | PC.NURSE ---
transportation here for patient. natan from [employer] said that they were taking our wheelchair and would bring it back. transport is [facility]. pt transferred to wheelchair, and escorted to exit where transport picked her up.
== END 2020-08-31 14:50 | disposition skilled nursing facility (03) | DRG 305 ==
LOC: ER 08-30 03:50 → CSU 08-30 04:12
PROVIDERS: Nurse Practitioner Family; Admitting Provider Internal Medicine; Emergency Provider Emergency Medicine; PCP Family Medicine; Visit Provider Internal Medicine
DX: I16.1 Hypertensive emergency (principal); R33.9 Retention of urine, unspecified; Z79.02 Long term (current) use of antithrombotics/antiplatelets; Z79.82 Long term (current) use of aspirin; G89.29 Other chronic pain; M54.9 Dorsalgia, unspecified; F43.10 Post-traumatic stress disorder, unspecified; Z86.73 Personal history of transient ischemic attack (TIA), and cerebral infarction without residual deficits; G47.00 Insomnia, unspecified; I10 Essential (primary) hypertension; E78.5 Hyperlipidemia, unspecified; E11.319 Type 2 diabetes mellitus with unspecified diabetic retinopathy without macular edema; F32.9 Major depressive disorder, single episode, unspecified; Z91.5 Personal history of self-harm; Z79.4 Long term (current) use of insulin; F17.220 Nicotine dependence, chewing tobacco, uncomplicated; E87.6 Hypokalemia
CPT/HCPCS: 12345; 36415; 36416; 71045; 74176; 80053; 81003; 82607; 82728; 82746; 82962; 83540; 83550; 83605; 83690; 83735; 83880; 84484; 85025; 93005; 93971; 96372; 96375; 99283; J1170; J1650; J1815 ×2; J1940; J3490

== ENCOUNTER 2020-09-20 06:00 | Outpatient (CLI) | payer MEDICAID, SELFPAY | END 2020-09-20 06:01 | disposition home or self-care (01) | PROVIDERS: PCP Family Medicine; Visit Provider Nurse Practitioner Family | DX: R33.9 Retention of urine, unspecified (principal) | CPT/HCPCS: 81003 ==

== ENCOUNTER 2020-10-17 16:32 | Observation (INO) | payer MEDICAID, SELFPAY ==
[2020-10-17] VITALS (10 sets, daily range): BP systolic 134–178; BP diastolic 61–104; PULSE 71–110; RESP 10–19; TEMP 36.6; O2SAT 91–97; BMI 38.6
--- NOTE | 2020-10-17 16:52 | XR_ITS ---
WS: [id number] Portable AP supine chest, 10/17/2020 Clinical Data: chest pain Comparison: Portable chest, 08/29/2020. Findings: No nodules, masses or effusions are seen. The heart is large. The pulmonary vascularity is not increased. No pneumonia or pneumothorax is seen. Monitor leads on the chest wall. XR/XR chest 1V portable [id number] Impression: Cardiomegaly.
--- NOTE | 2020-10-17 16:54 | XR_ITS ---
WS: [id number] Cervical spine, portable 4 views, 10/17/2020 Clinical Data: neck pain Comparison: None. Findings: No compression fractures are seen. The disc heights are normal. There is no prevertebral so ft tissue swelling. The odontoid is unremarkable. The soft tissues of the neck and the lung apices ar e normal. The patient's shoulders obscures detail of the C5-C7 vertebral bodies on the lateral view. The patient is had a parietal craniotomy. Monitor leads are on the chest wall. XR/XR cervical spine 3V* [id number] Impression: Negative cervical spine.
[2020-10-17 17:24] LABS: Basophils # 0.1 10^3/uL (0.0-0.1); Basophils % 0.5 %; Eosinophils % 0.1 %; Hematocrit 35.2 % (37.0-47.0); Hemoglobin 10.8 g/dL (11.5-15.3); Lymphocytes # 1.4 10^3/uL (0.8-4.8); Lymphocytes % 13.7 %; Mean Corpuscular HGB Conc 30.7 g/dL (30.0-36.0); Mean Corpuscular Hemoglobin 24.7 pg (28.0-34.0); Mean Corpuscular Volume 80.5 fL (81-99); Mean Platelet Volume 11.1 fL (7.4-10.4); Monocytes # 0.2 10^3/uL (0.2-0.9); Monocytes % 2.1 %; Neutrophils # 8.41 10^3/uL (1.8-7.7); Neutrophils % 83.1 %; Nucleated Red Blood Cells % 0 %; Platelet Count 467 10^3/cmm (130-400); Red Blood Count 4.37 10^6/uL (4.1-5.3); White Blood Count 10.1 10^3/uL (4.0-10.0)
--- NOTE | 2020-10-17 17:36 | CTR_ITS ---
PROCEDURE INFORMATION: Exam: CT Angiography Head With Contrast Exam date and time: 10/17/2020 6:07 PM Age: 44 years old Clinical indication: Syncope and collapse; Prior surgery; Surgery type: Craniotomy; Additional info: Possible CVA. Altered mental status with h/o multiple CVA TECHNIQUE: Imaging protocol: Computed tomography angiography of the head with intravenous contrast. 3D rendering (Not supervised by radiologist): MIP and/or 3D reconstructed images were created by the technologist. Radiation optimization: All CT scans at this facility use at least one of these dose optimization techniques: automated exposure control; mA and/or kV adjustment per patient size (includes targeted exams where dose is matched to clinical indication); or iterative reconstruction. Contrast material: VISI 320; Contrast volume: 95 ml; Contrast route: INTRAVENOUS (IV); COMPARISON: CT angio headneck* [id number] 04/13/2020 5:04 PM RADIATION DOSE METRICS: Total DLP (mGy-cm): 2073.88 FINDINGS: ANTERIOR CIRCULATION: Right internal carotid artery: Short segment severe stenosis of the right supraclinoid ICA is appreciated. Right middle cerebral artery: Unremarkable. No occlusion or significant stenosis. No aneurysm. Right anterior cerebral artery: Unremarkable. No occlusion or significant stenosis. No aneurysm. Left internal carotid artery: Unremarkable. Intracranial segment is patent with no significant stenosis. No aneurysm. Left middle cerebral artery: Moderate stenosis of the distal M1 segment of the left MCA is noted. Left anterior cerebral artery: Unremarkable. No occlusion or significant stenosis. No aneurysm. POSTERIOR CIRCULATION: Right vertebral artery: Unremarkable. No occlusion or significant stenosis. No aneurysm. Left vertebral artery: Unremarkable. No occlusion or significant stenosis. No aneurysm. Basilar artery: Unremarkable. No occlusion or significant stenosis. No aneurysm. Right posterior cerebral artery: Unremarkable. No occlusion or significant stenosis. No aneurysm. Left posterior cerebral artery: Unremarkable. No occlusion or significant stenosis. No aneurysm. IMPRESSION: Severe right supraclinoid ICA and moderate left MCA distal M1 segment stenoses. PROCEDURE INFORMATION: Exam: CT Angiography Neck With Contrast Exam date and time: 10/17/2020 6:07 PM Age: 44 years old Clinical indication: Syncope and collapse; Prior surgery; Surgery type: Craniotomy; Additional info: Possible CVA. Altered mental status with h/o multiple CVA TECHNIQUE: Imaging protocol: Computed tomography angiography of the neck with intravenous contrast. 3D rendering (Not supervised by radiologist): MIP and/or 3D reconstructed images were created by the technologist. Radiation optimization: All CT scans at this facility use at least one of these dose optimization techniques: automated exposure control; mA and/or kV adjustment per patient size (includes targeted exams where dose is matched to clinical indication); or iterative reconstruction. Contrast material: VISI 320; Contrast volume: 95 ml; Contrast route: INTRAVENOUS (IV); [facility] [id number] 04/13/2020 5:04 PM RADIATION DOSE METRICS: Total DLP (mGy-cm): 2073.88 FINDINGS: Right common carotid artery: No stenosis. No dissection or occlusion. Right internal carotid artery: No stenosis of the extracranial segment. No dissection or occlusion. Right external carotid artery: No occlusion or stenosis of the origin. Right vertebral artery: No stenosis. No dissection or occlusion. Left common carotid artery: Mild stenosis of the left carotid bulb is noted. Left internal carotid artery: Moderate stenosis of the proximal left ICA is appreciated. Left external carotid artery: No occlusion or stenosis of the origin. Left vertebral artery: No stenosis. No dissection or occlusion. Bones/joints: No acute fracture. Soft tissues: Normal. No significant soft tissue swelling. CT[facility] [id number] IMPRESSION: Mild left carotid bulb and moderate proximal left ICA stenoses. REFERENCES: NASCET CRITERIA. The degree of internal carotid artery stenosis is based on NASCET criteria. Normal is no stenosis. Mild is less than 50% stenosis. Moderate is 50-69% stenosis. Severe is 70% to 99% stenosis. Total occlusion is no detectable patent lumen. Radiation Dose CTDIVOL = (mGy): DLP = 2073.88~2073.88 (mGy-cm)
--- NOTE | 2020-10-17 17:36 | CTR_ITS ---
PROCEDURE INFORMATION: Exam: CT Head Without Contrast Exam date and time: 10/17/2020 6:07 PM Age: 44 years old Clinical indication: Altered mental status/memory loss; Prior surgery; Surgery type: Craniotomy; Additional info: Symptoms of acute stroke TECHNIQUE: Imaging protocol: Computed tomography of the head without contrast. Radiation optimization: All CT scans at this facility use at least one of these dose optimization techniques: automated exposure control; mA and/or kV adjustment per patient size (includes targeted exams where dose is matched to clinical indication); or iterative reconstruction. COMPARISON: CT head wo con* [id number] 06/13/2020 7:59 PM RADIATION DOSE METRICS: Total DLP (mGy-cm): 898.16 FINDINGS: Brain: A small chronic infarction is present in the left basal ganglia. No hemorrhage or CT evidence of acute infarction is seen. Cerebral ventricles: No ventriculomegaly. Bones/joints: Unremarkable. No acute fracture. Paranasal sinuses: Visualized sinuses are unremarkable. No fluid levels. Mastoid air cells: Visualized mastoid air cells are well aerated. Orbital cavity: Left ocular hemorrhage is again noted. The right globe is intact. Soft tissues: Unremarkable. CT/CT head wo con* [id number] IMPRESSION: No acute intracranial abnormality. Radiation Dose CTDIVOL = (mGy): DLP = 898.16 (mGy-cm)
[2020-10-17 17:46] LABS: INR 0.98 (0.8-1.2)
[2020-10-17 17:57] LABS: Troponin(5th) Baseline 28 ng/L (0-10)
[2020-10-17 18:06] LABS: Alanine Aminotransferase 15 U/L (0-33); Albumin Level 3.6 g/dL (3.5-5.2); Alkaline Phosphatase 143 IU/L (35-105); Anion Gap 12.8 (5-19); Aspartate Amino Transferase 17 U/L (0-32); Blood Urea Nitrogen 12 mg/dL (6-20); Calcium 9.2 mg/dL (8.5-10.5); Carbon Dioxide 28 mmol/L (22-29); Chloride 97 mmol/L (98-107); Globulin 3.2 g/dL (1.3-4.6); Glomerular Filtration Rate 59.7 mL/min (90-130); Glucose 207 mg/dL (65-115); NT Pro B Type Natriuretic Pept 1827 pg/mL (0-125); Osmolality Calculated 284 mOsm/kg (285-295); Potassium 3.8 mmol/L (3.5-5.1); Sodium 134 mmol/L (136-145); Total Bilirubin 0.4 mg/dL (0.15-1.2); Total Protein 6.8 g/dL (6.6-8.7)
[2020-10-17] MEDS: iohexol 350 mg/mL 100 mL Btl IV (18:17)
--- NOTE | 2020-10-17 18:53 | ECG_ITS ---
[facility] Test Date: 2020-10-17 Pat Name: Ivon Larios Department: Room: Gender: Female Nurse Coordinator: : 1975 Requested By: Dean Daniel Order Number: [id number] Salvador MD: Ragini Rizo M.D. Measurements Intervals [place] Rate: 73 P: 18 DE: 148 QRS: 27 QRSD: 101 T: 6 QT: 406 QTc: 450 Interpretive Statements SINUS RHYTHM POSSIBLE INFERIOR MYOCARDIAL INFARCTION , PROBABLY OLD [30 ms Q WAVE IN II/aVF] Compared to ECG 08/30/2020 01:45:20 Left ventricular hypertrophy no longer present Myocardial infarct finding still present Electronically Signed On 10-17-2020 20:19:37 CHILD STUDY TEAM DIRECTOR by Ragini Rizo M.D. [email or web address]
[2020-10-17] MEDS: acetaminophen 325 mg Tablet 650 MG PO (19:34)
[2020-10-17 20:46] LABS: Troponin 5 2HR 26.39 ng/L (0-10)
[2020-10-17 21:07] LABS: Troponin 5 2HR Delta -1.61 ABS# (0-10)
[2020-10-17] MEDS: nitroglycerin 0.4 mg sublingual Tablet SUBLINGUAL (21:58)
--- NOTE | 2020-10-17 22:40 | P.HP_ITS ---
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 She does state that she has not done very much out of the usual, and today walked out into the hallway with her cane, and that is when she started having the symptoms. This was shortly prior to coming to ER. In ER she was noted to be hypertensive, blood pressure 170/61, with noted possible inferior NH and EKG, probably old, troponin 28-26.39, BNP 1827. Chest x-ray is pending formal interpretation, but appears to be unremarkable. She has been having some pain in her neck recently, although does say she has had to use extra pillows, towel rolls to support her head to be more upright to help with her breathing while she was recovering from coronavirus. Given left-sided facial paresthesia head CT was obtained, which did not show acute abnormality, she was also assessed with CTA head and neck with finding of severe right supraclinoid ICA and moderate left MCA distal M1 segment stenoses. In the neck noted mild left carotid bulb and moderate proximal left ICA stenosis. The findings and her presentation were discussed by ER physician with neurology. CVA was considered to be unlikely. Observation of hospital was requested to rule out NH. She is currently still having chest discomfort, 4/10. Her facial tingling has resolved. Her blood pressure is little bit better, 144/82. She denies prior history of NH. She reports she has had a distant history of coronary angiogram in the past. Does not have any coronary stents. She states she is seeing eye doctor 2 weeks ago who told her that she still has blood in the back of her eye. Review of Systems Const: Denies: fever(s), chills, body aches or malaise Eyes: Denies: change in vision or eye redness ENMT: Denies: throat pain, oral sores or ear or mastoid pain Card: Reports: chest pain; Denies: edema, pre-syncope or dyspnea on exertion Resp: Denies: dyspnea, productive cough, change in phlegm color or hemoptysis GI: Denies: abdominal pain, nausea, vomiting, diarrhea, constipation, hematochezia or melena : Denies: flank pain, urinary frequency or hematuria Musc: Denies: back pain, joint swelling or joint redness Skin/Breast: Denies: rash, sores or new lesions Neuro: Reports: other (tingling left side of her face); Denies: headache(s), numbness in extremities, weakness in extremities, d izziness, confusion or seizure-like activity Endo: Denies: polyuria or polydipsia Donato/Lymph: Denies: easy bleeding or purpura All/Imm: Denies: urticaria, throat swelling or tongue swelling Medications/Allergies Home Medications Medication Instructions Recorded Confirmed Last Taken Type Dorzolamide Hcl/Timolol Maleat 1 drp OPHTHALMIC (EYE) BID@08/30/2010/1710/17/20 History Levemir U-100 Insulin 12 unit SUBCUT DAILY@08/30/20 10/17/20 10/17/20 History Victoza 3-Ramin 1.2 mg SUBCUT Q24H 08/30/20 10/17/20 10/17/20 History acetaminophen [Tylenol] 650 mg PO Q4H PRN 08/30/20 10/17/20 Unknown History alum-mag hydroxide-simeth [Mylanta] 30 ml PO Q2H PRN #0 08/30/20 10/17/20 Unknown History amitriptyline 25 mg PO BEDTIME@08/30/20 10/17/20 10/16/20 History aspirin 81 mg PO DAILY@08/30/20 10/17/20 10/17/20 History atorvastatin 40 mg PO DAILY@08/30/20 10/17/20 10/16/20 History bisacodyl [Dulcolax (bisacodyl)] 20 mg PO PRN PRN 08/30/20 10/17/20 Unknown History bisacodyl [Dulcolax (bisacodyl)] See Rx Instructions .ROUTE .COMPLEX 08/30/20 10/17/20 Unknown History brimonidine 1 drp OPHTHALMIC (EYE) BID@08/30/20 10/17/20 10/17/20 History clopidogrel [Plavix] 75 mg PO DAILY@08/30/20 10/17/20 10/17/20 History diphenhydramine HCl 25 mg PO Q4H PRN 08/30/20 10/17/20 Unknown History hydromorphone [Dilaudid] 2 mg PO Q6H PRN 08/30/20 10/17/20 Unknown History insulin aspart U-100 [Novolog See Rx Instructions .ROUTE .COMPLEX 08/30/20 10/17/20 Unknown History U-100 Insulin aspart] levetiracetam [Keppra] 1,000 mg PO BID@08/30/20 10/17/20 10/17/20 History magnesium citrate See Rx Instructions .ROUTE .COMPLEX 08/30/20 10/17/20 Unknown History magnesium hydroxide [Milk of 30 ml PO DAILY PRN #0 08/30/20 10/17/20 Unknown History Magnesia] meclizine 25 mg PO TID PRN 08/30/20 10/17/20 Unknown History metoprolol tartrate 25 mg PO Q12H 08/30/20 10/17/20 10/17/20 History ondansetron HCl [Zofran] 4 mg PO Q6H PRN 08/30/20 10/17/20 Unknown History pantoprazole 40 mg PO DAILY@08/30/20 10/17/20 10/17/20 History ropinirole 0.5 mg PO DAILY@08/30/20 10/17/20 10/17/20 History tizanidine 2 mg PO TID PRN 08/30/20 10/17/20 Unknown History venlafaxine [Effexor XR] 150 mg PO DAILY@08/30/20 10/17/20 10/17/20 History hydralazine 50 mg PO Q8H PRN #0 tab 08/31/20 10/17/20 10/17/20 Rx tamsulosin [Flomax] 0.4 mg PO DAILY@10/17/20 10/17/20 10/17/20 History Allergies Allergy/AdvReac Type Severity Reaction Status Date / Time amlodipine Allergy ADR-Swelling Verified 05/15/20 11:04 of the Eye codeine Allergy ADR-Shakine Verified 05/15/20 11:04 ss hydroxyzine [From Vistaril] Allergy ADR-Confusi Verified 05/15/20 11:04 on meperidine [From Demerol] Allergy ADR-Chest Verified 05/15/20 11:04 Pain metformin [From Glucophage] Allergy ALGY-Hives Verified 05/15/20 11:04 morphine Allergy ALGY-Anaphy Verified 05/15/20 11:04 laxis phenazopyridine Allergy ALGY-Hives Verified 05/15/20 11:04 [From Pyridium] sumatriptan [From Imitrex] AdvReac Mild Unknown Verified 05/15/20 11:04 PFSH Acute PFSH: Medical History Adjustment disorder with mixed disturbance of emotions and conduct BPV (benign positional vertigo) Chronic back pain Chronic migraine without aura, intractable, with status migrainosus Depression Diabetic retinopathy Dyslipidemia Essential hypertension High risk medication use Insomnia Muscle spasm PTSD (post-traumatic stress disorder) Renal stones Rotator cuff injury Seasonal allergies Stroke Suicide attempt by multiple drug overdose TIA (transient ischemic attack) Type 2 diabetes mellitus, with long-term current use of insulin Vasculitis Surgical History H/O brain surgery H/O tubal ligation H/O: hysterectomy History of cholecystectomy History of tonsillectomy Family History Other CAD (coronary artery disease) Cancer Diabetes Hypertension Denies family history of Stroke Social History Smoking and tobacco status: smoker, details unknown smokeless tobacco Smokeless tobacco user: chewing tobacco Alcohol intake: never Household members: family Housing: House History of recent travel: Yes (travels from [facility]) Vitals/I&O/Wt Last Vital Signs Temp 97.8 F 10/17/20 16:33 Pulse 72 10/17/20 21:52 Resp 16 10/17/20 21:52 BP 144/82 10/17/20 21:52 Pulse Ox 92 10/17/20 21:52 Weight last 48 hrs Weight 98.883 kg Physical Exam Narrative: EXAM NARRATIVE: She is accompanied in ER by her aunt. Const: COMMON NORMALS: no acute distress, patient oriented x3 and alert GENERAL APPEARANCE: cooperative and comfortable ORIENTATION/CONSCIOUSNESS: Yes awake HENMT: COMMON NORMALS: oropharynx normal Neck/C-Spine: COMMON NORMALS: no JVD Resp: COMMON NORMALS: normal respiratory effort and clear to auscultation bilaterally AUSCULTATION: clear to auscultation bilaterally Cardio: COMMON NORMALS: no JVD, regular rhythm, S1 normal heart sound present, S2 normal heart sound present and No murmurs present (Cardio) RHYTHM: regular rhythm HEART SOUNDS: S1 normal heart sound present and S2 normal heart sound present GI: COMMON NORMALS: Normal to inspection, nondistended, normoactive bowel sounds present, Soft to palpation and non-tender PALPATION: Yes Soft to palpation Extremity: COMMON NORMALS: no joint enlargement and no pedal edema Neuro: COMMON NORMALS: patient oriented x3 and moves all extremities MENINGEAL SIGNS: Yes no meningeal signs and No nuccal rigidity (Does have some neck tenderness on palpation.) Skin: COMMON NORMALS: no rashes or lesions noted GENERAL SKIN EXAM: no rash es or lesions noted Data : 10/17/20 17:14 10/17/20 17:14 A&P Assessment and plan (1) Chest pressure: Now little bit better, but still there, 4/10. Discussed with her risks and benefits of trying nitroglycerin SL, she is agreeable to proceed. We will monitor her blood pressure. Monitor on telemetry. Blood pressure elevated on presentation. Her chest discomfort, moderate troponin elevation may be related to hypertensive urgency. Blood pressure currently is little bit better. Discussed with her would benefit from closer monitoring tighter control. She states her blood pressure is not currently being monitored at longterm. This will need to be requested discharge. Discussed with her also concern for possibility of coronary artery disease given vascular disease elsewhere. Discussed concern regarding possible non-STEMI. Discussed potential difficulties with management given prior intraocular hemorrhage, and she reports recently was told still has some blood in the back of her eye by an eye doctor. She is currently on aspirin and Plavix, she is agreeable to continue these. We discussed additional therapeutic possibilities, risks and benefits and alternatives, and for now we will hold off on anticoagulation. Follow-up troponin series. Will obtain echocardiogram. Depending on condition cardiology consultation may be considered. In addition ablation may be considered to assist with risk stratification depending on her condition and evaluation results. Briefly discussed possibilities that this may include coronary angiography, possibility of stress testing among other assessm ents. Status: Acute (2) Facial paresthesia: Resolved. Status: Acute Additional A&P Information Hypertensive urgency: As above Chronic pain: She requests make sure the Dilaudid is ordered for her chronic pain. Hx CVA Recent admission due to urinary retention, urolithiasis Recent COVID-19 infection Attestations Medical Necessity Statement*: Place in observation. Coding Level of Care Code Acute Manager [employer] for g Fwd Exam Comprehensive Diagnoses Chest pressure R07.89 Facial paresthesia R20.2
--- NOTE | 2020-10-17 22:43 | W.ED.CHESTPA ---
HPI - Chest Pain General: Chief Complaint: Chest Pain Stated Complaint: CP, NECK PAIN Time Seen by Provider: 10/17/20 16:33 History of Present Illness: HPI narrative: The patient is a 44-year-old female with past medical history of 4 strokes including 1 hemorrhagic stroke. [facility] she [facility] walking in the [place]itentiary and felt left-sided chest pain which then radiated to her face making her face numb. She has never had this pain before and never had a myocardial infarction she knows of. MD complaint: chest pain Timing of current episode: constant Onset: during rest and during exertion Pain location: substernal and left chest Pain radiation: jaw/teeth and left shoulder Severity: moderate Quality: sharp Associated symptoms: Reports no associated symptoms; Deny abdominal pain, dyspnea or palpitations Treatment prior to arrival: none Review of Systems General: Reports: 10 or more systems reviewed and unremarkable except in HPI and below Const: Denies: fatigue Eyes: Denies: change in vision, blurry vision or eye redness ENMT: Denies: throat pain, swelling of lips/tongue, ear or mastoid pain or nasal congestion Card: Denies: chest pain, palpitations, irregular heart rhythm, edema, dyspnea on exertion or orthopnea Resp: Denies: dyspnea, productive cough or non-productive cough GI: Denies: abdominal pain, diarrhea or GI cramping : Denies: flank pain, difficulty voiding, urinary frequency or urinary urgency Musc: Denies: neck pain, back pain, extremity pain, joint pain, joint redness, limited range of motion or muscle weakness Skin/Breast: Denies: rash, pruritus, erythema, skin pain or skin tenderness Neuro: Denies: headache(s), numbness in extremities, weakness in extremities, sensory changes, difficulty walking, dizziness, confusion or Slurred speech present Psych: Denies: anxiety or depression Endo: Denies: polyuria All/Imm: Denies: urticaria, throat swelling or tongue swelling PFSH ED PFSH: Medical History Adjustment disorder with mixed disturbance of emotions and conduct BPV (benign positional vertigo) Chronic back pain Chronic migraine without aura, intractable, with status migrainosus Depression Diabetic retinopathy Dyslipidemia Essential hypertension High risk medication use Insomnia Muscle spasm PTSD (post-traumatic stress disorder) Renal stones Rotator cuff injury Seasonal allergies Stroke Suicide attempt by multiple drug overdose TIA (transient ischemic attack) Type 2 diabetes mellitus, with long-term current use of insulin Vasculitis Surgical History H/O brain surgery H/O tubal ligation H/O: hysterectomy History of cholecystectomy History of tonsillectomy Family History Other CAD (coronary artery disease) Cancer Diabetes Hypertension Denies family history of Stroke Social History Smoking and tobacco status: smoker, details unknown smokeless tobacco Smokeless tobacco user: chewing tobacco Alcohol intake: never Household members: family Housing: House History of recent travel: Yes (travels from [facility]) Physical Exam Const: COMMON NORMALS: no acute distress, average body habitus, patient oriented x3, no limitations, healthy appearing, alert and well nourished GENERAL APPEARANCE: cooperative, comfortable, well kempt and well developed ORIENTATION/CONSCIOUSNESS: Yes awake, Yes oriented to person, Yes oriented to place and Yes oriented to time HENMT: COMMON NORMALS: normocephalic, external ears normal and Normal external nose present HEAD & SCALP: normal to inspection and normocephalic NOSE: Normal external nose present EXTERNAL EAR: Yes external ears normal MOUTH: Normal oral and palatal mucosa present THROAT: posterior oropharynx normal Eye: COMMON NORMALS: Equal, round and reactive pupils present and EOMs intact bilaterally GENERAL EYE: appearance normal, both eyes and all related structures PUPIL: Yes Equal, round and reactive pupils present Neck/C-Spine: COMMON NORMALS: full ROM, no lymphadenopathy, no meningeal signs and no JVD GENERAL: Yes normal visual inspection Lymph: LYMPHATIC: no lymphadenopathy noted Chest: COMMONS NORMALS: normal inspection of the chest and normal palpation of entire chest wall Resp: COMMON NORMALS: normal respiratory effort, No retractions, No use of accessory muscles, clear to auscultation bilaterally and percussion normal EFFORT & INSPECTION: Yes able to speak in complete sentences AUSCULTATION: clear to auscultation bilaterally PERCUSSION: percussion normal Cardio: COMMON NORMALS: no JVD, regular rate, regular rhythm, S1 normal heart sound present, S2 normal heart sound present and Peripheral pulses 2+ throughout RATE: regular rate RHYTHM: regular rhythm HEART SOUNDS: S1 normal heart sound present and S2 normal heart sound present PERIPHERAL PULSES: Peripheral pulses 2+ throughout GI: COMMON NORMALS: Normal to inspection, nondistended, normoactive bowel sounds present, Soft to palpation, non-tender and no masses INSPECTION: Yes normal to inspection PALPATION: Yes Soft to palpation : COMMON NORMALS: Yes no CVA tenderness BLADDER/KIDNEY EXAM: Yes no CVA tenderness Back/Pelvis: COMMON NORMALS: no CVA tenderness, thoracic and lumbar spine normal to inspection, no thoracic nor lumbar tenderness and thoraco-lumbar ROM normal Extremity: COMMON NORMALS: normal to inspection, full ROM, capillary refill normal, no joint enlargement and no pedal edema GENERAL: Yes normal exam except as noted Neuro: COMMON NORMALS: patient oriented x3, CN's II-XII intact bilaterally, moves all extremities, no focal motor deficits, no sensory deficits noted and gait normal SENSORIUM/ORIENTATION: Yes alert, Yes oriented to person, Yes oriented to place and Yes oriented to time MENINGEAL SIGNS: Yes no meningeal signs Psych: COMMON NORMALS: mental status grossly normal, Normal thought process present, cooperative, normal affect and speech normal APPEARANCE: Yes well kempt ATTITUDE: Yes calm SPEECH: Yes normal speech THOUGHT PROCESS: Normal thought process present Skin: COMMON NORMALS: no rashes or lesions noted GENERAL SKIN EXAM: no rashes or lesions noted Course Vital Signs: Vital signs: Vital Signs Temperature 97.8 F 10/17/20 16:33 Pulse Rate 72 10/17/20 21:52 Respiratory Rate 16 10/17/20 21:52 Blood Pressure 144/82 10/17/20 21:52 Pulse Oximetry 92 10/17/20 21:52 MDM - Chest Pain MDM Narrative: Medical decision making narrative: Patient came in complaining of chest pain. Troponin and EKG have been negative so far. She was also worked up for possible acute stroke however her symptoms are not that of an acute stroke. The head CT does see some severe stenosis however I discussed with Dr. Lindsey who again reiterated the patient is not having stroke symptoms and thus nothing should be done about it other than prevention which is aspirin Plavix and a statin which she is on. This left us with the cardiac problem. Discussed with Dr. Lei who accepts for observation and cardiac monitoring Differential Diagnosis: Cardiac arrest differential diagnosis: Likely acute myocardial infarction Lab Data: Labs: Lab Results 10/17/20 10/17/20 10/17/20 Range/Units 17:14 17:14 17:14 WBC 10.1 H (4.0-10.0) 10^3/ uL RBC 4.37 (4.1-5.3) 10^6/u L Hgb 10.8 L (11.5-15.3) g/dL Hct 35.2 L (37.0-47.0) % MCV 80.5 L (81-99) fL MCH 24.7 L (28.0-34.0) pg MCHC 30.7 (30.0-36.0) g/dL RDW 12.0 L (12.1-15.1) % Plt Count 467 H (130-400) 10^3/c mm MPV 11.1 H (7.4-10.4) fL Neut % (Auto) 83.1 % Lymph % (Auto) 13.7 % Gillespie % (Auto) 2.1 % Eos % (Auto) 0.1 % Baso % (Auto) 0.5 % Neut # (Auto) 8.41 H (1.8-7.7) 10^3/u L Lymph # (Auto) 1.4 (0.8-4.8) 10^3/u L Gillespie # (Auto) 0.2 (0.2-0.9) 10^3/u L Eos # (Auto) 0.0 (0.0-0.8) 10^3/u L Baso # (Auto) 0.1 (0.0-0.1) 10^3/u L Nucleated RBC % (a uto) 0 % Nucleated RBCs # 0.0 /100WBC PT 13.20 (12.1-14.9) SECO NDS INR 0.98 (0.8-1.2) Sodium 134 L (136-145) mmol/L Potassium 3.8 (3.5-5.1) mmol/L Chloride 97 L (98-107) mmol/L Carbon Dioxide 28 (22-29) mmol/L Anion Gap 12.8 (5-19) BUN 12 (6-20) mg/dL Creatinine 1.0 H (0.5-0.9) mg/dL GFR Calculation 59.7 L (90-130) mL/min Glucose 207 H (65-115) mg/dL Calculated Osmolal ity 284 L (285-295) mOsm/k g Calcium 9.2 (8.5-10.5) mg/dL Total Bilirubin 0.4 (0.15-1.2) mg/dL AST 17 (0-32) U/L ALT 15 (0-33) U/L Alkaline Phosphata se 143 H (35-105) IU/L Troponin T Baselin e (0-10) ng/L Troponin T 120 Min [place] (0-10) ng/L Delta Troponin T (0-10) ABS# NT-Pro-B Natriuret Pep 1827 H (0-125) pg/mL Total Protein 6.8 (6.6-8.7) g/dL Albumin 3.6 (3.5-5.2) g/dL Globulin 3.2 (1.3-4.6) g/dL 10/17/20 10/17/20 Range/Units 17:14 20:00 WBC (4.0-10.0) 10^3/ uL RBC (4.1-5.3) 10^6/u L Hgb (11.5-15.3) g/dL Hct (37.0-47.0) % MCV (81-99) fL MCH (28.0-34.0) pg MCHC (30.0-36.0) g/dL RDW (12.1-15.1) % Plt Count (130-400) 10^3/c mm MPV (7.4-10.4) fL Neut % (Auto) % Lymph % (Auto) % Gillespie % (Auto) % Eos % (Auto) % Baso % (Auto) % Neut # (Auto) (1.8-7.7) 10^3/u L Lymph # (Auto) (0.8-4.8) 10^3/u L Gillespie # (Auto) (0.2-0.9) 10^3/u L Eos # (Auto) (0.0-0.8) 10^3/u L Baso # (Auto) (0.0-0.1) 10^3/u L Nucleated RBC % (a uto) % Nucleated RBCs # /100WBC PT (12.1-14.9) SECO NDS INR (0.8-1.2) Sodium (136-145) mmol/L Potassium (3.5-5.1) mmol/L Chloride (98-107) mmol/L Carbon Dioxide (22-29) mmol/L Anion Gap (5-19) BUN (6-20) mg/dL Creatinine (0.5-0.9) mg/dL GFR Calculation (90-130) mL/min Glucose (65-115) mg/dL Calculated Osmolal ity (285-295) mOsm/k g Calcium (8.5-10.5) mg/dL Total Bilirubin (0.15-1.2) mg/dL AST (0-32) U/L ALT (0-33) U/L Alkaline Phosphata se (35-105) IU/L Troponin T Baselin e 28 H (0-10) ng/L Troponin T 120 Min [place] 26.39 H (0-10) ng/L Delta Troponin T -1.61 L (0-10) ABS# NT-Pro-B Natriuret Pep (0-125) pg/mL Total Protein (6.6-8.7) g/dL Albumin (3.5-5.2) g/dL Globulin (1.3-4.6) g/dL Discharge Plan Discharge Patient Disposition: Placed in Observation Clinical Impression: Chest pain Qualifiers: Chest pain type: unspecified Qualified Code(s): R07.9 - Chest pain, unspecified Coding Level of Care Code ED Property Damage Claims Adjustor for [facility] Fwd Exam Comprehensive
--- NOTE | 2020-10-17 22:47 | PC.NURSE ---
EKG done at 2240 and shown to ER doctor
--- NOTE | 2020-10-17 22:53 | ECG_ITS ---
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 Measurements Intervals [place] Rate: 73 P: 21 AL: 192 QRS: 6 QRSD: 105 T: 19 QT: 446 QTc: 494 Interpretive Statements SINUS RHYTHM POSSIBLE INFERIOR MYOCARDIAL INFARCTION , PROBABLY OLD [30 ms Q WAVE IN II/aVF] Compared to ECG 10/17/2020 19:02:43 No significant changes Electronically Signed On 10-18-2020 21:33:14 MANAGER [employer]UDGET by Roya Gerardo M.D. [email or web address]
[2020-10-17 23:17] LABS: Troponin 5 6HR 27.36 ng/L (0-10)
[2020-10-17 23:24] LABS: Troponin 5 6HR Delta -0.64 ng/L (0-12)
[2020-10-17 23:44] LABS: Add Urine Microscopic? NO
[2020-10-17 23:46] LABS: Bilirubin Urine Neg (Negative); Blood Urine Neg (Negative); Glucose Urine UA Norm (Normal); Ketones Urine Negative (Negative); Leukocyte Esterase Urine Negative (Negative); Nitrate Urine Negative (Negative); Protein Urine Neg (Negative); Specific Gravity, Urine 1.005 (1.005-1.030); Urine Appearance Clear (CLEAR); Urine Color Yellow (Yellow); Urobilinogen Urine Norm (Negative)
[2020-10-18] VITALS (31 sets, daily range): BP systolic 124–174; BP diastolic 72–91; PULSE 71–77; RESP 7–18; TEMP 36.5–36.8; O2SAT 91–96
--- NOTE | 2020-10-18 02:48 | USCV_ITS ---
Ivon Larios Age: 44 Gender: F : 1975 Exam Date: 10/18/2020 05:22 Ordering Phys: Papito Lei MD Technologist: Janine Choi [place] [facility] [place]: CHEST PAIN BP: 153 / 78 HR: 76 Rhythm: Sinus Technical Quality: Adequate MEASUREMENTS (Male / Female) Normal Values 2D ECHO LV Diastolic Diameter PLAX 5.0 cm 4.2 - 5.9 / 3.9 - 5.3 cm LV Systolic Diameter PLAX 3.6 cm LV Chamber Size 3.3 cm IVS Diastolic Thickness 1.3 cm 0.6 - 1.0 / 0.6 - 0.9 cm IVS Systolic Thickness 1.8 cm LVPW Diastolic Thickness 1.9 cm 0.6 - 1.0 / 0.6 - 0.9 cm LVPW Systolic Thickness 2.8 cm RV Chamber Size 3.6 cm LVOT Diameter 2.0 cm LV Ejection Fraction 2D Teich 54.1 % LA Diameter 3.1 cm LA Width 3.6 cm LA Height 4.3 cm RA Width 3.5 cm RA Height 4.9 cm Aorta at Sinotubular Diameter 3.0 cm M-MODE LV Diastolic Diameter MM 5.7 cm 4.2 - 5.9 / 3.9 - 5.3 cm LV Systolic Diameter MM 2.8 cm LV Ejection Fraction MM Teich 81.5 % IVS Diastolic Thickness MM 1.3 cm 0.6 - 1.0 / 0.6 - 0.9 cm IVS Systolic Thickness MM 1.8 cm LVPW Diastolic Thickness MM 1.5 cm 0.6 - 1.0 / 0.6 - 0.9 cm LVPW Systolic Thickness MM 2.1 cm Aortic Annulus Diameter 3.7 cm LA Ao Ratio MM 0.9 MV E Point Septal Separation 0.8 cm DOPPLER AV Peak Velocity 167.0 cm/s LVOT Peak Velocity 126.0 cm/s AV Area Cont Eq vti 2.8 cm squared AV Area Cont Eq pk 2.4 cm squared MV Area PHT 6.7 cm squared Mitral E to A Ratio 1.0 MV E' Velocity 50.5 cm/s Mitral E to MV E' Ratio 12.1 Mitral E to LV E' Lateral Ratio 11.6 Mitral E to LV E' Septal Ratio 12.5 TR Peak Velocity 220.0 cm/s TR Peak Gradient 19.4 mmHg TV Peak E Velocity 48.0 cm/s Right Atrial Pressure 3.0 mmHg Pulmonary Artery Systolic Pressu 22.4 mmHg PV Peak Velocity 73.0 cm/s RV Acceleration Time 0.2 s RV Ejection Time 0.4 s RV AcT/ET 0.4 FINDINGS Left Ventricle Normal left ventricular size and systolic function with no regional wall motion abnormalities. LVEF is 55 to 60%. Normal diastolic filling pattern. Right Ventricle The right ventricle is normal in size and function. Right Atrium The right atrium is normal in size. Left Atrium The left atrium is normal in size. Mitral Valve Structurally normal mitral valve without significant stenosis or prolapse. There is no mitral regurgitation. Aortic Valve Structurally normal aortic valve without significant sclerosis or stenosis. There is no aortic regurgitation. Tricuspid Valve Structurally normal tricuspid valve without significant stenosis or regurgitation. Insufficient TR jet to calculate RVSP. Pulmonic Valve Structurally normal pulmonic valve without significant stenosis. There is no pulmonic regurgitation. Pericardium Normal pericardium without effusion. Aorta Normal ascending aorta dimension. CONCLUSIONS LV systolic function normal with EF of 55 to 60%. Normal diastolic function. No valvular heart disease is noted. No prior studies for comparison are available. Seamus Hernández MD (Electronically Signed) Final Date: 19 October 2020 17:42 S
[2020-10-18] MEDS: metoprolol tartrate 25 mg Tablet PO ×2 (03:21→14:49)
--- NOTE | 2020-10-18 03:38 | PHA.FALL ---
A Pharmacy Consult Was Conducted For Ivon Larios Due To: Hawkins Fall Scale Risk Level: High Fall Risk On 10/18/20 03:28 And A Medication Fall Risk Score Greater Than 10. The Recommendations Are As Follows: This patient is on haloperidodl which as some alpha-receptor blocking activity and can cause orthostatic hypotension. Venlafaxine is an SNRI antidepressant that can commonly cause orthostatic hypotension. Certainly the Dilaudid can cause sedation and loss of balance. I would just suggest cautious monitoring especially when rising from the seating or prone position.
[2020-10-18 05:53] LABS: Basophils # 0.1 10^3/uL (0.0-0.1); Basophils % 0.5 %; Eosinophils # 0.1 10^3/uL (0.0-0.8); Eosinophils % 1.1 %; Hematocrit 31.7 % (37.0-47.0); Hemoglobin 9.7 g/dL (11.5-15.3); Lymphocytes # 3.3 10^3/uL (0.8-4.8); Lymphocytes % 32.9 %; Mean Corpuscular HGB Conc 30.6 g/dL (30.0-36.0); Mean Corpuscular Hemoglobin 24.9 pg (28.0-34.0); Mean Corpuscular Volume 81.3 fL (81-99); Mean Platelet Volume 11.6 fL (7.4-10.4); Monocytes # 0.7 10^3/uL (0.2-0.9); Monocytes % 7.4 %; Neutrophils # 5.74 10^3/uL (1.8-7.7); Neutrophils % 57.7 %; Nucleated Red Blood Cells % 0 %; Platelet Count 426 10^3/cmm (130-400)
[2020-10-18 06:15] LABS: Alanine Aminotransferase 12 U/L (0-33); Alkaline Phosphatase 115 IU/L (35-105); Anion Gap 12.1 (5-19); Aspartate Amino Transferase 13 U/L (0-32); Blood Urea Nitrogen 15 mg/dL (6-20); Calcium 8.8 mg/dL (8.5-10.5); Carbon Dioxide 30 mmol/L (22-29); Chloride 100 mmol/L (98-107); Globulin 3.1 g/dL (1.3-4.6); Glomerular Filtration Rate 53.5 mL/min (90-130); Glucose 124 mg/dL (65-115); Osmolality Calculated 290 mOsm/kg (285-295); Potassium 3.1 mmol/L (3.5-5.1); Sodium 139 mmol/L (136-145); Total Bilirubin 0.3 mg/dL (0.15-1.2); Total Protein 6.1 g/dL (6.6-8.7)
--- NOTE | 2020-10-18 06:27 | ECG_ITS ---
[facility] Test Date: 2020-10-18 Pat Name: Ivon Larios Department: Room: 276 Gender: Female Pharmacy Sales Assistant: : 1975 Requested By: Papito Lei Order Number: [id number] Salvador MD: Seamus Hernández M.D. Interpretive Statements NAME OF STUDY: LEXISCAN SESTAMIBI STRESS TEST INDICATION: [Chest Pain] Procedure: At the baseline, the blood pressure was 180 /96 mmHg,with a heart rate of 69 bpm. The electrocardiogram showed a normal sinus rhythm, normal axis with normal ST and T's. The Lexiscan was infused over a duration of 20 seconds. A total of 0.4 mg of Lexiscan was infused. The stress phase was continued for a total of 5 minutes. Heart rate at the end of stress phase was 73 bpm, with a blood pressure of 161/93 mmHg. The EKG at the peak infusion revealed sinus rhythm with no significant ST-T wave changes. Occasional PVCs were noted. Sestamibi was injected 20 seconds after Lexiscan infusion. Blood pressure at the end of recovery phase was 172/89 mmHg, with a heart rate of 73 bpm. Conclusion: 1. Normal EKG response to Lexiscan infusion. 2. No Lexiscan induced chest pain or cardiac arrhythmia. 3. Normal blood pressure and heart rate response. 4. Sestamibi/sestamibi perfusion scan pending; see separate report. Electronically Signed On 10-27-2020 10:01:56 BROADCAST DESIGNER by Seamus Hernández M.D. [id number]
--- NOTE | 2020-10-18 06:28 | NMCV_ITS ---
NM rosa perf SPECT r/s* [id number] Ivon Larios Age: 44 Gender: F : 1975 Exam Date: 10/18/2020 06:28 Ordering Phys: Papito Lei MD Technologist: KEVIN Stewart Exam Location: [facility] Indications: CHEST PAIN, NECK PAIN STRESS TEST [facility] IMAGE PROTOCOL Rest/Stress 1 Lexiscan Day Radiopharmaceutical Dose (mCi) Administration Site Administered by Rest: Tc-99m 10.9 IV KEVIN Stewart Sestamibi Stress:Tc-99m 33.0 IV KEVIN Navas Sestamibi Rest: 18-Oct-2020 60 Discovery 630 Stress: 18-Oct-2020 30 Discovery 630 0.4mg Lexiscan. Supine position only as patient was unable to lay prone. SPECT RESULTS Technical Quality: Good Raw Data Analysis: Normal Image Corrections: No attenuation or motion correction applied Summed Stress Score: 0 Summed Rest Score: 0 Summed Difference Score: 0 PERFUSION FINDINGS SPECT images demonstrate homogeneous tracer distribution throughout the myocardium. FUNCTIONAL RESULTS (calculated via Gated SPECT) Stress Image LV EF (%): 58 Stress EDV (mL):134 TID: 1.04 Stress ESV (mL):56 FUNCTIONAL FINDINGS: There is normal left ventricular systolic function. IMPRESSIONS 1. Normal myocardial perfusion without evidence of ischemia. 2. Normal LV systolic function with EF of 58%. Seamus Hernández MD (Electronically Signed) Final Date: 18 October 2020 14:57 S
[2020-10-18 06:39] LABS: Glucose Point of Care 115 mg/dL (70-110)
[2020-10-18] MEDS: ropinirole 0.25 mg Tablet 0.5 MG PO (09:22)
[2020-10-18] MEDS: aspirin 81 mg EC Tablet PO (09:22)
[2020-10-18] MEDS: tamsulosin 0.4 mg Capsule PO (09:23)
[2020-10-18] MEDS: magnesium hydroxide 30 mL UDC PO (09:23)
[2020-10-18] MEDS: venlafaxine ER (24HR) 150 mg Capsule PO (09:23)
[2020-10-18] MEDS: brimonidine 0.2% Op Soln 5 mL Btl 1 DROP EYE-LEFT (09:23)
[2020-10-18] MEDS: clopidogrel 75 mg Tablet PO (09:23)
[2020-10-18] MEDS: pantoprazole DR 40 mg Tablet PO (09:23)
[2020-10-18] MEDS: dorzolamide/timolol Op Soln 10 mL Btl 1 DROP EYEAFF (09:24)
[2020-10-18] MEDS: levETIRAcetam 500 mg Tablet 1000 MG PO (09:30)
--- NOTE | 2020-10-18 10:04 | PC.NURSE ---
Patient's call light was on and she was requesting to get off the BSC and back to bed. I assisted the patient by retrieving some wipes for her and assisted her to a standing position so she could wipe. She then sat at the side of the bed and requested to remain there at this time. I emptied the BSC with 500 mL of dark yellow, clear urine. Patient denies further needs at this time. I informed Yoli Walker RN, patient's primary nurse of the update and she verbalizes understanding.
[2020-10-18 10:52] LABS: Glucose Point of Care 143 mg/dL (70-110)
--- NOTE | 2020-10-18 10:53 | PC.CHAP ---
Pastoral Care Encounter/Spiritual Assessment Type of Contact [] Declined supervisor color paste mixing visit [] Patient/Family/Request visit [] Outpatient visit [] Follow-up visit [] Physician referral [] Code/Alert [x] Routine visit [] Staff referral [] Actively dying [] Patient sleeping [] Family support [] [] Out of room [] Palliative care [] [x] Receiving care in room [] Pre-surgical visit [] Trauma [] Long length of stay [] ICU visit [] Other: Relational/Emotional Strength [] Patient feels connected with others/family/visitors/staff [x] Distress [] Loneliness/isolation [] Abandonment Spirituality of Patient [x] Person of Milena [] Attends Hoahaoism of their Milena [x] Believes in Prayer [] Reads Bible or Hindu materials [] There are Spiritual issues to be addressed Wide Area Network Administrator Interventions [x] Prayer [x] Active listening [x] Non-anxious presence [x] Spiritual/emotional support [] Crisis/trauma care [xx] Spiritual counseling [] Bereavement support [] Provided bereavement packet [] Provided Bible/devotional materials [] Provided toy/stuffed animal, coloring book to patient or family member [] Provided Communion [] Anointing/[place] [] Salvation [] Completed spiritual assessment [] Other: Impact on Illness or Injury [] Angry [x] Fearful [] Anxious [] Often cries [] Exhaustion [] Unable to work [] Unable to attend hinduism [] Unable to walk/stand [] Unable to read [] Unable to drive [] Unable to eat/drink [] Unable to sleep [] Unable to be with family [] Patient intubated [] Other: Summary she had 4 strocks, confused about treatment or what is going to happen? Time spent with patient 10 mins
[2020-10-18] MEDS: regadenoson 0.4 Mg/5 ml Syringe IVP (11:30)
--- NOTE | 2020-10-18 12:33 | PM.PN ---
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, she also has chronic right upper and right lower extremity weakness, with slight right facial droop, no recent falls, no more paresthesias, she feels that she is at baseline in terms of her strokes Vitals/I&O/Wt Last Vital Signs Temp 98.2 F 10/18/20 07:48 Pulse 73 10/18/20 11:43 Resp 18 10/18/20 07:48 BP 174/91 10/18/20 11:43 Pulse Ox 93 10/18/20 07:48 10/17/20 10/18/20 10/18/20 22:59 06:59 14:59 Intake Total 50 / 50 Output Total 500 / 500 Balance 50 / 50 -500 / -500 Weight last 48 hrs Weight 104.871 kg Weight 98.883 kg Physical Exam Const: COMMON NORMALS: no acute distress and patient oriented x3 HENMT: COMMON NORMALS: normocephalic HEAD & SCALP: normocephalic Neck/C-Spine: COMMON NORMALS: no JVD Resp: COMMON NORMALS: normal respiratory effort, No retractions, No use of accessory muscles and clear to auscultation bilaterally AUSCULTATION: clear to auscultation bilaterally Cardio: COMMON NORMALS: no JVD, regular rate, regular rhythm, S1 normal heart sound present and S2 normal heart sound present RATE: regular rate RHYTHM: regular rhythm HEART SOUNDS: S1 normal heart sound present and S2 normal heart sound present GI: COMMON NORMALS: Normal to inspection, nondistended, normoactive bowel sounds present, Soft to palpation, non-tender, No hepatosplenomegaly present, no masses and no bruits PALPATION: Yes Soft to palpation and Yes No hepatosplenomegaly present Extremity: COMMON NORMALS: capillary refill normal, no clubbing, cyanosis or edema, no calf tenderness and no pedal edema Neuro: COMMON NORMALS: patient oriented x3 OTHER: Right upper extremity strength 3 out of 5 compared to 5 out of 5 on the left Right lower extremity strength 3 out of 5 compared to 5 out of 5 on the left Slight right facial droop Slight slurring of her speech at the end of sentences No sudden changes in her vision She is blind in both eyes, but can see shadows Psych: COMMON NORMALS: mental status grossly normal Data : 10/18/20 04:40 10/18/20 04:40 A&P Assessment and plan (1) Chest pressure: -Has a history of vasculopathy, fibromuscular dysplasia -Baseline troponin was 28, 6-hour 27.36, negative delta, BNP 1827 -No active chest pain Plan: -Awaiting cardiac stress test results -Echocardiogram ordered -Continue aspirin, Plavix, statin -Lovenox for DVT prophylaxis -Telemetry monitoring to monitor for chest pain -Does see Dr. Coats, as she has a history of intraocular hemorrhage, monitor on antiplatelet agents Status: Acute (2) History of CVA (cerebrovascular accident): -Has had a multiple strokes, and multiple vascular distributions -Has chronic right sided hemiparesis, right facial droop, slurred speech which is secondary to acute pontine stroke diagnosed on MRI -There was concerns for vasculitis as a etiology for her recurrent strokes, she had extensive work-up at [facility] in [place] -Sed rate 22 Negative lupus anticoagulant Protein C&S antigens and genes negative Spinal fluid acellular with normal IgG index and no oligoclonal bands. CSF protein 80 Lyme PCR negative HSV-1 and HSV-2 negative Proteinase 3 antibody negative MPO antibody negative Anti-cardial [place] IgG, IgM etc. negative P ANCA and C ANCA and atypical P ANCA negative CT angiogram indicated vasculitis evaluated rheumatology, they did not feel that it was a vasculitis but it was more related to diabetes, smoking, hypertension, -There was possibly concerns of fibromuscular dysplasia on the pathology report, awaiting records Head/Neck CTA 03/09/20 1. No significant carotid artery stenosis. Moderate amount of circumferential intimal thickening at the LEFT bifurcation and proximal ICA with intimal thickening measuring up to 3.9 mm. May be noncalcified thrombus or related to vasculitis. Focal dissection cannot be completely excluded. No prior studies are available for comparison. 2. There is an additional focal ulceration extending into the intimal thickening in the proximal LEFT ICA. 3. Mild stenosis supraclinoid RIGHT ICA. 4. Moderate stenosis mid LEFT M1 segment. Mild narrowing of the trifurcation RIGHT middle cerebral artery. 5. Slightly beaded appearance of the middle cerebral arteries. Correlate for possible fibromuscular dysplasia. Head CT 03/09/20 1. No acute intracranial hemorrhage or edema. 2. Prior craniotomy RIGHT frontal lobe. 3. Small bilateral lacunar infarcts. Head CT 03/14/20 1. Findings consistent with small chronic lacunar infarct in the left basal ganglia region. 2. Findings consistent with small chronic lacunar infarct in the left pontine region. 3. No superimposed acute intracranial process identified. Head MRI 03/16/20 1. Small focus of acute ischemia within the left thalamus adjacent to the posterior limb of the left internal capsule. 2. Prior craniotomy in the right frontal calvarium. 3. Small vessel ischemic changes/altered signal within the left paracentral lobo. Correlate. 4. There are a few punctate areas of altered/abnormal signal intensity within the periventricular white matter . Prior infarct in the left lentiform nuclei posteriorly. CT head 10/17/2020 Brain: A small chronic infarction is present in the left basal ganglia. No hemorrhage or CT evidence of acute infarction is seen. Cerebral ventricles: No ventriculomegaly. Bones/joints: Unremarkable. No acute fracture. Paranasal sinuses: Visualized sinuses are unremarkable. No fluid levels. Mastoid air cells: Visualized mastoid air cells are well aerated. Orbital cavity: Left ocular hemorrhage is again noted. The right globe is intact. Soft tissues: Unremarkable. CTA head and neck: -ANTERIOR CIRCULATION: Right internal carotid artery: Short segment severe stenosis of the right supraclinoid ICA is appreciated. Right middle cerebral artery: Unremarkable. No occlusion or significant stenosis. No aneurysm. Right anterior cerebral artery: Unremarkable. No occlusion or significant stenosis. No aneurysm. Left internal carotid artery: Unremarkable. Intracranial segment is patent with no significant stenosis. No aneurysm. Left middle cerebral artery: Moderate stenosis of the distal M1 segment of the left MCA is noted. Left anterior cerebral artery: Unremarkable. No occlusion or significant stenosis. No aneurysm. POSTERIOR CIRCULATION: Right vertebral artery: Unremarkable. No occlusion or significant stenosis. No aneurysm. Left vertebral artery: Unremarkable. No occlusion or significant stenosis. No aneurysm. Basilar artery: Unremarkable. No occlusion or significant stenosis. No aneurysm. Right posterior cerebral artery: Unremarkable. No occlusion or significant stenosis. No aneurysm. Left posterior cerebral artery: Unremarkable. No occlusion or significant stenosis. No aneurysm. IMPRESSION: Severe right supraclinoid ICA and moderate left MCA distal M1 segment stenoses. PROCEDURE INFORMATION: Exam: CT Angiography Neck With Contrast Exam date and time: 10/17/2020 6:07 PM Age: 44 years old Clinical indication: Syncope and collapse; Prior surgery; Surgery type: Craniotomy; Additional info: Possible CVA. Altered mental status with h/o multiple CVA TECHNIQUE: Imaging protocol: Computed tomography angiography of the neck with intravenous contrast. 3D rendering (Not supervised by radiologist): MIP and/or 3D reconstructed images were created by the technologist. Radiation optimization: All CT scans at this facility use at least one of these dose optimization techniques: automated exposure control; mA and/or kV adjustment per patient size (includes targeted exams where dose is matched to clinical indication); or iterative reconstruction. Contrast material: VISI 320; Contrast volume: 95 ml; Contrast route: INTRAVENOUS (IV); COMPARISON: CT angio headneck* [id number] 04/13/2020 5:04 PM RADIATION DOSE METRICS: Total DLP (mGy-cm): 2073.88 FINDINGS: Right common carotid artery: No stenosis. No dissection or occlusion. Right internal carotid artery: No stenosis of the extracranial segment. No dissection or occlusion. Right external carotid artery: No occlusion or stenosis of the origin. Right vertebral artery: No stenosis. No dissection or occlusion. Left common carotid artery: Mild stenosis of the left carotid bulb is noted. Left internal carotid artery: Moderate stenosis of the proximal left ICA is appreciated. Left external carotid artery: No occlusion or stenosis of the origin. Left vertebral artery: No stenosis. No dissection or occlusion. Bones/joints: No acute fracture. Soft tissues: Normal. No significant soft tissue swelling. CT/CT angio headneck* [id number] IMPRESSION: Mild left carotid bulb and moderate proximal left ICA stenoses. REFERENCES: NASCET CRITERIA. The degree of internal carotid artery stenosis is based on NASCET criteria. Normal is no stenosis. Mild is less than 50% stenosis. Moderate is 50-69% stenosis. Severe is 70% to 99% stenosis. Total occlusion is no detectable patent lumen. -Currently patient is back to baseline, she does not notice any new changes, -I discussed with Dr. Lindsey, patient symptoms are chronic, will have her follow with Dr. Lindsey Plan: -Continue home medications -We will have patient follow-up with Dr. Lindsey -We will request medical records from [facility] specifically the brain biopsy results, as there is a question if truly she has fibromuscular dysplasia or not - Status: Acute (3) Fibromuscular dysplasia: Status: Acute Additional A&P Information Hypertensive urgency: As above Chronic pain: She requests make sure the Dilaudid is ordered for her chronic pain. 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
--- NOTE | 2020-10-18 15:15 | P.DS_ITS ---
Discharge Providers Date of Admission: 10/18/20 01:51 Date of Discharge: October 18, 2020 Attending Provider at Admission: Papito Lei Attending Provider at Discharge: Braden Mora MD Primary Care Provider: Shefali Russo DO Diagnoses at Discharge Discharge Diagnosis (1) Chest pressure: Status: Resolved (2) History of CVA (cerebrovascular accident): Status: Resolved (3) Fibromuscular dysplasia: Status: Acute Reason for Visit Reason for Visit: CP, NECK PAIN Hospital Course Hospital Course this is a 44 y/o F with a PMH of multiple strokes in multiple vascular t erritories with an extensive workup in the past, HTN, HLD, IDDM, who present to [facility] for chest pressure and left facial numbness (1) Chest pressure: -Has a history of vasculopathy, fibromuscular dysplasia -Baseline troponin was 28, 6-hour 27.36, negative delta, BNP 1827 -no acute -No active chest pain -stress test was low probability of CAD -Echocardiogram pending, follow up as outpatient -Continue aspirin, Plavix, statin Status: Acute (2) History of CVA (cerebrovascular accident): -Has had a multiple strokes, and multiple vascular distributions -Has chronic right sided hemiparesis, right facial droop, slurred speech which is secondary to acute pontine stroke diagnosed on MRI -There was concerns for vasculitis as a etiology for her recurrent strokes, she [facility] [place] -Sed rate 22 Negative lupus anticoagulant Protein C&S antigens and genes negative Spinal fluid acellular with normal IgG index and no oligoclonal bands. CSF protein 80 Lyme PCR negative HSV-1 and HSV-2 negative Proteinase 3 antibody negative MPO antibody negative Anti-cardial [place] IgG, IgM etc. negative P ANCA and C ANCA and atypical P ANCA negative CT angiogram indicated vasculitis evaluated rheumatology, they did not feel that it was a vasculitis but it was more related to diabetes, smoking, hypertension, -There was possibly concerns of fibromuscular dysplasia on the pathology report, awaiting records Head/Neck CTA 03/09/20 1. No significant carotid artery stenosis. Moderate amount of circumferential intimal thickening at the LEFT bifurcation and proximal ICA with intimal thickening measuring up to 3.9 mm. May be noncalcified thrombus or related to vasculitis. Focal dissection cannot be completely excluded. No prior studies are available for comparison. 2. There is an additional focal ulceration extending into the intimal thickening in the proximal LEFT ICA. 3. Mild stenosis supraclinoid RIGHT ICA. 4. Moderate stenosis mid LEFT M1 segment. Mild narrowing of the trifurcation RIGHT middle cerebral artery. 5. Slightly beaded appearance of the middle cerebral arteries. Correlate for possible fibromuscular dysplasia. Head CT 03/09/20 1. No acute intracranial hemorrhage or edema. 2. Prior craniotomy RIGHT frontal lobe. 3. Small bilateral lacunar infarcts. Head CT 03/14/20 1. Findings consistent with small chronic lacunar infarct in the left basal ganglia region. 2. Findings consistent with small chronic lacunar infarct in the left pontine region. 3. No superimposed acute intracranial process identified. Head MRI 03/16/20 1. Small focus of acute ischemia within the left thalamus adjacent to the posterior limb of the left internal capsule. 2. Prior craniotomy in the right frontal calvarium. 3. Small vessel ischemic changes/altered signal within the left paracentral lobo. Correlate. 4. There are a few punctate areas of altered/abnormal signal intensity within the periventricular white matter . Prior infarct in the left lentiform nuclei posteriorly. CT head 10/17/2020 Brain: A small chronic infarction is present in the left basal ganglia. No hemorrhage or CT evidence of acute infarction is seen. Cerebral ventricles: No ventriculomegaly. Bones/joints: Unremarkable. No acute fracture. Paranasal sinuses: Visualized sinuses are unremarkable. No fluid levels. Mastoid air cells: Visualized mastoid air cells are well aerated. Orbital cavity: Left ocular hemorrhage is again noted. The right globe is intact. Soft tissues: Unremarkable. CTA head and neck: -ANTERIOR CIRCULATION: Right internal carotid artery: Short segment severe stenosis of the right supraclinoid ICA is appreciated. Right middle cerebral artery: Unremarkable. No occlusion or significant stenosis. No aneurysm. Right anterior cerebral artery: Unremarkable. No occlusion or significant stenosis. No aneurysm. Left internal carotid artery: Unremarkable. Intracranial segment is patent with no significant stenosis. No aneurysm. Left middle cerebral artery: Moderate stenosis of the distal M1 segment of the left MCA is noted. Left anterior cerebral artery: Unremarkable. No occlusion or significant stenosis. No aneurysm. POSTERIOR CIRCULATION: Right vertebral artery: Unremarkable. No occlusion or significant stenosis. No aneurysm. Left vertebral artery: Unremarkable. No occlusion or significant stenosis. No aneurysm. Basilar artery: Unremarkable. No occlusion or significant stenosis. No aneurysm. Right posterior cerebral artery: Unremarkable. No occlusion or significant stenosis. No aneurysm. Left posterior cerebral artery: Unremarkable. No occlusion or significant stenosis. No aneurysm. IMPRESSION: Severe right supraclinoid ICA and moderate left MCA distal M1 segment stenoses. PROCEDURE INFORMATION: Exam: CT Angiography Neck With Contrast Exam date and time: 10/17/2020 6:07 PM Age: 44 years old Clinical indication: Syncope and collapse; Prior surgery; Surgery type: Craniotomy; Additional info: Possible CVA. Altered mental status with h/o multiple CVA TECHNIQUE: Imaging protocol: Computed tomography angiography of the neck with intravenous contrast. 3D rendering (Not supervised by radiologist): MIP and/or 3D reconstructed images were created by the technologist. Radiation optimization: All CT scans at this facility use at least one of these dose optimization techniques: automated exposure control; mA and/or kV adjustment per patient size (includes targeted exams where dose is matched to clinical indication); or iterative reconstruction. Contrast material: VISI 320; Contrast volume: 95 ml; Contrast route: INTRAVENOUS (IV); COMPARISON: CT angio headneck* [id number] 04/13/2020 5:04 PM RADIATION DOSE METRICS: Total DLP (mGy-cm): 3.88 FINDINGS: Right common carotid artery: No stenosis. No dissection or occlusion. Right internal carotid artery: No stenosis of the extracranial segment. No dissection or occlusion. Right external carotid artery: No occlusion or stenosis of the origin. Right vertebral artery: No stenosis. No dissection or occlusion. Left common carotid artery: Mild stenosis of the left carotid bulb is noted. Left internal carotid artery: Moderate stenosis of the proximal left ICA is appreciated. Left external carotid artery: No occlusion or stenosis of the origin. Left vertebral artery: No stenosis. No dissection or occlusion. Bones/joints: No acute fracture. Soft tissues: Normal. No significant soft tissue swelling. CT/CT angio headneck* [id number] IMPRESSION: Mild left carotid bulb and moderate proximal left ICA stenoses. REFERENCES: NASCET CRITERIA. The degree of internal carotid artery stenosis is based on NASCET criteria. Normal is no stenosis. Mild is less than 50% stenosis. Moderate is 50-69% stenosis. Severe is 70% to 99% stenosis. Total occlusion is no detectable patent lumen. -Currently patient is back to baseline, she does not notice any new changes, -I discussed with Dr. Lindsey, patient symptoms are chronic, will have her follow with Dr. Lindsey Plan: -Continue home medications -We will have patient follow-up with Dr. Lindsey -We will request medical records from [facility] specifically the brain biopsy results, as there is a question if truly she has fibromuscular dysplasia or not Physical Exam Const: COMMON NORMALS: no acute distress and patient oriented x3 GENERAL APPEARANCE: cooperative and comfortable HENMT: COMMON NORMALS: normocephalic HEAD & SCALP: normocephalic Neck/C-Spine: COMMON NORMALS: full ROM, no lymphadenopathy, no JVD and Thyroid normal THYROID: Thyroid normal Lymph: LYMPHATIC: no lymphadenopathy noted Resp: COMMON NORMALS: normal respiratory effort, No retractions, No use of accessory muscles and clear to auscultation bilaterally AUSCULTATION: clear to auscultation bilaterally Cardio: COMMON NORMALS: no JVD, regular rate, regular rhythm, S1 normal heart sound present, S2 normal heart sound present, No gallops present (Cardio), No clicks present (Cardio) and No murmurs present (Cardio) RATE: regular rate RHYTHM: regular rhythm HEART SOUNDS: S1 normal heart sound present and S2 normal heart sound present GI: COMMON NORMALS: Normal to inspection, nondistended, normoactive bowel sounds present, Soft to palpation, non-tender and No hepatosplenomegaly present PALPATION: Yes Soft to palpation and Yes No hepatosplenomegaly present Extremity: COMMON NORMALS: normal to inspection, full ROM and no pedal edema Neuro: COMMON NORMALS: patient oriented x3 OTHER: Right upper extremity strength 3 out of 5 compared to 5 out of 5 on the left Right lower extremity strength 3 out of 5 compared to 5 out of 5 on the left Slight right facial droop Slight slurring of her speech at the end of sentences No sudden changes in her vision She is blind in both eyes, but can see shadows Psych: COMMON NORMALS: mental status grossly normal, Normal thought process present and cooperative THOUGHT PROCESS: Normal thought process present Discharge Data Data Completed and Pending: Completed Studies During Hospitalization Category Date Time Status CT angio headneck * [id number] Stat Cat Scan 10/17/20 17:[address] head wo con* [id number] Stat Cat Scan 10/17/20 17:36 Completed Sestamibi Stress Test Request Routi ne Exams 10/18/20 06:27 Draft XR cervical spine 3V* [id number] Stat Exams 10/17/20 16:54 Completed XR chest 1V mikie ble [id number] Stat Exams 10/17/20 16:52 Completed NM rosa perf SPECT r/s* [id number] Routin e Nuc Med 10/18/20 06:28 Completed Pending at discharge Category Date Time Status Complete Blood Co unt w/Auto AM LABS Lab 10/19/20 04:00 Ordered Complete Blood Co unt w/Auto AM LABS Lab 10/20/20 04:00 Ordered Comprehensive Met abolic Panel AM LA BS Lab 10/19/20 04:00 Ordered Comprehensive Met abolic Panel AM LA BS Lab 10/20/20 04:00 Ordered D Dimer Stat Lab 10/17/20 17:14 Results Magnesium AM LABS Lab 10/19/20 04:00 Ordered Magnesium AM LABS Lab 10/20/20 04:00 Ordered Magnesium AM LABS Lab 10/21/20 04:00 Ordered Phosphorus AM LAB S Lab 10/19/20 04:00 Ordered Phosphorus AM LAB S Lab 10/20/20 04:00 Ordered Phosphorus AM LAB S Lab 10/21/20 04:00 Ordered Prothrombin Time INR Stat Lab 10/17/20 17:14 Results CV echo complete* [id number] Routine Ultrasound 10/18/20 02:48 Taken Labs from last 24 hours 10/18/20 10/18/20 10/18/20 10:43 06:27 04:40 WBC RBC Hgb Hct MCV MCH MCHC RDW Plt Count MPV Neut % (Auto) Lymph % (Auto) [place] % (Auto) Eos % (Auto) Baso % (Auto) Neut # (Auto) Lymph # (Auto) [place] # (Auto) Eos # (Auto) Baso # (Auto) Nucleated RBC % (a uto) Nucleated RBCs # PT INR D-Dimer Sodium 139 Potassium 3.1 L Chloride 100 Carbon Dioxide 30 H Anion Gap 12.1 BUN 15 Creatinine 1.1 H GFR Calculation 53.5 L Glucose 124 H POC Glucose 143 H 115 H Calculated Osmolal ity 290 Calcium 8.8 Total Bilirubin 0.3 AST 13 ALT 12 Alkaline Phosphata se 115 H Troponin T Baselin e Troponin T 120 Min [place] Delta Troponin T Troponin T Hi Sens 6Hr Troponin T Hi Sens 6Hr Delta NT-Pro-B Natriuret Pep Total Protein 6.1 L Albumin 3.0 L Globulin 3.1 Urine Color Urine Appearance Urine pH Ur Specific Gravit y Urine Protein Urine Glucose (UA) Urine Ketones Urine Blood Urine Nitrate Urine Bilirubin Urine Urobilinogen Ur Leukocyte [place] ase 10/18/20 10/17/20 10/17/20 04:40 23:36 22:52 WBC 10.0 RBC 3.90 L Hgb 9.7 L Hct 31.7 L MCV 81.3 MCH 24.9 L MCHC 30.6 RDW 12.0 L Plt Count 426 H MPV 11.6 H Neut % (Auto) 57.7 Lymph % (Auto) 32.9 [place] % (Auto) 7.4 Eos % (Auto) 1.1 Baso % (Auto) 0.5 Neut # (Auto) 5.74 Lymph # (Auto) 3.3 [place] # (Auto) 0.7 Eos # (Auto) 0.1 Baso # (Auto) 0.1 Nucleated RBC % (a uto) 0 Nucleated RBCs # 0.0 PT INR D-Dimer Sodium Potassium Chloride Carbon Dioxide Anion Gap BUN Creatinine GFR Calculation Glucose POC Glucose Calculated Osmolal ity Calcium Total Bilirubin AST ALT Alkaline Phosphata se Troponin T Baselin e Troponin T 120 Min [place] Delta Troponin T Troponin T Hi Sens 6Hr 27.36 H Troponin T Hi Sens 6Hr Delta -0.64 L NT-Pro-B Natriuret Pep Total Protein Albumin Globulin Urine Color Yellow Urine Appearance Clear Urine pH 6.0 Ur Specific Gravit y 1.005 Urine Protein Neg Urine Glucose (UA) Norm Urine Ketones Negative Urine Blood Neg Urine Nitrate Negative Urine Bilirubin Neg Urine Urobilinogen Norm Ur Leukocyte [place] ase Negative 10/17/20 10/17/20 10/17/20 20:00 17:14 17:14 WBC RBC Hgb Hct MCV MCH MCHC RDW Plt Count MPV Neut % (Auto) Lymph % (Auto) [place] % (Auto) Eos % (Auto) Baso % (Auto) Neut # (Auto) Lymph # (Auto) [place] # (Auto) Eos # (Auto) Baso # (Auto) Nucleated RBC % (a uto) Nucleated RBCs # PT INR D-Dimer Sodium 134 L Potassium 3.8 Chloride 97 L Carbon Dioxide 28 Anion Gap 12.8 BUN 12 Creatinine 1.0 H GFR Calculation 59.7 L Glucose 207 H POC Glucose Calculated Osmolal ity 284 L Calcium 9.2 Total Bilirubin 0.4 AST 17 ALT 15 Alkaline Phosphata se 143 H Troponin T Baselin e 28 H Troponin T 120 Min [place] 26.39 H Delta Troponin T -1.61 L Troponin T Hi Sens 6Hr Troponin T Hi Sens 6Hr Delta NT-Pro-B Natriuret Pep 1827 H Total Protein 6.8 Albumin 3.6 Globulin 3.2 Urine Color Urine Appearance Urine pH Ur Specific Gravit y Urine Protein Urine Glucose (UA) Urine Ketones Urine Blood Urine Nitrate Urine Bilirubin Urine Urobilinogen Ur Leukocyte [place] ase 10/17/20 10/17/20 17:14 17:14 WBC 10.1 H RBC 4.37 Hgb 10.8 L Hct 35.2 L MCV 80.5 L MCH 24.7 L MCHC 30.7 RDW 12.0 L Plt Count 467 H MPV 11.1 H Neut % (Auto) 83.1 Lymph % (Auto) 13.7 [place] % (Auto) 2.1 Eos % (Auto) 0.1 Baso % (Auto) 0.5 Neut # (Auto) 8.41 H Lymph # (Auto) 1.4 [place] # (Auto) 0.2 Eos # (Auto) 0.0 Baso # (Auto) 0.1 Nucleated RBC % (a uto) 0 Nucleated RBCs # 0.0 PT 13.20 INR 0.98 D-Dimer Pending Sodium Potassium Chloride Carbon Dioxide Anion Gap BUN Creatinine GFR Calculation Glucose POC Glucose Calculated Osmolal ity Calcium Total Bilirubin AST ALT Alkaline Phosphata se Troponin T Baselin e Troponin T 120 Min [place] Delta Troponin T Troponin T Hi Sens 6Hr Troponin T Hi Sens 6Hr [place] NT-Pro-B Natriuret Pep Total Protein Albumin Globulin Urine Color Urine Appearance Urine pH Ur Specific Gravit y Urine Protein Urine Glucose (UA) Urine Ketones Urine Blood Urine Nitrate Urine Bilirubin Urine Urobilinogen Ur Leukocyte [place] ase Vitals: Last Vital Signs Temp 98.2 F 10/18/20 07:48 Pulse 73 10/18/20 11:43 Resp 18 10/18/20 07:48 BP 174/91 10/18/20 11:43 Pulse Ox 93 10/18/20 07:48 Discharge Plan Discharge Patient Disposition: er [facility] Condition: Stable Prescriptions: Continued atorvastatin 40 mg Tablet 40 mg PO DAILY@20 RF: 0 acetaminophen [Tylenol] 325 mg Tablet 650 mg PO Q4H PRN (Reason: pain/fever) RF: 0 tizanidine 2 mg Tablet 2 mg PO TID PRN (Reason: Muscle Spasm) RF: 0 ondansetron HCl [Zofran] 4 mg Tablet 4 mg PO Q6H PRN (Reason: Nausea And Vomiting) RF: 0 venlafaxine [Effexor XR] 150 mg Capsule,Extended Release 24hr 150 mg PO DAILY@08 RF: 0 clopidogrel [Plavix] 75 mg Tablet 75 mg PO DAILY@08 RF: 0 aspirin 81 mg Tablet,Delayed Release (Dr/Ec) 81 mg PO DAILY@08 RF: 0 hydromorphone [Dilaudid] 2 mg Tablet 2 mg PO Q6H PRN (Reason: Pain) RF: 0 amitriptyline 25 mg Tablet 25 mg PO BEDTIME@20 RF: 0 magnesium hydroxide [Milk of Magnesia] 400 mg/5 mL Suspension 30 ml PO DAILY PRN (Reason: Constipation) Qty: 0 RF: 0 meclizine 25 mg Tablet 25 mg PO TID PRN (Reason: Dizziness) RF: 0 insulin aspart U-100 [Novolog U-100 Insulin aspart] 100 unit/mL Solution See Rx Instructions .ROUTE .COMPLEX RF: 0 bisacodyl [Dulcolax (bisacodyl)] 10 mg Suppository See Rx Instructions .ROUTE .COMPLEX RF: 0 pantoprazole 40 mg Tablet,Delayed Release (Dr/Ec) 40 mg PO DAILY@08 RF: 0 ropinirole 0.5 mg Tablet 0.5 mg PO DAILY@08 RF: 0 diphenhydramine HCl 25 mg Tablet 25 mg PO Q4H PRN (Reason: Itching) RF: 0 brimonidine 0.2 % Drops 1 drp ophthalmic (eye) BID@08,20 RF: 0 magnesium citrate Solution See Rx Instructions .ROUTE .COMPLEX RF: 0 bisacodyl [Dulcolax (bisacodyl)] 5 mg Tablet,Delayed Release (Dr/Ec) 20 mg PO PRN PRN (Reason: Constipation) RF: 0 alum-mag hydroxide-simeth 200-200-20 mg/5 mL Suspension 30 ml PO Q2H PRN (Reason: Indigestion) Qty: 0 RF: 0 metoprolol tartrate 25 mg Tablet 25 mg PO Q12H RF: 0 Levemir U-100 Insulin 100 unit/mL Solution 12 unit SUBCUT DAILY@08 RF: 0 levetiracetam [Keppra] 1,000 mg Tablet 1,000 mg PO BID@,20 RF: 0 Victoza 3-Ramin 0.6 mg/0.1 mL (18 mg/3 mL) Pen Injector 1.2 mg SUBCUT Q24H RF: 0 Dorzolamide Hcl/Timolol Maleat 1 drp ophthalmic (eye) BID@, RF: 0 hydralazine 25 mg Tablet 50 mg PO Q8H PRN (Reason: BP>160/100) Qty: 0 RF: 0 Flomax 0.4 mg capsule 0.4 mg PO DAILY@08 RF: 0 Discharge Orders: Discharge Order (Routine); Ordered 10/18/20 Ordered By: Braden Mora Referrals: Shahla Lindsey MD [Physician] - (Please call [facility] Neuroscience and schedule an appointment to see Dr. Lindsey or her nurse practioner within one week. ) Seamus Hernández M.D [Physician] - 11/21/20 1:15 pm (chest pain ) Shefali Russo DO [Primary Care Provider] - (Please call [facility] Family Medicine and make an appointment to see Dr. Russo.) Discharge Diet: Cardiac Discharge Activity: Resume usual activity Patient Instructions: Nitroglycerin (By mouth), Chest Pain (DC) Activity Restrictions/Additional Instructions: -if you have recurrent chest pain please go to the emergency room Discharge Attestations Time Spent in Discharge Care*: greater than 30 min Quality Metrics Clinical Quality Measures During this hospital stay, did patient experience: None Coding Level of Care Code Acute [employer] Specialist for Chg Fwd Exam Comprehensive Diagnoses Chest pressure R07.89 History of CVA (cerebrovascular accident) Z86.73 Fibromuscular dysplasia I77.3
[2020-10-18 16:19] LABS: D Dimer 0.69 ug/mIFEU (0-0.59)
[2020-10-18 16:57] LABS: Glucose Point of Care 162 mg/dL (70-110)
--- NOTE | 2020-10-19 15:08 | PC.RESP ---
SMOKING CESSATION INFORMATION SENT TO PATIENT.
== END 2020-10-18 18:47 | disposition skilled nursing facility (03) ==
LOC: ER 22:59 → MEDSURG 10-18 01:52
PROVIDERS: Admitting Provider Internal Medicine; Emergency Provider Family Medicine; PCP Family Medicine; Visit Provider Family Medicine
DX: R07.89 Other chest pain (principal); Z86.73 Personal history of transient ischemic attack (TIA), and cerebral infarction without residual deficits; I77.3 Arterial fibromuscular dysplasia; R20.2 Paresthesia of skin; F32.9 Major depressive disorder, single episode, unspecified; E11.40 Type 2 diabetes mellitus with diabetic neuropathy, unspecified; E78.5 Hyperlipidemia, unspecified; I10 Essential (primary) hypertension; G89.29 Other chronic pain; Z79.891 Long term (current) use of opiate analgesic; Z86.16 Personal history of COVID-19
CPT/HCPCS: 12345; 36415; 36416; 70450; 70496; 70498; 71045; 72040; 78452; 80053; 81003; 82962; 83880; 84484; 85025; 85378; 85610; 93005; 93017; 93306; 96372; 97161; 97530; 99284; A9500; G0378; J1815; J2785; Q9967

== ENCOUNTER 2020-12-03 15:55 | Outpatient (CLI) | payer MEDICAID, SELFPAY ==
[2020-12-03 16:53] LABS: Basophils # 0.1 10^3/uL (0.0-0.1); Basophils % 0.7 %; Eosinophils # 0.2 10^3/uL (0.0-0.8); Eosinophils % 2.2 %; Hematocrit 36.4 % (37.0-47.0); Hemoglobin 10.9 g/dL (11.5-15.3); Lymphocytes % 34.8 %; Mean Corpuscular HGB Conc 29.9 g/dL (30.0-36.0); Mean Corpuscular Hemoglobin 24.9 pg (28.0-34.0); Mean Corpuscular Volume 83.1 fL (81-99); Mean Platelet Volume 11.6 fL (7.4-10.4); Monocytes # 0.7 10^3/uL (0.2-0.9); Monocytes % 7.9 %; Neutrophils # 4.69 10^3/uL (1.8-7.7); Neutrophils % 54.1 %; Nucleated Red Blood Cells % 0 %; Platelet Count 399 10^3/cmm (130-400); Red Blood Count 4.38 10^6/uL (4.1-5.3); Red Cell Distribution Width 12.6 % (12.1-15.1); White Blood Count 8.7 10^3/uL (4.0-10.0)
[2020-12-03 17:09] LABS: Alanine Aminotransferase 19 U/L (0-33); Albumin Level 3.4 g/dL (3.5-5.2); Alkaline Phosphatase 136 IU/L (35-105); Aspartate Amino Transferase 25 U/L (0-32); Blood Urea Nitrogen 13 mg/dL (6-20); Calcium 9.1 mg/dL (8.5-10.5); Carbon Dioxide 29 mmol/L (22-29); Chloride 103 mmol/L (98-107); Globulin 2.7 g/dL (1.3-4.6); Glomerular Filtration Rate 59.4 mL/min (90-130); Glucose 116 mg/dL (65-115); Osmolality Calculated 291 mOsm/kg (285-295); Sodium 140 mmol/L (136-145); Total Bilirubin 0.2 mg/dL (0.15-1.2); Total Protein 6.1 g/dL (6.6-8.7)
[2020-12-03 17:19] LABS: Estmated Average Glucose 128; Hemoglobin A1C 6.1 % (4.0-6.0)
== END 2020-12-03 15:56 | disposition home or self-care (01) ==
LOC: LAB 15:56
PROVIDERS: PCP Family Medicine; Visit Provider Internal Medicine
DX: E11.9 Type 2 diabetes mellitus without complications (principal); Z86.73 Personal history of transient ischemic attack (TIA), and cerebral infarction without residual deficits; I10 Essential (primary) hypertension
CPT/HCPCS: 80053; 83036; 85025

== ENCOUNTER 2020-12-16 15:37 | Emergency (ER) | payer MEDICAID, SELFPAY ==
[2020-12-16] VITALS (10 sets, daily range): BP systolic 179–256; BP diastolic 88–121; PULSE 80–88; RESP 16–18; TEMP 37.2; O2SAT 94–98; BMI 38.0
--- NOTE | 2020-12-16 15:41 | CTR_ITS ---
PROCEDURE INFORMATION: Exam: CT Head Without Contrast Exam date and time: 12/16/2020 3:53 PM Age: 45 years old Clinical indication: Injury or trauma; Fall; Blunt trauma (contusions or hematomas) TECHNIQUE: Imaging protocol: Computed tomography of the head without contrast. Radiation optimization: All CT scans at this facility use at least one of these dose optimization techniques: automated exposure control; mA and/or kV adjustment per patient size (includes targeted exams where dose is matched to clinical indication); or iterative reconstruction. COMPARISON: CT head wo con* [id number] 10/17/2020 6:04 PM RADIATION DOSE METRICS: Total DLP (mGy-cm): 961.11 FINDINGS: Brain: A small chronic infarction is again seen in the left basal ganglia. No hemorrhage or CT evidence of acute infarction is visualized. Cerebral ventricles: No ventriculomegaly. Bones/joints: A small right frontal craniotomy is appreciated. No acute fracture. Paranasal sinuses: Visualized sinuses are unremarkable. No fluid levels. Mastoid air cells: Visualized mastoid air cells are well aerated. Orbital cavity: Bilateral ocular hemorrhage is are again noted, which appear stable Soft tissues: Unremarkable. CT/CT head wo con* [id number] IMPRESSION: 1. No acute intracranial abnormality. 2. Stable bilateral ocular hemorrhage. Radiation Dose CTDIVOL = (mGy): DLP = 961.11 (mGy-cm)
--- NOTE | 2020-12-16 15:59 | ED_ITS ---
HPI - Head Injury General: Chief complaint: Head Injury Stated complaint: FALL, HIT HEAD Time Seen by Provider: 12/16/20 15:38 Source: patient and EMS Mode of arrival: EMS Limitations: no limitations History of Present Illness: HPI Narrative: 45-year-old female who has a history of multiple strokes in the past has weakness from her stroke. She does have difficulty walking at times and states she got out of her chair and tripped and hit her head. States that since then she had a headache she rates an 8 out of 10 and did vomit once. She had slight neck pain as well. Patient was placed in a c-collar by EMS. She denies any extremity pain. Denies any other injuries. Associated symptoms: Deny nausea, neck pain or vomiting Review of Systems Const: Denies: fever(s), chills, body aches or change in appetite Eyes: Denies: blurry vision or eye discomfort ENMT: Denies: throat pain or dental pain Card: Denies: chest pain Resp: Denies: dyspnea GI: Denies: abdominal pain, nausea, vomiting or diarrhea : Denies: dysuria Musc: Denies: neck pain or back pain Skin/Breast: Denies: rash Neuro: Reports: headache(s) Psych: Denies: depression Donato/Lymph: Denies: easy bruising All/Imm: Denies: urticaria PFSH ED PFSH: Medical History Adjustment disorder with mixed disturbance of emotions and conduct BPV (benign positional vertigo) Chronic back pain Chronic migraine without aura, intractable, with status migrainosus Depression Diabetic retinopathy Dyslipidemia Essential hypertension High risk medication use Insomnia Muscle spasm PTSD (post-traumatic stress disorder) Renal stones Rotator cuff injury Seasonal allergies Stroke Suicide attempt by multiple drug overdose TIA (transient ischemic attack) Type 2 diabetes mellitus, with long-term current use of insulin Vasculitis Surgical History H/O brain surgery H/O tubal ligation H/O: hysterectomy History of cholecystectomy History of tonsillectomy Family History Other CAD (coronary artery disease) Cancer Diabetes Hypertension Denies family history of Stroke Social History Smoking and tobacco status: smoker, details unknown smokeless tobacco Smokeless tobacco user: chewing tobacco Alcohol intake: never Household members: family Housing: House History of recent travel: Yes (travels from [facility]) Physical Exam Const: COMMON NORMALS: no acute distress, patient oriented x3 and healthy appearing HENMT: COMMON NORMALS: normocephalic and atraumatic HEAD & SCALP: normocephalic and atraumatic Eye: COMMON NORMALS: Equal, round and reactive pupils present and EOMs intact bilaterally PUPIL: Yes Equal, round and reactive pupils present Neck/C-Spine: OTHER: C-collar in place Chest: COMMONS NORMALS: normal inspection of the chest and normal palpation of entire chest wall Resp: COMMON NORMALS: normal respiratory effort, No retractions, No use of accessory muscles and clear to auscultation bilaterally AUSCULTATION: clear to auscultation bilaterally Cardio: COMMON NORMALS: regular rate, regular rhythm and No murmurs present (Cardio) RATE: regular rate RHYTHM: regular rhythm GI: COMMON NORMALS: Normal to inspection, nondistended, normoactive bowel sounds present, Soft to palpation, non-tender and no masses PALPATION: Yes Soft to palpation Extremity: COMMON NORMALS: normal to inspection and full ROM Neuro: COMMON NORMALS: patient oriented x3, moves all extremities and no focal motor deficits Psych: COMMON NORMALS: mental status grossly normal, Normal thought process present and cooperative THOUGHT PROCESS: Normal thought process present Skin: COMMON NORMALS: no rashes or lesions noted and no wounds GENERAL SKIN EXAM: no rashes or lesions noted Course Vital Signs: Vital signs: Vital Signs Temperature 98.9 F 12/16/20 15:41 Pulse Rate 87 12/16/20 20:03 Respiratory Rate 17 12/16/20 20:03 Blood Pressure 190/94 12/16/20 20:03 Pulse Oximetry 95 12/16/20 20:03 MDM - Head Injury MDM Narrative: Medical decision making narrative: Patient presents with a closed head injury from a fall. Her head CT and C-spine are negative. Is well- appearing here and her blood pressure is improving here with labetalol. Patient has chronic hypertension. Her blood work here looks normal and she is stable for discharge. She is to follow-up with her primary care doctor in 2 to 4 days return to the ER if worsening. She understands agrees to plan. Lab Data: Labs: Lab Results 12/16/20 12/16/20 12/16/20 Range/Units 16:17 16:17 16:17 WBC 14.3 H (4.0-10.0) 10^3/ uL RBC 4.37 (4.1-5.3) 10^6/u L Hgb 10.9 L (11.5-15.3) g/dL Hct 35.8 L (37.0-47.0) % MCV 81.9 (81-99) fL MCH 24.9 L (28.0-34.0) pg MCHC 30.4 (30.0-36.0) g/dL RDW 13.1 (12.1-15.1) % Plt Count 400 (130-400) 10^3/c mm MPV 12.2 H (7.4-10.4) fL Neut % (Auto) 73.0 % Lymph % (Auto) 18.2 % [place] % (Auto) 5.9 % Eos % (Auto) 1.9 % Baso % (Auto) 0.6 % Neut # (Auto) 10.42 H (1.8-7.7) 10^3/u L Lymph # (Auto) 2.6 (0.8-4.8) 10^3/u L [place] # (Auto) 0.8 (0.2-0.9) 10^3/u L Eos # (Auto) 0.3 (0.0-0.8) 10^3/u L Baso # (Auto) 0.1 (0.0-0.1) 10^3/u L Nucleated RBC % (a uto) 0 % Nucleated RBCs # 0.0 /100WBC Sodium 142 (136-145) mmol/L Potassium 4.1 (3.5-5.1) mmol/L Chloride 104 (98-107) mmol/L Carbon Dioxide 30 H (22-29) mmol/L Anion Gap 12.1 (5-19) BUN 17 (6-20) mg/dL Creatinine 1.0 H (0.5-0.9) mg/dL GFR Calculation 59.4 L (90-130) mL/min Glucose 212 H (65-115) mg/dL POC Glucose (70-110) mg/dL Calculated Osmolal ity 302 H (285-295) mOsm/k g Calcium 9.3 (8.5-10.5) mg/dL Total Bilirubin 0.4 (0.15-1.2) mg/dL AST 33 H (0-32) U/L ALT 42 H (0-33) U/L Alkaline Phosphata se 166 H (35-105) IU/L Troponin T Baselin e Cancelled Total Protein 6.6 (6.6-8.7) g/dL Albumin 3.6 (3.5-5.2) g/dL Globulin 3.0 (1.3-4.6) g/dL 12/16/20 Range/Units 16:50 WBC (4.0-10.0) 10^3/ uL RBC (4.1-5.3) 10^6/u L Hgb (11.5-15.3) g/dL Hct (37.0-47.0) % MCV (81-99) fL MCH (28.0-34.0) pg MCHC (30.0-36.0) g/dL RDW (12.1-15.1) % Plt Count (130-400) 10^3/c mm MPV (7.4-10.4) fL Neut % (Auto) % Lymph % (Auto) % [place] % (Auto) % Eos % (Auto) % Baso % (Auto) % Neut # (Auto) (1.8-7.7) 10^3/u L Lymph # (Auto) (0.8-4.8) 10^3/u L [place] # (Auto) (0.2-0.9) 10^3/u L Eos # (Auto) (0.0-0.8) 10^3/u L Baso # (Auto) (0.0-0.1) 10^3/u L Nucleated RBC % (a uto) % Nucleated RBCs # /100WBC Sodium (136-145) mmol/L Potassium (3.5-5.1) mmol/L Chloride (98-107) mmol/L Carbon Dioxide (22-29) mmol/L Anion Gap (5-19) BUN (6-20) mg/dL Creatinine (0.5-0.9) mg/dL GFR Calculation (90-130) mL/min Glucose (65-115) mg/dL POC Glucose 218 H (70-110) mg/dL Calculated Osmolal ity (285-295) mOsm/k g Calcium (8.5-10.5) mg/dL Total Bilirubin (0.15-1.2) mg/dL AST (0-32) U/L ALT (0-33) U/L Alkaline Phosphata se (35-105) IU/L Troponin T Baselin e Total Protein (6.6-8.7) g/dL Albumin (3.5-5.2) g/dL Globulin (1.3-4.6) g/dL Imaging Data^: CT Head: Attestation: I personally reviewed and interpreted this imaging study as follows: Radiologist's impression: [address] [address] [address] Scan Report Signed Patient: Ivon Larios Unit #: [id number] : 1975 Age/Sex: 45 / F ADM Date: 12/16/20 Loc: ER Room/Bed: Attending Dr: Ordering Provider/Ordering MD: Ramón Garcia MD Date of Service: 12/16/20 Procedure(s): CT head wo con* [id number] Accession Number(s): [id number] Report Number: [id number] PROCEDURE INFORMATION: Exam: CT Head Without Contrast Exam date and time: 12/16/2020 3:53 PM Age: 45 years old Clinical indication: Injury or trauma; Fall; Blunt trauma (contusions or hematomas) TECHNIQUE: Imaging protocol: Computed tomography of the head without contrast. Radiation optimization: All CT scans at this facility use at least one of these dose optimization techniques: automated exposure control; mA and/or kV adjustment per patient size (includes targeted exams where dose is matched to clinical indication); or iterative reconstruction. COMPARISON: CT head wo con* [id number] 10/17/2020 6:04 PM RADIATION DOSE METRICS: Total DLP (mGy-cm): 961.11 FINDINGS: Brain: A small chronic infarction is again seen in the left basal ganglia. No hemorrhage or CT evidence of acute infarction is visualized. Cerebral ventricles: No ventriculomegaly. Bones/joints: A small right frontal craniotomy is appreciated. No acute fracture. Paranasal sinuses: Visualized sinuses are unremarkable. No fluid levels. Mastoid air cells: Visualized mastoid air cells are well aerated. Orbital cavity: Bilateral ocular hemorrhage is are again noted, which appear stable Soft tissues: Unremarkable. CT/CT head wo con* [id number] IMPRESSION: 1. No acute intracranial abnormality. 2. Stable bilateral ocular hemorrhage. Other CT: Attestation: I personally reviewed and interpreted this imaging study as follows: Radiologist's impression: [employer] [address] [address] [address] Scan Report Signed Patient: Ivon Larios Unit #: [id number] : 1975 Age/Sex: 45 / F ADM Date: 12/16/20 Loc: ER Room/Bed: Attending Dr: Ordering Provider/Ordering MD: Ramón Garcia MD Date of Service: 12/16/20 Procedure(s): CT cervical spin wo con* [id number] Accession Number(s): [id number] Report Number: [id number] PROCEDURE INFORMATION: Exam: CT Cervical Spine Without Contrast Exam date and time: 12/16/2020 4:46 PM Age: 45 years old Clinical indication: Injury or trauma; Fall; Blunt trauma; Additional info: Neck injury TECHNIQUE: Imaging protocol: Computed tomography images of the cervical spine without contrast. Radiation optimization: All CT scans at this facility use at least one of these dose optimization techniques: automated exposure control; mA and/or kV adjustment per patient size (includes targeted exams where dose is matched to clinical indication); or iterative reconstruction. COMPARISON: CR XR cervical spine 3V* [id number] 10/17/2020 5:22 PM RADIATION DOSE METRICS: Total DLP (mGy-cm): 676.61 FINDINGS: No cervical spine fracture is seen. Spinal alignment is normal. A rudimentary right cervical rib is appreciated. CT/CT cervical spin wo con* [id number] IMPRESSION: No cervical spine fracture. EKG Data^: EKG 1: Attestation: I personally reviewed and interpreted this EKG as follows: EKG interpretation date: 12/16/20 EKG interpretation time: 17:39 Interpretation: nsr hr [address] or t wave abnormalities qrs 97 qtc 454 Discharge Plan Discharge Patient Disposition: Home Clinical Impression: Closed head injury Qualifiers: Encounter type: initial encounter Qualified Code(s): S09.90XA - Unspecified injury of head, initial encounter Hypertension Qualifiers: Hypertension type: unspecified Qualified Code(s): I10 - Essential (primary) hypertension Fall Qualifiers: Encounter type: initial encounter Qualified Code(s): W19.XXXA - Unspecified fall, initial encounter Condition: Stable Prescriptions: No Action atorvastatin 40 mg Tablet 40 mg PO QAM RF: 0 venlafaxine [Effexor XR] 150 mg Capsule,Extended Release 24hr 150 mg PO QAM RF: 0 clopidogrel [Plavix] 75 mg Tablet 75 mg PO QAM RF: 0 aspirin 81 mg Tablet,Delayed Release (Dr/Ec) 81 mg PO QAM RF: 0 amitriptyline 25 mg Tablet 25 mg PO BEDTIME RF: 0 meclizine 25 mg Tablet 25 mg PO TID PRN (Reason: Dizziness) RF: 0 insulin aspart U-100 [Novolog U-100 Insulin aspart] 100 unit/mL Solution See Rx Instructions .ROUTE .COMPLEX RF: 0 pantoprazole 40 mg Tablet,Delayed Release (Dr/Ec) 40 mg PO QAM RF: 0 ropinirole 0.5 mg Tablet 0.5 mg PO QAM RF: 0 brimonidine 0.2 % Drops 1 drp ophthalmic (eye) BID RF: 0 metoprolol tartrate 25 mg Tablet 25 mg PO Q12H RF: 0 Levemir U-100 Insulin 100 unit/mL Solution See Rx Instructions .ROUTE .COMPLEX RF: 0 levetiracetam [Keppra] 1,000 mg Tablet 1,000 mg PO BID RF: 0 Victoza 3-Ramin 0.6 mg/0.1 mL (18 mg/3 mL) Pen Injector 1.2 mg SUBCUT QAM RF: 0 Dorzolamide Hcl/Timolol Maleat 1 drp ophthalmic (eye) BID RF: 0 tamsulosin [Flomax] 0.4 mg capsule 0.4 mg PO QAM RF: 0 clonidine HCl 0.1 mg Tablet See Rx Instructions .ROUTE .COMPLEX RF: 0 temazepam 15 mg Capsule 15 mg PO BEDTIME RF: 0 [place] 7.5-325 mg Tablet 1 tab PO Q4H PRN (Reason: Pain) RF: 0 gabapentin 100 mg Capsule See Rx Instructions .ROUTE .COMPLEX RF: 0 Abilify 5 mg Tablet 5 mg PO BEDTIME RF: 0 Vitamin D3 50 mcg (2,000 unit) Capsule 2,000 unit PO DAILY RF: 0 hydralazine 25 mg tablet 50 mg PO Q8H PRN (Reason: Blood Pressure) RF: 0 Discharge Orders: Discharge ED (Routine); Ordered 12/16/20 Ordered By: Ramón Garcia Referrals: Shefali Russo DO [Primary Care Provider] - Discharge Diet: Advance as tolerated Discharge Activity: Resume usual activity Patient Instructions: Minor Head Injury (ED), Hypertension (ED) Coding Level of Care Code ED Conveyor Attendant for Ashley Fwd Exam Comprehensive
[2020-12-16] MEDS: labetalol 5 mg/mL SDV 20mL 10 MG IVP ×3 (16:23→16:58)
--- NOTE | 2020-12-16 16:25 | CTR_ITS ---
PROCEDURE INFORMATION: Exam: CT Cervical Spine Without Contrast Exam date and time: 12/16/2020 4:46 PM Age: 45 years old Clinical indication: Injury or trauma; Fall; Blunt trauma; Additional info: Neck injury TECHNIQUE: Imaging protocol: Computed tomography images of the cervical spine without contrast. Radiation optimization: All CT scans at this facility use at least one of these dose optimization techniques: automated exposure control; mA and/or kV adjustment per patient size (includes targeted exams where dose is matched to clinical indication); or iterative reconstruction. COMPARISON: CR XR cervical spine 3V* [id number] 10/17/2020 5:22 PM RADIATION DOSE METRICS: Total DLP (mGy-cm): 676.61 FINDINGS: No cervical spine fracture is seen. Spinal alignment is normal. A rudimentary right cervical rib is appreciated. CT/CT cervical spin wo con* [id number] IMPRESSION: No cervical spine fracture. Radiation Dose CTDIVOL = (mGy): DLP = 676.61 (mGy-cm)
--- NOTE | 2020-12-16 16:25 | PC.NURSE ---
US guided IV started to LUE, 2 attempts.
--- NOTE | 2020-12-16 16:34 | PC.NURSE ---
Gone to CT, informed Dr Garcia of blood pressure and one episode of vomiting.
[2020-12-16 16:54] LABS: Glucose Point of Care 218 mg/dL (70-110)
--- NOTE | 2020-12-16 16:55 | PC.NURSE ---
Informe Dr Garcia of BP 232/123 Gave Labetalol 10 mg IVP per written order.
--- NOTE | 2020-12-16 16:59 | ECG_ITS ---
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: : 1975 Requested By: Ramón Garcia Order Number: [id number] Reading MD: COLLIN CHAVEZ Measurements Intervals [place] Rate: 82 P: 24 ME: 169 QRS: -9 QRSD: 97 T: 0 QT: 415 QTc: 487 Interpretive Statements SINUS RHYTHM MODERATE VOLTAGE CRITERIA FOR LVH, CONSIDER NORMAL VARIANT [MEETS CRITERIA IN ONE OF: R(aVL), S(V1), R(V5), R(V5/V6)+S(V1)] POSSIBLE ANTERIOR MYOCARDIAL INFARCTION , OF INDETERMINATE AGE [30 ms Q WAVE IN V3/V4, OR R < 0.2 mV IN V4] INFERIOR MYOCARDIAL INFARCTION , PROBABLY OLD [40+ ms Q WAVE AND/OR ST/T ABNORMALITY IN II/aVF] Compared to ECG 10/17/2020 22:40:06 No significant changes Electronically Signed On 12-16-2020 17:42:49 HOSPITALITY COORDINATOR by COLLIN CHAVEZ [id number]
[2020-12-16] MEDS: fentaNYL 50 mcg/mL INJ 2mL IVP (17:44)
[2020-12-16] MEDS: labetalol 5 mg/mL SDV 20mL 20 MG IVP (17:44)
[2020-12-16 17:46] LABS: Basophils # 0.1 10^3/uL (0.0-0.1); Basophils % 0.6 %; Eosinophils # 0.3 10^3/uL (0.0-0.8); Eosinophils % 1.9 %; Hematocrit 35.8 % (37.0-47.0); Hemoglobin 10.9 g/dL (11.5-15.3); Lymphocytes # 2.6 10^3/uL (0.8-4.8); Lymphocytes % 18.2 %; Mean Corpuscular HGB Conc 30.4 g/dL (30.0-36.0); Mean Corpuscular Hemoglobin 24.9 pg (28.0-34.0); Mean Corpuscular Volume 81.9 fL (81-99); Mean Platelet Volume 12.2 fL (7.4-10.4); Monocytes # 0.8 10^3/uL (0.2-0.9); Monocytes % 5.9 %; Neutrophils # 10.42 10^3/uL (1.8-7.7); Nucleated Red Blood Cells % 0 %; Platelet Count 400 10^3/cmm (130-400); Red Blood Count 4.37 10^6/uL (4.1-5.3); Red Cell Distribution Width 13.1 % (12.1-15.1); White Blood Count 14.3 10^3/uL (4.0-10.0)
[2020-12-16 18:10] LABS: Alanine Aminotransferase 42 U/L (0-33); Albumin Level 3.6 g/dL (3.5-5.2); Alkaline Phosphatase 166 IU/L (35-105); Anion Gap 12.1 (5-19); Aspartate Amino Transferase 33 U/L (0-32); Blood Urea Nitrogen 17 mg/dL (6-20); Calcium 9.3 mg/dL (8.5-10.5); Carbon Dioxide 30 mmol/L (22-29); Chloride 104 mmol/L (98-107); Glomerular Filtration Rate 59.4 mL/min (90-130); Glucose 212 mg/dL (65-115); Osmolality Calculated 302 mOsm/kg (285-295); Potassium 4.1 mmol/L (3.5-5.1); Sodium 142 mmol/L (136-145); Total Bilirubin 0.4 mg/dL (0.15-1.2); Total Protein 6.6 g/dL (6.6-8.7)
== END 2020-12-16 20:03 | disposition home or self-care (01) ==
PROVIDERS: Emergency Provider Emergency Medicine; PCP Family Medicine
DX: I10 Essential (primary) hypertension (principal); S09.8XXA Other specified injuries of head, initial encounter; Z79.02 Long term (current) use of antithrombotics/antiplatelets; Z79.82 Long term (current) use of aspirin; Z79.4 Long term (current) use of insulin; E11.8 Type 2 diabetes mellitus with unspecified complications; E78.5 Hyperlipidemia, unspecified; Z86.73 Personal history of transient ischemic attack (TIA), and cerebral infarction without residual deficits; F17.220 Nicotine dependence, chewing tobacco, uncomplicated; W01.0XXA Fall on same level from slipping, tripping and stumbling without subsequent striking against object, initial encounter
CPT/HCPCS: 36416; 70450; 72125; 80053; 82962; 85025; 93005; 96374; 96375; 96376; 99284; J3010; J3490

== ENCOUNTER 2020-12-21 23:27 | Observation (INO) | payer MEDICAID, SELFPAY ==
[2020-12-21 23:28] VITALS: BP 258/140; PULSE 79; RESP 17; TEMP 36.6; O2SAT 96; BMI 37.4
--- NOTE | 2020-12-21 23:39 | XRR_ITS ---
PROCEDURE INFORMATION: Exam: XR Chest Exam date and time: 12/21/2020 11:49 PM Age: 45 years old Clinical indication: Patient HX: Chest pain with systolic BP of 255. ; Additional info: HTN TECHNIQUE: Imaging protocol: XR of the chest Views: 1 view. COMPARISON: CR XR chest 1V portable [id number] 10/17/2020 5:21 PM FINDINGS: Lung volumes are low, limiting assessment. Otherwise focal pulmonary consolidation is demonstrated on this single frontal image. There appears to be central vascular prominence. No significant obscuration of the lateral costophrenic angles is demonstrated. Visualized cardiac silhouette size appears about moderately enlarged, accentuated by low lung volumes. Pericardial effusion not excluded. XR/XR chest 1V portable [id number] IMPRESSION: There appears to be central vascular prominence. Visualized cardiac silhouette size appears about moderately enlarged, accentuated by low lung volumes. Pericardial effusion not excluded.
--- NOTE | 2020-12-21 23:39 | ECG_ITS ---
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 Measurements Intervals [place] Rate: 77 P: 27 NH: 178 QRS: -1 QRSD: 100 T: 24 QT: 419 QTc: 476 Interpretive Statements SINUS RHYTHM POSSIBLE ANTERIOR MYOCARDIAL INFARCTION , PROBABLY OLD [30 ms Q WAVE IN V3/V4, OR R < 0.2 mV IN V4] Compared to ECG 12/16/2020 17:39:51 No significant changes Electronically Signed On 12-22-2020 19:34:58 ASSET ACCOUNTANT by Ragini Rizo M.D. [id number]
[2020-12-21 23:40] VITALS: PULSE 78; RESP 17; O2SAT 98
--- NOTE | 2020-12-21 23:40 | CTR_ITS ---
PROCEDURE INFORMATION: Exam: CT Head Without Contrast Exam date and time: 12/21/2020 11:49 PM Age: 45 years old Clinical indication: Pain; Vascular; Prior surgery; Surgery type: Brain biopsy; Patient HX: Occipital headache with systolic BP of 255. History of multiple strokes. ; Additional info: HTN vomiting TECHNIQUE: Imaging protocol: Computed tomography of the head without contrast. Radiation optimization: All CT scans at this facility use at least one of these dose optimization techniques: automated exposure control; mA and/or kV adjustment per patient size (includes targeted exams where dose is matched to clinical indication); or iterative reconstruction. ADDITIONAL STUDY INFORMATION: Total DLP (mGy-cm): 898.64 COMPARISON: CT head wo con* [id number] 12/16/2020 4:07 PM FINDINGS: Again demonstrated is small old-appearing infarctions in left basal ganglia. There are moderate intracranial arterial calcifications. Evaluation of the brain demonstrates no other convincing areas of abnormal density. Size of ventricular system appears within normal limits for the patient's stated age. No depressed calvarial fracture is demonstrated. There are changes of right frontal craniotomy. Again demonstrated is large amount of increased density in left globe and perhaps small amount on right, worrisome for hemorrhage. Visualized paranasal sinuses and mastoid air cells demonstrate no significant opacification. CT/CT head wo con* [id number] IMPRESSION: No definite acute intracranial process is demonstrated. Other findings as discussed above. Radiation Dose CTDIVOL = (mGy): DLP = 898.64 (mGy-cm)
[2020-12-21] MEDS: labetalol 5 mg/mL SDV 20mL 20 MG IVP (23:46)
[2020-12-21] MEDS: nitroglycerin 1 gm/inch oint Pkt 2 INCH TOPICAL (23:50)
[2020-12-21] MEDS: nitroglycerin 0.4 mg sublingual Tablet SUBLINGUAL (23:50)
[2020-12-22] VITALS (47 sets, daily range): BP systolic 105–234; BP diastolic 63–125; PULSE 70–82; RESP 11–26; TEMP 36.6–37; O2SAT 90–100
[2020-12-22 00:03] LABS: Basophils # 0.1 10^3/uL (0.0-0.1); Basophils % 0.6 %; Eosinophils # 0.1 10^3/uL (0.0-0.8); Eosinophils % 1.2 %; Hematocrit 35.3 % (37.0-47.0); Hemoglobin 11.2 g/dL (11.5-15.3); Lymphocytes # 2.4 10^3/uL (0.8-4.8); Lymphocytes % 24.6 %; Mean Corpuscular HGB Conc 31.7 g/dL (30.0-36.0); Mean Corpuscular Hemoglobin 24.9 pg (28.0-34.0); Mean Corpuscular Volume 78.4 fL (81-99); Mean Platelet Volume 11.6 fL (7.4-10.4); Monocytes # 0.7 10^3/uL (0.2-0.9); Monocytes % 7.1 %; Neutrophils # 6.42 10^3/uL (1.8-7.7); Neutrophils % 66.1 %; Nucleated Red Blood Cells % 0 %; Platelet Count 381 10^3/cmm (130-400); Red Cell Distribution Width 12.9 % (12.1-15.1); White Blood Count 9.7 10^3/uL (4.0-10.0)
[2020-12-22 00:06] LABS: INR 0.94 (0.8-1.2)
[2020-12-22 00:07] LABS: Partial Thromboplastin Time 25.4 SECONDS (23.9-36.7)
[2020-12-22] MEDS: fentaNYL 50 mcg/mL INJ 2mL 100 MCG IVP (00:13)
[2020-12-22 00:19] LABS: Troponin(5th) Baseline 37 ng/L (0-10)
--- NOTE | 2020-12-22 00:21 | ED_ITS ---
HPI - General Adult General: Chief complaint: General Medical Stated complaint: n,v,htn Time Seen by Provider: 12/21/20 23:37 History of Present Illness: HPI narrative: 45-year-old lady who tells me she has had a history of 7 strokes. She has left legally blind and with right-sided weakness. She recently was discharged from a senior living in [place], and has been living at home, alone on her own. Her mother comes to help her with her medicine. She report increasing headache this evening with vomiting. Her blood pressure was very high at home she does not note new weakness, but does note that her tongue feels a little bit more heavy and numb. Blood pressure was [address] in the ambulance. 248 systolic here in the ER he denies chest discomfort. She denies significant shortness of breath. Onset (ago): hour(s) Location: head Radiation: non-radiation Severity: severe Quality: stabbing and crushing Pain Consistency: constant Relieving factors: none Exacerbating factors: movement Associated symptoms: Reports headache(s), vomiting and weakness (Generalized. Chronic right-sided weakness is baseline); Deny chest pain, confusion, cough, diaphoresis, dyspnea, fevers/chills or seizures Review of Systems Const: Denies: diaphoresis Eyes: Reports: blurry vision; Denies: change in vision Card: Denies: chest pain Resp: Denies: dyspnea GI: Reports: vomiting Neuro: Reports: headache(s); Denies: confusion PFSH ED PFSH: Medical History Adjustment disorder with mixed disturbance of emotions and conduct BPV (benign positional vertigo) Chronic back pain Chronic migraine without aura, intractable, with status migrainosus Depression Diabetic retinopathy Dyslipidemia Essential hypertension High risk medication use Insomnia Muscle spasm PTSD (post-traumatic stress disorder) Renal stones Rotator cuff injury Seasonal allergies Stroke Suicide attempt by multiple drug overdose TIA (transient ischemic attack) Type 2 diabetes mellitus, with long-term current use of insulin Vasculitis Surgical History H/O brain surgery H/O tubal ligation H/O: hysterectomy History of cholecystectomy History of tonsillectomy Family History Other CAD (coronary artery disease) Cancer Diabetes Hypertension Denies family history of Stroke Social History Smoking and tobacco status: smoker, details unknown smokeless tobacco Smokeless tobacco user: chewing tobacco Alcohol intake: never Household members: family Housing: House History of recent travel: Yes (travels from [facility]) Physical Exam Const: COMMON NORMALS: patient oriented x3 and alert GENERAL APPEARANCE: ill appearing HENMT: COMMON NORMALS: normocephalic HEAD & SCALP: normocephalic Eye: COMMON NORMALS: Equal, round and reactive pupils present and EOMs intact bilaterally PUPIL: Yes Equal, round and reactive pupils present Chest: COMMONS NORMALS: normal inspection of the chest Resp: COMMON NORMALS: normal respiratory effort, No use of accessory muscles and clear to auscultation bilaterally AUSCULTATION: clear to auscultation bilaterally Cardio: COMMON NORMALS: regular rate, regular rhythm and No murmurs present (Cardio) RATE: regular rate RHYTHM: regular rhythm GI: COMMON NORMALS: Soft to palpation and non-tender PALPATION: Yes Soft to palpation Neuro: COMMON NORMALS: patient oriented x3 SENSORIUM/ORIENTATION: Yes alert SENSORY EXAM: Yes extremities MOTOR EXAM: Pronator motor function present (Right upper extremity, chronic.) Course Vital Signs: Vital signs: Vital Signs Temperature 97.8 F 12/21/20 23:28 Pulse Rate 75 12/22/20 02:44 Respiratory Rate 16 12/22/20 02:44 Blood Pressure 150/86 12/22/20 02:44 Pulse Oximetry 97 12/22/20 02:44 MDM - General Adult Lab Data: Labs: Lab Results 12/21/20 12/21/20 12/21/20 Range/Units 23:46 23:46 23:46 WBC 9.7 (4.0-10.0) 10^3/ uL RBC 4.50 (4.1-5.3) 10^6/u L Hgb 11.2 L (11.5-15.3) g/dL Hct 35.3 L (37.0-47.0) % MCV 78.4 L (81-99) fL MCH 24.9 L (28.0-34.0) pg MCHC 31.7 (30.0-36.0) g/dL RDW 12.9 (12.1-15.1) % Plt Count 381 (130-400) 10^3/c mm MPV 11.6 H (7.4-10.4) fL Neut % (Auto) 66.1 % Lymph % (Auto) 24.6 % [place] % (Auto) 7.1 % Eos % (Auto) 1.2 % Baso % (Auto) 0.6 % Neut # (Auto) 6.42 (1.8-7.7) 10^3/u L Lymph # (Auto) 2.4 (0.8-4.8) 10^3/u L [place] # (Auto) 0.7 (0.2-0.9) 10^3/u L Eos # (Auto) 0.1 (0.0-0.8) 10^3/u L Baso # (Auto) 0.1 (0.0-0.1) 10^3/u L Nucleated RBC % (a uto) 0 % Nucleated RBCs # 0.0 /100WBC PT 12.90 (12.1-14.9) SECO NDS INR 0.94 (0.8-1.2) APTT 25.4 (23.9-36.7) SECO NDS Sodium 138 (136-145) mmol/L Potassium 3.5 (3.5-5.1) mmol/L Chloride 99 (98-107) mmol/L Carbon Dioxide 28 (22-29) mmol/L Anion Gap 14.5 (5-19) BUN 20 (6-20) mg/dL Creatinine 1.0 H (0.5-0.9) mg/dL GFR Calculation 59.4 L (90-130) mL/min Glucose 304 H (65-115) mg/dL Calculated Osmolal ity 300 H (285-295) mOsm/k g Calcium 8.9 (8.5-10.5) mg/dL Total Bilirubin 0.4 (0.15-1.2) mg/dL AST 16 (0-32) U/L ALT 28 (0-33) U/L Alkaline Phosphata se 182 H (35-105) IU/L Creatine Kinase 213 H (26-192) U/L Troponin T Baselin e (0-10) ng/L NT-Pro-B Natriuret Pep 4088 H (0-125) pg/mL Total Protein 6.4 L (6.6-8.7) g/dL Albumin 3.6 (3.5-5.2) g/dL Globulin 2.8 (1.3-4.6) g/dL 12/21/20 Range/Units 23:46 WBC (4.0-10.0) 10^3/ uL RBC (4.1-5.3) 10^6/u L Hgb (11.5-15.3) g/dL Hct (37.0-47.0) % MCV (81-99) fL MCH (28.0-34.0) pg MCHC (30.0-36.0) g/dL RDW (12.1-15.1) % Plt Count (130-400) 10^3/c mm MPV (7.4-10.4) fL Neut % (Auto) % Lymph % (Auto) % [place] % (Auto) % Eos % (Auto) % Baso % (Auto) % Neut # (Auto) (1.8-7.7) 10^3/u L Lymph # (Auto) (0.8-4.8) 10^3/u L [place] # (Auto) (0.2-0.9) 10^3/u L Eos # (Auto) (0.0-0.8) 10^3/u L Baso # (Auto) (0.0-0.1) 10^3/u L Nucleated RBC % (a uto) % Nucleated RBCs # /100WBC PT (12.1-14.9) SECO NDS INR (0.8-1.2) APTT (23.9-36.7) SECO NDS Sodium (136-145) mmol/L Potassium (3.5-5.1) mmol/L Chloride (98-107) mmol/L Carbon Dioxide (22-29) mmol/L Anion Gap (5-19) BUN (6-20) mg/dL Creatinine (0.5-0.9) mg/dL GFR Calculation (90-130) mL/min Glucose (65-115) mg/dL Calculated Osmolal ity (285-295) mOsm/k g Calcium (8.5-10.5) mg/dL Total Bilirubin (0.15-1.2) mg/dL AST (0-32) U/L ALT (0-33) U/L Alkaline Phosphata se (35-105) IU/L Creatine Kinase (26-192) U/L Troponin T Baselin e 37 H (0-10) ng/L NT-Pro-B Natriuret Pep (0-125) pg/mL Total Protein (6.6-8.7) g/dL Albumin (3.5-5.2) g/dL Globulin (1.3-4.6) g/dL Critical Care Time Critical Care Time: Critical Care Time: Yes Total Critical Care Time: 35 Attestation: This case had a high probability of a clinically significant, sudden, or life threatening deterioration of this patient's condition which required my full and direct attention, intervention and personal management. Discharge Plan Discharge Patient Disposition: Admitted As Inpatient Admit Provider: Braden Mora Clinical Impression: Hypertensive urgency Condition: Stable Coding Level of Care Code ED Biztalk Software Developer for Chg Fwd Exam Comprehensive
--- NOTE | 2020-12-22 00:22 | PC.NURSE ---
patient placed on 2 liters oxygen to maintain 91% or greater Spo2 saturation
[2020-12-22 00:27] LABS: Alanine Aminotransferase 28 U/L (0-33); Albumin Level 3.6 g/dL (3.5-5.2); Alkaline Phosphatase 182 IU/L (35-105); Anion Gap 14.5 (5-19); Aspartate Amino Transferase 16 U/L (0-32); Blood Urea Nitrogen 20 mg/dL (6-20); Calcium 8.9 mg/dL (8.5-10.5); Carbon Dioxide 28 mmol/L (22-29); Chloride 99 mmol/L (98-107); Creatine Phosphokinase 213 U/L (26-192); Globulin 2.8 g/dL (1.3-4.6); Glomerular Filtration Rate 59.4 mL/min (90-130); Glucose 304 mg/dL (65-115); NT Pro B Type Natriuretic Pept 4088 pg/mL (0-125); Osmolality Calculated 300 mOsm/kg (285-295); Potassium 3.5 mmol/L (3.5-5.1); Sodium 138 mmol/L (136-145); Total Bilirubin 0.4 mg/dL (0.15-1.2); Total Protein 6.4 g/dL (6.6-8.7)
[2020-12-22] MEDS: nicardipine 20 MG/200 ML PREMIX 50 MG IV (00:48)
--- NOTE | 2020-12-22 01:39 | ECG_ITS ---
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 Measurements Intervals [place] Rate: 75 P: 29 [place]: 163 QRS: -4 QRSD: 99 T: 3 QT: 450 QTc: 503 Interpretive Statements SINUS RHYTHM MODERATE VOLTAGE CRITERIA FOR LVH, CONSIDER NORMAL VARIANT [MEETS CRITERIA IN ONE OF: R(aVL), S(V1), R(V5), R(V5/V6)+S(V1)] POSSIBLE ANTERIOR MYOCARDIAL INFARCTION , PROBABLY OLD [30 ms Q WAVE IN V3/V4, OR R < 0.2 mV IN V4] INFERIOR MYOCARDIAL INFARCTION , OF INDETERMINATE AGE [40+ ms Q WAVE AND/OR ST/T ABNORMALITY IN II/aVF] Compared to ECG 12/21/2020 23:35:08 No significant changes Electronically Signed On 12-22-2020 19:40:44 KILN CAR UNLOADER by Ragini Rizo M.D. [email or web address] [id number] f
[2020-12-22] MEDS: acetaminophen 500 mg Tablet 1000 MG PO (01:49)
[2020-12-22 02:22] LABS: Troponin 5 2HR 35.78 ng/L (0-10)
--- NOTE | 2020-12-22 02:29 | PM.HP ---
Providers/Chief Complaint Admitting Physician: Braden Mora MD Primary Care Provider: Shefali Russo DO Chief Complaint: n,v,htn History of Present Illness Ivon Larios is a 45 year old female with a past medical history of multiple strokes in multiple vascular territories with an extensive work-up in the past, with chronic right-sided hemiparesis/ right facial droop,/slurred speech, was legally blind in both eyes, hypertension, hyperlipidemia, insulin-dependent type 2 diabetes mellitus who presents to [facility] for complaints of nausea and dizziness and headache. Patient tells me that she was at a shelter, until December 10, when she moved out of the shelter to [place], she currently living on her own, her mother helps manage her medications, from her stroke she is able to ambulate with a cane, her right leg is in a brace, she says that when she was discharged from the shelter her home health care has not been arranged, so she has not had home health care since she has been at home, but again assures me that her medic medications have been arranged by her mom. She tells me that early this morning she started to develop dizziness, dizziness occurring in any position, with a headache, associated with nausea, she tells me that this typically happens when her blood pressure is high, no tinnitus, no headache, no new focal neurologic deficits, no paresthesias, she did not fall. No fevers, no chills, no shortness of breath, no chest pain, no palpitations, no cough, no diarrhea, no abdominal pain, no dysuria. In the emergency room she was found to have blood pressures 240s over 140, CT of the head showed small old appearing infarction in the left basal ganglia, EKG shows sinus rhythm, Baseline troponin 37, BNP 4088, creatinine 1, patient was placed on a Cardene drip Review of Systems Const: Denies: fever(s), chills, fatigue or malaise Eyes: Denies: change in vision or blurry vision ENMT: Denies: nasal congestion Card: Denies: chest pain or palpitations Resp: Denies: dyspnea, productive cough, non-productive cough or wheezing GI: Denies: abdominal pain, nausea, vomiting, hematemesis, diarrhea, constipation, hematochezia or melena : Denies: flank pain, dysuria or urinary frequency Musc: Denies: neck pain or back pain Skin/Breast: Denies: rash Neuro: Reports: headache(s), weakness in extremities and dizziness; Denies: numbness in extremities, difficulty walking, confusion or seizure-like activity Psych: Denies: anxiety or depression Endo: Denies: polyuria or polydipsia Medications/Allergies Home Medications Medication Instructions Recorded Confirmed Last Taken Type Dorzolamide Hcl/Timolol Maleat 1 drp OPHTHALMIC (EYE) BID 08/30/20 12/16/20 10/17/20 History Levemir U-100 Insulin See Rx Instructions .ROUTE .COMPLEX 08/30/20 12/16/20 10/17/20 History Victoza 3-Ramin 1.2 mg SUBCUT QAM 08/30/20 12/16/20 10/17/20 History amitriptyline 25 mg PO BEDTIME 08/30/20 12/16/20 10/16/20 History aspirin 81 mg PO QAM 08/30/20 12/16/20 10/17/20 History atorvastatin 40 mg PO QAM 08/30/20 12/16/20 10/16/20 History brimonidine 1 drp OPHTHALMIC (EYE) BID 08/30/20 12/16/20 10/17/20 History clopidogrel [Plavix] 75 mg PO QAM 08/30/20 12/16/20 10/17/20 History insulin aspart U-100 [Novolog See Rx Instructions .ROUTE .COMPLEX 08/30/20 12/16/20 Unknown History U-100 Insulin aspart] levetiracetam [Keppra] 1,000 mg PO BID 08/30/20 12/16/20 10/17/20 History meclizine 25 mg PO TID PRN 08/30/20 12/16/20 Unknown History metoprolol tartrate 25 mg PO Q12H 08/30/20 12/16/20 10/17/20 History pantoprazole 40 mg PO QAM 08/30/20 12/16/20 10/17/20 History ropinirole 0.5 mg PO QAM 08/30/20 12/16/20 10/17/20 History venlafaxine [Effexor XR] 150 mg PO QAM 08/30/20 12/16/20 10/17/20 History tamsulosin [Flomax] 0.4 mg PO QAM 10/17/20 12/16/20 10/17/20 History aripiprazole [Abilify] 5 mg PO BEDTIME 12/16/20 12/16/20 Unknown History cholecalciferol (vitamin D3) 2,000 unit PO DAILY 12/16/20 12/16/20 Unknown History [Vitamin D3] clonidine HCl See Rx Instructions .ROUTE .COMPLEX 12/16/20 12/16/20 Unknown History gabapentin See Rx Instructions .ROUTE .COMPLEX 12/16/20 12/16/20 Unknown History hydralazine 50 mg PO Q8H PRN 12/16/20 12/16/20 Unknown History hydrocodone-acetaminophen [[place]] 1 tab PO Q4H PRN 12/16/20 12/16/20 Unknown History temazepam 15 mg PO BEDTIME 12/16/20 12/16/20 Unknown History Allergies Allergy/AdvReac Type Severity Reaction Status Date / Time amlodipine Allergy ADR-Swelling Verified 12/21/20 23:40 of the Eye codeine Allergy ADR-Shakine Verified 12/21/20 23:40 ss hydroxyzine [From Vistaril] Allergy ADR-Confusi Verified 12/21/20 23:40 on meperidine [From Demerol] Allergy ADR-Chest Verified 12/21/20 23:40 Pain metformin [From Glucophage] Allergy ALGY-Hives Verified 12/21/20 23:40 morphine Allergy ALGY-Anaphy Verified 12/21/20 23:40 laxis phenazopyridine Allergy ALGY-Hives Verified 12/21/20 23:40 [From Pyridium] sumatriptan [From Imitrex] AdvReac Mild Unknown Verified 12/21/20 23:40 PFSH Acute PFSH: Medical History Adjustment disorder with mixed disturbance of emotions and conduct BPV (benign positional vertigo) Chronic back pain Chronic migraine without aura, intractable, with status migrainosus Depression Diabetic retinopathy Dyslipidemia Essential hypertension High risk medication use Insomnia Muscle spasm PTSD (post-traumatic stress disorder) Renal stones Rotator cuff injury Seasonal allergies Stroke Suicide attempt by multiple drug overdose TIA (transient ischemic attack) Type 2 diabetes mellitus, with long-term current use of insulin Vasculitis Surgical History H/O brain surgery H/O tubal ligation H/O: hysterectomy History of cholecystectomy History of tonsillectomy Family History Other CAD (coronary artery disease) Cancer Diabetes Hypertension Denies family history of Stroke Social History Smoking and tobacco status: smoker, details unknown smokeless tobacco Smokeless tobacco user: chewing tobacco Alcohol intake: never Household members: family Housing: House History of recent travel: Yes (travels from [facility]) Vitals/I&O/Wt Last Vital Signs Temp 97.8 F 12/21/20 23:28 Pulse 77 12/22/20 01:53 Resp 16 12/22/20 01:53 BP 172/90 12/22/20 01:53 Pulse Ox 99 12/22/20 01:53 Weight last 48 hrs Weight 98.883 kg Physical Exam Const: COMMON NORMALS: no acute distress and patient oriented x3 GENERAL APPEARANCE: cooperative and comfortable HENMT: COMMON NORMALS: normocephalic HEAD & SCALP: normocephalic Eye: COMMON NORMALS: Equal, round and reactive pupils present Neck/C-Spine: COMMON NORMALS: full ROM, no lymphadenopathy, no JVD and Thyroid normal THYROID: Thyroid normal Lymph: LYMPHATIC: no lymphadenopathy noted Resp: COMMON NORMALS: normal respiratory effort, No retractions, No use of accessory muscles and clear to auscultation bilaterally AUSCULTATION: crackles Cardio: COMMON NORMALS: no JVD, regular rate, regular rhythm, S1 normal heart sound present, S2 normal heart sound present, No gallops present (Cardio), No clicks present (Cardio) and No murmurs present (Cardio) RATE: regular rate RHYTHM: regular rhythm HEART SOUNDS: S1 normal heart sound present and S2 normal heart sound present GI: COMMON NORMALS: Normal to inspection, nondistended, normoactive bowel sounds present, Soft to palpation, non-tender and No hepatosplenomegaly present PALPATION: Yes Soft to palpation and Yes No hepatosplenomegaly present Extremity: COMMON NORMALS: normal to inspection, full ROM and no pedal edema NARRATIVE EXTREMITY EXAM: Right lower extremity in the brace Neuro: COMMON NORMALS: patient oriented x3 and CN's II-XII intact bilaterally OTHER: Right facial droop, minimal, slurring of speech mild Right upper extremity strength 4 out of 5 Right lower extremity strength 4 out of 5 Psych: COMMON NORMALS: mental status grossly normal, Normal thought process present and cooperative THOUGHT PROCESS: Normal thought process present Data : 12/21/20 23:46 12/21/20 23:46 A&P Assessment and plan (1) Hypertensive urgency: -Continue Cardene drip -Follow troponins, telemetry monitoring -Monitor for chest pain, shortness of breath, changes in mentation -Resume home metoprolol -Patient is only on as needed hydralazine and clonidine -Start p.o. lisinopril this morning Status: Acute (2) Dizziness: Likely related to hypertensive urgency CT of the head no acute stroke, but does show small old appearing infarcts in the left basal ganglia CTA of the head and neck October 2020 shown in the past Severe right supraclinoid ICA and moderate left MCA distal M1 segment stenoses, Mild left carotid bulb and moderate proximal left ICA stenoses. Continue aspirin, statin, Plavix PT OT Follow UA Status: Acute (3) Stroke: Has a history of multiple CVAs in multiple territories, with right minimal facial droop, slurring of her speech, right upper extremity weakness, 4-5, right lower extremity weakness 4-5, and a brace, can ambulate with a cane Status: Acute Qualifiers: CVA mechanism: unspecified Qualified Code(s): I63.9 - Cerebral infarction, unspecified (4) Hypertension: Status: Acute Qualifiers: Hypertension type: essential hypertension Qualified Code(s): I10 - Essential (primary) hypertension (5) Depression: Status: Chronic Qualifiers: Depression Type: major depressive disorder Major depression recurrence: recurrent Active/Remission status: in partial remission Qualified Code(s): F33.41 - Major depressive disorder, recurrent, in partial remission (6) Type 2 diabetes mellitus, with long-term current use of insulin: Start low-dose sliding scale Status: Chronic Qualifiers: Diabetes mellitus complication status: without complication Qualified Code(s): E11.9 - Type 2 diabetes mellitus without complications; 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 (7) Diastolic CHF: Does have crackles on exam, chest x-ray does show pulmonary vascular congestion, BNP is 4000, will give 1 dose of Lasix, cardiac echo Status: Acute Additional A&P Information DNR/DNI Lovenox for DVT prophylaxis Patient will require a medication reconciliation as patient is unsure of the medication she is taking, and our medication list does not match Attestations Medical Necessity Statement*: Patient requires hospitalization, outpatient with observation, for hypertensive urgency, dizziness, diastolic CHF Coding Level of Care Code Acute Irrigation Specialist for [facility] [place] Fwd Diagnoses Hypertensive urgency I16.0 Dizziness R42 Stroke I63.9 CVA mechanism: unspecified Hypertension I10 Hypertension type: essential hypertension Depression F33.41 Depression Type: major depressive disorder Major depression recurrence: recurrent Active/Remission status: in partial remission Type 2 diabetes mellitus, with long-term current use of insulin E11.9; Z79.4 Diabetes mellitus complication status: without complication Diastolic CHF I50.30
[2020-12-22 02:55] LABS: Troponin 5 2HR Delta -1.22 ABS# (0-10)
--- NOTE | 2020-12-22 03:23 | USCV_ITS ---
Ivon Larios Age: 45 Gender: F : 1975 Exam Date: 12/22/2020 06:45 Ordering Phys: Braden Mora MD Technologist: Deborah Camp [place] [facility] [place]: CHF BP: 139 / 72 HR: 73 Rhythm: Sinus Technical Quality: Suboptimal MEASUREMENTS (Male / Female) Normal Values 2D ECHO LV Diastolic Diameter PLAX 4.1 cm 4.2 - 5.9 / 3.9 - 5.3 cm LV Systolic Diameter PLAX 2.7 cm LV Chamber Size 4.3 cm IVS Diastolic Thickness 2.0 cm 0.6 - 1.0 / 0.6 - 0.9 cm IVS Systolic Thickness 2.5 cm LVPW Diastolic Thickness 1.4 cm 0.6 - 1.0 / 0.6 - 0.9 cm LVPW Systolic Thickness 1.7 cm RV Chamber Size 2.4 cm LVOT Diameter 2.0 cm LV Ejection Fraction 2D Teich 64.4 % LA Diameter 3.3 cm LA Width 3.5 cm LA Height 5.3 cm RA Width 2.4 cm RA Height 5.1 cm Aorta at Sinotubular Diameter 2.6 cm M-MODE LV Diastolic Diameter MM 4.6 cm 4.2 - 5.9 / 3.9 - 5.3 cm LV Systolic Diameter MM 2.8 cm LV Ejection Fraction MM Teich 69.6 % IVS Diastolic Thickness MM 1.8 cm 0.6 - 1.0 / 0.6 - 0.9 cm IVS Systolic Thickness MM 1.7 cm LVPW Diastolic Thickness MM 1.6 cm 0.6 - 1.0 / 0.6 - 0.9 cm LVPW Systolic Thickness MM 2.0 cm RV Diastolic Diameter MM 1.8 cm Aortic Annulus Diameter 3.5 cm LA Ao Ratio MM 1.1 MV E Point Septal Separation 0.7 cm DOPPLER AV Peak Velocity 121.0 cm/s LVOT Peak Velocity 107.0 cm/s AV Area Cont Eq vti 3.0 cm squared AV Area Cont Eq pk 2.8 cm squared MV Area PHT 4.2 cm squared Mitral E to A Ratio 0.9 MV E' Velocity 41.0 cm/s Mitral E to MV E' Ratio 12.4 Mitral E to LV E' Lateral Ratio 11.3 Mitral E to LV E' Septal Ratio 13.7 TV Peak E Velocity 54.0 cm/s PV Peak Velocity 89.0 cm/s RV Acceleration Time 0.1 s RV Ejection Time 0.3 s RV AcT/ET 0.3 FINDINGS Left Ventricle Normal left ventricular size and systolic function, EF 65%.moderate left ventricular hypertrophy. No regional wall motion abnormalities. Grade I/IV diastolic dysfunction (abnormal relaxation filling pattern), normal to mildly elevated filling pressures. Right Ventricle The right ventricle is normal in size and function. Right Atrium The right atrium is normal in size. Left Atrium The left atrium is normal in size. Mitral Valve No gross abnormalities noted. Aortic Valve Appears to be tricuspid with no gross abnormalities Tricuspid Valve No gross abnormalities noted Pulmonic Valve No gross abnormalities noted Pericardium Normal pericardium without effusion. Aorta Normal ascending aorta dimension. CONCLUSIONS Normal left ventricular size and systolic function, EF 65%. Moderate left ventricular hypertrophy. No regional wall motion abnormalities. Grade I/IV diastolic dysfunction (abnormal relaxation filling pattern), normal to mildly elevated filling pressures. No significant stenotic or elevated lesions. No intracardiac masses. No pericardial effusion Comparison with the previous study is difficult because of the difference in the technical quality. Dr Ragini Rizo MD [facility] (Electronically Signed) Final Date: 22 December 2020 18:13 S
[2020-12-22] MEDS: enoxaparin 40 mg/0.4 mL Syringe SUBCUT (03:57)
[2020-12-22] MEDS: FUROsemide 10 mg/mL SDV 4mL 40 MG IVP (03:58)
[2020-12-22] MEDS: metoprolol tartrate 25 mg Tablet PO (03:58)
--- NOTE | 2020-12-22 05:11 | PC.NURSE ---
0345 - Admitted to ICU 2 from ER via stretcher with nurse at bedside. Awake, Alert, and Oriented. Reports that headache is much better and is no longer nauseated. Cardene infusing at 2.5mg/h at present time. Respirations even and unlabored, no distress noted.
[2020-12-22] MEDS: aspirin 81 mg EC Tablet PO (05:19)
[2020-12-22] MEDS: pantoprazole DR 40 mg Tablet PO (05:20)
[2020-12-22] MEDS: venlafaxine ER (24HR) 150 mg Capsule PO (05:20)
[2020-12-22] MEDS: tamsulosin 0.4 mg Capsule PO (05:20)
[2020-12-22] MEDS: atorvastatin 40 mg Tablet PO (05:20)
[2020-12-22] MEDS: ropinirole 1 mg Tablet 0.5 MG PO (05:20)
[2020-12-22] MEDS: clopidogrel 75 mg Tablet PO (05:20)
--- NOTE | 2020-12-22 05:39 | ECG_ITS ---
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 Measurements Intervals [place] Rate: 77 P: 32 [place]: 167 QRS: -4 QRSD: 98 T: 5 QT: 450 QTc: 511 Interpretive Statements SINUS RHYTHM MODERATE VOLTAGE CRITERIA FOR LVH, CONSIDER NORMAL VARIANT [MEETS CRITERIA IN ONE OF: R(aVL), S(V1), R(V5), R(V5/V6)+S(V1)] POSSIBLE ANTERIOR MYOCARDIAL INFARCTION [30 ms Q WAVE IN V3/V4, OR R < 0.2 mV IN V4], PROBABLY OLD Nondiagnostic T wave changes POSSIBLE INFERIOR MYOCARDIAL INFARCTION [30 ms Q WAVE IN II/aVF], PROBABLY OLD Compared to ECG 12/22/2020 03:27:55 No significant changes Electronically Signed On 12-22-2020 19:41:42 RUBBER ATTACHER by Ragini Rizo M.D. [id number]
[2020-12-22 07:12] LABS: Troponin 5 6HR 44.67 ng/L (0-10); Troponin 5 6HR Delta 7.67 ng/L (0-12)
[2020-12-22 08:23] LABS: Glucose Point of Care 407 mg/dL (70-110)
[2020-12-22] MEDS: gabapentin 100 mg Capsule PO (08:28)
[2020-12-22] MEDS: lisinopril 20 mg Tablet PO (08:29)
[2020-12-22] MEDS: levETIRAcetam 500 mg Tablet 1000 MG PO (08:29)
--- NOTE | 2020-12-22 10:37 | PC.NURSE ---
[address] Carey. Reported elevated blood sugar level. Discussed plan of care. Will get up to date home medication list and reevaluate for discharge this afternoon.
--- NOTE | 2020-12-22 11:04 | P.DS_ITS ---
Discharge Providers Date of Admission: 12/22/20 01:19 Date of Discharge: December 22, 2020 Attending Provider at Admission: Braden Mora MD Attending Provider at Discharge: Emily Carey MD Primary Care Provider: Shefali Russo DO Diagnoses at Discharge Discharge Diagnosis (1) Hypertensive urgency: Status: Acute (2) Dizziness: Status: Acute (3) Stroke: Status: Acute Qualifiers: CVA mechanism: unspecified Qualified Code(s): I63.9 - Cerebral infarction, unspecified (4) Hypertension: Status: Acute Qualifiers: Hypertension type: essential hypertension Qualified Code(s): I10 - Essential (primary) hypertension (5) Depression: Status: Chronic Qualifiers: Depression Type: major depressive disorder Major depression recurrence: recurrent Active/Remission status: in partial remission Qualified Code(s): F33.41 - Major depressive disorder, recurrent, in partial remission (6) Type 2 diabetes mellitus, with long-term current use of insulin: Status: Chronic Qualifiers: Diabetes mellitus complication status: without complication Qualified Code(s): E11.9 - Type 2 diabetes mellitus without complications; Z79.4 - snf (current) use of insulin (7) Diastolic CHF: Status: Acute Reason for Visit Reason for Visit: n,v,htn Hospital Course Hospital Course Ivon Larios is a 45 year old female with a past medical history of multiple strokes in multiple vascular territories with an extensive work-up in the past, with chronic right-sided hemiparesis/ right facial droop,/slurred speech, was legally blind in both eyes, hypertension, hyperlipidemia, insulin-dependent type 2 diabetes mellitus who presents to [facility] for complaints of nausea and dizziness and headache. Patient tells me that she was at a group home, until December 10, when she moved out of the group home to [place], she currently living on her own, her mother helps manage her medications, from her stroke she is able to ambulate with a cane, her right leg is in a brace, she says that when she was discharged from the group home her home health care has not been arranged, so she has not had home health care since she has been at home, but again assures me that her medic medications have been arranged by her mom. She tells me that early this morning she started to develop dizziness, dizziness occurring in any position, with a headache, associated with nausea, she tells me that this typically happens when her blood pressure is high, no tinnitus, no headache, no new focal neurologic deficits, no paresthesias, she did not fall. No fevers, no chills, no shortness of breath, no chest pain, no palpitations, no cough, no diarrhea, no abdominal pain, no dysuria. In the emergency room she was found to have blood pressures 240s over 140, CT of the head showed small old appearing infarction in the left basal ganglia, EKG shows sinus rhythm, Baseline troponin 37, BNP 4088, creatinine 1, patient was placed on a Cardene drip Overnight Cardene drip was titrated off this morning her blood pressure was stable patient was not complaining of any active headache she has residual weakness no acute neurological deficits were noted, patient was very upset when I talked about discussing medications with her mother as well. At the time of my evaluation blood pressure 130/74 mmHg. Active chest pain. Clinically she does show signs of heart failure however she saturating well on room air. She is looking forward to go home, she does not want to go back to group home. She has capacity to make decisions. Medications for hypertension: Metoprolol, hydralazine, lisinopril Discontinued chronic Added Lasix for diastolic congestive heart failure Physical Exam Narrative: EXAM NARRATIVE: Middle-age female was sitting comfortably in her bed when I entered the room Irritable mood S1, S2 sinus rhythm signs of heart failure bilateral lower extremity edema noted No crackles wheezing or stridor noted on lung auscultation Soft abdomen no active tenderness Residual weakness no acute neurological deficit Right leg is in a brace Has chronic residual mild dysarthria Discharge Data Data Completed and Pending: Completed Studies During Hospitalization Category Date Time Status CT head wo con* 7 0450 Stat Cat Scan 12/21/20 23:40 Completed XR chest 1V mikie ble 16470 Stat Exams 12/21/20 23:39 Completed Pending at discharge Category Date Time Status Complete Blood Co unt w/Auto AM LABS Lab 12/23/20 04:00 Ordered Complete Blood Co unt w/Auto AM LABS Lab 12/24/20 04:00 Ordered Complete Blood Co unt w/Auto AM LABS Lab 12/25/20 04:00 Ordered Comprehensive Met abolic Panel AM LA BS Lab 12/23/20 04:00 Ordered Comprehensive Met abolic Panel AM LA BS Lab 12/24/20 04:00 Ordered Comprehensive Met abolic Panel AM LA BS Lab 12/25/20 04:00 Ordered Hemoglobin A1C AM LABS Lab 12/23/20 04:00 Ordered Lipid Panel AM LA BS Lab 12/23/20 04:00 Ordered Magnesium AM LABS Lab 12/23/20 04:00 Ordered Magnesium AM LABS Lab 12/24/20 04:00 Ordered Magnesium AM LABS Lab 12/25/20 04:00 Ordered NT Pro B Type Pattie riuretic Pept QAM Lab 12/23/20 06:00 Ordered NT Pro B Type Pattie riuretic Pept QAM Lab 12/24/20 06:00 Ordered NT Pro B Type Pattie riuretic Pept QAM Lab 12/25/20 06:00 Ordered Phosphorus AM LAB S Lab 12/23/20 04:00 Ordered Phosphorus AM LAB S Lab 12/24/20 04:00 Ordered Phosphorus AM LAB S Lab 12/25/20 04:00 Ordered Prothrombin Time INR AM LABS Lab 12/23/20 04:00 Ordered Prothrombin Time INR AM LABS Lab 12/24/20 04:00 Ordered Prothrombin Time INR AM LABS Lab 12/25/20 04:00 Ordered Thyroid Stimulati ng Hormone AM LABS Lab 12/23/20 04:00 Ordered CV echo complete* [id number] Routine Ultrasound 12/22/20 03:23 Taken Labs from last 24 hours 12/22/20 12/22/20 12/22/20 08:20 06:38 01:38 WBC RBC Hgb Hct MCV MCH MCHC RDW Plt Count MPV Neut % (Auto) Lymph % (Auto) [place] % (Auto) Eos % (Auto) Baso % (Auto) Neut # (Auto) Lymph # (Auto) [place] # (Auto) Eos # (Auto) Baso # (Auto) Nucleated RBC % (a uto) Nucleated RBCs # PT INR APTT Sodium Potassium Chloride Carbon Dioxide Anion Gap BUN Creatinine GFR Calculation Glucose POC Glucose 407 H Calculated Osmolal ity Calcium Total Bilirubin AST ALT Alkaline Phosphata se Creatine Kinase Troponin T Baselin e Troponin T 120 Min [place] 35.78 H Delta Troponin T -1.22 L Troponin T Hi Sens 6Hr 44.67 H Troponin T Hi Sens 6Hr Delta 7.67 NT-Pro-B Natriuret Pep Total Protein Albumin Globulin 12/21/20 12/21/20 12/21/20 23:46 23:46 23:46 WBC RBC Hgb Hct MCV MCH MCHC RDW Plt Count MPV Neut % (Auto) Lymph % (Auto) [place] % (Auto) Eos % (Auto) Baso % (Auto) Neut # (Auto) Lymph # (Auto) [place] # (Auto) Eos # (Auto) Baso # (Auto) Nucleated RBC % (a uto) Nucleated RBCs # PT 12.90 INR 0.94 APTT 25.4 Sodium 138 Potassium 3.5 Chloride 99 Carbon Dioxide 28 Anion Gap 14.5 BUN 20 Creatinine 1.0 H GFR Calculation 59.4 L Glucose 304 H POC Glucose Calculated Osmolal ity 300 H Calcium 8.9 Total Bilirubin 0.4 AST 16 ALT 28 Alkaline Phosphata se 182 H Creatine Kinase 213 H Troponin T Baselin e 37 H Troponin T 120 Min [place] Delta Troponin T Troponin T Hi Sens 6Hr Troponin T Hi Sens 6Hr Delta NT-Pro-B Natriuret Pep 4088 H Total Protein 6.4 L Albumin 3.6 Globulin 2.8 12/21/20 23:46 WBC 9.7 RBC 4.50 Hgb 11.2 L Hct 35.3 L MCV 78.4 L MCH 24.9 L MCHC 31.7 RDW 12.9 Plt Count 381 MPV 11.6 H Neut % (Auto) 66.1 Lymph % (Auto) 24.6 [place] % (Auto) 7.1 Eos % (Auto) 1.2 Baso % (Auto) 0.6 Neut # (Auto) 6.42 Lymph # (Auto) 2.4 [place] # (Auto) 0.7 Eos # (Auto) 0.1 Baso # (Auto) 0.1 Nucleated RBC % (a uto) 0 Nucleated RBCs # 0.0 PT INR APTT Sodium Potassium Chloride Carbon Dioxide Anion Gap BUN Creatinine GFR Calculation Glucose POC Glucose Calculated Osmolal ity Calcium Total Bilirubin AST ALT Alkaline Phosphata se Creatine Kinase Troponin T Baselin e Troponin T 120 Min [place] Delta Troponin T Troponin T Hi Sens 6Hr Troponin T Hi Sens 6Hr Delta NT-Pro-B Natriuret Pep Total Protein Albumin Globulin Vitals: Last Vital Signs Temp 98.6 F 12/22/20 07:00 Pulse 73 12/22/20 10:45 Resp 13 12/22/20 10:45 BP 130/74 12/22/20 10:45 Pulse Ox 91 12/22/20 10:45 Discharge Plan Discharge Patient Disposition: Home Condition: Stable Prescriptions: New metoprolol tartrate 25 mg Tablet 25 mg PO Q12H 30 Days Qty: 60 RF: 0 hydralazine 25 mg Tablet 50 mg PO Q8H PRN (Reason: Blood Pressure) 30 Days Qty: 90 RF: 0 furosemide [Lasix] 40 mg tablet 40 mg PO DAILY 30 Days Qty: 30 RF: 0 lisinopril 20 mg tablet 20 mg PO BID 30 Days Qty: 60 RF: 0 Continued atorvastatin 40 mg Tablet 40 mg PO QAM RF: 0 venlafaxine [Effexor XR] 150 mg Capsule,Extended Release 24hr 150 mg PO QAM RF: 0 clopidogrel [Plavix] 75 mg Tablet 75 mg PO QAM RF: 0 aspirin 81 mg Tablet,Delayed Release (Dr/Ec) 81 mg PO QAM RF: 0 amitriptyline 25 mg Tablet 25 mg PO BEDTIME RF: 0 meclizine 25 mg Tablet 25 mg PO TID PRN (Reason: Dizziness) RF: 0 insulin aspart U-100 [Novolog U-100 Insulin aspart] 100 unit/mL Solution See Rx Instructions .ROUTE .COMPLEX RF: 0 pantoprazole 40 mg Tablet,Delayed Release (Dr/Ec) 40 mg PO QAM RF: 0 ropinirole 0.5 mg Tablet 0.5 mg PO QAM RF: 0 brimonidine 0.2 % Drops 1 drp ophthalmic (eye) BID RF: 0 metoprolol tartrate 25 mg Tablet 25 mg PO Q12H RF: 0 Levemir U-100 Insulin 100 unit/mL Solution See Rx Instructions .ROUTE .COMPLEX RF: 0 levetiracetam [Keppra] 1,000 mg Tablet 1,000 mg PO BID RF: 0 Victoza 3-Ramin 0.6 mg/0.1 mL (18 mg/3 mL) Pen Injector 1.2 mg SUBCUT QAM RF: 0 Dorzolamide Hcl/Timolol Maleat 1 drp ophthalmic (eye) BID RF: 0 tamsulosin [Flomax] 0.4 mg capsule 0.4 mg PO QAM RF: 0 temazepam 15 mg Capsule 15 mg PO BEDTIME RF: 0 [place] 7.5-325 mg Tablet 1 tab PO Q4H PRN (Reason: Pain) RF: 0 gabapentin 100 mg Capsule See Rx Instructions .ROUTE .COMPLEX RF: 0 Abilify 5 mg Tablet 5 mg PO BEDTIME RF: 0 Vitamin D3 50 mcg (2,000 unit) Capsule 2,000 unit PO DAILY RF: 0 hydralazine 25 mg tablet 50 mg PO Q8H PRN (Reason: Blood Pressure) RF: 0 Discontinued clonidine HCl 0.1 mg Tablet See Rx Instructions .ROUTE .COMPLEX RF: 0 Discharge Orders: Discharge Order (Routine); Ordered 12/22/20 Ordered By: Emily Carey Discharge Diet: Cardiac Discharge Activity: Increase activity as tolerated and Use walker/crutches as instructed Activity Restrictions/Additional Instructions: Please be aware that for your hypertension we have metoprolol, lisinopril, hydralazine , If your systolic blood pressure is less than 90 mmHg you can hold your blood pressure pills I am discontinuing your clonidine because it has risk of rebound hypertension, Adding Lasix 40 mg daily for your diastolic congestive heart failure, you can increase or decrease the dose depending on your weight gain and symptoms of shortness of breath and ankle swelling Please follow-up with your PCP for closer monitoring of her blood pressure Discharge Attestations Time Spent in Discharge Care*: greater than 30 min Quality Metrics Clinical Quality Measures During this hospital stay, did patient experience: None Coding Level of Care Code Acute Chg FW DC note Diagnoses Hypertensive urgency I16.0 Dizziness R42 Stroke I63.9 CVA mechanism: unspecified Hypertension I10 Hypertension type: essential hypertension Depression F33.41 Depression Type: major depressive disorder Major depression recurrence: recurrent Active/Remission status: in partial remission Type 2 diabetes mellitus, with long-term current use of insulin E11.9; Z79.4 Diabetes mellitus complication status: without complication Diastolic CHF I50.30
[2020-12-22 11:32] LABS: Glucose Point of Care 260 mg/dL (70-110)
--- NOTE | 2020-12-22 11:49 | PC.PHAR ---
PT FAMILY BROUGHT IN PT'S MEDS BUBBLE PACKED FROM [facility]. VERIFIED MEDS BY BUBBLE PACKS AND PATIENT.
--- NOTE | 2020-12-22 14:49 | PC.NURSE ---
1150 Dr. Carey at bedside. Reported patient's tolerance of PT. Reviewed vitals signs. Orothostatic BP done. Discussed home medications and rivas for discharge home today. 1350 Ok to discharge home per Dr. Carey.
== END 2020-12-22 15:26 | disposition home or self-care (01) ==
LOC: ER 23:37 → ICU 12-22 03:08
PROVIDERS: Admitting Provider Family Medicine; Emergency Provider Emergency Medicine; PCP Family Medicine; Visit Provider Internal Medicine
DX: I16.0 Hypertensive urgency (principal); R42 Dizziness and giddiness; I63.9 Cerebral infarction, unspecified; F33.41 Major depressive disorder, recurrent, in partial remission; E11.9 Type 2 diabetes mellitus without complications; Z79.4 Long term (current) use of insulin; I11.0 Hypertensive heart disease with heart failure; I50.30 Unspecified diastolic (congestive) heart failure; E78.5 Hyperlipidemia, unspecified; F17.220 Nicotine dependence, chewing tobacco, uncomplicated
CPT/HCPCS: 36415; 36416; 70450; 71045; 80053; 82550; 82962; 83880; 84484; 85025; 85610; 85730; 93005; 93306; 94664; 96365; 96372; 96375; 97116; 97162; 97165; 97530; 99285; G0378; J1650; J1815; J1940; J3010; J3490

== ENCOUNTER → 2021-02-06 07:59 | Outpatient (BNVA) | payer MEDICAID, SELFPAY | PROVIDERS: PCP Family Medicine; Visit Provider Specialist | DX: I10 Essential (primary) hypertension (principal); E11.9 Type 2 diabetes mellitus without complications; Z79.4 Long term (current) use of insulin; F17.220 Nicotine dependence, chewing tobacco, uncomplicated | CPT/HCPCS: 99215 ==

== ENCOUNTER 2021-03-03 21:47 | Emergency (ER) | payer MEDICAID, SELFPAY ==
--- NOTE | 2021-03-03 22:03 | CTR_ITS ---
PROCEDURE INFORMATION: Exam: CT Abdomen And Pelvis Without Contrast Exam date and time: 03/03/2021 10:21 PM Age: 45 years old Clinical indication: Abdominal pain; Right; Prior surgery; Surgery date: 6+ months; Surgery type: Gb, hyst; Patient HX: C/O R flank pain w HX of stones; Additional info: Abd pain TECHNIQUE: Imaging protocol: Computed tomography of the abdomen and pelvis without contrast. Radiation optimization: All CT scans at this facility use at least one of these dose optimization techniques: automated exposure control; mA and/or kV adjustment per patient size (includes targeted exams where dose is matched to clinical indication); or iterative reconstruction. COMPARISON: CT kidney stone [id number] 08/30/2020 12:05 AM RADIATION DOSE METRICS: Total DLP (mGy-cm): 1753.11 FINDINGS: Lungs: The lung bases are clear. No effusion Liver: Normal. No mass. Gallbladder and bile ducts: There has been a cholecystectomy. Pancreas: Normal. No ductal dilation. Spleen: Normal. No splenomegaly. Adrenal glands: Normal. No mass. Kidneys and ureters: Multiple nonobstructing left renal pelvis stones, largest is 8 mm. kidney which are too small to accurately characterize by CT. Stomach and bowel: Mild amount of formed stool in the colon. Appendix: No evidence of appendicitis. Intraperitoneal space: Unremarkable. No free air. No significant fluid collection. Vasculature: Unremarkable. No abdominal aortic aneurysm. Lymph nodes: Unremarkable. No enlarged lymph nodes. Urinary bladder: Unremarkable as visualized. Reproductive: There has been a hysterectomy. Bones/joints: Unremarkable. No acute fracture. Soft tissues: Unremarkable. Other findings: There is a subcentimeter low-attenuation lesions/lesions, of the right CT/CT kidney stone [id number] IMPRESSION: 1. Multiple nonobstructing left renal pelvis stones, largest is 8 mm. 2. Multiple nonobstructing right renal pelvis stones, largest is 6 mm. 3. Mild constipation. Radiation Dose CTDIVOL = (mGy): DLP = 1753.11 (mGy-cm)
--- NOTE | 2021-03-03 22:07 | ED_ITS ---
HPI - Abdominal Pain General: Chief Complaint: General Medical Stated Complaint: rt side flank plain Time Seen by Provider: 03/03/21 21:55 Source: patient and EMS Mode of arrival: EMS Limitations: no limitations History of Present Illness: HPI narrative: 45-year-old female history of blindness here from local group home. She does have a history of kidney stones as well. 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 States been sharp in nature. She denies any worsening improving factors. Denies any dysuria. Patient was given 100 mcg of fentanyl before arrival by EMS and her pain is now 3 out of 10. Associated Symptoms: Denies chills, dysuria and fever(s) Review of Systems Const: Denies: fever(s), chills, body aches or change in appetite Eyes: Denies: blurry vision or eye discomfort ENMT: Denies: throat pain or dental pain Card: Denies: chest pain Resp: Denies: dyspnea GI: Reports: abdominal pain : Denies: dysuria Musc: Denies: neck pain or back pain Skin/Breast: Denies: rash Neuro: Denies: headache(s) Psych: Denies: depression Donato/Lymph: Denies: easy bruising All/Imm: Denies: urticaria PFSH ED PFSH: Medical History Adjustment disorder with mixed disturbance of emotions and conduct BPV (benign positional vertigo) Chronic back pain Chronic migraine without aura, intractable, with status migrainosus Depression Diabetic retinopathy Diastolic CHF Dyslipidemia Essential hypertension High risk medication use History of 2019 novel coronavirus disease (COVID-19) Insomnia Muscle spasm PTSD (post-traumatic stress disorder) Renal stones Rotator cuff injury Seasonal allergies Stage 3a chronic kidney disease Stroke Suicide attempt by multiple drug overdose TIA (transient ischemic attack) Type 2 diabetes mellitus, with long-term current use of insulin Vasculitis Surgical History H/O brain surgery H/O tubal ligation H/O: hysterectomy History of cholecystectomy History of tonsillectomy Family History Other CAD (coronary artery disease) Cancer Diabetes Hypertension Denies family history of Stroke Social History Smoking and tobacco status: smoker, details unknown smokeless tobacco Smokeless tobacco user: chewing tobacco Alcohol intake: never Household members: family Housing: House History of recent travel: No Physical Exam Const: COMMON NORMALS: no acute distress, patient oriented x3 and healthy appearing HENMT: COMMON NORMALS: normocephalic and atraumatic HEAD & SCALP: normocephalic and atraumatic Eye: COMMON NORMALS: Equal, round and reactive pupils present and EOMs intact bilaterally PUPIL: Yes Equal, round and reactive pupils present Neck/C-Spine: COMMON NORMALS: full ROM and supple Chest: COMMONS NORMALS: normal inspection of the chest and normal palpation of entire chest wall Resp: COMMON NORMALS: normal respiratory effort, No retractions, No use of accessory muscles and clear to auscultation bilaterally AUSCULTATION: clear to auscultation bilaterally Cardio: COMMON NORMALS: regular rate, regular rhythm and No murmurs present (Cardio) RATE: regular rate RHYTHM: regular rhythm GI: COMMON NORMALS: Normal to inspection, nondistended, normoactive bowel sounds present, Soft to palpation, non-tender and no masses PALPATION: Yes Soft to palpation Extremity: COMMON NORMALS: normal to inspection and full ROM Neuro: COMMON NORMALS: patient oriented x3, moves all extremities and no focal motor deficits Psych: COMMON NORMALS: mental status grossly normal, Normal thought process present and cooperative THOUGHT PROCESS: Normal thought process present Skin: COMMON NORMALS: no rashes or lesions noted and no wounds GENERAL SKIN EXAM: no rashes or lesions noted Course Vital Signs: Vital signs: Vital Signs Temperature 97.6 F 03/03/21 22:10 Pulse Rate 56 L 03/04/21 00:06 Respiratory Rate 18 03/04/21 00:49 Blood Pressure 119/79 03/04/21 00:49 Pulse Oximetry 96 03/04/21 00:49 MDM - Abdominal Pain MDM Narrative: Medical decision making narrative: Patient presents with flank pain that could be muscular in nature. CT showed no acute findings blood work here is normal as well. Pain is improved. She is on hydrocodone at home. We will add Naprosyn. She is to follow-up with PCP and return if worsening. Lab Data: Labs: Lab Results 03/03/21 03/03/21 03/03/21 Range/Units 22:19 22:19 23:30 WBC 8.9 (4.0-10.0) 10^3/ uL RBC 3.92 L (4.1-5.3) 10^6/u L Hgb 10.1 L (11.5-15.3) g/dL Hct 31.9 L (37.0-47.0) % MCV 81.4 (81-99) fL MCH 25.8 L (28.0-34.0) pg MCHC 31.7 (30.0-36.0) g/dL RDW 13.2 (12.1-15.1) % Plt Count 329 (130-400) 10^3/c mm MPV 11.5 H (7.4-10.4) fL Neut % (Auto) 43.1 % Lymph % (Auto) 44.9 % Tate % (Auto) 8.3 % Eos % (Auto) 2.6 % Baso % (Auto) 0.7 % Neut # (Auto) 3.84 (1.8-7.7) 10^3/u L Lymph # (Auto) 4.0 (0.8-4.8) 10^3/u L Tate # (Auto) 0.7 (0.2-0.9) 10^3/u L Eos # (Auto) 0.2 (0.0-0.8) 10^3/u L Baso # (Auto) 0.1 (0.0-0.1) 10^3/u L Nucleated RBC % (a uto) 0 % Nucleated RBCs # 0.0 /100WBC Sodium 142 (136-145) mmol/L Potassium 4.1 (3.5-5.1) mmol/L Chloride 103 (98-107) mmol/L Carbon Dioxide 29 (22-29) mmol/L Anion Gap 14.1 (5-19) BUN 43 H (6-20) mg/dL Creatinine 1.4 H (0.5-0.9) mg/dL GFR Calculation 40.3 L (90-130) mL/min Glucose 206 H (65-115) mg/dL Calculated Osmolal ity 311 H (285-295) mOsm/k g Calcium 8.6 (8.5-10.5) mg/dL Total Bilirubin 0.2 (0.15-1.2) mg/dL AST 18 (0-32) U/L ALT 27 (0-33) U/L Alkaline Phosphata se 109 H (35-105) IU/L Total Protein 6.2 L (6.6-8.7) g/dL Albumin 3.3 L (3.5-5.2) g/dL Globulin 2.9 (1.3-4.6) g/dL Lipase 88 H (13-60) U/L Urine Color Yellow (Yellow) Urine Appearance Sl cloudy A (CLEAR) Urine pH 5 (5-7) Ur Specific Gravit y 1.015 (1.005-1.030) Urine Protein 2+ H (Negative) Urine Glucose (UA) Norm (Normal) Urine Ketones Negative (Negative) Urine Blood Neg (Negative) Urine Nitrate Negative (Negative) Urine Bilirubin Neg (Negative) Urine Urobilinogen Norm (Negative) mg/dL Ur Leukocyte [place] ase Negative (Negative) Urine RBC 0-4 H (0-2) /hpf Urine WBC 0-4 H (0-5) /hpf Ur Squamous Epith Cells 15-25 H (0-5) /hpf Amorphous Sediment Not Reportable Urine Bacteria 2+ H (NONE) /hpf Imaging Data ^: CT Abd/Pel: Attestation: I personally reviewed and interpreted this imaging study as follows: Radiologist's impression: [address] [address] [address] Scan Report Signed Patient: Ivon Larios Unit #: [id number] : 1975 Age/Sex: 45 / F ADM Date: 03/03/21 Loc: ER Room/Bed: Attending Dr: Ordering Provider/Ordering MD: Ramón Garcia MD Date of Service: 03/03/21 Procedure(s): CT kidney stone [id number] Accession Number(s): [id number] Report Number: [id number] PROCEDURE INFORMATION: Exam: CT Abdomen And Pelvis Without Contrast Exam date and time: 03/03/2021 10:21 PM Age: 45 years old Clinical indication: Abdominal pain; Right; Prior surgery; Surgery date: 6+ months; Surgery type: Gb, hyst; Patient HX: C/O R flank pain w HX of stones; Additional info: Abd pain TECHNIQUE: Imaging protocol: Computed tomography of the abdomen and pelvis without contrast. Radiation optimization: All CT scans at this facility use at least one of these dose optimization techniques: automated exposure control; mA and/or kV adjustment per patient size (includes targeted exams where dose is matched to clinical indication); or iterative reconstruction. COMPARISON: CT kidney stone [id number] 08/30/2020 12:05 AM RADIATION DOSE METRICS: Total DLP (mGy-cm): 1753.11 FINDINGS: Lungs: The lung bases are clear. No effusion Liver: Normal. No mass. Gallbladder and bile ducts: There has been a cholecystectomy. Pancreas: Normal. No ductal dilation. Spleen: Normal. No splenomegaly. Adrenal glands: Normal. No mass. Kidneys and ureters: Multiple nonobstructing left renal pelvis stones, largest is 8 mm. kidney which are too small to accurately characterize by CT. Stomach and bowel: Mild amount of formed stool in the colon. Appendix: No evidence of appendicitis. Intraperitoneal space: Unremarkable. No free air. No significant fluid collection. Vasculature: Unremarkable. No abdominal aortic aneurysm. Lymph nodes: Unremarkable. No enlarged lymph nodes. Urinary bladder: Unremarkable as visualized. Reproductive: There has been a hysterectomy. Bones/joints: Unremarkable. No acute fracture. Soft tissues: Unremarkable. Other findings: There is a subcentimeter low-attenuation lesions/lesions, of the right CT/CT kidney stone [id number] IMPRESSION: 1. Multiple nonobstructing left renal pelvis stones, largest is 8 mm. 2. Multiple nonobstructing right renal pelvis stones, largest is 6 mm. 3. Mild constipation. Discharge Plan Discharge Patient Disposition: Home Clinical Impression: Flank pain Condition: Stable Prescriptions: New Naprosyn 500 mg tablet 500 mg PO BID PRN (Reason: pain) Qty: 20 RF: 0 No Action furosemide 40 mg tablet 40 mg PO DAILY RF: 0 lisinopril 20 mg tablet 20 mg PO BID RF: 0 metoprolol tartrate 25 mg tablet 25 mg PO BID RF: 0 venlafaxine 75 mg capsule,extended release 24hr 75 mg PO QAM RF: 0 amitriptyline 25 mg tablet 25 mg PO .at bedtime RF: 0 clonidine HCl 0.1 mg tablet 0.1 mg PO DAILY PRNRF: 0 (DME) wheelchair See Rx Instructions .Route .MEDSUPPLY Qty: 1 RF: 0 (DME) pen needle, diabetic [Comfort EZ Pen [place]] 31 gauge x 5/16 needle See Rx Instructions .ROUTE .MEDSUPPLY Qty: 200 RF: 5 Levemir FlexTouch U-100 Insuln 100 unit/mL (3 mL) insulin pen See Rx Instructions SUBCUT DAILY Qty: 15 RF: 0 insulin aspart U-100 [Novolog Flexpen U-100 Insulin] 100 unit/mL (3 mL) insulin pen See Rx Instructions SUBCUT TID Qty: 15 RF: 0 atorvastatin 40 mg Tablet 40 mg PO QAM RF: 0 venlafaxine [Effexor XR] 150 mg Capsule,Extended Release 24hr 150 mg PO QAM RF: 0 clopidogrel [Plavix] 75 mg Tablet 75 mg PO DAILY RF: 0 aspirin 81 mg Tablet,Delayed Release (Dr/Ec) 81 mg PO QAM RF: 0 meclizine 25 mg Tablet 25 mg PO TID PRN (Reason: Dizziness) RF: 0 pantoprazole 40 mg Tablet,Delayed Release (Dr/Ec) 40 mg PO QAM RF: 0 ropinirole 0.5 mg Tablet 0.5 mg PO QAM RF: 0 brimonidine 0.2 % Drops 1 drp ophthalmic (eye) BID RF: 0 levetiracetam [Keppra] 1,000 mg Tablet 1,000 mg PO BID RF: 0 Victoza 3-Ramin 0.6 mg/0.1 mL (18 mg/3 mL) Pen Injector 1.2 mg SUBCUT QAM RF: 0 Dorzolamide Hcl/Timolol Maleat 1 drp ophthalmic (eye) BID RF: 0 Zofran 4 mg Tablet 4 mg PO Q6H PRN (Reason: Nausea) RF: 0 tizanidine 2 mg Capsule 2 mg PO TID PRN (Reason: Muscle Pain) RF: 0 tamsulosin [Flomax] 0.4 mg capsule 0.4 mg PO QAM RF: 0 temazepam 15 mg Capsule 15 mg PO BEDTIME RF: 0 hydrocodone-acetaminophen [[place]] 7.5-325 mg Tablet 1 tab PO Q4H PRN (Reason: Pain) RF: 0 gabapentin 100 mg Capsule See Rx Instructions .ROUTE .COMPLEX RF: 0 aripiprazole [Abilify] 5 mg Tablet 5 mg PO BEDTIME RF: 0 cholecalciferol (vitamin D3) [Vitamin D3] 50 mcg (2,000 unit) Capsule 2,000 unit PO DAILY RF: 0 Discharge Orders: Discharge ED (Routine); Ordered 03/04/21 Ordered By: Ramón Garcia Referrals: Shefali Russo DO [Primary Care Provider] - 1-3 days Discharge Diet: Advance as tolerated Discharge Activity: Resume usual activity Patient Instructions: Abdominal Pain (ED), Opioid Safety Coding Level of Care Code ED Database Tester for Ashley Hess
[2021-03-03 22:10] VITALS: BP 132/94; PULSE 58; RESP 16; TEMP 36.4; O2SAT 100; BMI 35.9
[2021-03-03 22:28] LABS: Basophils # 0.1 10^3/uL (0.0-0.1); Basophils % 0.7 %; Eosinophils # 0.2 10^3/uL (0.0-0.8); Eosinophils % 2.6 %; Hematocrit 31.9 % (37.0-47.0); Hemoglobin 10.1 g/dL (11.5-15.3); Lymphocytes % 44.9 %; Mean Corpuscular HGB Conc 31.7 g/dL (30.0-36.0); Mean Corpuscular Hemoglobin 25.8 pg (28.0-34.0); Mean Corpuscular Volume 81.4 fL (81-99); Mean Platelet Volume 11.5 fL (7.4-10.4); Monocytes # 0.7 10^3/uL (0.2-0.9); Monocytes % 8.3 %; Neutrophils # 3.84 10^3/uL (1.8-7.7); Neutrophils % 43.1 %; Nucleated Red Blood Cells % 0 %; Platelet Count 329 10^3/cmm (130-400); Red Blood Count 3.92 10^6/uL (4.1-5.3); Red Cell Distribution Width 13.2 % (12.1-15.1); White Blood Count 8.9 10^3/uL (4.0-10.0)
[2021-03-03 22:58] LABS: Alanine Aminotransferase 27 U/L (0-33); Albumin Level 3.3 g/dL (3.5-5.2); Alkaline Phosphatase 109 IU/L (35-105); Anion Gap 14.1 (5-19); Aspartate Amino Transferase 18 U/L (0-32); Blood Urea Nitrogen 43 mg/dL (6-20); Calcium 8.6 mg/dL (8.5-10.5); Carbon Dioxide 29 mmol/L (22-29); Chloride 103 mmol/L (98-107); Globulin 2.9 g/dL (1.3-4.6); Glomerular Filtration Rate 40.3 mL/min (90-130); Glucose 206 mg/dL (65-115); Lipase 88 U/L (13-60); Osmolality Calculated 311 mOsm/kg (285-295); Potassium 4.1 mmol/L (3.5-5.1); Sodium 142 mmol/L (136-145); Total Bilirubin 0.2 mg/dL (0.15-1.2); Total Protein 6.2 g/dL (6.6-8.7)
[2021-03-04 00:01] VITALS: RESP 16; O2SAT 98
[2021-03-04] MEDS: HYDROmorphone 1 mg/mL INJ 1 mL 0.5 MG IVP (00:01)
[2021-03-04 00:06] VITALS: BP 145/96; PULSE 56; RESP 16; O2SAT 98
[2021-03-04 00:06] LABS: Add Urine Microscopic? YES; Bilirubin Urine Neg (Negative); Blood Urine Neg (Negative); Glucose Urine UA Norm (Normal); Ketones Urine Negative (Negative); Leukocyte Esterase Urine Negative (Negative); Nitrate Urine Negative (Negative); Protein Urine 2+ (Negative); Specific Gravity, Urine 1.015 (1.005-1.030); Urine Color Yellow (Yellow); Urobilinogen Urine Norm (Negative); pH Urine 5 (5-7)
[2021-03-04 00:07] LABS: Add Urine Culture? No; Bacteria Urine 2+ /hpf; RBC Urine 0-4 /hpf (0-2); Squamous Epithelial Cell Urine 15-25 /hpf (0-5); WBC Urine 0-4 /hpf (0-5)
[2021-03-04 00:49] VITALS: BP 119/79; RESP 18; O2SAT 96
[2021-03-04 01:02] VITALS: BP 119/78; PULSE 56; RESP 16; O2SAT 96
== END 2021-03-04 02:05 | disposition home or self-care (01) ==
PROVIDERS: Emergency Provider Emergency Medicine; PCP Family Medicine
DX: R10.9 Unspecified abdominal pain (principal); Z87.442 Personal history of urinary calculi; E78.5 Hyperlipidemia, unspecified; Z72.0 Tobacco use; I12.9 Hypertensive chronic kidney disease with stage 1 through stage 4 chronic kidney disease, or unspecified chronic kidney disease; E11.22 Type 2 diabetes mellitus with diabetic chronic kidney disease; N18.31 Chronic kidney disease, stage 3a; Z79.4 Long term (current) use of insulin; Z79.899 Other long term (current) drug therapy; Z86.73 Personal history of transient ischemic attack (TIA), and cerebral infarction without residual deficits; Z79.82 Long term (current) use of aspirin
CPT/HCPCS: 74176; 80053; 81001; 81003; 83690; 85025; 96374; 99283; J1170

== ENCOUNTER 2021-03-13 03:22 | Emergency (ER) | payer MEDICAID, SELFPAY ==
[2021-03-13] VITALS (7 sets, daily range): BP systolic 145–195; BP diastolic 79–108; PULSE 78–88; RESP 12–18; TEMP 36.4; O2SAT 94–99; BMI 36.8
--- NOTE | 2021-03-13 03:26 | CTR_ITS ---
PROCEDURE INFORMATION: Exam: CT Abdomen And Pelvis Without Contrast Exam date and time: 03/13/2021 3:28 AM Age: 45 years old Clinical indication: Other: Bilat flank; Prior surgery; Surgery type: Gb. Hysterectomy; Patient HX: Bilateral flank pain. History of bilateral renal pelvis stones. ; Additional info: L flamk pain TECHNIQUE: Imaging protocol: Computed tomography of the abdomen and pelvis without contrast. Radiation optimization: All CT scans at this facility use at least one of these dose optimization techniques: automated exposure control; mA and/or kV adjustment per patient size (includes targeted exams where dose is matched to clinical indication); or iterative reconstruction. COMPARISON: CT kidney stone [id number] 03/03/2021 10:26 PM RADIATION DOSE METRICS: Total DLP (mGy-cm): 1828.94 FINDINGS: Liver: Normal. No mass. Gallbladder and bile ducts: The gallbladder is surgically absent. No ductal dilation. Pancreas: Normal. No ductal dilation. Spleen: Normal. No splenomegaly. Adrenal glands: Normal. No mass. Kidneys and ureters: Bilateral multiple small non-obstructing intrarenal stones are seen. No hydronephrosis. A small presumed cyst is seen in the right kidney, unchanged Stomach and bowel: Unremarkable. No obstruction. No mucosal thickening. Appendix: No evidence of appendicitis. Intraperitoneal space: Unremarkable. No free air. No significant fluid collection. Vasculature: Left gonadal vein calcifications are present. No abdominal aortic aneurysm. Lymph nodes: Unremarkable. No enlarged lymph nodes. Urinary bladder: Unremarkable as visualized. Reproductive: Unremarkable as visualized. Bones/joints: Unremarkable. No acute fracture. Soft tissues: Unremarkable. CT/CT kidney stone [id number] IMPRESSION: 1. Bilateral nonobstructing intrarenal stones are seen. No significant change since previous exam. 2. The gallbladder is surgically absent. 3. The uterus is surgically absent. Radiation Dose CTDIVOL = (mGy): DLP = 1828.94 (mGy-cm)
--- NOTE | 2021-03-13 03:28 | W.ED.ABDPA2 ---
HPI - Abdominal Pain General: Chief Complaint: Urogenital-Female Stated Complaint: poss kidney stones Time Seen by Provider: 03/13/21 03:26 Source: patient and EMS Mode of arrival: EMS Limitations: no limitations History of Present Illness: HPI narrative: 45-year-old female with a history of kidney stones here from [facility] complaining of left flank pain. States her pain started suddenly couple hours ago and is an 7 out of 10 currently. She denies any worse or improving factors. Denies any radiation of pain. Denies any vomiting. MD elicited complaint: flank pain Pertinent past history: kidney stones Onset (ago): hour(s) Pain Consistency: constant Location: L flank Severity: moderate Quality: stabbing Radiation: none Migration to: no migration Exacerbating factors: nothing Relieving factors: nothing Associated Symptoms: Denies chills, diarrhea, fever(s), nausea and vomiting Review of Systems Const: Denies: fever(s), chills, body aches or change in appetite Eyes: Denies: blurry vision or eye discomfort ENMT: Denies: throat pain or dental pain Card: Denies: chest pain Resp: Denies: dyspnea GI: Denies: abdominal pain, nausea, vomiting or diarrhea : Reports: flank pain Musc: Denies: neck pain or back pain Skin/Breast: Denies: rash Neuro: Denies: headache(s) Psych: Denies: depression [place]/Lymph: Denies: easy bruising All/Imm: Denies: urticaria PFSH ED PFSH: Medical History Adjustment disorder with mixed disturbance of emotions and conduct BPV (benign positional vertigo) Chronic back pain Chronic migraine without aura, intractable, with status migrainosus Depression Diabetic retinopathy Diastolic CHF Dyslipidemia Essential hypertension High risk medication use History of 2019 novel coronavirus disease (COVID-19) Insomnia Muscle spasm PTSD (post-traumatic stress disorder) Renal stones Rotator cuff injury Seasonal allergies Stage 3a chronic kidney disease Stroke Suicide attempt by multiple drug overdose TIA (transient ischemic attack) Type 2 diabetes mellitus, with long-term current use of insulin Vasculitis Surgical History H/O brain surgery H/O tubal ligation H/O: hysterectomy History of cholecystectomy History of tonsillectomy Family History Other CAD (coronary artery disease) Cancer Diabetes Hypertension Denies family history of Stroke Social History Smoking and tobacco status: smoker, details unknown smokeless tobacco Smokeless tobacco user: chewing tobacco Alcohol intake: never Household members: family Housing: House History of recent travel: No Physical Exam Const: COMMON NORMALS: no acute distress, patient oriented x3 and healthy appearing HENMT: COMMON NORMALS: normocephalic and atraumatic HEAD & SCALP: normocephalic and atraumatic Eye: COMMON NORMALS: Equal, round and reactive pupils present and EOMs intact bilaterally PUPIL: Yes Equal, round and reactive pupils present Neck/C-Spine: COMMON NORMALS: full ROM and supple Chest: COMMONS NORMALS: normal inspection of the chest and normal palpation of entire chest wall Resp: COMMON NORMALS: normal respiratory effort, No retractions, No use of accessory muscles and clear to auscultation bilaterally AUSCULTATION: clear to auscultation bilaterally Cardio: COMMON NORMALS: regular rate, regular rhythm and No murmurs present (Cardio) RATE: regular rate RHYTHM: regular rhythm GI: COMMON NORMALS: Normal to inspection, nondistended, normoactive bowel sounds present, Soft to palpation, non-tender and no masses PALPATION: Yes Soft to palpation Extremity: COMMON NORMALS: normal to inspection and full ROM Neuro: COMMON NORMALS: patient oriented x3, moves all extremities and no focal motor deficits Psych: COMMON NORMALS: mental status grossly normal, Normal thought process present and cooperative THOUGHT PROCESS: Normal thought process present Skin: COMMON NORMALS: no rashes or lesions noted and no wounds GENERAL SKIN EXAM: no rashes or lesions noted Course Vital Signs: Vital signs: Vital Signs Temperature 97.6 F 03/13/21 03:32 Pulse Rate 83 03/13/21 04:47 Respiratory Rate 14 03/13/21 04:47 Blood Pressure 173/94 03/13/21 04:47 Pulse Oximetry 94 03/13/21 04:47 MDM - Abdominal Pain MDM Narrative: Medical decision making narrative: Patient presents here with flank pain. She does have kidney stones but no obstructing stones. Her blood work and urinalysis here are normal as well. She is stable for discharge. She is to follow-up with her PCP and return for worsening. Abdominal exam at discharge is benign. Lab Data: Labs: Lab Results 03/13/21 03/13/21 03/13/21 Range/Units 03:53 03:53 04:30 WBC 10.9 H (4.0-10.0) 10^3/ uL RBC 4.22 (4.1-5.3) 10^6/u L Hgb 10.8 L (11.5-15.3) g/dL Hct 34.0 L (37.0-47.0) % MCV 80.6 L (81-99) fL MCH 25.6 L (28.0-34.0) pg MCHC 31.8 (30.0-36.0) g/dL RDW 13.1 (12.1-15.1) % Plt Count 396 (130-400) 10^3/c mm MPV 10.9 H (7.4-10.4) fL Neut % (Auto) 57.2 % Lymph % (Auto) 32.0 % [place] % (Auto) 7.7 % Eos % (Auto) 2.1 % Baso % (Auto) 0.5 % Neut # (Auto) 6.23 (1.8-7.7) 10^3/u L Lymph # (Auto) 3.5 (0.8-4.8) 10^3/u L [place] # (Auto) 0.8 (0.2-0.9) 10^3/u L Eos # (Auto) 0.2 (0.0-0.8) 10^3/u L Baso # (Auto) 0.1 (0.0-0.1) 10^3/u L Nucleated RBC % (a uto) 0 % Nucleated RBCs # 0.0 /100WBC Sodium 139 (136-145) mmol/L Potassium 3.7 (3.5-5.1) mmol/L Chloride 101 (98-107) mmol/L Carbon Dioxide 29 (22-29) mmol/L Anion Gap 12.7 (5-19) BUN 24 H (6-20) mg/dL Creatinine 1.1 H (0.5-0.9) mg/dL GFR Calculation 53.2 L (90-130) mL/min Glucose 128 H (65-115) mg/dL Calculated Osmolal ity 294 (285-295) mOsm/k g Calcium 9.0 (8.5-10.5) mg/dL Total Bilirubin 0.4 (0.15-1.2) mg/dL AST 18 (0-32) U/L ALT 22 (0-33) U/L Alkaline Phosphata se 122 H (35-105) IU/L Total Protein 6.4 L (6.6-8.7) g/dL Albumin 3.6 (3.5-5.2) g/dL Globulin 2.8 (1.3-4.6) g/dL Lipase 65 H (13-60) U/L Urine Color Yellow (Yellow) Urine Appearance Clear (CLEAR) Urine pH 5 (5-7) Ur Specific Gravit y 1.020 (1.005-1.030) Urine Protein 3+ H (Negative) Urine Glucose (UA) Norm (Normal) Urine Ketones Negative (Negative) Urine Blood Neg (Negative) Urine Nitrate Negative (Negative) Urine Bilirubin Neg (Negative) Urine Urobilinogen Norm (Negative) mg/dL Ur Leukocyte [place] ase Negative (Negative) Urine RBC 0-4 H (0-2) /hpf Urine WBC 0-4 H (0-5) /hpf Ur Squamous Epith Cells 0-4 H (0-5) /hpf Amorphous Sediment Not Reportable Urine Bacteria None (NONE) /hpf Imaging Data ^: CT Abd/Pel: Attestation: I personally reviewed and interpreted this imaging study as follows: Radiologist's impression: jez Signed Date/Time: 03/13/21451 DD/ [address] [address] [address] Scan Report Signed Patient: Ivon Larios Unit #: [id number] : 1975 Age/Sex: 45 / F ADM Date: 03/13/21 Loc: ER Room/Bed: Attending Dr: Ordering Provider/Ordering MD: Ramón Garcia MD Date of Service: 03/13/21 Procedure(s): CT kidney stone [id number] Accession Number(s): [id number] Report Number: [id number] PROCEDURE INFORMATION: Exam: CT Abdomen And Pelvis Without Contrast Exam date and time: 03/13/2021 3:28 AM Age: 45 years old Clinical indication: Other: Bilat flank; Prior surgery; Surgery type: Gb. Hysterectomy; Patient HX: Bilateral flank pain. History of bilateral renal pelvis stones. ; Additional info: L flamk pain TECHNIQUE: Imaging protocol: Computed tomography of the abdomen and pelvis without contrast. Radiation optimization: All CT scans at this facility use at least one of these dose optimization techniques: automated exposure control; mA and/or kV adjustment per patient size (includes targeted exams where dose is matched to clinical indication); or iterative reconstruction. COMPARISON: CT kidney stone [id number] 03/03/2021 10:26 PM RADIATION DOSE METRICS: Total DLP (mGy-cm): 1828.94 FINDINGS: Liver: Normal. No mass. Gallbladder and bile ducts: The gallbladder is surgically absent. No ductal dilation. Pancreas: Normal. No ductal dilation. Spleen: Normal. No splenomegaly. Adrenal glands: Normal. No mass. Kidneys and ureters: Bilateral multiple small non-obstructing intrarenal stones are seen. No hydronephrosis. A small presumed cyst is seen in the right kidney, unchanged Stomach and bowel: Unremarkable. No obstruction. No mucosal thickening. Appendix: No evidence of appendicitis. Intraperitoneal space: Unremarkable. No free air. No significant fluid collection. Vasculature: Left gonadal vein calcifications are present. No abdominal aortic aneurysm. Lymph nodes: Unremarkable. No enlarged lymph nodes. Urinary bladder: Unremarkable as visualized. Reproductive: Unremarkable as visualized. Bones/joints: Unremarkable. No acute fracture. Soft tissues: Unremarkable. CT/CT kidney stone [id number] IMPRESSION: 1. Bilateral nonobstructing intrarenal stones are seen. No significant change since previous exam. 2. The gallbladder is surgically absent. 3. The uterus is surgically absent. Discharge Plan Discharge Patient Disposition: Home Clinical Impression: Acute flank pain Condition: Stable Prescriptions: No Action furosemide 40 mg tablet 40 mg PO DAILY RF: 0 lisinopril 20 mg tablet 20 mg PO BID RF: 0 metoprolol tartrate 25 mg tablet 25 mg PO BID RF: 0 venlafaxine 75 mg capsule,extended release 24hr 75 mg PO QAM RF: 0 amitriptyline 25 mg tablet 25 mg PO .at bedtime RF: 0 clonidine HCl 0.1 mg tablet 0.1 mg PO DAILY PRNRF: 0 (DME) wheelchair See Rx Instructions .Route .MEDSUPPLY Qty: 1 RF: 0 (DME) pen needle, diabetic [Comfort EZ Pen [place]] 31 gauge x 5/16 needle See Rx Instructions .ROUTE .MEDSUPPLY Qty: 200 RF: 5 Levemir FlexTouch U-100 Insuln 100 unit/mL (3 mL) insulin pen See Rx Instructions SUBCUT DAILY Qty: 15 RF: 0 insulin aspart U-100 [Novolog Flexpen U-100 Insulin] 100 unit/mL (3 mL) insulin pen See Rx Instructions SUBCUT TID Qty: 15 RF: 0 atorvastatin 40 mg Tablet 40 mg PO QAM RF: 0 venlafaxine [Effexor XR] 150 mg Capsule,Extended Release 24hr 150 mg PO QAM RF: 0 clopidogrel [Plavix] 75 mg Tablet 75 mg PO DAILY RF: 0 aspirin 81 mg Tablet,Delayed Release (Dr/Ec) 81 mg PO QAM RF: 0 meclizine 25 mg Tablet 25 mg PO TID PRN (Reason: Dizziness) RF: 0 pantoprazole 40 mg Tablet,Delayed Release (Dr/Ec) 40 mg PO QAM RF: 0 ropinirole 0.5 mg Tablet 0.5 mg PO QAM RF: 0 brimonidine 0.2 % Drops 1 drp ophthalmic (eye) BID RF: 0 levetiracetam [Keppra] 1,000 mg Tablet 1,000 mg PO BID RF: 0 Victoza 3-Ramin 0.6 mg/0.1 mL (18 mg/3 mL) Pen Injector 1.2 mg SUBCUT QAM RF: 0 Dorzolamide Hcl/Timolol Maleat 1 drp ophthalmic (eye) BID RF: 0 Zofran 4 mg Tablet 4 mg PO Q6H PRN (Reason: Nausea) RF: 0 tizanidine 2 mg Capsule 2 mg PO TID PRN (Reason: Muscle Pain) RF: 0 Naprosyn 500 mg tablet 500 mg PO BID PRN (Reason: pain) Qty: 20 RF: 0 tamsulosin [Flomax] 0.4 mg capsule 0.4 mg PO QAM RF: 0 temazepam 15 mg Capsule 15 mg PO BEDTIME RF: 0 hydrocodone-acetaminophen [[place]] 7.5-325 mg Tablet 1 tab PO Q4H PRN (Reason: Pain) RF: 0 gabapentin 100 mg Capsule See Rx Instructions .ROUTE .COMPLEX RF: 0 aripiprazole [Abilify] 5 mg Tablet 5 mg PO BEDTIME RF: 0 cholecalciferol (vitamin D3) [Vitamin D3] 50 mcg (2,000 unit) Capsule 2,000 unit PO DAILY RF: 0 Discharge Orders: Discharge ED (Routine); Ordered 03/13/21 Ordered By: Ramón Garcia Referrals: Shefali Russo DO [Primary Care Provider] - 1-3 days Discharge Diet: Advance as tolerated Discharge Activity: Resume usual activity Patient Instructions: Abdominal Pain (ED) Coding Level of Care Code ED Manager Radiation for [place] Fwd Exam Comprehensive
[2021-03-13] MEDS: sodium chloride 0.9% 1,000 ML 999 ML IV (03:49)
[2021-03-13] MEDS: ondansetron 2 mg/ML SDV 2 mL 4 MG IVP (03:49)
[2021-03-13] MEDS: HYDROmorphone 1 mg/mL INJ 1 mL IVP ×2 (03:50→04:44)
[2021-03-13 04:01] LABS: Basophils # 0.1 10^3/uL (0.0-0.1); Basophils % 0.5 %; Eosinophils # 0.2 10^3/uL (0.0-0.8); Eosinophils % 2.1 %; Hemoglobin 10.8 g/dL (11.5-15.3); Lymphocytes # 3.5 10^3/uL (0.8-4.8); Mean Corpuscular HGB Conc 31.8 g/dL (30.0-36.0); Mean Corpuscular Hemoglobin 25.6 pg (28.0-34.0); Mean Corpuscular Volume 80.6 fL (81-99); Mean Platelet Volume 10.9 fL (7.4-10.4); Monocytes # 0.8 10^3/uL (0.2-0.9); Monocytes % 7.7 %; Neutrophils # 6.23 10^3/uL (1.8-7.7); Neutrophils % 57.2 %; Nucleated Red Blood Cells % 0 %; Platelet Count 396 10^3/cmm (130-400); Red Blood Count 4.22 10^6/uL (4.1-5.3); Red Cell Distribution Width 13.1 % (12.1-15.1); White Blood Count 10.9 10^3/uL (4.0-10.0)
[2021-03-13 04:15] LABS: Alanine Aminotransferase 22 U/L (0-33); Albumin Level 3.6 g/dL (3.5-5.2); Alkaline Phosphatase 122 IU/L (35-105); Anion Gap 12.7 (5-19); Aspartate Amino Transferase 18 U/L (0-32); Blood Urea Nitrogen 24 mg/dL (6-20); Carbon Dioxide 29 mmol/L (22-29); Chloride 101 mmol/L (98-107); Globulin 2.8 g/dL (1.3-4.6); Glomerular Filtration Rate 53.2 mL/min (90-130); Glucose 128 mg/dL (65-115); Lipase 65 U/L (13-60); Osmolality Calculated 294 mOsm/kg (285-295); Potassium 3.7 mmol/L (3.5-5.1); Sodium 139 mmol/L (136-145); Total Bilirubin 0.4 mg/dL (0.15-1.2); Total Protein 6.4 g/dL (6.6-8.7)
[2021-03-13] MEDS: labetalol 5 mg/mL SDV 20mL 10 MG IVP (04:37)
[2021-03-13 04:42] LABS: Add Urine Microscopic? YES; Bilirubin Urine Neg (Negative); Blood Urine Neg (Negative); Glucose Urine UA Norm (Normal); Ketones Urine Negative (Negative); Leukocyte Esterase Urine Negative (Negative); Nitrate Urine Negative (Negative); Protein Urine 3+ (Negative); Urine Appearance Clear (CLEAR); Urine Color Yellow (Yellow); Urobilinogen Urine Norm (Negative); pH Urine 5 (5-7)
[2021-03-13 04:44] LABS: Add Urine Culture? No; RBC Urine 0-4 /hpf (0-2); Squamous Epithelial Cell Urine 0-4 /hpf (0-5); WBC Urine 0-4 /hpf (0-5)
== END 2021-03-13 06:37 | disposition home or self-care (01) ==
PROVIDERS: Emergency Provider Emergency Medicine; PCP Family Medicine
DX: R10.9 Unspecified abdominal pain (principal); Z79.02 Long term (current) use of antithrombotics/antiplatelets; Z79.82 Long term (current) use of aspirin; Z79.4 Long term (current) use of insulin; E78.5 Hyperlipidemia, unspecified; I13.0 Hypertensive heart and chronic kidney disease with heart failure and stage 1 through stage 4 chronic kidney disease, or unspecified chronic kidney disease; E11.22 Type 2 diabetes mellitus with diabetic chronic kidney disease; N18.31 Chronic kidney disease, stage 3a; I50.30 Unspecified diastolic (congestive) heart failure; Z87.442 Personal history of urinary calculi; Z86.73 Personal history of transient ischemic attack (TIA), and cerebral infarction without residual deficits; F17.220 Nicotine dependence, chewing tobacco, uncomplicated
CPT/HCPCS: 74176; 80053; 81001; 83690; 85025; 96361; 96374; 96375; 96376; 99284; J1170; J2405; J3490; J7030

== ENCOUNTER 2021-03-22 09:55 | Outpatient (CLI) | payer MEDICAID, SELFPAY ==
--- NOTE | 2021-03-22 10:00 | XR_ITS ---
WS: [id number] KUB, AP view, 03/22/2021 Clinical Data: N20.0 - Calculus of kidney Comparison: KUB, 12/22/2018. Findings: No abnormal intraabdominal masses are seen. There is no dilatated small bowel or evidence of obstruct ion. There are bilateral renal calcifications which are obscured by overlying colon gas and stool. There a re clips in the right upper quadrant from a cholecystectomy. XR/XR KUB [id number] Impression: Small bilateral renal calculi unchanged.
== END 2021-03-22 09:56 | disposition home or self-care (01) ==
LOC: RAD 10:03
PROVIDERS: PCP Family Medicine; Visit Provider Urology
DX: N20.0 Calculus of kidney (principal)
CPT/HCPCS: 74018; 81003; 87086